=== PATIENT | male | born 1940 | race Caucasian/White ===

== ENCOUNTER 2016-08-10 05:46 | Day surgery (SDC) | payer MEDICARE, OTHER ==
[2016-08-07 14:10] VITALS: BMI 26.9
[2016-08-10] MEDS ORDERED: ASPIRIN 325 MG TAB PO STA (05:59)
[2016-08-10] MEDS ORDERED: ALPRAZolam 0.25 MG TAB PO PRN (05:59)
[2016-08-10] MEDS ORDERED: ATORVASTATIN 80 MG TAB PO STA (05:59)
[2016-08-10] MEDS ORDERED: SODIUM CHLORIDE 0.9% 1,000 ML in EMPTY BAG 1 BAG IV ONE (05:59)
[2016-08-10] MEDS ORDERED: NITROGLYCERIN SL TABS 0.4 MG TAB SUBLINGUAL PRN (05:59)
[2016-08-10] MEDS ORDERED: ALPRAZolam 0.5 MG TAB PO PRN (05:59)
[2016-08-10 06:25] VITALS: TEMP 97.7
[2016-08-10 06:53] LABS: Glucose,Whole Blood 125 mg/dL (75-99)
[2016-08-10] MEDS ORDERED: LIDOCAINE 2% INJ 20 MG/ML (20 ML MDV) ONE (07:16)
[2016-08-10] MEDS ORDERED: VERAPAMIL 2.5 MG/ML 2 ML AMP ONE (07:16)
[2016-08-10] MEDS ORDERED: fentaNYL (PF) 50 MCG/ML 2 ML AMP ONE (07:28)
[2016-08-10] MEDS ORDERED: fentaNYL (PF) 50 MCG/ML 2 ML AMP IV ONE (07:43)
[2016-08-10] MEDS ORDERED: LIDOCAINE 2% INJ 20 MG/ML SQ ONE (07:49)
[2016-08-10] MEDS ORDERED: VERAPAMIL SYRINGE (5 MG/10 ML) INTRAARTER ONE (07:51)
[2016-08-10] MEDS ORDERED: HEPARIN SODIUM 1,000 UNIT/ML VIAL ONE (07:52)
[2016-08-10] MEDS ORDERED: IOHEXOL 350 MG/ML 125ML BOTTLE INJ ONE (08:05)
[2016-08-10] MEDS ORDERED: RX INFO: IV CONTRAST WAS GIVEN 1 EACH MISC MISCELLANE PRN (08:25)
[2016-08-10] MEDS ORDERED: SODIUM CHLORIDE 0.9% 1,000 ML IV SCH (08:30)
[2016-08-10] MEDS ORDERED: ENALAPRIL MALEATE 20 MG PO SCH (09:00)
[2016-08-10] MEDS ORDERED: ISOSORBIDE MONONITRATE ER 30 MG TAB.ER.24H PO SCH (09:00)
[2016-08-10] MEDS ORDERED: ATORVASTATIN 40 MG TAB PO SCH (09:00)
[2016-08-10] MEDS ORDERED: ASPIRIN 81 MG CHEW PO SCH (09:00)
--- NOTE | 2016-08-10 09:19 | CC ---
DATE OF SERVICE: Mr. Teixeira is a 76-year-old male with known history of hypertension, diabetes mellitus, who since December has been having exertional chest discomfort. 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 The procedure as well as the risks and complications were discussed with the patient who is in full understanding and agreement. PROCEDURE: The patient was brought to the laboratory analyst in a fasting semi-sedated state after receiving fentanyl with Benadryl and achieving moderate conscious sedated state and using Xylocaine anesthesia and Seldinger technique, a 6 Finnish sheath was introduced in the right radial artery. Selective right and left coronary angiography was performed using 5 Finnish, 3-1/2 Bend right and left Azra catheters. Multiple views of the coronary arteries including hemiaxial views were obtained. Following that, a 5 Finnish tight pigtail catheter was introduced in the left ventricle, and a 30-degree CASTRO view of the left ventricle was obtained. Following that, catheter and sheath were removed. Hemostasis was obtained with deployment of a TR band. There was no immediate complication. The patient was returned to his room in stable condition. Of note, the patient received 5000 units of intravenous heparin as well as intra-arterial verapamil. FINDINGS: FLUOROSCOPY: There is calcification involving the left anterior descending artery and the proximal left circumflex. LEFT MAIN: This is a short-sized vessel bifurcating into the left circumflex and left anterior descending artery. Left main coronary artery has no evidence of high-grade stenosis. LEFT ANTERIOR DESCENDING ARTERY: This is a large-size vessel. The ostium of the left anterior descending artery has a 50% plaque. The mid LAD after takeoff of the septal community development specialist has a 99% stenosis. The rest of the vessel has mild intimal disease without any evidence of high-grade stenosis. LEFT CIRCUMFLEX: This is a nondominant vessel, large in caliber, giving rise to 2 obtuse marginal branches. The first obtuse marginal branch has mild intimal disease of 20% to 30%. The takeoff of the second obtuse marginal branch has a 95% stenosis. The rest of the vessel has no high-grade stenosis. RIGHT CORONARY ARTERY: This is a dominant vessel, moderate in caliber, giving rise distally to a PDA. The right coronary artery proximally has 2 tandem lesions up to 80%. The ( ) distal mid segment in the distal vessel there is intimal disease without any evidence of high-grade stenosis. LEFT VENTRICULOGRAM: The left ventriculogram was performed in 30-degree CASTRO view and revealed anteroapical hypokinesis. The ejection fraction was 45%. There was no significant mitral regurgitation. HEMODYNAMICS: There was no gradient across the aortic valve. The left ventricular end-diastolic pressure was 16 mmHg. CONCLUSION: 1. Calcified left anterior descending artery and proximal left circumflex. 2. Severe triple vessel coronary artery disease. 3. Mildly impaired left ventricular systolic function. RECOMMENDATIONS: In view of finding anatomy, I recommend to proceed with coronary artery bypass grafting, especially with the history of diabetes mellitus and the triple vessel coronary artery disease. Those findings and recommendations were discussed with the patient and his family and are in full understanding and agreement. Time of duration is 22 minutes.
--- NOTE | 2016-08-10 09:21 | LTR ---
August 10, 2016 FRANCINE MILLER MD RE: Ciro Teixeira Dear Dr. Miller: I had the opportunity to perform cardiac catheterization on Mr. Teixeira at [facility] on the july and a full copy of the procedure note will be forwarded to you. In brief, he was found to have severe triple vessel coronary artery disease with a preserved left ventricular size and systolic function. Based on those findings, I have recommended proceeding with evaluation for coronary artery bypass grafting. I will keep you up dated on his progress and thank you gain for allowing me the opportunity to participate in his care. Please feel free to call for any questions. Sincerely yours, DOT KHAN MD
[2016-08-10] MEDS ORDERED: MD COMMUNICATION TO PHARMACY 1 EACH MISC PO ONE ×4 (10:39)
[2016-08-10 10:43] LABS: Appearance,Urine Clear (Clear); Bilirubin,Urine Negative (Negative); Glucose,Urine (UA) Negative (Negative); Ketones,Urine Negative (Negative); Leukocyte Esterase,Urine Negative (Negative); Nitrite,Urine Negative (Negative); PH, Urine 5.5 (5.0-8.0); Protein,Urine Negative (Negative); UA Billing (MACRO vs. MICRO) CHEM; Urobilinogen,Urine <2.0 mg/dL (<2.0)
[2016-08-10 10:59] LABS: Basophils % (A) 1 %; CHCM 33.7; Eosinophils # (A) 0.1 k/uL (0-0.7); Eosinophils % (A) 2 %; HCT 46.1 % (39.0-53.0); HDW 2.86; HGB 15.4 gm/dL (13.0-17.5); Luc % (Auto) 2; Lymphocytes # (A) 1.2 k/uL (1.0-4.8); Lymphocytes % (A) 19 %; MCH 29.9 pg (25.0-35.0); MCHC 33.3 g/dL (31.0-37.0); MCV 89.6 fL (80.0-100.0); Mean Platelet Volume 9.5; Monocytes # (A) 0.3 k/uL (0-1.0); Monocytes % (A) 4 %; Neutrophils # (A) 4.5 k/uL (1.3-7.7); Neutrophils % (A) 72 %; RBC 5.15 m/uL (4.30-5.90); RDW 13.9 % (11.5-15.5); WBC 6.1 k/uL (3.8-10.6); WBC (Perox) 6.54
[2016-08-10 11:17] LABS: ALT 28 U/L (21-72); AST 15 U/L (17-59); Alkaline Phosphatase 66 U/L (38-126); Anion Gap 10 mmol/L; Bilirubin, Delta 0.3 mg/dL (0.0-0.2); Blood Urea Nitrogen 18 mg/dL (9-20); Calcium 8.9 mg/dL (8.4-10.2); Carbon Dioxide 26 mmol/L (22-30); Chloride 107 mmol/L (98-107); Glucose 166 mg/dL (74-99); Non-African American GFR(MDRD) >60 (>60 ml/min/1.73 sqM); Potassium 4.2 mmol/L (3.5-5.1); Sodium 143 mmol/L (137-145); Total Bilirubin 1.1 mg/dL (0.2-1.3); Total Protein 6.6 g/dL (6.3-8.2)
[2016-08-10 11:28] LABS: INR 1.1 (<1.1); Partial Thromboplastin Time 31.5 sec (22.0-30.0); Prothrombin Time 10.6 sec (9.0-12.0)
--- NOTE | 2016-08-10 11:50 | XR ---
EXAMINATION TYPE: XR chest 2V DATE OF EXAM: 08/10/2016 11:27 AM COMPARISON: 02/14/2013 INDICATION: Pre-CABG evaluation TECHNIQUE: Single frontal view of the chest is obtained. FINDINGS: The heart size is normal. The pulmonary vasculature is normal. The lungs are clear. IMPRESSION: 1. No acute pulmonary process.
[2016-08-10 12:23] VITALS: BP 109/65; PULSE 68; RESP 16
[2016-08-10 12:30] LABS: Cholesterol 144 mg/dL (<200); HDL Cholesterol 45 mg/dL (40-60); Magnesium 2.3 mg/dL (1.6-2.3); Triglycerides 110 mg/dL (<150)
[2016-08-10 13:20] LABS: Hepatitis C Virus IgG Index 0.01
[2016-08-10 13:47] LABS: Hepatitis C Virus IgG Ab Negative (Negative)
[2016-08-10 14:26] LABS: Hepatitis B Surface Ag Index 0.05
--- NOTE | 2016-08-10 14:29 | US ---
EXAMINATION TYPE: US carotid duplex BILAT DATE OF EXAM: 08/10/2016 10:29 AM COMPARISON: NONE CLINICAL HISTORY: pre-CABG. EXAM MEASUREMENTS: RIGHT: Peak Systolic Velocity (PSV) cm/sec ----- Right CCA: 65.3 ----- Right ICA: 68.0 ----- Right ECA: 82.7 ICA/CCA ratio: 1.0 RIGHT: End Diastole cm/sec ----- Right CCA: 7.8 ----- Right ICA: 20.9 ----- Right ECA: 0.0 LEFT: Peak Systolic Velocity (PSV) cm/sec ----- Left CCA: 79.1 ----- Left ICA: 72.3 ----- Left ECA: 99.5 ICA/CCA ratio: 0.9 LEFT: End Diastole cm/sec ----- Left CCA: 8.7 ----- Left ICA: 20.9 ----- Left ECA: 0.0 VERTEBRALS (direction of flow): Right Vertebral: Antegrade Left Vertebral: Antegrade No significant stenosis seen, no plaque seen, no elevated velocities. Mild intimal thickening present. Right carotid bulb IMPRESSION: No significant flow-limiting stenosis. Criteria for Assigning % of Stenosis / Diameter reduction (Estimation based on the indirect measurements of the internal carotid artery velocities (ICA PSV). 1. Normal (no stenosis)=ICA PSV < 125 cm/s: ratio < 2.0: ICA EDV<40 cm/s. 2. Less than 50% stenosis=ICA PSV < 125 cm/s: ratio < 2.0: ICA EDV<40 cm/s. 3. 50 to 69% stenosis=ICA PSV of 125 to 230 cm/s: ration 2.0 ? 4.0: ICA EDV 40-100 cm/s. 4. Greater than 70% stenosis to near occlusion= ICA PSV > 230 cm/s: ratio > 4.0: ICA EDV > 100 cm/s. 5. Near occlusion= ICA PSV velocities may be low or undetectable: variable ratio and ICA EDV. 6. Total occlusion=unable to detect flow.
[2016-08-10 14:32] LABS: Hepatitis B Core IgM Index 0.01
--- NOTE | 2016-08-10 16:06 | P.GSCN ---
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 He returns to the [place] on occasion. He states that he has been having chest pain on and off for several months now. He denies significant shortness of breath, radiation of the pain, fevers or chills. He saw his primary care physician on his most recent visit who referred him to Dr. Joel. A cardiac catheterization was performed today which revealed multivessel coronary artery disease. I was asked to evaluate him for treatment recommendations.. Review of Systems All systems: negative - Cardiovascular Reports chest pain Past Medical History Past Medical History: Cancer, Diabetes Mellitus, Hearing Disorder / Deafness, Hypertension, Prostate Disorder Additional Past Medical History / Comment(s): PROSTATE CA 2006. History of Any Multi-Drug Resistant Organisms: None Reported Past Surgical History: Appendectomy, Orthopedic Surgery, Prostate Surgery Additional Past Surgical History / Comment(s): Left upper extremity tendon repair. Past Anesthesia/Blood Transfusion Reactions: No Reported Reaction Past Psychological History: No Psychological Hx Reported Smoking Status: Former smoker Past Alcohol Use History: None Reported Additional Past Alcohol Use History / Comment(s): quit smoking age 26,started smoking at age 14. Past Drug Use History: None Reported - Past Family History Father Family Medical History: Cancer, Congestive Heart Failure (CHF) Additional Family Medical History / Comment(s): prostate Mother Family Medical History: Cancer Additional Family Medical History / Comment(s): breast Medications and Allergies Home Medications Medication Instructions Recorded Confirmed Type Aspirin 81 mg PO DAILY 09/10/14 08/10/16 History Enalapril Maleate [Vasotec] 20 mg PO DAILY 09/10/14 08/10/16 History glipiZIDE [Glucotrol] 5 mg PO AC-BID 09/10/14 08/10/16 History metFORMIN HCL [Glucophage] 500 mg PO BID 09/10/14 08/10/16 History Isosorbide Mononitrate ER [Imdur] 30 mg PO DAILY 08/10/16 08/10/16 History Allergies Allergy/AdvReac Type Severity Reaction Status Date / Time No Known Allergies Allergy Verified 08/07/16 14:04 Surgical - Exam Vital Signs Temp Pulse BP Pulse Ox 97.7 F 74 120/74 93 L 08/10/16 06:22 08/10/16 06:22 08/10/16 06:22 08/10/16 06:22 - General well developed, well nourished, no distress - Eyes normal ocular movement - Respiratory normal respiratory effort, clear to auscultation - Cardiovascular Rhythm: regular - Abdomen Abdomen: soft, non tender - Integumentary no rash - Neurologic normal coordination, normal sensation - Psychiatric oriented to time, oriented to person, oriented to place Results - Labs 08/10/16 10:46 08/10/16 10:46 Abnormal Lab Results - Last 24 Hours (Table) 08/10/16 08/10/16 08/10/16 Range/Units 06:27 10:25 10:35 APTT (22.0-30.0) sec Glucose (74-99) mg/dL POC Glucose (mg/dL) 125 H (75-99) mg/dL Hemoglobin A1c (4.2-6.1) % Delta Bilirubin (0.0-0.2) mg/dL AST (17-59) U/L Ur Specific [place] 1.050 H (1.001-1.035) Crossmatch See Detail 08/10/16 08/10/16 08/10/16 Range/Units 10:46 10:46 10:46 APTT 31.5 H (22.0-30.0) sec Glucose 166 H (74-99) mg/dL POC Glucose (mg/dL) (75-99) mg/dL Hemoglobin A1c 6.8 H (4.2-6.1) % Delta Bilirubin 0.3 H (0.0-0.2) mg/dL AST 15 L (17-59) U/L Ur Specific Pullman (1.001-1.035) Crossmatch Microbiology - Last 24 Hours (Table) 08/10/16 10:46 Nasal Screen MRSA/MSSA (SYDNEE) - Preliminary Nasal Swab 08/10/16 10:25 Urine Culture - Preliminary Urine,Voided Diabetes panel 08/10/16 08/10/16 Range/Units 10:46 10:46 Sodium 143 (137-145) mmol/L Potassium 4.2 (3.5-5.1) mmol/L Chloride 107 (98-107) mmol/L Carbon Dioxide 26 (22-30) mmol/L BUN 18 (9-20) mg/dL Creatinine 0.88 (0.66-1.25) mg/dL Glucose 166 H (74-99) mg/dL Hemoglobin A1c 6.8 H (4.2-6.1) % Calcium 8.9 (8.4-10.2) mg/dL AST 15 L (17-59) U/L ALT 28 (21-72) U/L Alkaline Phosphatase 66 (38-126) U/L Total Protein 6.6 (6.3-8.2) g/dL Albumin 4.1 (3.5-5.0) g/dL Triglycerides 110 (<150) mg/dL HDL Cholesterol 45 (40-60) mg/dL Thyroid panel 08/10/16 Range/Units 10:46 TSH 4.120 (0.465-4.680) mIU/L Calcium panel 08/10/16 Range/Units 10:46 Calcium 8.9 (8.4-10.2) mg/dL Albumin 4.1 (3.5-5.0) g/dL Pituitary panel 08/10/16 Range/Units 10:46 Sodium 143 (137-145) mmol/L Potassium 4.2 (3.5-5.1) mmol/L Chloride 107 (98-107) mmol/L Carbon Dioxide 26 (22-30) mmol/L BUN 18 (9-20) mg/dL Creatinine 0.88 (0.66-1.25) mg/dL Glucose 166 H (74-99) mg/dL Calcium 8.9 (8.4-10.2) mg/dL TSH 4.120 (0.465-4.680) mIU/L Adrenal panel 08/10/16 Range/Units 10:46 Sodium 143 (137-145) mmol/L Potassium 4.2 (3.5-5.1) mmol/L Chloride 107 (98-107) mmol/L Carbon Dioxide 26 (22-30) mmol/L BUN 18 (9-20) mg/dL Creatinine 0.88 (0.66-1.25) mg/dL Glucose 166 H (74-99) mg/dL Calcium 8.9 (8.4-10.2) mg/dL Total Bilirubin 1.1 (0.2-1.3) mg/dL AST 15 L (17-59) U/L ALT 28 (21-72) U/L Alkaline Phosphatase 66 (38-126) U/L Total Protein 6.6 (6.3-8.2) g/dL Albumin 4.1 (3.5-5.0) g/dL - Imaging Chest x-ray: image reviewed Assessment and Plan (1) Coronary artery disease Status: Acute Plan: The patient's cardiac catheterization was reviewed with Dr. Joel. He does appear to have targets suitable for bypass. A coronary artery bypass is recommended. The risks, benefits, and alternatives to this procedure were discussed with the patient and his . All of their questions were answered. At this point he has been having chest pain for several months but it appears to be stable. His cardiac catheterization does not reveal any unstable lesions. I do believe it is safe for him to be discharged home with plans for surgery next week. We will obtain the necessary preoperative workup this morning. Thank you for allowing me to participate in the care of this patient. Should you have any further questions please feel free to contact me at your earliest convenience. Time with Patient: Greater than 30
[2016-08-10] MEDS ORDERED: glipiZIDE 5 MG TAB PO SCH (17:30)
[2016-08-15] MEDS ORDERED: MANNITOL 25% 12.5 GM/50 ML VIAL IV ONE (05:00)
[2016-08-15] MEDS ORDERED: ceFAZolin 1,000 MG in SODIUM CHLORIDE 0.9% IRRIGATIO 1,000 ML IRRIGATION ONE (05:00)
[2016-08-15] MEDS ORDERED: HEPARIN SODIUM 1,000 UNIT/ML VIAL IV ONE (05:00)
[2016-08-15] MEDS ORDERED: CARDIOPLEGIC SOLN (K+ 16 MEQ/L 1,000 ML with SODIUM BICARB (1 MEQ/ML) 20 ML, LIDOCAINE ... PERFUSION NR ×3 (05:00)
[2016-08-15] MEDS ORDERED: CLEVIDIPINE BUTYRATE 25 MG in EMPTY BAG 1 BAG IV ONE (05:00)
[2016-08-15] MEDS ORDERED: PROTAMINE SULFATE 10 MG/ML 25 ML VIAL IV ONE (05:00)
[2016-08-15] MEDS ORDERED: PROTAMINE SULFATE 250 MG in EMPTY BAG 1 BAG IV ONE (05:00)
[2016-08-15] MEDS ORDERED: NITROGLYCERIN-D5W PMX 50 MG in DEXTROSE/WATER 1 250ML.BAG IV ONE (05:00)
[2016-08-15] MEDS ORDERED: INSULIN REGULAR 100 UNIT in SODIUM CHLORIDE 0.9% 100 ML IV ONE (05:00)
[2016-08-15] MEDS ORDERED: CALCIUM CHLORIDE 100 MG/ML 10 ML SYRINGE IVP ONE (05:00)
[2016-08-15] MEDS ORDERED: AMINOCAPROIC ACID 5,000 MG in DEXTROSE 5% IN WATER 50 ML IV ONE ×2 (05:00)
[2016-08-15] MEDS ORDERED: NOREPINEPHRIN 4 MG-0.9% NS PMX 4 MG/250 ML ML IV SCH (05:00)
[2016-08-15] MEDS ORDERED: METOPROLOL TARTRATE 12.5 MG TAB PO ONE (05:00)
[2016-08-15] MEDS ORDERED: ceFAZolin 2,000 MG in SODIUM CHLORIDE 0.9% 30 ML IVPB ONE (05:00)
[2016-08-15] MEDS ORDERED: MAGNESIUM SULFATE SYG 4.06 MEQ/ML SYRINGE IV ONE (05:00)
[2016-08-15] MEDS ORDERED: HEPARIN SODIUM,PORCINE 5,000 UNIT in SODIUM CHLORIDE 0.9% 500 ML IV ONE (05:00)
[2016-08-15] MEDS ORDERED: CHLORHEXIDINE GLUCONATE 15 ML CUP MUCOUS MEM ONE (05:00)
[2016-08-15] MEDS ORDERED: DEXTROSE 5% IN WATER 1,000 ML with POTASSIUM CHLORIDE 25 MEQ, SODIUM CHLORIDE 4MEQ/ML V... IV SCH ×6 (05:00)
[2016-08-15] MEDS ORDERED: ALBUMIN HUMAN 25% 50 ML in EMPTY BAG 1 BAG IVPB ONE (05:00)
[2016-08-15] MEDS ORDERED: ALBUMIN HUMAN 5% 500 ML in EMPTY BAG 1 BAG IVPB ONE ×6 (05:00)
[2016-08-15] MEDS ORDERED: DEXTROSE 5% IN WATER 1,000 ML with POTASSIUM CHLORIDE 110 MEQ, MAGNESIUM SULFATE 16 MEQ... IV SCH ×5 (05:00)
[2016-08-15] MEDS ORDERED: ceFAZolin 2 GM in SODIUM CHLORIDE 0.9% 30 ML IVPB ONE (05:00)
[2016-08-15] MEDS ORDERED: NITROGLYCERIN-D5W PMX 25 MG/250 ML BTL IV ONE (05:00)
[2016-08-15] MEDS ORDERED: ATORVASTATIN 10 MG TAB PO ONE (05:00)
[2016-08-15] MEDS ORDERED: PHENYLEPHRINE-0.9% NACL SYG 1 MG/10 ML SYRINGE IV ONE ×4 (05:00)
[2016-08-15] MEDS ORDERED: SODIUM BICARB 8.4% 50 ML SYR (1 MEQ/ML) IV ONE (05:00)
[2016-08-15] MEDS ORDERED: PROPOFOL 500 MG in EMPTY BAG 1 BAG IV ONE (05:00)
[2016-08-15] MEDS ORDERED: ASPIRIN 81 MG CHEW PO SCH (06:00)
--- NOTE | 2016-08-15 11:11 | P.VSCSTY ---
Greater Saphenous Vein Mapping This is bilateral lower extremity greater saphenous vein mapping. Date of service 08/10/2016 Vein quality and ultrasound appearance normal. Vein size groin right 7.4 x 7.6 groin left 7.6 x 7.4 High thigh right 6.2 x 6.6 high thigh left 8.2 x 5.8 Mid thigh right 5.4 x 5.6 mid thigh left 5.5 x 5.8 Above-knee right 5.0 x 4.8 above- knee left 5.9 x 5.4 Below knee right 3.1 x 2.9 below-knee left 5.6 x 5.3 Mid calf right 3.3 x 2.5 mid calf left 3.4 x 3.3 Ankle right 4.0 x 3.0 ankle left 4.4 x 3.8 Impression usable bilateral greater saphenous vein. Mid thigh to lower leg more size appropriate for coronaries..
== END 2016-08-10 13:11 | disposition home or self-care (01) ==
LOC: CATHCVL 05:46
PROVIDERS: ATTEND Internal Medicine Interventional Cardiology
DX: I25.110 Atherosclerotic heart disease of native coronary artery with unstable angina pectoris (principal); I10 Essential (primary) hypertension; Z87.891 Personal history of nicotine dependence; Z01.818 Encounter for other preprocedural examination; Z82.49 Family history of ischemic heart disease and other diseases of the circulatory system; E11.9 Type 2 diabetes mellitus without complications; Z79.84 Long term (current) use of oral hypoglycemic drugs
CPT/HCPCS: 94150; 93458; 83880; 80061; 80053; 80076; 80074; 84443; 83735; 84484; 85025; 85610; 85730; 81003; 87070; 87086; 71020; 93970; 93880; 99152; 99153; C1894; C1769; J2001; J3010; J1644; Q9967; 83036; 86850; 86900; 86901; 86920

== ENCOUNTER 2016-08-15 07:05 | Inpatient (IN) | payer MEDICARE ==
[2016-08-10 14:18] LABS: Hemoglobin A1C 6.8 % (4.2-6.1)
[2016-08-13 10:48] VITALS: BMI 26.9
[~2016-08-15 07:05] MED LIST: ALBUMIN HUMAN 25% 50 ML IV ONE; ALBUMIN HUMAN 5% 500 ML IVPB ONE; AMINOCAPROIC ACID 250 MG/ML 20 ML VIAL IV ONE; AMINOCAPROIC ACID 5,000 MG in DEXTROSE 5% IN WATER 50 ML IV ONE; ASPIRIN 325 MG TAB PO ONE; ATORVASTATIN 10 MG TAB PO ONE; CALCIUM CHLORIDE 100 MG/ML 10 ML SYRINGE IV ONE; CHLORHEXIDINE GLUCONATE 15 ML CUP MUCOUS MEM ONE; CLEVIDIPINE BUTYRATE 25 MG in EMPTY BAG 1 BAG IV ONE; DEXTROSE 5% IN WATER 1,000 ML with POTASSIUM CHLORIDE 110 MEQ, MAGNESIUM SULFATE 16 MEQ... IV ONE; DEXTROSE 5% IN WATER 1,000 ML with POTASSIUM CHLORIDE 25 MEQ, SODIUM CHLORIDE 4MEQ/ML V... IV ONE; DILTIAZEM 125 MG in SODIUM CHLORIDE 0.9% 100 ML IV ONE; HEPARIN SODIUM 1,000 UNIT/ML VIAL IV ONE; HEPARIN SODIUM,PORCINE 5,000 UNIT in SODIUM CHLORIDE 0.9% 500 ML IV ONE; INSULIN REGULAR 100 UNIT in SODIUM CHLORIDE 0.9% 100 ML IV ONE; LACTATED RINGERS 1,000 ML IV ONE; MAGNESIUM SULFATE MG 500 MG/ML VIAL IV ONE; MANNITOL 25% 12.5 GM/50 ML VIAL IV ONE; METOPROLOL TARTRATE 12.5 MG TAB PO ONE; MUPIROCIN 2% OINT 22 GM TUBE NASAL ONE; NITROGLYCERIN-D5W PMX 25 MG/250 ML BTL IV ONE; NITROGLYCERIN-D5W PMX 50 MG in DEXTROSE/WATER 1 250ML.BAG IV ONE; NOREPINEPHRIN 4 MG-0.9% NS PMX 4 MG/250 ML ML IV ONE; PHENYLEPHRINE 40 MG in SODIUM CHLORIDE 0.9% 250 ML IV ONE; PHENYLEPHRINE-0.9% NACL SYG 1 MG/10 ML SYRINGE IV ONE; PROPOFOL 50 ML IV ONE; PROTAMINE SULFATE 10 MG/ML 25 ML VIAL IV ONE; PROTAMINE SULFATE 250 MG in EMPTY BAG 1 BAG IV ONE; SODIUM BICARB 8.4% 50 ML SYR (1 MEQ/ML) IV ONE; SODIUM CHLORIDE 0.9% 1,000 ML IV ONE; ceFAZolin 1,000 MG in SODIUM CHLORIDE 0.9% IRRIGATIO 1,000 ML IRRIGATION ONE; ceFAZolin 2,000 MG in SODIUM CHLORIDE 0.9% 30 ML IVPB ONE
[2016-08-15 07:22] LABS: Glucose,Whole Blood 134 mg/dL (75-99)
[2016-08-15] MEDS ORDERED: PROTAMINE SULFATE 10 MG/ML 5 ML VIAL IV ONE (10:16)
[2016-08-15] MEDS ORDERED: MIDAZOLAM 2 MG/2 ML VIAL ONE (10:16)
[2016-08-15] MEDS ORDERED: PROTAMINE SULFATE 10 MG/ML 25 ML VIAL IV ONE (10:16)
[2016-08-15] MEDS ORDERED: PROPOFOL 10 MG/ML 20 ML VIAL IV ONE (10:16)
[2016-08-15] MEDS ORDERED: HEPARIN SODIUM,PORCINE 10,000 UNIT/ML 1 ML VIAL ONE (10:16)
[2016-08-15] MEDS ORDERED: SODIUM CHLORIDE 0.9% IRRIG 1,000 ML BTL IRRIGATION ONE (10:16)
[2016-08-15] MEDS ORDERED: ELECTROLYTE-R (PH 7.4) 1,000 ML IV.SOLN IV ONE (10:16)
[2016-08-15] MEDS ORDERED: fentaNYL (PF) 50 MCG/ML 50 ML VIAL ONE (10:16)
[2016-08-15] MEDS ORDERED: CALCIUM CHLORIDE 100 MG/ML 10 ML SYRINGE ONE (10:16)
[2016-08-15] MEDS ORDERED: fentaNYL (PF) 50 MCG/ML 2 ML AMP ONE (10:16)
[2016-08-15] MEDS ORDERED: HEPARIN SODIUM 1,000 UNIT/ML VIAL ONE (10:16)
[2016-08-15] MEDS ORDERED: LIDOCAINE 2% SYG (PF) 100 MG/5 ML ONE (10:16)
[2016-08-15] MEDS ORDERED: VECURONIUM 10 MG VIAL IV ONE (10:16)
[2016-08-15] MEDS ORDERED: ALBUMIN HUMAN 5% 500 ML VIAL IVPB ONE (10:16)
[2016-08-15 11:17] LABS: Glucose,Whole Blood 151 mg/dL (75-99)
[2016-08-15 12:31] LABS: Glucose,Whole Blood 140 mg/dL (75-99)
[2016-08-15 14:17] LABS: Glucose,Whole Blood 211 mg/dL (75-99)
[2016-08-15 14:57] LABS: Glucose,Whole Blood 249 mg/dL (75-99)
[2016-08-15 15:31] LABS: Glucose,Whole Blood 250 mg/dL (75-99)
[2016-08-15] MEDS ORDERED: CLEVIDIPINE BUTYRATE 25 MG in EMPTY BAG 1 BAG IV SCH (17:00)
[2016-08-15] MEDS ORDERED: CALCIUM GLUCONATE 2,000 MG in SODIUM CHLORIDE 0.9% 100 ML IVPB PRN (17:00)
[2016-08-15] MEDS ORDERED: Phosphorus Replacement Protoco 1 EACH MISC MISCELLANE PRN (17:00)
[2016-08-15] MEDS ORDERED: NITROGLYCERIN-D5W PMX 50 MG in DEXTROSE/WATER 1 250ML.BAG IV SCH (17:00)
[2016-08-15] MEDS ORDERED: BENZOCAINE/MENTHOL LOZENG 1 EACH LOZENGE MUCOUS MEM PRN (17:00)
[2016-08-15] MEDS ORDERED: MORPHINE SULFATE 2 MG/ML SYRINGE IVP PRN (17:00)
[2016-08-15] MEDS ORDERED: Potassium Replacement Protocol 1 EACH MISC MISCELLANE PRN (17:00)
[2016-08-15] MEDS ORDERED: METOCLOPRAMIDE 5 MG/ML 2 ML VIAL IVP PRN (17:00)
[2016-08-15] MEDS ORDERED: Magnesium Replacement Protocol 1 EACH MISC MISCELLANE PRN (17:00)
[2016-08-15] MEDS ORDERED: ALBUMIN HUMAN 5% 250 ML in EMPTY BAG 1 BAG IVPB PRN (17:00)
[2016-08-15 17:05] LABS: Glucose,Whole Blood 203 mg/dL (75-99)
[2016-08-15 17:44] LABS: Glucose,Whole Blood 185 mg/dL (75-99)
[2016-08-15] MEDS: LACTATED RINGERS 1,000 ML IV SCH (17:56)
[2016-08-15] MEDS: INSULIN REGULAR 100 UNIT in SODIUM CHLORIDE 0.9% 100 ML IV SCH (17:57)
[2016-08-15 18:00] LABS: Basophils % (A) 0 %; CH 30.1; CHCM 33.7; Eosinophils # (A) 0.1 k/uL (0-0.7); Eosinophils % (A) 1 %; HCT 34.4 % (39.0-53.0); HDW 2.79; Luc # (Auto) 0.04; Luc % (Auto) 1; Lymphocytes # (A) 0.5 k/uL (1.0-4.8); Lymphocytes % (A) 6 %; MCH 30.5 pg (25.0-35.0); MCHC 33.9 g/dL (31.0-37.0); MCV 89.9 fL (80.0-100.0); Mean Platelet Volume 10.8; Monocytes # (A) 0.3 k/uL (0-1.0); Monocytes % (A) 4 %; Neutrophils # (A) 7.8 k/uL (1.3-7.7); Neutrophils % (A) 89 %; RBC 3.83 m/uL (4.30-5.90); RDW 13.8 % (11.5-15.5); WBC 8.8 k/uL (3.8-10.6); WBC (Perox) 9.15
[2016-08-15 18:01] LABS: INR 1.3 (<1.1); Partial Thromboplastin Time 31.8 sec (22.0-30.0)
[2016-08-15 18:03] LABS: HGB 11.7 gm/dL (13.0-17.5)
[2016-08-15] MEDS: PROPOFOL 500 MG in EMPTY BAG 1 BAG IV SCH ×3 (18:03→23:23)
[2016-08-15 18:04] LABS: ALT 29 U/L (21-72); AST 25 U/L (17-59); Alkaline Phosphatase 31 U/L (38-126); Anion Gap 6 mmol/L; Blood Urea Nitrogen 17 mg/dL (9-20); Calcium 7.8 mg/dL (8.4-10.2); Carbon Dioxide 23 mmol/L (22-30); Chloride 110 mmol/L (98-107); Glucose 176 mg/dL (74-99); Magnesium 2.6 mg/dL (1.6-2.3); Non-African American GFR(MDRD) >60 (>60 ml/min/1.73 sqM); Potassium 4.3 mmol/L (3.5-5.1); Sodium 139 mmol/L (137-145); Total Bilirubin 1.3 mg/dL (0.2-1.3); Total Protein 4.5 g/dL (6.3-8.2)
[2016-08-15 18:21] LABS: ABG PCO2 39 mmHg (35-45); ABG PH 7.39 (7.35-7.45)
[2016-08-15 18:22] LABS: ABG Base Excess -1.3 mmol/L; ABG HCO3 23 mmol/L (21-25); ABG PO2 372 mmHg (83-108); ABG TCO2 24 mmol/L (19-24)
[2016-08-15] MEDS: ACETAMINOPHEN IV (For NPO) 1,000 MG in EMPTY BAG 1 BAG IVPB SCH ×2 (18:23→23:26)
[2016-08-15 18:24] LABS: Glucose,Whole Blood 183 mg/dL (75-99)
--- NOTE | 2016-08-15 19:17 | XR ---
EXAMINATION TYPE: XR chest 1V portable DATE OF EXAM: 08/15/2016 7:03 PM COMPARISON: 08/10/2016 HISTORY: Postop TECHNIQUE: Single frontal view of the chest is obtained. FINDINGS: Endotracheal tube is in good position. There is a nasogastric tube that appears in good po sition. There is right jugular catheter with the tip in the right pulmonary artery. There is no pneum othorax. There is a left chest tube. Lungs are clear of consolidation. There is some atelectasis in t he left midlung. There is no heart failure. IMPRESSION: Mild atelectasis in the left midlung. No pneumothorax. Tubing appears in good position.
[2016-08-15 19:27] LABS: Glucose,Whole Blood 187 mg/dL (75-99)
[2016-08-15] MEDS: IPRATROPIUM-ALBUTEROL 3 ML NEB INHALATION SCH ×2 (20:08→23:39)
[2016-08-15 20:20] LABS: Basophils % (A) 0 %; CH 30.1; CHCM 33.7; Eosinophils % (A) 0 %; HCT 31.8 % (39.0-53.0); HDW 2.82; HGB 10.8 gm/dL (13.0-17.5); Luc # (Auto) 0.04; Luc % (Auto) 1; Lymphocytes # (A) 0.5 k/uL (1.0-4.8); Lymphocytes % (A) 6 %; MCH 30.6 pg (25.0-35.0); MCHC 34.1 g/dL (31.0-37.0); MCV 89.7 fL (80.0-100.0); Mean Platelet Volume 9.2; Monocytes # (A) 0.3 k/uL (0-1.0); Monocytes % (A) 4 %; Neutrophils # (A) 7.8 k/uL (1.3-7.7); Neutrophils % (A) 90 %; RBC 3.54 m/uL (4.30-5.90); RDW 13.9 % (11.5-15.5); WBC 8.7 k/uL (3.8-10.6)
[2016-08-15 20:23] LABS: Glucose,Whole Blood 192 mg/dL (75-99)
[2016-08-15 20:31] LABS: Anion Gap 7 mmol/L; Blood Urea Nitrogen 17 mg/dL (9-20); Calcium 7.7 mg/dL (8.4-10.2); Carbon Dioxide 24 mmol/L (22-30); Chloride 108 mmol/L (98-107); Glucose 161 mg/dL (74-99); Non-African American GFR(MDRD) >60 (>60 ml/min/1.73 sqM); Potassium 4.4 mmol/L (3.5-5.1); Sodium 139 mmol/L (137-145)
[2016-08-15 21:04] LABS: Glucose,Whole Blood 155 mg/dL (75-99)
[2016-08-15] MEDS: MUPIROCIN 2% OINT 22 GM TUBE NASAL SCH (21:30)
--- NOTE | 2016-08-15 21:41 | P.CNPUL ---
History of Present Illness Consult date: 08/15/16 Requesting physician: Brian Hemphill Reason for consult: other (Status post CABG, patient is on mechanical ventilation.) Chief complaint: Status post CABG History of present illness: This is a 76-year-old white male with history of diabetes, hypertension, prostate cancer, patient was recently evaluated for intermittent episodes of chest pain for the last few months. Patient has no shortness of breath, no radiation of the pain, no fevers, no chills, recent cardiac catheterization showed multivessel coronary artery disease. Hence the patient was seen by cardiac surgery on 08/10/2016, and he was scheduled for elective myocardial revascularization which was done today on 08/15/2016. Postoperatively, patient was on mechanical ventilation, and I was asked to see him on consultation. Present vent settings are assist control of 12, FiO2 of 50%, tidal volume of 600 , and PEEP of 8. Patient is presently sedated, on mechanical ventilation, and the main issue seems to be postoperative bleeding which is being addressed by cardiac surgery. Review of Systems ROS unobtainable: due to endotracheal tube Past Medical History Past Medical History: Cancer, Chest Pain / Angina, Diabetes Mellitus, Hearing Disorder / Deafness, Hypertension, Prostate Disorder Additional Past Medical History / Comment(s): PROSTATE CA 2006. History of Any Multi-Drug Resistant Organisms: None Reported Past Surgical History: Appendectomy, Heart Catheterization, Orthopedic Surgery, Prostate Surgery Additional Past Surgical History / Comment(s): left arm ligament repair Past Anesthesia/Blood Transfusion Reactions: No Reported Reaction Past Psychological History: No Psychological Hx Reported Smoking Status: Former smoker Past Alcohol Use History: None Reported Additional Past Alcohol Use History / Comment(s): quit smoking age 26,started smoking at age 14. Past Drug Use History: None Reported - Past Family History Father Family Medical History: Cancer, Congestive Heart Failure (CHF) Additional Family Medical History / Comment(s): prostate Mother Family Medical History: Cancer Additional Family Medical History / Comment(s): breast Medications and Allergies Home Medications Medication Instructions Recorded Confirmed Type Aspirin 81 mg PO DAILY 09/10/14 08/15/16 History Enalapril Maleate [Vasotec] 20 mg PO DAILY 09/10/14 08/15/16 History glipiZIDE [Glucotrol] 5 mg PO AC-BID 09/10/14 08/15/16 History metFORMIN HCL [Glucophage] 500 mg PO BID 09/10/14 08/15/16 History Isosorbide Mononitrate ER [Imdur] 30 mg PO DAILY 08/10/16 08/15/16 History Allergies Allergy/AdvReac Type Severity Reaction Status Date / Time No Known Allergies Allergy Verified 08/13/16 10:45 Physical Exam Vitals: Vital Signs Temp Pulse Pulse Resp BP BP BP 08/15/16 21:00 97.7 F 80 12 08/15/16 20:49 80 08/15/16 20:45 80 12 08/15/16 20:30 80 08/15/16 20:28 96.8 F L 81 23 108/51 08/15/16 20:27 96.8 F L 80 12 106/50 08/15/16 20:15 96.8 F L 81 08/15/16 20:10 81 08/15/16 20:03 96.8 F L 81 12 107/50 08/15/16 20:00 96.8 F L 79 08/15/16 19:53 96.8 F L 81 12 105/49 08/15/16 19:50 79 08/15/16 19:40 81 08/15/16 19:30 80 08/15/16 19:20 78 08/15/16 19:00 96.8 F L 76 12 08/15/16 18:45 75 12 08/15/16 18:30 76 08/15/16 18:01 85.7 F L 76 12 122/53 08/15/16 18:00 95.5 F L 75 12 08/15/16 17:51 95.5 F L 77 12 108/49 08/15/16 17:30 95.5 F L 76 12 08/15/16 17:00 08/15/16 07:18 97.0 F L 68 16 139/93 138/83 BP Pulse Ox 08/15/16 21:00 100 08/15/16 20:49 08/15/16 20:45 100 08/15/16 20:30 100 08/15/16 20:28 08/15/16 20:27 08/15/16 20:15 100 08/15/16 20:10 08/15/16 20:03 08/15/16 20:00 100 08/15/16 19:53 08/15/16 19:50 100 08/15/16 19:40 100 08/15/16 19:30 100 08/15/16 19:20 100 08/15/16 19:00 100 08/15/16 18:45 100 08/15/16 18:30 100 08/15/16 18:01 100 08/15/16 18:00 111/48 100 08/15/16 17:51 100 08/15/16 17:30 100 08/15/16 17:00 100 08/15/16 07:18 96 Intake and Output 08/15/16 08/15/16 08/15/16 06:59 14:59 22:59 Intake Total 1125.912 Output Total 3775 981 Balance -3775 144.912 Intake: IV 78 0.9NS Pressure Bag 18 Cardiac Output 60 Intake, IV Titration 287.912 Amount ACETAMINOPHEN IV (For NPO 100 ) 1,000 mg In Empty Bag 1 bag @ 400 mls/hr IVPB Q6HR [facility] Rx#:[id number] Insulin Regular 100 unit 14.612 In Sodium Chloride 0.9% 100 ml @ Per Protocol IV .Q0M [facility]IK[facility] Rx#:[id number] Lactated Ringers 1,000 ml 125 @ 50 mls/hr IV .Q20H [facility] Rx#:[id number] Propofol 500 mg In Empty 48.300 Bag 1 bag @ Titrate IV . Q0M [facility] Rx#:[id number] Blood Product 760 Ffp 24 Cp2d Unit 237 [id number] Ffp 24 Cpd Unit 323 [id number] Platelet Pheresis Acda3 200 Unit [id number] Output: Chest Tube Drainage 626 Left Lateral Chest 480 Mediastinal 146 Urine 975 355 Estimated Blood Loss 2800 Other: Voiding Method Indwelling Catheter Weight 96.6 kg Patient Weight 08/16/16 06:59 Weight 96.6 kg ABP, PAP, CO, CI - Last 8 Hours Arterial Blood Pressure 104/49 Arterial Blood Pressure 103/50 Arterial Blood Pressure 106/50 Arterial Blood Pressure 110/50 Arterial Blood Pressure 104/50 Arterial Blood Pressure 105/42 Arterial Blood Pressure 108/51 Arterial Blood Pressure 112/52 Arterial Blood Pressure 108/50 Arterial Blood Pressure 107/51 Arterial Blood Pressure 117/57 Arterial Blood Pressure 124/59 Arterial Blood Pressure 113/54 Arterial Blood Pressure 100/48 Pulmonary Artery Pressure 25/14 Pulmonary Artery Pressure 23/13 Pulmonary Artery Pressure 21/12 Pulmonary Artery Pressure 25/14 Pulmonary Artery Pressure 25/14 Pulmonary Artery Pressure 25/13 Pulmonary Artery Pressure 25/13 Pulmonary Artery Pressure 26/14 Pulmonary Artery Pressure 26/14 Pulmonary Artery Pressure 24/13 Pulmonary Artery Pressure 26/13 Pulmonary Artery Pressure 27/14 Pulmonary Artery Pressure 27/14 Pulmonary Artery Pressure 27/14 Pulmonary Artery Pressure 24/12 Cardiac Output 5.1 Cardiac Output 5.1 Cardiac Output 5.1 Cardiac Output 5.1 Cardiac Output 4.7 Cardiac Output 4.7 Cardiac Output 4.7 Cardiac Output 4.7 Cardiac Output 4.7 Cardiac Output 4.3 Cardiac Output 4.3 Cardiac Output 4.3 Cardiac Output 4.3 Cardiac Output 4.4 Cardiac Output 4.4 Cardiac Index 2.2 Cardiac Index 2.2 Cardiac Index 2.1 Cardiac Index 1.9 Cardiac Index 1.9 Physical Exam: Revealed a 76-year-old white male intubated, sedated, on mechanical ventilation, endotracheal tube is intact, in no distress. HEENT:[Neck is supple.] [No neck masses.] [No thyromegaly.] [No JVD.] Endotracheal tube is intact, Chest: [Clear throughout, no crackles, no rhonchi, no wheezes.] Cardiac Exam: [Normal S1 and S2, no S3 gallop, no murmur.] Abdomen: [Soft, nontender, no megaly, no rebound, no guarding, normal bowel sounds.] Extremities: [No clubbing, no edema, no cyanosis.] Neurological Exam: [Cannot be assessed, patient is sedated on mechanical ventilation. Results - Laboratory Findings CBC and BMP: 08/15/16 20:00 08/15/16 20:00 ABG ABG pH 7.39 (7.35-7.45) 08/15/16 18:04 ABG pCO2 39 mmHg (35-45) 08/15/16 18:04 ABG pO2 372 mmHg (83-108) H 08/15/16 18:04 ABG O2 Saturation 100.0 % (94-97) H 08/15/16 18:04 PT/INR, D-dimer PT 13.0 sec (9.0-12.0) H 08/15/16 17:45 INR 1.3 (<1.1) 08/15/16 17:45 Abnormal lab findings: Abnormal Labs 08/10/16 08/10/16 08/15/16 10:35 10:46 07:20 RBC Hgb Hct Plt Count Neutrophils # Lymphocytes # PT APTT Fibrinogen ABG pO2 ABG O2 Saturation Chloride Creatinine Glucose POC Glucose (mg/dL) 134 H Hemoglobin A1c 6.8 H Calcium Magnesium Alkaline Phosphatase Total Protein Albumin Crossmatch See Detail 08/15/16 08/15/16 08/15/16 11:13 12:17 13:54 RBC Hgb Hct Plt Count Neutrophils # Lymphocytes # PT APTT Fibrinogen ABG pO2 ABG O2 Saturation Chloride Creatinine Glucose POC Glucose (mg/dL) 151 H 140 H 211 H Hemoglobin A1c Calcium Magnesium Alkaline Phosphatase Total Protein Albumin Crossmatch 08/15/16 08/15/16 08/15/16 14:43 15:29 16:51 RBC Hgb Hct Plt Count Neutrophils # Lymphocytes # PT APTT Fibrinogen ABG pO2 ABG O2 Saturation Chloride Creatinine Glucose POC Glucose (mg/dL) 249 H 250 H 203 H Hemoglobin A1c Calcium Magnesium Alkaline Phosphatase Total Protein Albumin Crossmatch 08/15/16 08/15/16 08/15/16 17:41 17:45 17:45 RBC 3.83 L Hgb 11.7 L D Hct 34.4 L Plt Count 85 L D Neutrophils # 7.8 H Lymphocytes # 0.5 L PT APTT Fibrinogen ABG pO2 ABG O2 Saturation Chloride 110 H Creatinine 0.64 L Glucose 176 H POC Glucose (mg/dL) 185 H Hemoglobin A1c Calcium 7.8 L Magnesium 2.6 H Alkaline Phosphatase 31 L Total Protein 4.5 L Albumin 2.8 L Crossmatch 08/15/16 08/15/16 08/15/16 17:45 17:45 18:04 RBC Hgb Hct Plt Count Neutrophils # Lymphocytes # PT 13.0 H APTT 31.8 H Fibrinogen 100 L* ABG pO2 372 H ABG O2 Saturation 100.0 H Chloride Creatinine Glucose POC Glucose (mg/dL) Hemoglobin A1c Calcium Magnesium Alkaline Phosphatase Total Protein Albumin Crossmatch 08/15/16 08/15/16 08/15/16 18:22 19:24 20:00 RBC Hgb Hct Plt Count Neutrophils # Lymphocytes # PT APTT Fibrinogen ABG pO2 ABG O2 Saturation Chloride 108 H Creatinine 0.61 L Glucose 161 H POC Glucose (mg/dL) 183 H 187 H Hemoglobin A1c Calcium 7.7 L Magnesium Alkaline Phosphatase Total Protein Albumin Crossmatch 08/15/16 08/15/16 08/15/16 20:00 20:02 21:01 RBC 3.54 L Hgb 10.8 L Hct 31.8 L Plt Count 125 L Neutrophils # 7.8 H Lymphocytes # 0.5 L PT APTT Fibrinogen ABG pO2 ABG O2 Saturation Chloride Creatinine Glucose POC Glucose (mg/dL) 192 H 155 H Hemoglobin A1c Calcium Magnesium Alkaline Phosphatase Total Protein Albumin Crossmatch - Diagnostic Findings Chest x-ray: image reviewed (Postoperative changes otherwise unremarkable, endotracheal tube is in the proper position.) Assessment and Plan Plan: Impression: 1 status post elective CABG for triple vessel coronary artery disease, patient is presently on mechanical ventilation. 2 multiple comorbidities including hypertension, diabetes, history of prostate cancer. Recommendation: Patient will be kept on mechanical ventilation for now, ABG postoperatively was reviewed and it showed a pO2 of 372 pCO2 of 39 pH of 7.39. I plan to address weaning and possibly extubation later this evening once the bleeding is a bit more controlled. We'll continue to follow and of dictation Time with Patient: Greater than 30
[2016-08-15 22:29] LABS: Glucose,Whole Blood 137 mg/dL (75-99)
[2016-08-15] MEDS ORDERED: CALCIUM GLUCONATE 1,000 MG in SODIUM CHLORIDE 0.9% 100 ML IVPB ONE (22:46)
[2016-08-15 23:19] LABS: Glucose,Whole Blood 131 mg/dL (75-99)
[2016-08-15] MEDS: ceFAZolin 2 GM in SODIUM CHLORIDE 0.9% 100 ML IVPB SCH (23:51)
[2016-08-16 00:06] LABS: Glucose,Whole Blood 124 mg/dL (75-99)
[2016-08-16 00:24] LABS: Basophils % (A) 0 %; CH 29.7; CHCM 32.8; Eosinophils % (A) 0 %; HCT 29.1 % (39.0-53.0); HDW 2.86; HGB 9.5 gm/dL (13.0-17.5); Luc # (Auto) 0.05; Luc % (Auto) 1; Lymphocytes # (A) 0.3 k/uL (1.0-4.8); Lymphocytes % (A) 4 %; MCH 29.7 pg (25.0-35.0); MCHC 32.5 g/dL (31.0-37.0); MCV 91.3 fL (80.0-100.0); Mean Platelet Volume 9.7; Monocytes # (A) 0.4 k/uL (0-1.0); Monocytes % (A) 5 %; Neutrophils # (A) 6.9 k/uL (1.3-7.7); Neutrophils % (A) 90 %; RBC 3.18 m/uL (4.30-5.90); RDW 13.9 % (11.5-15.5); WBC 7.7 k/uL (3.8-10.6)
[2016-08-16 00:29] LABS: INR 1.1 (<1.1); Partial Thromboplastin Time 28.2 sec (22.0-30.0); Prothrombin Time 10.7 sec (9.0-12.0)
[2016-08-16 00:33] LABS: Anion Gap 8 mmol/L; Blood Urea Nitrogen 17 mg/dL (9-20); Calcium 7.9 mg/dL (8.4-10.2); Carbon Dioxide 23 mmol/L (22-30); Chloride 110 mmol/L (98-107); Glucose 111 mg/dL (74-99); Magnesium 2.4 mg/dL (1.6-2.3); Non-African American GFR(MDRD) >60 (>60 ml/min/1.73 sqM); Potassium 4.2 mmol/L (3.5-5.1); Sodium 141 mmol/L (137-145)
[2016-08-16] MEDS: HEPARIN SODIUM,PORCINE 5,000 UNIT/ML 1 ML VIAL SQ SCH ×3 (00:33→16:09)
[2016-08-16 01:10] LABS: Glucose,Whole Blood 122 mg/dL (75-99)
[2016-08-16 02:15] LABS: Glucose,Whole Blood 126 mg/dL (75-99)
[2016-08-16] MEDS: CLEVIDIPINE BUTYRATE 25 MG in EMPTY BAG 1 BAG IV SCH (02:30)
[2016-08-16 03:06] LABS: ABG Base Excess 0.2 mmol/L; ABG HCO3 24 mmol/L (21-25); ABG PCO2 38 mmHg (35-45); ABG PH 7.42 (7.35-7.45); ABG PO2 91 mmHg (83-108); ABG TCO2 25 mmol/L (19-24)
[2016-08-16 03:15] LABS: Glucose,Whole Blood 131 mg/dL (75-99)
[2016-08-16] MEDS: ONDANSETRON 4 MG/2 ML VIAL IVP PRN (03:51)
[2016-08-16 04:31] LABS: Glucose,Whole Blood 139 mg/dL (75-99)
[2016-08-16 04:46] LABS: Basophils % (A) 0 %; CH 30.1; CHCM 33.9; Eosinophils % (A) 0 %; HCT 30.9 % (39.0-53.0); HDW 2.89; HGB 10.4 gm/dL (13.0-17.5); Luc # (Auto) 0.07; Luc % (Auto) 1; Lymphocytes # (A) 0.3 k/uL (1.0-4.8); Lymphocytes % (A) 3 %; MCH 30.1 pg (25.0-35.0); MCHC 33.7 g/dL (31.0-37.0); MCV 89.3 fL (80.0-100.0); Monocytes # (A) 0.5 k/uL (0-1.0); Monocytes % (A) 5 %; Neutrophils # (A) 9.5 k/uL (1.3-7.7); Neutrophils % (A) 91 %; RBC 3.47 m/uL (4.30-5.90); RDW 13.8 % (11.5-15.5); WBC 10.4 k/uL (3.8-10.6); WBC (Perox) 10.98
[2016-08-16 05:00] LABS: ALT 31 U/L (21-72); AST 30 U/L (17-59); Alkaline Phosphatase 47 U/L (38-126); Anion Gap 10 mmol/L; Blood Urea Nitrogen 16 mg/dL (9-20); Calcium 8.4 mg/dL (8.4-10.2); Carbon Dioxide 23 mmol/L (22-30); Chloride 109 mmol/L (98-107); Glucose 131 mg/dL (74-99); Magnesium 2.3 mg/dL (1.6-2.3); Non-African American GFR(MDRD) >60 (>60 ml/min/1.73 sqM); Potassium 3.9 mmol/L (3.5-5.1); Sodium 142 mmol/L (137-145); Total Bilirubin 0.9 mg/dL (0.2-1.3); Total Protein 5.4 g/dL (6.3-8.2)
[2016-08-16 05:03] LABS: Glucose,Whole Blood 149 mg/dL (75-99)
[2016-08-16] MEDS: ACETAMINOPHEN IV (For NPO) 1,000 MG in EMPTY BAG 1 BAG IVPB SCH ×3 (05:39→19:05)
[2016-08-16 06:00] LABS: Glucose,Whole Blood 135 mg/dL (75-99)
[2016-08-16] MEDS ORDERED: POTASSIUM CHLORIDE ER 20 MEQ TAB.ER PO SCH (07:00)
[2016-08-16] MEDS: IPRATROPIUM-ALBUTEROL 3 ML NEB INHALATION PRN ×4 (07:44→19:50)
[2016-08-16 07:47] LABS: Glucose,Whole Blood 129 mg/dL (75-99)
--- NOTE | 2016-08-16 07:54 | OP ---
DATE OF SERVICE: 08/15/2016 SURGEON: Brian Hemphill MD FAITH HEALER: 1. Amari Huston NP 2. WESLEY Crocker 3. WESLEY Dey PREOPERATIVE DIAGNOSIS: Coronary artery disease. POSTOPERATIVE DIAGNOSIS: Coronary artery disease. OPERATION: 1. Coronary artery bypass grafting x3 vessels (left internal mammary artery to left anterior descending artery, saphenous vein graft to obtuse marginal artery 2, saphenous vein graft to distal right coronary artery). 2. Endoscopic vein harvest, right greater saphenous vein. 3. Epiaortic ultrasound. 4. Transesophageal echocardiogram. ANESTHESIA: General. ESTIMATED BLOOD LOSS: SPECIMENS REMOVED: None. COMPLICATIONS: None. OPERATIVE FINDINGS: INDICATION: The patient is a 76-year-old male with a history of multiple medical problems, who reports chest pain for several months now. A cardiac catheterization was performed which revealed multivessel coronary artery disease. Coronary bypass was recommended. The risks, benefits, alternatives to this procedure were discussed with the patient and his . All questions were answered. Consent was obtained. FINDINGS: The left internal mammary artery was good conduit with brisk flow. The saphenous vein was an adequate conduit. The LAD measured 1.5 mm. The distal right coronary measured 1.5 mm. The obtuse marginal artery measured 1.3 mm. PROCEDURE IN DETAIL: The patient was taken to the operating room and placed supine on operating table. After induction of general anesthesia, he was prepped and draped in the usual sterile fashion. Preoperative transesophageal echocardiogram revealed an ejection fraction of about 45% to 50% with trace to mild mitral regurgitation. A median sternotomy was performed. The left internal mammary artery was harvested in standard fashion taking care to clip all branches. Intravenous heparin was administered and the vessel was transected distally revealing brisk flow. Simultaneously greater saphenous vein was harvested from the left lower extremity using endoscopic technique. All branches were tied. The vein was adequate for use as conduit. A drain was placed in the right lower extremity. A pericardial cradle was created. The ascending aorta was palpated and appeared to be soft and free of significant disease. Epiaortic ultrasound was then performed of the ascending aorta. No significant calcific plaque was noted. An arterial cannula was then placed in the distal ascending aorta. A venous cannula was placed through the right atrial appendage and directed into the IVC. Both antegrade and retrograde catheters were placed as well. The patient was placed on cardiopulmonary bypass with good decompression of the heart. Aortic crossclamp was applied. Cold blood potassium cardioplegia was delivered in both antegrade and retrograde fashion to achieve arrest of the heart. Of note, cardioplegia was delivered in both antegrade and retrograde fashion every 15 to 20 minutes while the patient remained under crossclamp. We began by inspecting the lateral wall. The obtuse marginal artery 2 was identified. A small arteriotomy was created. This vessel accepted a 1 mm probe both proximally and distally. Using saphenous vein in a reverse fashion, an end-to-side anastomosis was created. This was performed using running 7-0 Prolene suture. Prior to tying down the last suture, both the heel and toe were probed and appeared to be patent. The graft was hemostatic and had great flow. Next, the inferior wall was inspected. The posterior descending artery was seen but appeared to be too small for bypass. The distal right coronary artery was then dissected free. A small arteriotomy was created. This vessel accepted a 1.5 mm probe. Using saphenous vein in a reverse fashion, an end-to-side anastomosis was created. This was performed using running 7-0 Prolene suture. The graft was hemostatic and had great flow. Finally, the left anterior descending artery was identified. It was dissected free distal to the last diagonal artery. A small arteriotomy was created. This vessel accepted a 1.5 mm probe. Using the left internal mammary artery, an end-to-side anastomosis was created. This was performed using running 8-0 Prolene suture. Both the heel and toe were probed prior to tying down the last suture. The anastomosis was hemostatic. The mammary pedicles intact down to the anterior surface of the heart. Attention was then turned to the proximal anastomoses. These were performed to the ascending aorta in an end to side fashion using running 6-0 Prolene sutures. 1 liter of warm blood was delivered in retrograde fashion. Both lidocaine and magnesium were administered as well. The aortic crossclamp was removed. The grafts were deaired in the standard fashion. Distal anastomoses were inspected and appeared to be hemostatic. Retrograde catheter was removed. The patient was then weaned off cardiopulmonary bypass. He without difficulty. The venous cannula was removed. Protamine was administered. There were no adverse effects. Follow-up transesophageal echocardiogram revealed no change in the ejection fraction or pathology of the mitral valve. The arterial cannula was removed. The mediastinum was then copiously irrigated with warm saline solution. All surgical sites were inspected and appeared to be hemostatic. Reinforcement sutures were placed as needed. Temporary atrial and ventricular wires were placed and brought through the skin. A straight 32 Bulgarian chest tube was placed direct into the left pleural space. Two additional straight 32 Bulgarian chest tubes were placed and directed into the mediastinum. These were secured to the skin using sutures. Soft tissue was reapproximated to the apex of the heart. The sternum was then reapproximated using stainless steel wires in a [id number] fashion. The remainder of the wound was closed in layers. A sterile dressing was applied. The patient appeared to tolerate the procedure well. There were no immediate complications. He returned to the ICU in critical but stable condition. MARTHA
[2016-08-16 08:18] LABS: Glucose,Whole Blood 127 mg/dL (75-99)
[2016-08-16] MEDS: ceFAZolin 2 GM in SODIUM CHLORIDE 0.9% 100 ML IVPB SCH ×2 (08:42→16:10)
[2016-08-16] MEDS ORDERED: METOPROLOL TARTRATE 12.5 MG TAB PO SCH (09:00)
[2016-08-16] MEDS: METOPROLOL TARTRATE 25 MG TAB PO SCH ×4 (09:03→21:08)
[2016-08-16] MEDS: ASPIRIN 325 MG TAB PO SCH (09:35)
[2016-08-16] MEDS: ATORVASTATIN 40 MG TAB PO SCH (09:35)
[2016-08-16] MEDS: PANTOPRAZOLE 40 MG/10 ML VIAL IVP SCH (09:36)
[2016-08-16] MEDS: MUPIROCIN 2% OINT 22 GM TUBE NASAL SCH ×2 (09:36→20:24)
[2016-08-16] MEDS: PANTOPRAZOLE 40 MG TABLET PO SCH (09:41)
[2016-08-16] MEDS: CLOPIDOGREL 75 MG TAB PO SCH (09:41)
[2016-08-16 10:13] LABS: Glucose,Whole Blood 184 mg/dL (75-99)
--- NOTE | 2016-08-16 10:21 | XR ---
EXAMINATION TYPE: XR chest 1V portable DATE OF EXAM: 08/16/2016 6:42 AM COMPARISON: 08/15/2016 INDICATION: Postoperative cardiac surgery TECHNIQUE: Single frontal view of the chest is obtained. FINDINGS: The heart size is normal. The pulmonary vasculature is normal. The lungs are clear. Left-sided chest tube is present. Small pneumothorax is present right [place]-Radhames catheter is present w ith the tip in the main pulmonary artery. Sternal wires are in the midline. Mediastinal tubes are pre sent. Large air bubbles within the stomach. The nasogastric tube and endotracheal tube is been remove d. IMPRESSION: 1. Small left apical pneumothorax. 2. Lines and catheters discussed above. 3. Stomach may be distended with air.
[2016-08-16 12:00] LABS: Glucose,Whole Blood 143 mg/dL (75-99)
--- NOTE | 2016-08-16 12:09 | P.PN ---
Subjective Principal diagnosis: status post CABG, postoperative day #1 This is a 76-year-old white male with history of diabetes, hypertension, prostate cancer, patient was recently evaluated for intermittent episodes of chest pain for the last few months. Patient has no shortness of breath, no radiation of the pain, no fevers, no chills, recent cardiac catheterization showed multivessel coronary artery disease. Hence the patient was seen by cardiac surgery on 08/10/2016, and he was scheduled for elective myocardial revascularization which was done today on 08/15/2016. Postoperatively, patient was on mechanical ventilation, and I was asked to see him on consultation. Present vent settings are assist control of 12, FiO2 of 50%, tidal volume of 600 , and PEEP of 8. Patient is presently sedated, on mechanical ventilation, and the main issue seems to be postoperative bleeding which is being addressed by cardiac surgery. reevaluated today on 08/16/2016, patient was extubated last night uneventfully, he is presently on nasal cannula, in no distress. no cough no wheezing no shortness of breath. patient feels generally weak and tired. some aches and pains. labs were reviewed, hemoglobin is 9.5. Preintubation ABG showed a pO2 of 91 pCO2 of 38 pH of 7.42. Electrolytes and renal profile are normal. chest x -ray was reviewed, there is evidence of atelectasis of the left base, small tiny left apical pneumothorax was noted, chest tube on the left side remains in place, there is a stoma distention noted. Objective - Vital Signs Vital signs: Vital Signs Temp 97.9 F 08/16/16 06:00 Pulse 92 08/16/16 11:41 Resp 12 08/16/16 11:00 BP 105/56 08/15/16 21:55 Pulse Ox 98 08/16/16 11:00 Intake & Output 08/15/16 08/16/16 08/16/16 18:59 06:59 18:59 Intake Total 443.316 0604.595 481.936 Output Total 4310 1256 665 Balance -3958.434 392.595 -183.064 Weight 96.6 kg 100.1 kg Intake: IV 275 65 0.9NS Pressure Bag 75 45 Cardiac Output 200 20 Intake, IV Titration 151.566 713.595 416.936 Amount ACETAMINOPHEN IV (For NPO 100 100 ) 1,000 mg In Empty Bag 1 bag @ 400 mls/hr IVPB Q6HR [facility] Rx#:[id number] Calcium Gluconate 1,000 100 mg In Sodium Chloride 0.9 % 100 ml @ 100 mls/hr IVPB ONCE ONE Rx#: [id number] Clevidipine Butyrate 25 3 33.067 mg In Empty Bag 1 bag @ 1 MG/HR 2 mls/hr IV .Q24H [facility] Rx#:[id number] Insulin Regular 100 unit 1.566 42.249 33.869 In Sodium Chloride 0.9% 100 ml @ Per Protocol IV .Q0M [facility] Rx#:[id number] Lactated Ringers 1,000 ml 50 275 250 @ 20 mls/hr IV .Q24H [facility] Rx#:[id number] Propofol 500 mg In Empty 93.346 Bag 1 bag @ Titrate IV . Q0M [facility] Rx#:[id number] ceFAZolin 2 gm In Sodium 100 100 Chloride 0.9% 100 ml @ 100 mls/hr IVPB Q8HR [facility] Rx#:[id number] Blood Product 200 660 Cryoprecipitate Unit 10 [id number] Cryoprecipitate Unit 10 [id number] Cryoprecipitate Unit 10 [id number] Cryoprecipitate Unit 10 [id number] Cryoprecipitate Unit 10 [id number] Cryoprecipitate Unit 10 [id number] Cryoprecipitate Unit 10 [id number] Cryoprecipitate Unit 10 [id number] Cryoprecipitate Unit 10 [id number] Cryoprecipitate Unit 10 [id number] Ffp 24 Cp2d Unit 237 [id number] Ffp 24 Cpd Unit 0 323 [id number] Platelet Pheresis Acda3 200 Unit [id number] Output: Chest Tube Drainage 410 436 280 Left Lateral Chest 40 36 140 Mediastinal 370 400 140 Drainage 40 50 Right Knee 40 50 Urine 1100 780 335 Estimated Blood Loss 2800 Other: Voiding Method Indwelling Catheter Indwelling Catheter Indwelling Catheter ABP, PAP, CO, CI - Last Documented Arterial Blood Pressure 110/52 Pulmonary Artery Pressure 21/12 Cardiac Output 6.3 Cardiac Index 2.8 - Exam Physical Exam: Revealed a 76-year-old in no distress, resting, and looks very comfortable. HEENT:[Neck is supple.] [No neck masses.] [No thyromegaly.] [No JVD.] Chest: [diminished breath sounds at the bases, no rhonchi, no wheezes.] Cardiac Exam: [Normal S1 and S2, no S3 gallop, no murmur.] Abdomen: [Soft, nontender, no megaly, no rebound, no guarding, normal bowel sounds.] Extremities: [No clubbing, no edema, no cyanosis.] Neurological Exam: [No focal neurologic deficit.] - Labs CBC & Chem 7: 08/16/16 04:22 08/16/16 04:22 Labs: Abnormal Lab Results - Last 24 Hours (Table) 08/10/16 08/15/16 08/15/16 Range/Units 10:35 12:17 13:54 RBC (4.30-5.90) m/uL Hgb (13.0-17.5) gm/dL Hct (39.0-53.0) % Plt Count (150-450) k/uL Neutrophils # (1.3-7.7) k/uL Lymphocytes # (1.0-4.8) k/uL PT (9.0-12.0) sec APTT (22.0-30.0) sec Fibrinogen (200-500) mg/dL ABG pO2 (83-108) mmHg ABG Total CO2 (19-24) mmol/L ABG O2 Saturation (94-97) % Chloride (98-107) mmol/L Creatinine (0.66-1.25) mg/dL Glucose (74-99) mg/dL POC Glucose (mg/dL) 140 H 211 H (75-99) mg/dL Calcium (8.4-10.2) mg/dL Magnesium (1.6-2.3) mg/dL Alkaline Phosphatase (38-126) U/L Total Protein (6.3-8.2) g/dL Albumin (3.5-5.0) g/dL Crossmatch See Detail 08/15/16 08/15/16 08/15/16 Range/Units 14:43 15:29 16:51 RBC (4.30-5.90) m/uL Hgb (13.0-17.5) gm/dL Hct (39.0-53.0) % Plt Count (150-450) k/uL Neutrophils # (1.3-7.7) k/uL Lymphocytes # (1.0-4.8) k/uL PT (9.0-12.0) sec APTT (22.0-30.0) sec Fibrinogen (200-500) mg/dL ABG pO2 (83-108) mmHg ABG Total CO2 (19-24) mmol/L ABG O2 Saturation (94-97) % Chloride (98-107) mmol/L Creatinine (0.66-1.25) mg/dL Glucose (74-99) mg/dL POC Glucose (mg/dL) 249 H 250 H 203 H (75-99) mg/dL Calcium (8.4-10.2) mg/dL Magnesium (1.6-2.3) mg/dL Alkaline Phosphatase (38-126) U/L Total Protein (6.3-8.2) g/dL Albumin (3.5-5.0) g/dL Crossmatch 08/15/16 08/15/16 08/15/16 Range/Units 17:41 17:45 17:45 RBC 3.83 L (4.30-5.90) m/uL Hgb 11.7 L D (13.0-17.5) gm/dL Hct 34.4 L (39.0-53.0) % Plt Count 85 L D (150-450) k/uL Neutrophils # 7.8 H (1.3-7.7) k/uL Lymphocytes # 0.5 L (1.0-4.8) k/uL PT (9.0-12.0) sec APTT (22.0-30.0) sec Fibrinogen (200-500) mg/dL ABG pO2 (83-108) mmHg ABG Total CO2 (19-24) mmol/L ABG O2 Saturation (94-97) % Chloride 110 H (98-107) mmol/L Creatinine 0.64 L (0.66-1.25) mg/dL Glucose 176 H (74-99) mg/dL POC Glucose (mg/dL) 185 H (75-99) mg/dL Calcium 7.8 L (8.4-10.2) mg/dL Magnesium 2.6 H (1.6-2.3) mg/dL Alkaline Phosphatase 31 L (38-126) U/L Total Protein 4.5 L (6.3-8.2) g/dL Albumin 2.8 L (3.5-5.0) g/dL Crossmatch 08/15/16 08/15/16 08/15/16 Range/Units 17:45 17:45 18:04 RBC (4.30-5.90) m/uL Hgb (13.0-17.5) gm/dL Hct (39.0-53.0) % Plt Count (150-450) k/uL Neutrophils # (1.3-7.7) k/uL Lymphocytes # (1.0-4.8) k/uL PT 13.0 H (9.0-12.0) sec APTT 31.8 H (22.0-30.0) sec Fibrinogen 100 L* (200-500) mg/dL ABG pO2 372 H (83-108) mmHg ABG Total CO2 (19-24) mmol/L ABG O2 Saturation 100.0 H (94-97) % Chloride (98-107) mmol/L Creatinine (0.66-1.25) mg/dL Glucose (74-99) mg/dL POC Glucose (mg/dL) (75-99) mg/dL Calcium (8.4-10.2) mg/dL Magnesium (1.6-2.3) mg/dL Alkaline Phosphatase (38-126) U/L Total Protein (6.3-8.2) g/dL Albumin (3.5-5.0) g/dL Crossmatch 08/15/16 08/15/16 08/15/16 Range/Units 18:22 19:24 20:00 RBC (4.30-5.90) m/uL Hgb (13.0-17.5) gm/dL Hct (39.0-53.0) % Plt Count (150-450) k/uL Neutrophils # (1.3-7.7) k/uL Lymphocytes # (1.0-4.8) k/uL PT (9.0-12.0) sec APTT (22.0-30.0) sec Fibrinogen (200-500) mg/dL ABG pO2 (83-108) mmHg ABG Total CO2 (19-24) mmol/L ABG O2 Saturation (94-97) % Chloride 108 H (98-107) mmol/L Creatinine 0.61 L (0.66-1.25) mg/dL Glucose 161 H (74-99) mg/dL POC Glucose (mg/dL) 183 H 187 H (75-99) mg/dL Calcium 7.7 L (8.4-10.2) mg/dL Magnesium (1.6-2.3) mg/dL Alkaline Phosphatase (38-126) U/L Total Protein (6.3-8.2) g/dL Albumin (3.5-5.0) g/dL Crossmatch 08/15/16 08/15/16 08/15/16 Range/Units 20:00 20:02 21:01 RBC 3.54 L (4.30-5.90) m/uL Hgb 10.8 L (13.0-17.5) gm/dL Hct 31.8 L (39.0-53.0) % Plt Count 125 L (150-450) k/uL Neutrophils # 7.8 H (1.3-7.7) k/uL Lymphocytes # 0.5 L (1.0-4.8) k/uL PT (9.0-12.0) sec APTT (22.0-30.0) sec Fibrinogen (200-500) mg/dL ABG pO2 (83-108) mmHg ABG Total CO2 (19-24) mmol/L ABG O2 Saturation (94-97) % Chloride (98-107) mmol/L Creatinine (0.66-1.25) mg/dL Glucose (74-99) mg/dL POC Glucose (mg/dL) 192 H 155 H (75-99) mg/dL Calcium (8.4-10.2) mg/dL Magnesium (1.6-2.3) mg/dL Alkaline Phosphatase (38-126) U/L Total Protein (6.3-8.2) g/dL Albumin (3.5-5.0) g/dL Crossmatch 08/15/16 08/15/16 08/16/16 Range/Units 22:13 23:06 00:02 RBC (4.30-5.90) m/uL Hgb (13.0-17.5) gm/dL Hct (39.0-53.0) % Plt Count (150-450) k/uL Neutrophils # (1.3-7.7) k/uL Lymphocytes # (1.0-4.8) k/uL PT (9.0-12.0) sec APTT (22.0-30.0) sec Fibrinogen (200-500) mg/dL ABG pO2 (83-108) mmHg ABG Total CO2 (19-24) mmol/L ABG O2 Saturation (94-97) % Chloride 110 H (98-107) mmol/L Creatinine (0.66-1.25) mg/dL Glucose 111 H (74-99) mg/dL POC Glucose (mg/dL) 137 H 131 H (75-99) mg/dL Calcium 7.9 L (8.4-10.2) mg/dL Magnesium 2.4 H (1.6-2.3) mg/dL Alkaline Phosphatase (38-126) U/L Total Protein (6.3-8.2) g/dL Albumin (3.5-5.0) g/dL Crossmatch 08/16/16 08/16/16 08/16/16 Range/Units 00:02 00:02 01:07 RBC 3.18 L (4.30-5.90) m/uL Hgb 9.5 L (13.0-17.5) gm/dL Hct 29.1 L (39.0-53.0) % Plt Count 128 L (150-450) k/uL Neutrophils # (1.3-7.7) k/uL Lymphocytes # 0.3 L (1.0-4.8) k/uL PT (9.0-12.0) sec APTT (22.0-30.0) sec Fibrinogen (200-500) mg/dL ABG pO2 (83-108) mmHg ABG Total CO2 (19-24) mmol/L ABG O2 Saturation (94-97) % Chloride (98-107) mmol/L Creatinine (0.66-1.25) mg/dL Glucose (74-99) mg/dL POC Glucose (mg/dL) 124 H 122 H (75-99) mg/dL Calcium (8.4-10.2) mg/dL Magnesium (1.6-2.3) mg/dL Alkaline Phosphatase (38-126) U/L Total Protein (6.3-8.2) g/dL Albumin (3.5-5.0) g/dL Crossmatch 08/16/16 08/16/16 08/16/16 Range/Units 02:12 03:00 03:01 RBC (4.30-5.90) m/uL Hgb (13.0-17.5) gm/dL Hct (39.0-53.0) % Plt Count (150-450) k/uL Neutrophils # (1.3-7.7) k/uL Lymphocytes # (1.0-4.8) k/uL PT (9.0-12.0) sec APTT (22.0-30.0) sec Fibrinogen (200-500) mg/dL ABG pO2 (83-108) mmHg ABG Total CO2 25 H (19-24) mmol/L ABG O2 Saturation (94-97) % Chloride (98-107) mmol/L Creatinine (0.66-1.25) mg/dL Glucose (74-99) mg/dL POC Glucose (mg/dL) 126 H 131 H (75-99) mg/dL Calcium (8.4-10.2) mg/dL Magnesium (1.6-2.3) mg/dL Alkaline Phosphatase (38-126) U/L Total Protein (6.3-8.2) g/dL Albumin (3.5-5.0) g/dL Crossmatch 08/16/16 08/16/16 08/16/16 Range/Units 04:18 04:22 04:22 RBC 3.47 L (4.30-5.90) m/uL Hgb 10.4 L (13.0-17.5) gm/dL Hct 30.9 L (39.0-53.0) % Plt Count 143 L (150-450) k/uL Neutrophils # 9.5 H (1.3-7.7) k/uL Lymphocytes # 0.3 L (1.0-4.8) k/uL PT (9.0-12.0) sec APTT (22.0-30.0) sec Fibrinogen (200-500) mg/dL ABG pO2 (83-108) mmHg ABG Total CO2 (19-24) mmol/L ABG O2 Saturation (94-97) % Chloride 109 H (98-107) mmol/L Creatinine (0.66-1.25) mg/dL Glucose 131 H (74-99) mg/dL POC Glucose (mg/dL) 139 H (75-99) mg/dL Calcium (8.4-10.2) mg/dL Magnesium (1.6-2.3) mg/dL Alkaline Phosphatase (38-126) U/L Total Protein 5.4 L (6.3-8.2) g/dL Albumin 3.4 L (3.5-5.0) g/dL Crossmatch 08/16/16 08/16/16 08/16/16 Range/Units 05:00 05:58 07:45 RBC (4.30-5.90) m/uL Hgb (13.0-17.5) gm/dL Hct (39.0-53.0) % Plt Count (150-450) k/uL Neutrophils # (1.3-7.7) k/uL Lymphocytes # (1.0-4.8) k/uL PT (9.0-12.0) sec APTT (22.0-30.0) sec Fibrinogen (200-500) mg/dL ABG pO2 (83-108) mmHg ABG Total CO2 (19-24) mmol/L ABG O2 Saturation (94-97) % Chloride (98-107) mmol/L Creatinine (0.66-1.25) mg/dL Glucose (74-99) mg/dL POC Glucose (mg/dL) 149 H 135 H 129 H (75-99) mg/dL Calcium (8.4-10.2) mg/dL Magnesium (1.6-2.3) mg/dL Alkaline Phosphatase (38-126) U/L Total Protein (6.3-8.2) g/dL Albumin (3.5-5.0) g/dL Crossmatch 08/16/16 08/16/16 08/16/16 Range/Units 08:15 10:10 11:56 RBC (4.30-5.90) m/uL Hgb (13.0-17.5) gm/dL Hct (39.0-53.0) % Plt Count (150-450) k/uL Neutrophils # (1.3-7.7) k/uL Lymphocytes # (1.0-4.8) k/uL PT (9.0-12.0) sec APTT (22.0-30.0) sec Fibrinogen (200-500) mg/dL ABG pO2 (83-108) mmHg ABG Total CO2 (19-24) mmol/L ABG O2 Saturation (94-97) % Chloride (98-107) mmol/L Creatinine (0.66-1.25) mg/dL Glucose (74-99) mg/dL POC Glucose (mg/dL) 127 H 184 H 143 H (75-99) mg/dL Calcium (8.4-10.2) mg/dL Magnesium (1.6-2.3) mg/dL Alkaline Phosphatase (38-126) U/L Total Protein (6.3-8.2) g/dL Albumin (3.5-5.0) g/dL Crossmatch Assessment and Plan Plan: Impression: 1 status post elective CABG for triple vessel coronary artery disease, postoperative day #1, patient was extubated uneventfully and seems to be doing very well. 2 multiple comorbidities including hypertension, diabetes, history of prostate cancer. 3 small tiny left apical pneumothorax is noted on the chest x-ray today, however the patient continues to have a chest tube in place on the left side. We'll continue to follow. Recommendation: continue present supportive care measures, incentive spirometry , ambulation, bronchodilators, and we'll continue to follow. Time with Patient: Less than 30
[2016-08-16 13:12] LABS: Glucose,Whole Blood 131 mg/dL (75-99)
--- NOTE | 2016-08-16 13:26 | P.PN ---
<Angelina Arce - Last Filed: 08/16/16 13:16> Subjective Principal diagnosis: Coronary artery disease. POD #1 coronary artery bypass grafting 3 vessels (left internal mammary artery to left anterior descending artery, saphenous vein graft to obtuse marginal artery 2, saphenous vein graft to distal right coronary artery). Endoscopic vein harvest, right greater saphenous vein. Epi-aortic ultrasound. Intraoperative transesophageal echocardiogram. Patient sitting up and recliner in no apparent distress. States his pain is controlled with ordered medication. Objective - Vital Signs Vital signs: Vital Signs Temp 97.9 F 08/16/16 06:00 Pulse 92 08/16/16 11:41 Resp 12 08/16/16 11:00 BP 105/56 08/15/16 21:55 Pulse Ox 98 08/16/16 11:00 Intake & Output 08/15/16 08/16/16 08/16/16 18:59 06:59 18:59 Intake Total 908.716 0218.595 605.384 Output Total 4310 1256 750 Balance -3958.434 392.595 -144.616 Weight 96.6 kg 100.1 kg Intake: IV 275 83 0.9NS Pressure Bag 75 63 Cardiac Output 200 20 Intake, IV Titration 151.566 713.595 522.384 Amount ACETAMINOPHEN IV (For NPO 100 100 ) 1,000 mg In Empty Bag 1 bag @ 400 mls/hr IVPB Q6HR [facility] Rx#:[id number] Calcium Gluconate 1,000 100 mg In Sodium Chloride 0.9 % 100 ml @ 100 mls/hr IVPB ONCE ONE Rx#: [id number] Clevidipine Butyrate 25 3 33.067 mg In Empty Bag 1 bag @ 1 MG/HR 2 mls/hr IV .Q24H [facility] Rx#:[id number] Insulin Regular 100 unit 1.566 42.249 39.317 In Sodium Chloride 0.9% 100 ml @ Per Protocol IV .Q0M [facility] Rx#:[id number] Lactated Ringers 1,000 ml 50 275 350 @ 20 mls/hr IV .Q24H [facility] Rx#:[id number] Propofol 500 mg In Empty 93.346 Bag 1 bag @ Titrate IV . Q0M [facility] Rx#:[id number] ceFAZolin 2 gm In Sodium 100 100 Chloride 0.9% 100 ml @ 100 mls/hr IVPB Q8HR [facility] Rx#:[id number] Blood Product 200 660 Cryoprecipitate Unit 10 [id number] Cryoprecipitate Unit 10 [id number] Cryoprecipitate Unit 10 [id number] Cryoprecipitate Unit 10 [id number] Cryoprecipitate Unit 10 [id number] Cryoprecipitate Unit 10 [id number] Cryoprecipitate Unit 10 [id number] Cryoprecipitate Unit 10 [id number] Cryoprecipitate Unit 10 [id number] Cryoprecipitate Unit 10 [id number] Ffp 24 Cp2d Unit 237 [id number] Ffp 24 Cpd Unit 0 323 [id number] Platelet Pheresis Acda3 200 Unit [id number] Output: Chest Tube Drainage 410 436 320 Left Lateral Chest 40 36 140 Mediastinal 370 400 180 Drainage 40 50 Right Knee 40 50 Urine 1100 780 380 Estimated Blood Loss 2800 Other: Voiding Method Indwelling Catheter Indwelling Catheter Indwelling Catheter ABP, PAP, CO, CI - Last Documented Arterial Blood Pressure 110/52 Pulmonary Artery Pressure 21/12 Cardiac Output 6.3 Cardiac Index 2.8 - Constitutional General appearance: Present: cooperative, no acute distress - Respiratory Details: Lungs sounds diminished bilaterally. Respirations even, nonlabored. Currently on room air with oxygen saturation 98%. Able to achieve 750 mL on his incentive spirometry. Left pleural chest tube to -20 cm wall suction, drained 125 mL serosanguineous fluid overnight, 200 mL since surgery. Mediastinal chest tube to -20 cm wall suction, 160 mL serosanguineous fluid overnight, 800 mL since surgery. No air leaks present. - Cardiovascular Details: S1, S2 present. Regular rate and rhythm, normal sinus rhythm on telemetry. A/ V epicardial pacemaker wires present, attached to generator, VVI with a backup rate 50 bpm. Sternum stable. Heart hugger in place with patient demonstrating appropriate use. Teds/SCDs present. - Gastrointestinal Gastrointestinal Comment(s): Abdomen soft, nontender, nondistended. Hypoactive bowel sounds 4 quadrants. Tolerating clear liquids. - Genitourinary Genitourinary Comment(s): Du present draining clear, yellow urine. Output 30-85 mL per hour. - Integumentary Integumentary Comment(s): Anterior chest incision well approximated and covered with dry intact dressing. Right lower extremity EVH site well approximated with MARV drain present. - Musculoskeletal Musculoskeletal: Present: gait normal, strength equal bilaterally - Psychiatric Psychiatric: Present: A&O x's 3, appropriate affect, intact judgment & insight - Allied health notes Allied health notes reviewed: nursing - Labs CBC & Chem 7: 08/16/16 04:22 08/16/16 04:22 Labs: Abnormal Lab Results - Last 24 Hours (Table) 08/10/16 08/15/16 08/15/16 Range/Units 10:35 13:54 14:43 RBC (4.30-5.90) m/uL Hgb (13.0-17.5) gm/dL Hct (39.0-53.0) % Plt Count (150-450) k/uL Neutrophils # (1.3-7.7) k/uL Lymphocytes # (1.0-4.8) k/uL PT (9.0-12.0) sec APTT (22.0-30.0) sec Fibrinogen (200-500) mg/dL ABG pO2 (83-108) mmHg ABG Total CO2 (19-24) mmol/L ABG O2 Saturation (94-97) % Chloride (98-107) mmol/L Creatinine (0.66-1.25) mg/dL Glucose (74-99) mg/dL POC Glucose (mg/dL) 211 H 249 H (75-99) mg/dL Calcium (8.4-10.2) mg/dL Magnesium (1.6-2.3) mg/dL Alkaline Phosphatase (38-126) U/L Total Protein (6.3-8.2) g/dL Albumin (3.5-5.0) g/dL Crossmatch See Detail 08/15/16 08/15/16 08/15/16 Range/Units 15:29 16:51 17:41 RBC (4.30-5.90) m/uL Hgb (13.0-17.5) gm/dL Hct (39.0-53.0) % Plt Count (150-450) k/uL Neutrophils # (1.3-7.7) k/uL Lymphocytes # (1.0-4.8) k/uL PT (9.0-12.0) sec APTT (22.0-30.0) sec Fibrinogen (200-500) mg/dL ABG pO2 (83-108) mmHg ABG Total CO2 (19-24) mmol/L ABG O2 Saturation (94-97) % Chloride (98-107) mmol/L Creatinine (0.66-1.25) mg/dL Glucose (74-99) mg/dL POC Glucose (mg/dL) 250 H 203 H 185 H (75-99) mg/dL Calcium (8.4-10.2) mg/dL Magnesium (1.6-2.3) mg/dL Alkaline Phosphatase (38-126) U/L Total Protein (6.3-8.2) g/dL Albumin (3.5-5.0) g/dL Crossmatch 08/15/16 08/15/16 08/15/16 Range/Units 17:45 17:45 17:45 RBC 3.83 L (4.30-5.90) m/uL Hgb 11.7 L D (13.0-17.5) gm/dL Hct 34.4 L (39.0-53.0) % Plt Count 85 L D (150-450) k/uL Neutrophils # 7.8 H (1.3-7.7) k/uL Lymphocytes # 0.5 L (1.0-4.8) k/uL PT 13.0 H (9.0-12.0) sec APTT 31.8 H (22.0-30.0) sec Fibrinogen (200-500) mg/dL ABG pO2 (83-108) mmHg ABG Total CO2 (19-24) mmol/L ABG O2 Saturation (94-97) % Chloride 110 H (98-107) mmol/L Creatinine 0.64 L (0.66-1.25) mg/dL Glucose 176 H (74-99) mg/dL POC Glucose (mg/dL) (75-99) mg/dL Calcium 7.8 L (8.4-10.2) mg/dL Magnesium 2.6 H (1.6-2.3) mg/dL Alkaline Phosphatase 31 L (38-126) U/L Total Protein 4.5 L (6.3-8.2) g/dL Albumin 2.8 L (3.5-5.0) g/dL Crossmatch 08/15/16 08/15/16 08/15/16 Range/Units 17:45 18:04 18:22 RBC (4.30-5.90) m/uL Hgb (13.0-17.5) gm/dL Hct (39.0-53.0) % Plt Count (150-450) k/uL Neutrophils # (1.3-7.7) k/uL Lymphocytes # (1.0-4.8) k/uL PT (9.0-12.0) sec APTT (22.0-30.0) sec Fibrinogen 100 L* (200-500) mg/dL ABG pO2 372 H (83-108) mmHg ABG Total CO2 (19-24) mmol/L ABG O2 Saturation 100.0 H (94-97) % Chloride (98-107) mmol/L Creatinine (0.66-1.25) mg/dL Glucose (74-99) mg/dL POC Glucose (mg/dL) 183 H (75-99) mg/dL Calcium (8.4-10.2) mg/dL Magnesium (1.6-2.3) mg/dL Alkaline Phosphatase (38-126) U/L Total Protein (6.3-8.2) g/dL Albumin (3.5-5.0) g/dL Crossmatch 08/15/16 08/15/16 08/15/16 Range/Units 19:24 20:00 20:00 RBC 3.54 L (4.30-5.90) m/uL Hgb 10.8 L (13.0-17.5) gm/dL Hct 31.8 L (39.0-53.0) % Plt Count 125 L (150-450) k/uL Neutrophils # 7.8 H (1.3-7.7) k/uL Lymphocytes # 0.5 L (1.0-4.8) k/uL PT (9.0-12.0) sec APTT (22.0-30.0) sec Fibrinogen (200-500) mg/dL ABG pO2 (83-108) mmHg ABG Total CO2 (19-24) mmol/L ABG O2 Saturation (94-97) % Chloride 108 H (98-107) mmol/L Creatinine 0.61 L (0.66-1.25) mg/dL Glucose 161 H (74-99) mg/dL POC Glucose (mg/dL) 187 H (75-99) mg/dL Calcium 7.7 L (8.4-10.2) mg/dL Magnesium (1.6-2.3) mg/dL Alkaline Phosphatase (38-126) U/L Total Protein (6.3-8.2) g/dL Albumin (3.5-5.0) g/dL Crossmatch 08/15/16 08/15/16 08/15/16 Range/Units 20:02 21:01 22:13 RBC (4.30-5.90) m/uL Hgb (13.0-17.5) gm/dL Hct (39.0-53.0) % Plt Count (150-450) k/uL Neutrophils # (1.3-7.7) k/uL Lymphocytes # (1.0-4.8) k/uL PT (9.0-12.0) sec APTT (22.0-30.0) sec Fibrinogen (200-500) mg/dL ABG pO2 (83-108) mmHg ABG Total CO2 (19-24) mmol/L ABG O2 Saturation (94-97) % Chloride (98-107) mmol/L Creatinine (0.66-1.25) mg/dL Glucose (74-99) mg/dL POC Glucose (mg/dL) 192 H 155 H 137 H (75-99) mg/dL Calcium (8.4-10.2) mg/dL Magnesium (1.6-2.3) mg/dL Alkaline Phosphatase (38-126) U/L Total Protein (6.3-8.2) g/dL Albumin (3.5-5.0) g/dL Crossmatch 08/15/16 08/16/16 08/16/16 Range/Units 23:06 00:02 00:02 RBC (4.30-5.90) m/uL Hgb (13.0-17.5) gm/dL Hct (39.0-53.0) % Plt Count (150-450) k/uL Neutrophils # (1.3-7.7) k/uL Lymphocytes # (1.0-4.8) k/uL PT (9.0-12.0) sec APTT (22.0-30.0) sec Fibrinogen (200-500) mg/dL ABG pO2 (83-108) mmHg ABG Total CO2 (19-24) mmol/L ABG O2 Saturation (94-97) % Chloride 110 H (98-107) mmol/L Creatinine (0.66-1.25) mg/dL Glucose 111 H (74-99) mg/dL POC Glucose (mg/dL) 131 H 124 H (75-99) mg/dL Calcium 7.9 L (8.4-10.2) mg/dL Magnesium 2.4 H (1.6-2.3) mg/dL Alkaline Phosphatase (38-126) U/L Total Protein (6.3-8.2) g/dL Albumin (3.5-5.0) g/dL Crossmatch 08/16/16 08/16/16 08/16/16 Range/Units 00:02 01:07 02:12 RBC 3.18 L (4.30-5.90) m/uL Hgb 9.5 L (13.0-17.5) gm/dL Hct 29.1 L (39.0-53.0) % Plt Count 128 L (150-450) k/uL Neutrophils # (1.3-7.7) k/uL Lymphocytes # 0.3 L (1.0-4.8) k/uL PT (9.0-12.0) sec APTT (22.0-30.0) sec Fibrinogen (200-500) mg/dL ABG pO2 (83-108) mmHg ABG Total CO2 (19-24) mmol/L ABG O2 Saturation (94-97) % Chloride (98-107) mmol/L Creatinine (0.66-1.25) mg/dL Glucose (74-99) mg/dL POC Glucose (mg/dL) 122 H 126 H (75-99) mg/dL Calcium (8.4-10.2) mg/dL Magnesium (1.6-2.3) mg/dL Alkaline Phosphatase (38-126) U/L Total Protein (6.3-8.2) g/dL Albumin (3.5-5.0) g/dL Crossmatch 08/16/16 08/16/16 08/16/16 Range/Units 03:00 03:01 04:18 RBC (4.30-5.90) m/uL Hgb (13.0-17.5) gm/dL Hct (39.0-53.0) % Plt Count (150-450) k/uL Neutrophils # (1.3-7.7) k/uL Lymphocytes # (1.0-4.8) k/uL PT (9.0-12.0) sec APTT (22.0-30.0) sec Fibrinogen (200-500) mg/dL ABG pO2 (83-108) mmHg ABG Total CO2 25 H (19-24) mmol/L ABG O2 Saturation (94-97) % Chloride (98-107) mmol/L Creatinine (0.66-1.25) mg/dL Glucose (74-99) mg/dL POC Glucose (mg/dL) 131 H 139 H (75-99) mg/dL Calcium (8.4-10.2) mg/dL Magnesium (1.6-2.3) mg/dL Alkaline Phosphatase (38-126) U/L Total Protein (6.3-8.2) g/dL Albumin (3.5-5.0) g/dL Crossmatch 08/16/16 08/16/16 08/16/16 Range/Units 04:22 04:22 05:00 RBC 3.47 L (4.30-5.90) m/uL Hgb 10.4 L (13.0-17.5) gm/dL Hct 30.9 L (39.0-53.0) % Plt Count 143 L (150-450) k/uL Neutrophils # 9.5 H (1.3-7.7) k/uL Lymphocytes # 0.3 L (1.0-4.8) k/uL PT (9.0-12.0) sec APTT (22.0-30.0) sec Fibrinogen (200-500) mg/dL ABG pO2 (83-108) mmHg ABG Total CO2 (19-24) mmol/L ABG O2 Saturation (94-97) % Chloride 109 H (98-107) mmol/L Creatinine (0.66-1.25) mg/dL Glucose 131 H (74-99) mg/dL POC Glucose (mg/dL) 149 H (75-99) mg/dL Calcium (8.4-10.2) mg/dL Magnesium (1.6-2.3) mg/dL Alkaline Phosphatase (38-126) U/L Total Protein 5.4 L (6.3-8.2) g/dL Albumin 3.4 L (3.5-5.0) g/dL Crossmatch 08/16/16 08/16/16 08/16/16 Range/Units 05:58 07:45 08:15 RBC (4.30-5.90) m/uL Hgb (13.0-17.5) gm/dL Hct (39.0-53.0) % Plt Count (150-450) k/uL Neutrophils # (1.3-7.7) k/uL Lymphocytes # (1.0-4.8) k/uL PT (9.0-12.0) sec APTT (22.0-30.0) sec Fibrinogen (200-500) mg/dL ABG pO2 (83-108) mmHg ABG Total CO2 (19-24) mmol/L ABG O2 Saturation (94-97) % Chloride (98-107) mmol/L Creatinine (0.66-1.25) mg/dL Glucose (74-99) mg/dL POC Glucose (mg/dL) 135 H 129 H 127 H (75-99) mg/dL Calcium (8.4-10.2) mg/dL Magnesium (1.6-2.3) mg/dL Alkaline Phosphatase (38-126) U/L Total Protein (6.3-8.2) g/dL Albumin (3.5-5.0) g/dL Crossmatch 08/16/16 08/16/16 08/16/16 Range/Units 10:10 11:56 13:10 RBC (4.30-5.90) m/uL Hgb (13.0-17.5) gm/dL Hct (39.0-53.0) % Plt Count (150-450) k/uL Neutrophils # (1.3-7.7) k/uL Lymphocytes # (1.0-4.8) k/uL PT (9.0-12.0) sec APTT (22.0-30.0) sec Fibrinogen (200-500) mg/dL ABG pO2 (83-108) mmHg ABG Total CO2 (19-24) mmol/L ABG O2 Saturation (94-97) % Chloride (98-107) mmol/L Creatinine (0.66-1.25) mg/dL Glucose (74-99) mg/dL POC Glucose (mg/dL) 184 H 143 H 131 H (75-99) mg/dL Calcium (8.4-10.2) mg/dL Magnesium (1.6-2.3) mg/dL Alkaline Phosphatase (38-126) U/L Total Protein (6.3-8.2) g/dL Albumin (3.5-5.0) g/dL Crossmatch - Imaging and Cardiology Chest x-ray: image reviewed Assessment and Plan (1) Coronary artery disease Status: Acute (2) Hypertension Status: Acute (3) Diabetes mellitus Status: Acute (4) History of prostate cancer Status: Acute Plan: 1. Continue aspirin, Lipitor, Plavix, heparin. Increase Lopressor to 25 mg twice a day. 2. Wean off Cleviprex. DC nitro drip. 3. Encourage incentive spirometry use. 4. Increase activity, out of bed to chair. Physical therapy to follow. 5. Insulin drip/diabetic management per primary care service. 6. [place] DC this morning. 7. GI/DVT prophylaxis. 8. Monitor daily labs, x-rays. 9. More recommendations as patient progresses. Time with Patient: Greater than 30 <Brian Hemphill - Last Filed: 08/17/16 17:20> Objective - Vital Signs Vital signs: Vital Signs Temp 98.9 F 08/17/16 08:00 Pulse 108 H 08/17/16 16:00 Resp 32 H 08/17/16 16:00 BP 112/82 08/17/16 16:00 Pulse Ox 99 08/17/16 16:00 Intake & Output 08/16/16 08/17/16 08/17/16 18:59 06:59 18:59 Intake Total 929.252 906.407 939.257 Output Total 4077 448 2477 Balance -715.748 376.407 -1030.743 Weight 100.8 kg Intake: IV 119 72 451 0.9NS Pressure Bag 99 72 51 Cardiac Output 20 Lactated Ringers 1,000 ml 400 @ 20 mls/hr IV .Q24H [facility] Rx#:[id number] Intake, IV Titration 810.252 434.407 288.257 Amount Amiodarone 450 mg In 238.257 Dextrose 5% in Water 250 ml @ 1 MG/MIN 34.53 mls/ hr IV .Q7H31M [facility] Rx#: [id number] Clevidipine Butyrate 25 33.067 mg In Empty Bag 1 bag @ 1 MG/HR 2 mls/hr IV .Q24H [facility] Rx#:[id number] Dextrose 5% in Water 100 100 ml @ 618 mls/hr IV .Q10M ONE with Amiodarone 150 mg Rx#:[id number] Insulin Regular 100 unit 57.185 44.407 In Sodium Chloride 0.9% 100 ml @ Per Protocol IV .Q0M [facility] Rx#:[id number] Lactated Ringers 1,000 ml 620 290 50 @ 20 mls/hr IV .Q24H [facility] Rx#:[id number] ceFAZolin 2 gm In Sodium 100 Chloride 0.9% 100 ml @ 100 mls/hr IVPB Q8HR [facility] Rx#:[id number] Oral 400 200 Output: Chest Tube Drainage 440 170 160 Left Lateral Chest 150 50 70 Mediastinal 290 120 90 Drainage 50 20 Right Knee 50 20 Urine 7505 818 7518 Uretheral (Du) 70 Other: Voiding Method Indwelling Catheter Indwelling Catheter Indwelling Catheter ABP, PAP, CO, CI - Last Documented Arterial Blood Pressure 155/87 Pulmonary Artery Pressure 21/12 Cardiac Output 6.3 Cardiac Index 2.8 - Labs CBC & Chem 7: 08/17/16 05:02 08/17/16 05:02 Labs: Abnormal Lab Results - Last 24 Hours (Table) 08/16/16 08/16/16 08/16/16 Range/Units 17:31 18:30 19:50 WBC (3.8-10.6) k/uL RBC (4.30-5.90) m/uL Hgb (13.0-17.5) gm/dL Hct (39.0-53.0) % Plt Count (150-450) k/uL Neutrophils # (1.3-7.7) k/uL Glucose (74-99) mg/dL POC Glucose (mg/dL) 133 H 173 H 213 H (75-99) mg/dL Calcium (8.4-10.2) mg/dL Magnesium (1.6-2.3) mg/dL Total Protein (6.3-8.2) g/dL Albumin (3.5-5.0) g/dL 08/16/16 08/16/16 08/16/16 Range/Units 21:05 22:20 23:18 WBC (3.8-10.6) k/uL RBC (4.30-5.90) m/uL Hgb (13.0-17.5) gm/dL Hct (39.0-53.0) % Plt Count (150-450) k/uL Neutrophils # (1.3-7.7) k/uL Glucose (74-99) mg/dL POC Glucose (mg/dL) 171 H 128 H 103 H (75-99) mg/dL Calcium (8.4-10.2) mg/dL Magnesium (1.6-2.3) mg/dL Total Protein (6.3-8.2) g/dL Albumin (3.5-5.0) g/dL 08/16/16 08/17/16 08/17/16 Range/Units 23:20 00:12 02:15 WBC (3.8-10.6) k/uL RBC (4.30-5.90) m/uL Hgb (13.0-17.5) gm/dL Hct (39.0-53.0) % Plt Count (150-450) k/uL Neutrophils # (1.3-7.7) k/uL Glucose (74-99) mg/dL POC Glucose (mg/dL) 101 H 142 H (75-99) mg/dL Calcium (8.4-10.2) mg/dL Magnesium 2.5 H (1.6-2.3) mg/dL Total Protein (6.3-8.2) g/dL Albumin (3.5-5.0) g/dL 08/17/16 08/17/16 08/17/16 Range/Units 03:04 03:55 04:52 WBC (3.8-10.6) k/uL RBC (4.30-5.90) m/uL Hgb (13.0-17.5) gm/dL Hct (39.0-53.0) % Plt Count (150-450) k/uL Neutrophils # (1.3-7.7) k/uL Glucose (74-99) mg/dL POC Glucose (mg/dL) 135 H 120 H 148 H (75-99) mg/dL Calcium (8.4-10.2) mg/dL Magnesium (1.6-2.3) mg/dL Total Protein (6.3-8.2) g/dL Albumin (3.5-5.0) g/dL 08/17/16 08/17/16 08/17/16 Range/Units 05:02 05:02 06:12 WBC 11.0 H (3.8-10.6) k/uL RBC 3.27 L (4.30-5.90) m/uL Hgb 9.8 L (13.0-17.5) gm/dL Hct 28.4 L (39.0-53.0) % Plt Count 130 L (150-450) k/uL Neutrophils # 8.9 H (1.3-7.7) k/uL Glucose 132 H (74-99) mg/dL POC Glucose (mg/dL) 142 H (75-99) mg/dL Calcium 8.2 L (8.4-10.2) mg/dL Magnesium 2.4 H (1.6-2.3) mg/dL Total Protein 5.1 L (6.3-8.2) g/dL Albumin 3.1 L (3.5-5.0) g/dL 08/17/16 08/17/16 Range/Units 08:11 12:09 WBC (3.8-10.6) k/uL RBC (4.30-5.90) m/uL Hgb (13.0-17.5) gm/dL Hct (39.0-53.0) % Plt Count (150-450) k/uL Neutrophils # (1.3-7.7) k/uL Glucose (74-99) mg/dL POC Glucose (mg/dL) 100 H 166 H (75-99) mg/dL Calcium (8.4-10.2) mg/dL Magnesium (1.6-2.3) mg/dL Total Protein (6.3-8.2) g/dL Albumin (3.5-5.0) g/dL Assessment and Plan Plan: The patient was seen and examined. I agree with the above assessment and plan. Overall he is doing well. He was extubated late last night. His [place] catheter will be removed today. We will increase his Lopressor and wean him off Cleviprex. His chest x-ray does not reveal any significant effusions. Labs were reviewed. We will get him up in a chair.
--- NOTE | 2016-08-16 13:35 | PN ---
Mr. Teixeira underwent coronary artery bypass grafting. He is doing well. His heart rate is in the 80s and 90s. Respirations normal. Sitting comfortably in a chair. Blood pressure is 132/58, 110/58 mmHg He denies any shortness of breath. He has a past history of diabetes, hypertension and he has coronary artery disease, status post coronary artery bypass grafting. SUGGEST: Continue current medications including aspirin, atorvastatin and beta blockers.
[2016-08-16 14:41] LABS: Glucose,Whole Blood 258 mg/dL (75-99)
[2016-08-16 15:34] LABS: Glucose,Whole Blood 218 mg/dL (75-99)
[2016-08-16] MEDS ORDERED: FUROSEMIDE 10 MG/ML 2 ML VIAL IV ONE (16:05)
[2016-08-16 16:26] LABS: Glucose,Whole Blood 176 mg/dL (75-99)
[2016-08-16] MEDS ORDERED: HYDROcodone/APAP 5-325MG 1 EACH TAB PO PRN (16:34)
[2016-08-16] MEDS ORDERED: MAGNESIUM HYDROXIDE 2,400 MG/10 ML CUP PO PRN (16:35)
[2016-08-16] MEDS ORDERED: BISACODYL 10 MG SUPP RECTAL PRN (16:35)
[2016-08-16 17:32] LABS: Glucose,Whole Blood 133 mg/dL (75-99)
[2016-08-16] MEDS: INSULIN REGULAR 100 UNIT in SODIUM CHLORIDE 0.9% 100 ML IV SCH (18:20)
[2016-08-16 18:36] LABS: Glucose,Whole Blood 173 mg/dL (75-99)
--- NOTE | 2016-08-16 18:42 | P.HPIM ---
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, he comes to [place] every 2 years for vacation and medical treatment, patient states that he has been having episodes of chest pain over the last few months, he was referred to Dr. Joel on arrival and underwent cardiac catheterization which was positive for multiply vessel coronary artery disease, he was admitted to [facility] and underwent coronary artery bypass graft surgery on 08/15/2016. Currently patient is in intensive care unit he is alert and oriented sitting in the lounge chair he is complaining of pain at the surgical sites in his chest and his leg otherwise no complaints at this time he denies any shortness of breath no cough no nausea or vomiting no abdominal pain no diarrhea and no urinary symptoms patient has Du catheter and and has chest tubes in. Past Medical History Past Medical History: Cancer, Chest Pain / Angina, Diabetes Mellitus, Hearing Disorder / Deafness, Hypertension, Prostate Disorder Additional Past Medical History / Comment(s): PROSTATE CA 2006. History of Any Multi-Drug Resistant Organisms: None Reported Past Surgical History: Appendectomy, Heart Catheterization, Orthopedic Surgery, Prostate Surgery Additional Past Surgical History / Comment(s): left arm ligament repair Past Anesthesia/Blood Transfusion Reactions: No Reported Reaction Past Psychological History: No Psychological Hx Reported Smoking Status: Former smoker Past Alcohol Use History: None Reported Additional Past Alcohol Use History / Comment(s): quit smoking age 26,started smoking at age 14. Past Drug Use History: None Reported - Past Family History Father Family Medical History: Cancer, Congestive Heart Failure (CHF) Additional Family Medical History / Comment(s): prostate Mother Family Medical History: Cancer Additional Family Medical History / Comment(s): breast Medications and Allergies Home Medications Medication Instructions Recorded Confirmed Type Aspirin 81 mg PO DAILY 09/10/14 08/15/16 History Enalapril Maleate [Vasotec] 20 mg PO DAILY 09/10/14 08/15/16 History glipiZIDE [Glucotrol] 5 mg PO AC-BID 09/10/14 08/15/16 History metFORMIN HCL [Glucophage] 500 mg PO BID 09/10/14 08/15/16 History Isosorbide Mononitrate ER [Imdur] 30 mg PO DAILY 08/10/16 08/15/16 History Allergies Allergy/AdvReac Type Severity Reaction Status Date / Time No Known Allergies Allergy Verified 08/13/16 10:45 Physical Exam Vitals: Vital Signs Temp Pulse Resp BP Pulse Ox 08/16/16 17:00 98 14 97 08/16/16 16:00 98.9 F 97 13 97 08/16/16 15:25 97 08/16/16 15:14 95 08/16/16 15:00 93 15 98 08/16/16 14:00 94 19 99 08/16/16 13:00 98.6 F 89 12 100 08/16/16 12:00 88 15 99 08/16/16 11:41 92 08/16/16 11:30 91 08/16/16 11:00 85 12 98 08/16/16 10:00 101 H 17 98 08/16/16 09:00 107 H 14 96 08/16/16 08:06 107 H 08/16/16 08:00 102 H 13 99 08/16/16 07:58 98 08/16/16 07:45 110 H 08/16/16 07:00 99 18 98 08/16/16 06:00 97.9 F 90 17 100 08/16/16 05:30 91 16 100 08/16/16 05:00 90 18 97 08/16/16 04:30 91 99 08/16/16 04:00 94 14 99 08/16/16 03:30 92 99 08/16/16 03:18 97 08/16/16 03:00 90 100 08/16/16 02:30 94 99 08/16/16 02:00 97.7 F 87 14 100 08/16/16 01:30 87 12 100 08/16/16 01:00 98.1 F 87 12 100 08/16/16 00:30 93 12 100 08/16/16 00:15 92 08/16/16 00:00 98.1 F 90 14 100 08/15/16 23:44 89 08/15/16 23:30 87 12 100 08/15/16 23:00 85 100 08/15/16 22:30 83 100 08/15/16 22:00 84 12 100 08/15/16 21:55 98.1 F 83 12 105/56 08/15/16 21:54 98.1 F 85 12 104/50 08/15/16 21:50 85 100 08/15/16 21:40 83 100 08/15/16 21:30 85 100 08/15/16 21:26 98.1 F 87 12 103/49 08/15/16 21:25 98.1 F 85 12 105/50 08/15/16 21:20 97.9 F 83 100 08/15/16 21:00 97.7 F 80 12 100 08/15/16 20:49 80 08/15/16 20:45 80 12 100 08/15/16 20:30 80 100 08/15/16 20:28 96.8 F L 81 23 108/51 08/15/16 20:27 96.8 F L 80 12 106/50 08/15/16 20:15 96.8 F L 81 100 08/15/16 20:10 81 08/15/16 20:03 96.8 F L 81 12 107/50 08/15/16 20:00 96.8 F L 79 12 100 08/15/16 19:53 96.8 F L 81 12 105/49 08/15/16 19:50 79 100 08/15/16 19:40 81 100 08/15/16 19:30 80 100 08/15/16 19:20 78 100 08/15/16 19:00 96.8 F L 76 12 100 08/15/16 18:45 75 12 100 Intake and Output 08/16/16 08/16/16 08/16/16 06:59 14:59 22:59 Intake Total 680.860 667.309 235.943 Output Total 695 790 665 Balance -14.140 -122.691 -429.057 Intake: IV 158 89 24 0.9NS Pressure Bag 48 69 24 Cardiac Output 110 20 Intake, IV Titration 522.860 578.309 211.943 Amount ACETAMINOPHEN IV (For NPO 100 ) 1,000 mg In Empty Bag 1 bag @ 400 mls/hr IVPB Q6HR [facility] Rx#:[id number] Calcium Gluconate 1,000 100 mg In Sodium Chloride 0.9 % 100 ml @ 100 mls/hr IVPB ONCE ONE Rx#: [id number] Clevidipine Butyrate 25 3 33.067 mg In Empty Bag 1 bag @ 1 MG/HR 2 mls/hr IV .Q24H [facility] Rx#:[id number] Insulin Regular 100 unit 24.814 45.242 11.943 In Sodium Chloride 0.9% 100 ml @ Per Protocol IV .Q0M [facility] Rx#:[id number] Lactated Ringers 1,000 ml 150 400 200 @ 20 mls/hr IV .Q24H [facility] Rx#:[id number] Propofol 500 mg In Empty 45.046 Bag 1 bag @ Titrate IV . Q0M [facility] Rx#:[id number] ceFAZolin 2 gm In Sodium 100 100 Chloride 0.9% 100 ml @ 100 mls/hr IVPB Q8HR [facility] Rx#:[id number] Output: Chest Tube Drainage 175 340 60 Left Lateral Chest 15 150 0 Mediastinal 160 190 60 Drainage 40 50 Right Knee 40 50 Urine 480 400 605 Other: Voiding Method Indwelling Catheter Indwelling Catheter Indwelling Catheter Weight 100.1 kg ABP, PAP, CO, CI - Last 8 Hours Arterial Blood Pressure 151/56 Arterial Blood Pressure 128/61 Arterial Blood Pressure 141/53 Arterial Blood Pressure 139/52 Arterial Blood Pressure 128/54 Arterial Blood Pressure 123/53 Arterial Blood Pressure 110/52 Cardiac Output 6.3 Cardiac Output 6.3 Cardiac Output 6.3 HEENT head normocephalic and atraumatic Neck is supple no JVD no goiter no lymphadenopathy Chest exam reveals a scattered crackles bilaterally no wheezing Cardiac exam reveals regular heart sounds no gallops no murmurs Abdomen is soft nontender no organomegaly with normal bowel sounds Extremity exam reveals minimal edema no cyanosis or clubbing Neurological examination reveals patient is alert and oriented without any focal neurological deficit Results CBC & Chem 7: 08/16/16 04:22 08/16/16 04:22 Labs: Abnormal Lab Results - Last 24 Hours (Table) 08/10/16 08/15/16 08/15/16 Range/Units 10:35 17:45 19:24 RBC (4.30-5.90) m/uL Hgb (13.0-17.5) gm/dL Hct (39.0-53.0) % Plt Count (150-450) k/uL Neutrophils # (1.3-7.7) k/uL Lymphocytes # (1.0-4.8) k/uL Fibrinogen 100 L* (200-500) mg/dL ABG Total CO2 (19-24) mmol/L Chloride (98-107) mmol/L Creatinine (0.66-1.25) mg/dL Glucose (74-99) mg/dL POC Glucose (mg/dL) 187 H (75-99) mg/dL Calcium (8.4-10.2) mg/dL Magnesium (1.6-2.3) mg/dL Total Protein (6.3-8.2) g/dL Albumin (3.5-5.0) g/dL Crossmatch See Detail 08/15/16 08/15/16 08/15/16 Range/Units 20:00 20:00 20:02 RBC 3.54 L (4.30-5.90) m/uL Hgb 10.8 L (13.0-17.5) gm/dL Hct 31.8 L (39.0-53.0) % Plt Count 125 L (150-450) k/uL Neutrophils # 7.8 H (1.3-7.7) k/uL Lymphocytes # 0.5 L (1.0-4.8) k/uL Fibrinogen (200-500) mg/dL ABG Total CO2 (19-24) mmol/L Chloride 108 H (98-107) mmol/L Creatinine 0.61 L (0.66-1.25) mg/dL Glucose 161 H (74-99) mg/dL POC Glucose (mg/dL) 192 H (75-99) mg/dL Calcium 7.7 L (8.4-10.2) mg/dL Magnesium (1.6-2.3) mg/dL Total Protein (6.3-8.2) g/dL Albumin (3.5-5.0) g/dL Crossmatch 08/15/16 08/15/16 08/15/16 Range/Units 21:01 22:13 23:06 RBC (4.30-5.90) m/uL Hgb (13.0-17.5) gm/dL Hct (39.0-53.0) % Plt Count (150-450) k/uL Neutrophils # (1.3-7.7) k/uL Lymphocytes # (1.0-4.8) k/uL Fibrinogen (200-500) mg/dL ABG Total CO2 (19-24) mmol/L Chloride (98-107) mmol/L Creatinine (0.66-1.25) mg/dL Glucose (74-99) mg/dL POC Glucose (mg/dL) 155 H 137 H 131 H (75-99) mg/dL Calcium (8.4-10.2) mg/dL Magnesium (1.6-2.3) mg/dL Total Protein (6.3-8.2) g/dL Albumin (3.5-5.0) g/dL Crossmatch 08/16/16 08/16/16 08/16/16 Range/Units 00:02 00:02 00:02 RBC 3.18 L (4.30-5.90) m/uL Hgb 9.5 L (13.0-17.5) gm/dL Hct 29.1 L (39.0-53.0) % Plt Count 128 L (150-450) k/uL Neutrophils # (1.3-7.7) k/uL Lymphocytes # 0.3 L (1.0-4.8) k/uL Fibrinogen (200-500) mg/dL ABG Total CO2 (19-24) mmol/L Chloride 110 H (98-107) mmol/L Creatinine (0.66-1.25) mg/dL Glucose 111 H (74-99) mg/dL POC Glucose (mg/dL) 124 H (75-99) mg/dL Calcium 7.9 L (8.4-10.2) mg/dL Magnesium 2.4 H (1.6-2.3) mg/dL Total Protein (6.3-8.2) g/dL Albumin (3.5-5.0) g/dL Crossmatch 08/16/16 08/16/16 08/16/16 Range/Units 01:07 02:12 03:00 RBC (4.30-5.90) m/uL Hgb (13.0-17.5) gm/dL Hct (39.0-53.0) % Plt Count (150-450) k/uL Neutrophils # (1.3-7.7) k/uL Lymphocytes # (1.0-4.8) k/uL Fibrinogen (200-500) mg/dL ABG Total CO2 25 H (19-24) mmol/L Chloride (98-107) mmol/L Creatinine (0.66-1.25) mg/dL Glucose (74-99) mg/dL POC Glucose (mg/dL) 122 H 126 H (75-99) mg/dL Calcium (8.4-10.2) mg/dL Magnesium (1.6-2.3) mg/dL Total Protein (6.3-8.2) g/dL Albumin (3.5-5.0) g/dL Crossmatch 08/16/16 08/16/16 08/16/16 Range/Units 03:01 04:18 04:22 RBC 3.47 L (4.30-5.90) m/uL Hgb 10.4 L (13.0-17.5) gm/dL Hct 30.9 L (39.0-53.0) % Plt Count 143 L (150-450) k/uL Neutrophils # 9.5 H (1.3-7.7) k/uL Lymphocytes # 0.3 L (1.0-4.8) k/uL Fibrinogen (200-500) mg/dL ABG Total CO2 (19-24) mmol/L Chloride (98-107) mmol/L Creatinine (0.66-1.25) mg/dL Glucose (74-99) mg/dL POC Glucose (mg/dL) 131 H 139 H (75-99) mg/dL Calcium (8.4-10.2) mg/dL Magnesium (1.6-2.3) mg/dL Total Protein (6.3-8.2) g/dL Albumin (3.5-5.0) g/dL Crossmatch 08/16/16 08/16/16 08/16/16 Range/Units 04:22 05:00 05:58 RBC (4.30-5.90) m/uL Hgb (13.0-17.5) gm/dL Hct (39.0-53.0) % Plt Count (150-450) k/uL Neutrophils # (1.3-7.7) k/uL Lymphocytes # (1.0-4.8) k/uL Fibrinogen (200-500) mg/dL ABG Total CO2 (19-24) mmol/L Chloride 109 H (98-107) mmol/L Creatinine (0.66-1.25) mg/dL Glucose 131 H (74-99) mg/dL POC Glucose (mg/dL) 149 H 135 H (75-99) mg/dL Calcium (8.4-10.2) mg/dL Magnesium (1.6-2.3) mg/dL Total Protein 5.4 L (6.3-8.2) g/dL Albumin 3.4 L (3.5-5.0) g/dL Crossmatch 08/16/16 08/16/16 08/16/16 Range/Units 07:45 08:15 10:10 RBC (4.30-5.90) m/uL Hgb (13.0-17.5) gm/dL Hct (39.0-53.0) % Plt Count (150-450) k/uL Neutrophils # (1.3-7.7) k/uL Lymphocytes # (1.0-4.8) k/uL Fibrinogen (200-500) mg/dL ABG Total CO2 (19-24) mmol/L Chloride (98-107) mmol/L Creatinine (0.66-1.25) mg/dL Glucose (74-99) mg/dL POC Glucose (mg/dL) 129 H 127 H 184 H (75-99) mg/dL Calcium (8.4-10.2) mg/dL Magnesium (1.6-2.3) mg/dL Total Protein (6.3-8.2) g/dL Albumin (3.5-5.0) g/dL Crossmatch 08/16/16 08/16/16 08/16/16 Range/Units 11:56 13:10 14:36 RBC (4.30-5.90) m/uL Hgb (13.0-17.5) gm/dL Hct (39.0-53.0) % Plt Count (150-450) k/uL Neutrophils # (1.3-7.7) k/uL Lymphocytes # (1.0-4.8) k/uL Fibrinogen (200-500) mg/dL ABG Total CO2 (19-24) mmol/L Chloride (98-107) mmol/L Creatinine (0.66-1.25) mg/dL Glucose (74-99) mg/dL POC Glucose (mg/dL) 143 H 131 H 258 H (75-99) mg/dL Calcium (8.4-10.2) mg/dL Magnesium (1.6-2.3) mg/dL Total Protein (6.3-8.2) g/dL Albumin (3.5-5.0) g/dL Crossmatch 08/16/16 08/16/16 08/16/16 Range/Units 15:32 16:23 17:31 RBC (4.30-5.90) m/uL Hgb (13.0-17.5) gm/dL Hct (39.0-53.0) % Plt Count (150-450) k/uL Neutrophils # (1.3-7.7) k/uL Lymphocytes # (1.0-4.8) k/uL Fibrinogen (200-500) mg/dL ABG Total CO2 (19-24) mmol/L Chloride (98-107) mmol/L Creatinine (0.66-1.25) mg/dL Glucose (74-99) mg/dL POC Glucose (mg/dL) 218 H 176 H 133 H (75-99) mg/dL Calcium (8.4-10.2) mg/dL Magnesium (1.6-2.3) mg/dL Total Protein (6.3-8.2) g/dL Albumin (3.5-5.0) g/dL Crossmatch Thrombosis Risk Factor Assmnt - Choose All That Apply Each Factor Represents 1 point: Obesity (BMI >25) Each Risk Factor Represents 2 Points: Age 61-74 years, Central venous access Each Risk Factor Represents 5 Points: Major surgery lasting over 3 hours Thrombosis Risk Factor Assessment Total Risk Factor Score: 10 Thrombosis Risk Factor Assessment Level: High Risk Assessment and Plan Plan: #1 coronary artery disease status post triple vessel coronary artery bypass graft surgery postoperative day #1 #2 underlying history of hypertension well-controlled on current medication #3 underlying history of hyperlipidemia maintained on Lipitor 40 mg daily continue #4 underlying history of [id number] diabetes mellitus, at home patient was maintained on metformin and glipizide, currently he is on insulin drip #5 previous history of prostate cancer diagnosed in 2006 patient had surgery at that time and has been doing well At this time medication and labs were reviewed, continue with current care we will follow closely
[2016-08-16] MEDS: HYDROcodone/APAP 5-325MG 1 EACH TAB PO PRN (19:44)
[2016-08-16 19:54] LABS: Glucose,Whole Blood 213 mg/dL (75-99)
[2016-08-16] MEDS: SENNOSIDES-DOCUSATE SODIUM 1 EACH TAB PO SCH (20:29)
[2016-08-16 21:09] LABS: Glucose,Whole Blood 171 mg/dL (75-99)
[2016-08-16 22:24] LABS: Glucose,Whole Blood 128 mg/dL (75-99)
[2016-08-16 23:37] LABS: Glucose,Whole Blood 103 mg/dL (75-99)
[2016-08-17] LABS: Magnesium 2.5 mg/dL (1.6-2.3); Potassium 3.7 mmol/L (3.5-5.1)
[2016-08-17] MEDS: HEPARIN SODIUM,PORCINE 5,000 UNIT/ML 1 ML VIAL SQ SCH ×4 (00:09→23:43)
[2016-08-17 00:15] LABS: Glucose,Whole Blood 101 mg/dL (75-99)
[2016-08-17] MEDS ORDERED: METOPROLOL TARTRATE 25 MG TAB PO STA (00:47)
[2016-08-17] MEDS ORDERED: POTASSIUM CHLORIDE ER 20 MEQ TAB.ER PO STA (00:48)
[2016-08-17] MEDS ORDERED: POTASSIUM CHLORIDE ER 20 MEQ TAB.ER PO SCH (01:00)
[2016-08-17 02:18] LABS: Glucose,Whole Blood 142 mg/dL (75-99)
[2016-08-17] MEDS: LACTATED RINGERS 1,000 ML IV SCH ×2 (02:18→21:06)
[2016-08-17 03:07] LABS: Glucose,Whole Blood 135 mg/dL (75-99)
[2016-08-17 03:57] LABS: Glucose,Whole Blood 120 mg/dL (75-99)
[2016-08-17] MEDS ORDERED: DEXTROSE 5% IN WATER 100 ML with AMIODARONE 150 MG IV ONE ×2 (04:02→17:00)
[2016-08-17] MEDS: AMIODARONE 450 MG in DEXTROSE 5% IN WATER 250 ML IV SCH ×6 (04:45→21:06)
[2016-08-17 04:56] LABS: Glucose,Whole Blood 148 mg/dL (75-99)
[2016-08-17 05:12] LABS: Basophils % (A) 0 %; CH 30.4; CHCM 35.3; Eosinophils # (A) 0.1 k/uL (0-0.7); Eosinophils % (A) 0 %; HCT 28.4 % (39.0-53.0); HDW 3.07; HGB 9.8 gm/dL (13.0-17.5); Luc # (Auto) 0.16; Luc % (Auto) 2; Lymphocytes # (A) 1.2 k/uL (1.0-4.8); Lymphocytes % (A) 11 %; MCH 29.8 pg (25.0-35.0); MCHC 34.4 g/dL (31.0-37.0); MCV 86.8 fL (80.0-100.0); Mean Platelet Volume 10.9; Monocytes # (A) 0.6 k/uL (0-1.0); Monocytes % (A) 5 %; Neutrophils # (A) 8.9 k/uL (1.3-7.7); Neutrophils % (A) 82 %; RBC 3.27 m/uL (4.30-5.90)
[2016-08-17 05:19] LABS: Prothrombin Time 10.2 sec (9.0-12.0)
[2016-08-17] MEDS: HYDROcodone/APAP 5-325MG 1 EACH TAB PO PRN ×3 (05:33→15:00)
[2016-08-17 05:39] LABS: ALT 28 U/L (21-72); AST 20 U/L (17-59); Alkaline Phosphatase 44 U/L (38-126); Anion Gap 7 mmol/L; Blood Urea Nitrogen 20 mg/dL (9-20); Calcium 8.2 mg/dL (8.4-10.2); Carbon Dioxide 24 mmol/L (22-30); Chloride 106 mmol/L (98-107); Glucose 132 mg/dL (74-99); Magnesium 2.4 mg/dL (1.6-2.3); Non-African American GFR(MDRD) >60 (>60 ml/min/1.73 sqM); Potassium 4.1 mmol/L (3.5-5.1); Sodium 137 mmol/L (137-145); Total Bilirubin 0.8 mg/dL (0.2-1.3); Total Protein 5.1 g/dL (6.3-8.2)
[2016-08-17] MEDS: CLEVIDIPINE BUTYRATE 25 MG in EMPTY BAG 1 BAG IV SCH (06:14)
[2016-08-17 06:16] LABS: Glucose,Whole Blood 142 mg/dL (75-99)
[2016-08-17] MEDS: ONDANSETRON 4 MG/2 ML VIAL IVP PRN ×2 (06:16→23:35)
--- NOTE | 2016-08-17 07:23 | XR ---
EXAMINATION TYPE: XR chest 1V portable DATE OF EXAM: 08/17/2016 6:28 AM Comparison: 08/16/2016 Clinical History: 76-year-old male post Operative Cardiac Surgery Findings: A right IJ sheath remains in place after removal of the [place]-Radhames catheter. Median sternotomy wires a re present. Heart remains borderline enlarged. Some strandy atelectasis at the lung bases. Patchy ret rocardiac opacity persists and trace left apical pneumothorax redemonstrated. The pleural measures ap proximately 6 mm from the apical margin versus 5 mm, previously. Left-sided chest tube remains in monica ce. Impression: 1. Trace left apical pneumothorax, 6 mm from the apical margin versus 5 mm, previously. 2. Patchy bibasilar and retrocardiac atelectasis.
[2016-08-17 08:14] LABS: Glucose,Whole Blood 100 mg/dL (75-99)
[2016-08-17] MEDS: PANTOPRAZOLE 40 MG TABLET PO SCH (08:18)
[2016-08-17] MEDS ORDERED: FUROSEMIDE 10 MG/ML 4 ML VIAL IV STA (08:21)
[2016-08-17] MEDS: INSULN ASP PRT/INSULIN ASPART 100 UNIT/ML 10 ML VIAL SQ SCH (08:35)
[2016-08-17] MEDS: IPRATROPIUM-ALBUTEROL 3 ML NEB INHALATION PRN ×3 (08:56→20:17)
[2016-08-17] MEDS: INSULIN LISPRO (humaLOG) 300 UNIT/3 ML VIAL SQ SCH ×5 (09:31→20:59)
[2016-08-17] MEDS: CLOPIDOGREL 75 MG TAB PO SCH (09:34)
[2016-08-17] MEDS: ASPIRIN 325 MG TAB PO SCH (09:34)
[2016-08-17] MEDS: METOPROLOL TARTRATE 50 MG TAB PO SCH ×2 (09:35→20:58)
[2016-08-17] MEDS: MUPIROCIN 2% OINT 22 GM TUBE NASAL SCH ×2 (09:36→20:57)
--- NOTE | 2016-08-17 11:48 | P.PN ---
Subjective Principal diagnosis: status post CABG, postoperative day # 2 This is a 76-year-old white male with history of diabetes, hypertension, prostate cancer, patient was recently evaluated for intermittent episodes of chest pain for the last few months. Patient has no shortness of breath, no radiation of the pain, no fevers, no chills, recent cardiac catheterization showed multivessel coronary artery disease. Hence the patient was seen by cardiac surgery on 08/10/2016, and he was scheduled for elective myocardial revascularization which was done today on 08/15/2016. Postoperatively, patient was on mechanical ventilation, and I was asked to see him on consultation. Present vent settings are assist control of 12, FiO2 of 50%, tidal volume of 600 , and PEEP of 8. Patient is presently sedated, on mechanical ventilation, and the main issue seems to be postoperative bleeding which is being addressed by cardiac surgery. reevaluated today on 08/16/2016, patient was extubated last night uneventfully, he is presently on nasal cannula, in no distress. no cough no wheezing no shortness of breath. patient feels generally weak and tired. some aches and pains. labs were reviewed, hemoglobin is 9.5. Preintubation ABG showed a pO2 of 91 pCO2 of 38 pH of 7.42. Electrolytes and renal profile are normal. chest x -ray was reviewed, there is evidence of atelectasis of the left base, small tiny left apical pneumothorax was noted, chest tube on the left side remains in place, there is a stoma distention noted. Reevaluated today on 08/17/2016, patient continues to do quite well from the pulmonary perspective. No cough no wheezing no shortness of breath, feels generally weak. Patient is on room air. His O2 saturations are in the mid 90s. Labs were reviewed hemoglobin is 9.8 to let lites are normal renal profile is normal. Chest x-ray continues to show a small tiny left apical pneumothorax. Some atelectasis is noted bilaterally. However patient is asymptomatic. Objective - Vital Signs Vital signs: Vital Signs Temp 98.9 F 08/17/16 08:00 Pulse 111 H 08/17/16 11:00 Resp 11 L 08/17/16 11:00 BP 113/64 08/17/16 11:00 Pulse Ox 97 08/17/16 11:00 Intake & Output 08/16/16 08/17/1617 18:59 06:59 18:59 Intake Total 929.252 906.407 662.257 Output Total 1645 530 925 Balance -715.748 376.407 -262.743 Weight 100.8 kg Intake: IV 119 72 174 0.9NS Pressure Bag 99 72 24 Cardiac Output 20 Lactated Ringers 1,000 ml 150 @ 20 mls/hr IV .Q24H [facility] Rx#:[id number] Intake, IV Titration 810.252 434.407 288.257 Amount Amiodarone 450 mg In 238.257 Dextrose 5% in Water 250 ml @ 1 MG/MIN 34.53 mls/ hr IV .Q7H31M [facility] Rx#: [id number] Clevidipine Butyrate 25 33.067 mg In Empty Bag 1 bag @ 1 MG/HR 2 mls/hr IV .Q24H [facility] Rx#:[id number] Dextrose 5% in Water 100 100 ml @ 618 mls/hr IV .Q10M ONE with Amiodarone 150 mg Rx#:[id number] Insulin Regular 100 unit 57.185 44.407 In Sodium Chloride 0.9% 100 ml @ Per Protocol IV .Q0M [facility] Rx#:[id number] Lactated Ringers 1,000 ml 620 290 50 @ 20 mls/hr IV .Q24H [facility] Rx#:[id number] ceFAZolin 2 gm In Sodium 100 Chloride 0.9% 100 ml @ 100 mls/hr IVPB Q8HR [facility] Rx#:[id number] Oral 400 200 Output: Chest Tube Drainage 440 170 120 Left Lateral Chest 150 50 50 Mediastinal 290 120 70 Drainage 50 20 Right Knee 50 20 Urine 1155 340 805 Other: Voiding Method Indwelling Catheter Indwelling Catheter Indwelling Catheter ABP, PAP, CO, CI - Last Documented Arterial Blood Pressure 102/55 Pulmonary Artery Pressure 21/12 Cardiac Output 6.3 Cardiac Index 2.8 - Exam Physical Exam: Revealed a 76-year-old in no distress, resting, and looks very comfortable. HEENT:[Neck is supple.] [No neck masses.] [No thyromegaly.] [No JVD.] Chest: [diminished breath sounds at the bases, no rhonchi, no wheezes.] Cardiac Exam: [Normal S1 and S2, no S3 gallop, no murmur.] Abdomen: [Soft, nontender, no megaly, no rebound, no guarding, normal bowel sounds.] Extremities: [No clubbing, no edema, no cyanosis.] Neurological Exam: [No focal neurologic deficit.] - Labs CBC & Chem 7: 08/17/16 05:02 08/17/16 05:02 Labs: Abnormal Lab Results - Last 24 Hours (Table) 08/16/16 08/16/16 08/16/16 Range/Units 11:56 13:10 14:36 WBC (3.8-10.6) k/uL RBC (4.30-5.90) m/uL Hgb (13.0-17.5) gm/dL Hct (39.0-53.0) % Plt Count (150-450) k/uL Neutrophils # (1.3-7.7) k/uL Glucose (74-99) mg/dL POC Glucose (mg/dL) 143 H 131 H 258 H (75-99) mg/dL Calcium (8.4-10.2) mg/dL Magnesium (1.6-2.3) mg/dL Total Protein (6.3-8.2) g/dL Albumin (3.5-5.0) g/dL 08/16/16 08/16/16 08/16/16 Range/Units 15:32 16:23 17:31 WBC (3.8-10.6) k/uL RBC (4.30-5.90) m/uL Hgb (13.0-17.5) gm/dL Hct (39.0-53.0) % Plt Count (150-450) k/uL Neutrophils # (1.3-7.7) k/uL Glucose (74-99) mg/dL POC Glucose (mg/dL) 218 H 176 H 133 H (75-99) mg/dL Calcium (8.4-10.2) mg/dL Magnesium (1.6-2.3) mg/dL Total Protein (6.3-8.2) g/dL Albumin (3.5-5.0) g/dL 08/16/16 08/16/16 08/16/16 Range/Units 18:30 19:50 21:05 WBC (3.8-10.6) k/uL RBC (4.30-5.90) m/uL Hgb (13.0-17.5) gm/dL Hct (39.0-53.0) % Plt Count (150-450) k/uL Neutrophils # (1.3-7.7) k/uL Glucose (74-99) mg/dL POC Glucose (mg/dL) 173 H 213 H 171 H (75-99) mg/dL Calcium (8.4-10.2) mg/dL Magnesium (1.6-2.3) mg/dL Total Protein (6.3-8.2) g/dL Albumin (3.5-5.0) g/dL 08/16/16 08/16/16 08/16/16 Range/Units 22:20 23:18 23:20 WBC (3.8-10.6) k/uL RBC (4.30-5.90) m/uL Hgb (13.0-17.5) gm/dL Hct (39.0-53.0) % Plt Count (150-450) k/uL Neutrophils # (1.3-7.7) k/uL Glucose (74-99) mg/dL POC Glucose (mg/dL) 128 H 103 H (75-99) mg/dL Calcium (8.4-10.2) mg/dL Magnesium 2.5 H (1.6-2.3) mg/dL Total Protein (6.3-8.2) g/dL Albumin (3.5-5.0) g/dL 08/17/16 08/17/16 08/17/16 Range/Units 00:12 02:15 03:04 WBC (3.8-10.6) k/uL RBC (4.30-5.90) m/uL Hgb (13.0-17.5) gm/dL Hct (39.0-53.0) % Plt Count (150-450) k/uL Neutrophils # (1.3-7.7) k/uL Glucose (74-99) mg/dL POC Glucose (mg/dL) 101 H 142 H 135 H (75-99) mg/dL Calcium (8.4-10.2) mg/dL Magnesium (1.6-2.3) mg/dL Total Protein (6.3-8.2) g/dL Albumin (3.5-5.0) g/dL 08/17/16 08/17/16 08/17/16 Range/Units 03:55 04:52 05:02 WBC (3.8-10.6) k/uL RBC (4.30-5.90) m/uL Hgb (13.0-17.5) gm/dL Hct (39.0-53.0) % Plt Count (150-450) k/uL Neutrophils # (1.3-7.7) k/uL Glucose 132 H (74-99) mg/dL POC Glucose (mg/dL) 120 H 148 H (75-99) mg/dL Calcium 8.2 L (8.4-10.2) mg/dL Magnesium 2.4 H (1.6-2.3) mg/dL Total Protein 5.1 L (6.3-8.2) g/dL Albumin 3.1 L (3.5-5.0) g/dL 08/17/16 08/17/16 08/17/16 Range/Units 05:02 06:12 08:11 WBC 11.0 H (3.8-10.6) k/uL RBC 3.27 L (4.30-5.90) m/uL Hgb 9.8 L (13.0-17.5) gm/dL Hct 28.4 L (39.0-53.0) % Plt Count 130 L (150-450) k/uL Neutrophils # 8.9 H (1.3-7.7) k/uL Glucose (74-99) mg/dL POC Glucose (mg/dL) 142 H 100 H (75-99) mg/dL Calcium (8.4-10.2) mg/dL Magnesium (1.6-2.3) mg/dL Total Protein (6.3-8.2) g/dL Albumin (3.5-5.0) g/dL Assessment and Plan Plan: Impression: 1 status post elective CABG for triple vessel coronary artery disease, postoperative day #2, patient is doing well overall. Off oxygen presently on room air. 2 multiple comorbidities including hypertension, diabetes, history of prostate cancer. 3 small tiny left apical pneumothorax is noted on the chest x-ray today, however the patient continues to have a chest tube in place on the left side. We'll continue to follow. Recommendation: continue present supportive care measures, incentive spirometry , ambulation, bronchodilators, and we'll continue to follow. Time with Patient: Less than 30
[2016-08-17] MEDS: MULTIVITAMINS, THERA 1 EACH TAB PO SCH (12:05)
[2016-08-17 12:15] LABS: Glucose,Whole Blood 166 mg/dL (75-99)
--- NOTE | 2016-08-17 12:49 | P.PN ---
Addendum entered and electronically signed by Angelina Arce CDL DEDICATED TRUCK DRIVERRobertoC 08/17/16 14:19 : Addendum: Mediastinal chest tubes dc'd without incident. Pt. sujatha well. CXR in AM. Original Note: <Angelina rAce - Last Filed: 08/17/16 12:34> Subjective Principal diagnosis: Coronary artery disease. POD #2 coronary artery bypass grafting 3 vessels (left internal mammary artery to left anterior descending artery, saphenous vein graft to obtuse marginal artery 2, saphenous vein graft to distal right coronary artery). Endoscopic vein harvest, right greater saphenous vein. Epi-aortic ultrasound. Intraoperative transesophageal echocardiogram. Patient sitting up and recliner in no apparent distress. States his pain is controlled with ordered medication. Went into A. fib with RVR this morning, started on amiodarone drip. Objective - Vital Signs Vital signs: Vital Signs Temp 98.9 F 08/17/16 08:00 Pulse 104 H 08/17/16 12:00 Resp 11 L 08/17/16 12:00 BP 119/64 08/17/16 12:00 Pulse Ox 96 08/17/16 12:00 Intake & Output 08/16/16 08/17/16 08/17/16 18:59 06:59 18:59 Intake Total 929.252 906.407 662.257 Output Total 1645 530 925 Balance -715.748 376.407 -262.743 Weight 100.8 kg Intake: IV 119 72 174 0.9NS Pressure Bag 99 72 24 Cardiac Output 20 Lactated Ringers 1,000 ml 150 @ 20 mls/hr IV .Q24H [facility] Rx#:[id number] Intake, IV Titration 810.252 434.407 288.257 Amount Amiodarone 450 mg In 238.257 Dextrose 5% in Water 250 ml @ 1 MG/MIN 34.53 mls/ hr IV .Q7H31M [facility] Rx#: [id number] Clevidipine Butyrate 25 33.067 mg In Empty Bag 1 bag @ 1 MG/HR 2 mls/hr IV .Q24H [facility] Rx#:[id number] Dextrose 5% in Water 100 100 ml @ 618 mls/hr IV .Q10M ONE with Amiodarone 150 mg Rx#:[id number] Insulin Regular 100 unit 57.185 44.407 In Sodium Chloride 0.9% 100 ml @ Per Protocol IV .Q0M [facility] Rx#:[id number] Lactated Ringers 1,000 ml 620 290 50 @ 20 mls/hr IV .Q24H [facility] Rx#:[id number] ceFAZolin 2 gm In Sodium 100 Chloride 0.9% 100 ml @ 100 mls/hr IVPB Q8HR [facility] Rx#:[id number] Oral 400 200 Output: Chest Tube Drainage 440 170 120 Left Lateral Chest 150 50 50 Mediastinal 290 120 70 Drainage 50 20 Right Knee 50 20 Urine 1155 340 805 Other: Voiding Method Indwelling Catheter Indwelling Catheter Indwelling Catheter ABP, PAP, CO, CI - Last Documented Arterial Blood Pressure 113/56 Pulmonary Artery Pressure 21/12 Cardiac Output 6.3 Cardiac Index 2.8 - Constitutional General appearance: Present: cooperative, no acute distress - Respiratory Details: Lungs sounds diminished bilaterally. Respirations even, nonlabored. Remains on room air with oxygen saturation 98%. Able to achieve 1000 mL on his incentive spirometry. Left pleural chest tube to -20 cm wall suction, drained 20 mL serous fluid overnight, 100 mL in 24 hours. Mediastinal chest tube to - 20 cm wall suction, drained 90 mL serous fluid overnight, 250 mL in 24 hours. No air leaks present. - Cardiovascular Details: S1, S2 present. Irregular, tachycardia rate and rhythm, A. fib with RVR on telemetry. Sternum stable. No edema present. Heart hugger in place with patient demonstrating appropriate use. Teds/SCDs present. A/V epicardial pacemakers present, connected to generator, VVI was a backup rate of 50. - Gastrointestinal Gastrointestinal Comment(s): Abdomen soft, nontender, nondistended. Active bowel sounds 4 quadrants. Tolerating diet. - Genitourinary Genitourinary Comment(s): Du present draining clear yellow urine. Output had dropped down to 20-30 mL/ h overnight. Albumin plus Lasix 40 mg IV push given, urine output now 200-300 ml per hour. - Integumentary Integumentary Comment(s): Anterior chest incision well approximated and covered with dry intact dressing. - Musculoskeletal Musculoskeletal: Present: gait normal, strength equal bilaterally - Psychiatric Psychiatric: Present: A&O x's 3, appropriate affect, intact judgment & insight - Allied health notes Allied health notes reviewed: nursing - Labs CBC & Chem 7: 08/17/16 05:02 08/17/16 05:02 Labs: Abnormal Lab Results - Last 24 Hours (Table) 08/16/16 08/16/16 08/16/16 Range/Units 13:10 14:36 15:32 WBC (3.8-10.6) k/uL RBC (4.30-5.90) m/uL Hgb (13.0-17.5) gm/dL Hct (39.0-53.0) % Plt Count (150-450) k/uL Neutrophils # (1.3-7.7) k/uL Glucose (74-99) mg/dL POC Glucose (mg/dL) 131 H 258 H 218 H (75-99) mg/dL Calcium (8.4-10.2) mg/dL Magnesium (1.6-2.3) mg/dL Total Protein (6.3-8.2) g/dL Albumin (3.5-5.0) g/dL 08/16/16 08/16/16 08/16/16 Range/Units 16:23 17:31 18:30 WBC (3.8-10.6) k/uL RBC (4.30-5.90) m/uL Hgb (13.0-17.5) gm/dL Hct (39.0-53.0) % Plt Count (150-450) k/uL Neutrophils # (1.3-7.7) k/uL Glucose (74-99) mg/dL POC Glucose (mg/dL) 176 H 133 H 173 H (75-99) mg/dL Calcium (8.4-10.2) mg/dL Magnesium (1.6-2.3) mg/dL Total Protein (6.3-8.2) g/dL Albumin (3.5-5.0) g/dL 08/16/16 08/16/16 08/16/16 Range/Units 19:50 21:05 22:20 WBC (3.8-10.6) k/uL RBC (4.30-5.90) m/uL Hgb (13.0-17.5) gm/dL Hct (39.0-53.0) % Plt Count (150-450) k/uL Neutrophils # (1.3-7.7) k/uL Glucose (74-99) mg/dL POC Glucose (mg/dL) 213 H 171 H 128 H (75-99) mg/dL Calcium (8.4-10.2) mg/dL Magnesium (1.6-2.3) mg/dL Total Protein (6.3-8.2) g/dL Albumin (3.5-5.0) g/dL 08/16/16 08/16/16 08/17/16 Range/Units 23:18 23:20 00:12 WBC (3.8-10.6) k/uL RBC (4.30-5.90) m/uL Hgb (13.0-17.5) gm/dL Hct (39.0-53.0) % Plt Count (150-450) k/uL Neutrophils # (1.3-7.7) k/uL Glucose (74-99) mg/dL POC Glucose (mg/dL) 103 H 101 H (75-99) mg/dL Calcium (8.4-10.2) mg/dL Magnesium 2.5 H (1.6-2.3) mg/dL Total Protein (6.3-8.2) g/dL Albumin (3.5-5.0) g/dL 08/17/16 08/17/16 08/17/16 Range/Units 02:15 03:04 03:55 WBC (3.8-10.6) k/uL RBC (4.30-5.90) m/uL Hgb (13.0-17.5) gm/dL Hct (39.0-53.0) % Plt Count (150-450) k/uL Neutrophils # (1.3-7.7) k/uL Glucose (74-99) mg/dL POC Glucose (mg/dL) 142 H 135 H 120 H (75-99) mg/dL Calcium (8.4-10.2) mg/dL Magnesium (1.6-2.3) mg/dL Total Protein (6.3-8.2) g/dL Albumin (3.5-5.0) g/dL 08/17/16 08/17/16 08/17/16 Range/Units 04:52 05:02 05:02 WBC 11.0 H (3.8-10.6) k/uL RBC 3.27 L (4.30-5.90) m/uL Hgb 9.8 L (13.0-17.5) gm/dL Hct 28.4 L (39.0-53.0) % Plt Count 130 L (150-450) k/uL Neutrophils # 8.9 H (1.3-7.7) k/uL Glucose 132 H (74-99) mg/dL POC Glucose (mg/dL) 148 H (75-99) mg/dL Calcium 8.2 L (8.4-10.2) mg/dL Magnesium 2.4 H (1.6-2.3) mg/dL Total Protein 5.1 L (6.3-8.2) g/dL Albumin 3.1 L (3.5-5.0) g/dL 08/17/16 08/17/16 08/17/16 Range/Units 06:12 08:11 12:09 WBC (3.8-10.6) k/uL RBC (4.30-5.90) m/uL Hgb (13.0-17.5) gm/dL Hct (39.0-53.0) % Plt Count (150-450) k/uL Neutrophils # (1.3-7.7) k/uL Glucose (74-99) mg/dL POC Glucose (mg/dL) 142 H 100 H 166 H (75-99) mg/dL Calcium (8.4-10.2) mg/dL Magnesium (1.6-2.3) mg/dL Total Protein (6.3-8.2) g/dL Albumin (3.5-5.0) g/dL - Imaging and Cardiology Chest x-ray: image reviewed Assessment and Plan (1) Coronary artery disease Status: Acute (2) Hypertension Status: Acute (3) Diabetes mellitus Status: Acute (4) History of prostate cancer Status: Acute Plan: 1. Continue aspirin, Lipitor, Plavix, heparin. Increase Lopressor to 50 mg twice a day. 2. Continue amiodarone drip. Will transition to oral amiodarone for atrial fibrillation prophylaxis. 3. Albumin plus IV Lasix given. 4. Encourage incentive spirometry use. 5. Increase activity, ambulate in hallway. Physical therapy to follow. 6. Diabetic management per primary care service. 7. Will discontinue mediastinal chest tube. 8. GI/DVT prophylaxis. 9. Monitor daily labs, x-rays. 10. Likely will send to 6 E. [facility] care later this afternoon versus tomorrow morning. Time with Patient: Greater than 30 <Brian Hemphill - Last Filed: 08/17/16 17:19> Objective - Vital Signs Vital signs: Vital Signs Temp 98.9 F 08/17/16 08:00 Pulse 108 H 08/17/16 16:00 Resp 32 H 08/17/16 16:00 BP 112/82 08/17/16 16:00 Pulse Ox 99 08/17/16 16:00 Intake & Output 08/16/16 08/17/16 08/17/16 18:59 06:59 18:59 Intake Total 929.252 906.407 939.257 Output Total 9292 173 8837 Balance -715.748 376.407 -1030.743 Weight 100.8 kg Intake: IV 119 72 451 0.9NS Pressure Bag 99 72 51 Cardiac Output 20 Lactated Ringers 1,000 ml 400 @ 20 mls/hr IV .Q24H [facility] Rx#:[id number] Intake, IV Titration 810.252 434.407 288.257 Amount Amiodarone 450 mg In 238.257 Dextrose 5% in Water 250 ml @ 1 MG/MIN 34.53 mls/ hr IV .Q7H31M [facility] Rx#: [id number] Clevidipine Butyrate 25 33.067 mg In Empty Bag 1 bag @ 1 MG/HR 2 mls/hr IV .Q24H [facility] Rx#:[id number] Dextrose 5% in Water 100 100 ml @ 618 mls/hr IV .Q10M ONE with Amiodarone 150 mg Rx#:[id number] Insulin Regular 100 unit 57.185 44.407 In Sodium Chloride 0.9% 100 ml @ Per Protocol IV .Q0M [facility] Rx#:[id number] Lactated Ringers 1,000 ml 620 290 50 @ 20 mls/hr IV .Q24H [facility] Rx#:[id number] ceFAZolin 2 gm In Sodium 100 Chloride 0.9% 100 ml @ 100 mls/hr IVPB Q8HR [facility] Rx#:[id number] Oral 400 200 Output: Chest Tube Drainage 440 170 160 Left Lateral Chest 150 50 70 Mediastinal 290 120 90 Drainage 50 20 Right Knee 50 20 Urine 8495 150 5352 Uretheral (Du) 70 Other: Voiding Method Indwelling Catheter Indwelling Catheter Indwelling Catheter ABP, PAP, CO, CI - Last Documented Arterial Blood Pressure 155/87 Pulmonary Artery Pressure 21/12 Cardiac Output 6.3 Cardiac Index 2.8 - Labs CBC & Chem 7: 08/17/16 05:02 08/17/16 05:02 Labs: Abnormal Lab Results - Last 24 Hours (Table) 08/16/16 08/16/16 08/16/16 Range/Units 17:31 18:30 19:50 WBC (3.8-10.6) k/uL RBC (4.30-5.90) m/uL Hgb (13.0-17.5) gm/dL Hct (39.0-53.0) % Plt Count (150-450) k/uL Neutrophils # (1.3-7.7) k/uL Glucose (74-99) mg/dL POC Glucose (mg/dL) 133 H 173 H 213 H (75-99) mg/dL Calcium (8.4-10.2) mg/dL Magnesium (1.6-2.3) mg/dL Total Protein (6.3-8.2) g/dL Albumin (3.5-5.0) g/dL 08/16/16 08/16/16 08/16/16 Range/Units 21:05 22:20 23:18 WBC (3.8-10.6) k/uL RBC (4.30-5.90) m/uL Hgb (13.0-17.5) gm/dL Hct (39.0-53.0) % Plt Count (150-450) k/uL Neutrophils # (1.3-7.7) k/uL Glucose (74-99) mg/dL POC Glucose (mg/dL) 171 H 128 H 103 H (75-99) mg/dL Calcium (8.4-10.2) mg/dL Magnesium (1.6-2.3) mg/dL Total Protein (6.3-8.2) g/dL Albumin (3.5-5.0) g/dL 08/16/16 08/17/16 08/17/16 Range/Units 23:20 00:12 02:15 WBC (3.8-10.6) k/uL RBC (4.30-5.90) m/uL Hgb (13.0-17.5) gm/dL Hct (39.0-53.0) % Plt Count (150-450) k/uL Neutrophils # (1.3-7.7) k/uL Glucose (74-99) mg/dL POC Glucose (mg/dL) 101 H 142 H (75-99) mg/dL Calcium (8.4-10.2) mg/dL Magnesium 2.5 H (1.6-2.3) mg/dL Total Protein (6.3-8.2) g/dL Albumin (3.5-5.0) g/dL 08/17/16 08/17/16 08/17/16 Range/Units 03:04 03:55 04:52 WBC (3.8-10.6) k/uL RBC (4.30-5.90) m/uL Hgb (13.0-17.5) gm/dL Hct (39.0-53.0) % Plt Count (150-450) k/uL Neutrophils # (1.3-7.7) k/uL Glucose (74-99) mg/dL POC Glucose (mg/dL) 135 H 120 H 148 H (75-99) mg/dL Calcium (8.4-10.2) mg/dL Magnesium (1.6-2.3) mg/dL Total Protein (6.3-8.2) g/dL Albumin (3.5-5.0) g/dL 08/17/16 08/17/16 08/17/16 Range/Units 05:02 05:02 06:12 WBC 11.0 H (3.8-10.6) k/uL RBC 3.27 L (4.30-5.90) m/uL Hgb 9.8 L (13.0-17.5) gm/dL Hct 28.4 L (39.0-53.0) % Plt Count 130 L (150-450) k/uL Neutrophils # 8.9 H (1.3-7.7) k/uL Glucose 132 H (74-99) mg/dL POC Glucose (mg/dL) 142 H (75-99) mg/dL Calcium 8.2 L (8.4-10.2) mg/dL Magnesium 2.4 H (1.6-2.3) mg/dL Total Protein 5.1 L (6.3-8.2) g/dL Albumin 3.1 L (3.5-5.0) g/dL 08/17/16 08/17/16 Range/Units 08:11 12:09 WBC (3.8-10.6) k/uL RBC (4.30-5.90) m/uL Hgb (13.0-17.5) gm/dL Hct (39.0-53.0) % Plt Count (150-450) k/uL Neutrophils # (1.3-7.7) k/uL Glucose (74-99) mg/dL POC Glucose (mg/dL) 100 H 166 H (75-99) mg/dL Calcium (8.4-10.2) mg/dL Magnesium (1.6-2.3) mg/dL Total Protein (6.3-8.2) g/dL Albumin (3.5-5.0) g/dL Assessment and Plan Plan: The patient was seen and examined. I agree with the above assessment and plan. The patient did develop atrial fibrillation overnight. He was started on IV amiodarone and his beta demetris was increased. Otherwise he is doing well. His pain is controlled. His mediastinal chest tube was removed today. We will give him albumin and Lasix. His pleural chest tube will be placed waterseal. He will likely be transferred to selective care tomorrow.
--- NOTE | 2016-08-17 13:14 | P.PN ---
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 Joel on arrival and underwent cardiac catheterization which was positive for multiply vessel coronary artery disease, he was admitted to [facility] and underwent coronary artery bypass graft surgery on 08/15/2016. 08/17/2016 patient currently remains in the ICU. He is sitting up in bedside chair. Doing well. Has pain at the incision site. Chest tube still in place. Chest x-ray showing trace apical pneumothorax. Pulmonary service following. Patient reports passing gas no bowel movement for 2 days. Urine output adequate. Patient went into A. fib with RVR this morning and was started on amiodarone drip. Metoprolol also added. Cardiology following Objective - Vital Signs Vital signs: Vital Signs Temp 98.9 F 08/17/16 08:00 Pulse 80 08/17/16 13:00 Resp 32 H 08/17/16 13:00 BP 109/65 08/17/16 13:00 Pulse Ox 96 08/17/16 13:00 Intake & Output 08/16/16 08/17/16 08/17/16 18:59 06:59 18:59 Intake Total 929.252 906.407 662.257 Output Total 2203 381 4136 Balance -715.748 376.407 -612.743 Weight 100.8 kg Intake: IV 119 72 174 0.9NS Pressure Bag 99 72 24 Cardiac Output 20 Lactated Ringers 1,000 ml 150 @ 20 mls/hr IV .Q24H [facility] Rx#:[id number] Intake, IV Titration 810.252 434.407 288.257 Amount Amiodarone 450 mg In 238.257 Dextrose 5% in Water 250 ml @ 1 MG/MIN 34.53 mls/ hr IV .Q7H31M [facility] Rx#: [id number] Clevidipine Butyrate 25 33.067 mg In Empty Bag 1 bag @ 1 MG/HR 2 mls/hr IV .Q24H [facility] Rx#:[id number] Dextrose 5% in Water 100 100 ml @ 618 mls/hr IV .Q10M ONE with Amiodarone 150 mg Rx#:[id number] Insulin Regular 100 unit 57.185 44.407 In Sodium Chloride 0.9% 100 ml @ Per Protocol IV .Q0M [facility] Rx#:[id number] Lactated Ringers 1,000 ml 620 290 50 @ 20 mls/hr IV .Q24H [facility] Rx#:[id number] ceFAZolin 2 gm In Sodium 100 Chloride 0.9% 100 ml @ 100 mls/hr IVPB Q8HR [facility] Rx#:[id number] Oral 400 200 Output: Chest Tube Drainage 440 170 120 Left Lateral Chest 150 50 50 Mediastinal 290 120 70 Drainage 50 20 Right Knee 50 20 Urine 2045 067 4500 Other: Voiding Method Indwelling Catheter Indwelling Catheter Indwelling Catheter ABP, PAP, CO, CI - Last Documented Arterial Blood Pressure 115/58 Pulmonary Artery Pressure 21/12 Cardiac Output 6.3 Cardiac Index 2.8 - Exam Head normocephalic Neck supple Lungs clear to auscultation bilaterally no wheezing or crackles. Chest tubes in place Heart regular rate and rhythm S1-S2, no rub or gallop Abdomen is soft nontender nondistended positive bowel sounds no hepatosplenomegaly Extremities no edema Neuro alert and orientated to 3 - Labs CBC & Chem 7: 08/17/16 05:02 08/17/16 05:02 Labs: Abnormal Lab Results - Last 24 Hours (Table) 08/16/16 08/16/16 08/16/16 Range/Units 13:10 14:36 15:32 WBC (3.8-10.6) k/uL RBC (4.30-5.90) m/uL Hgb (13.0-17.5) gm/dL Hct (39.0-53.0) % Plt Count (150-450) k/uL Neutrophils # (1.3-7.7) k/uL Glucose (74-99) mg/dL POC Glucose (mg/dL) 131 H 258 H 218 H (75-99) mg/dL Calcium (8.4-10.2) mg/dL Magnesium (1.6-2.3) mg/dL Total Protein (6.3-8.2) g/dL Albumin (3.5-5.0) g/dL 08/16/16 08/16/16 08/16/16 Range/Units 16:23 17:31 18:30 WBC (3.8-10.6) k/uL RBC (4.30-5.90) m/uL Hgb (13.0-17.5) gm/dL Hct (39.0-53.0) % Plt Count (150-450) k/uL Neutrophils # (1.3-7.7) k/uL Glucose (74-99) mg/dL POC Glucose (mg/dL) 176 H 133 H 173 H (75-99) mg/dL Calcium (8.4-10.2) mg/dL Magnesium (1.6-2.3) mg/dL Total Protein (6.3-8.2) g/dL Albumin (3.5-5.0) g/dL 08/16/16 08/16/16 08/16/16 Range/Units 19:50 21:05 22:20 WBC (3.8-10.6) k/uL RBC (4.30-5.90) m/uL Hgb (13.0-17.5) gm/dL Hct (39.0-53.0) % Plt Count (150-450) k/uL Neutrophils # (1.3-7.7) k/uL Glucose (74-99) mg/dL POC Glucose (mg/dL) 213 H 171 H 128 H (75-99) mg/dL Calcium (8.4-10.2) mg/dL Magnesium (1.6-2.3) mg/dL Total Protein (6.3-8.2) g/dL Albumin (3.5-5.0) g/dL 08/16/16 08/16/16 08/17/16 Range/Units 23:18 23:20 00:12 WBC (3.8-10.6) k/uL RBC (4.30-5.90) m/uL Hgb (13.0-17.5) gm/dL Hct (39.0-53.0) % Plt Count (150-450) k/uL Neutrophils # (1.3-7.7) k/uL Glucose (74-99) mg/dL POC Glucose (mg/dL) 103 H 101 H (75-99) mg/dL Calcium (8.4-10.2) mg/dL Magnesium 2.5 H (1.6-2.3) mg/dL Total Protein (6.3-8.2) g/dL Albumin (3.5-5.0) g/dL 08/17/16 08/17/16 08/17/16 Range/Units 02:15 03:04 03:55 WBC (3.8-10.6) k/uL RBC (4.30-5.90) m/uL Hgb (13.0-17.5) gm/dL Hct (39.0-53.0) % Plt Count (150-450) k/uL Neutrophils # (1.3-7.7) k/uL Glucose (74-99) mg/dL POC Glucose (mg/dL) 142 H 135 H 120 H (75-99) mg/dL Calcium (8.4-10.2) mg/dL Magnesium (1.6-2.3) mg/dL Total Protein (6.3-8.2) g/dL Albumin (3.5-5.0) g/dL 08/17/16 08/17/16 08/17/16 Range/Units 04:52 05:02 05:02 WBC 11.0 H (3.8-10.6) k/uL RBC 3.27 L (4.30-5.90) m/uL Hgb 9.8 L (13.0-17.5) gm/dL Hct 28.4 L (39.0-53.0) % Plt Count 130 L (150-450) k/uL Neutrophils # 8.9 H (1.3-7.7) k/uL Glucose 132 H (74-99) mg/dL POC Glucose (mg/dL) 148 H (75-99) mg/dL Calcium 8.2 L (8.4-10.2) mg/dL Magnesium 2.4 H (1.6-2.3) mg/dL Total Protein 5.1 L (6.3-8.2) g/dL Albumin 3.1 L (3.5-5.0) g/dL 08/17/16 08/17/16 08/17/16 Range/Units 06:12 08:11 12:09 WBC (3.8-10.6) k/uL RBC (4.30-5.90) m/uL Hgb (13.0-17.5) gm/dL Hct (39.0-53.0) % Plt Count (150-450) k/uL Neutrophils # (1.3-7.7) k/uL Glucose (74-99) mg/dL POC Glucose (mg/dL) 142 H 100 H 166 H (75-99) mg/dL Calcium (8.4-10.2) mg/dL Magnesium (1.6-2.3) mg/dL Total Protein (6.3-8.2) g/dL Albumin (3.5-5.0) g/dL Assessment and Plan Plan: #1 coronary artery disease status post triple vessel coronary artery bypass graft surgery postoperative day #2 #2 underlying history of hypertension well-controlled on current medication #3 underlying history of hyperlipidemia maintained on Lipitor 40 mg daily #4 underlying history of [id number] diabetes mellitus, at home patient was maintained on metformin and glipizide. Insulin drip discontinued patient placed on a NovoLog 70/30 with 40 units at breakfast and 10 units at bedtime with sliding scale coverage per ICU protocol #5 previous history of prostate cancer diagnosed in 2006 patient had surgery at that time and has been doing well #6 episode of atrial fibrillation with rapid ventricular response: Patient started on amiodarone drip and metoprolol by Dr. Hemphill I performed an examination of the patient and discussed their management with the physician Associate Professor Physician. I have reviewed the Physician Associate Professor Physician's notes and agree with the documented findings and plan of care
[2016-08-17 13:55] LABS: Ionized Calcium 4.8 mg/dL (4.5-5.3)
[2016-08-17 14:32] LABS: Mis test requested (Blood) Ionized Calcium
[2016-08-17 14:35] LABS: Mis test requested (Blood) Ionized Calcium
--- NOTE | 2016-08-17 14:35 | PN ---
Mr. Teixeira is a 76-year-old male patient who underwent coronary artery bypass grafting, is doing well. He has been sitting up in a chair. He is eating his lunch. On examination, his blood pressure is 119/64 mmHg, respirations are 14, 98.9 degree Fahrenheit temperature. Initially, he was in atrial fibrillation with RVR at about 120 beats a minute and then within a few minutes he converted to sinus rhythm. He is currently on IV amiodarone. The patient is also refusing to take statins; however, this is medically appropriate for him and should be prescribed. If he chooses not to take it, that is his decision. SUGGEST: Continue IV amiodarone for now and continue cardiac medications including aspirin, beta blockers and statins.
[2016-08-17 14:37] LABS: Mis test requested (Blood) Ionized Calcium
[2016-08-17] MEDS: ATORVASTATIN 40 MG TAB PO SCH (15:01)
[2016-08-17 17:44] LABS: Glucose,Whole Blood 162 mg/dL (75-99)
[2016-08-17 20:48] LABS: Glucose,Whole Blood 185 mg/dL (75-99)
[2016-08-17] MEDS: SENNOSIDES-DOCUSATE SODIUM 1 EACH TAB PO SCH (20:57)
[2016-08-17] MEDS: AMIODARONE 200 MG TAB PO SCH (20:57)
[2016-08-17] MEDS ORDERED: INSULIN NPH 300 UNIT/3 ML VIAL SQ SCH (21:00)
[2016-08-18] MEDS: AMIODARONE 450 MG in DEXTROSE 5% IN WATER 250 ML IV SCH ×2 (01:41)
[2016-08-18 03:58] LABS: Basophils % (A) 0 %; CH 30.2; CHCM 34.5; Eosinophils # (A) 0.1 k/uL (0-0.7); Eosinophils % (A) 1 %; HCT 31.7 % (39.0-53.0); HDW 3.09; HGB 10.8 gm/dL (13.0-17.5); Luc % (Auto) 2; Lymphocytes # (A) 1.6 k/uL (1.0-4.8); Lymphocytes % (A) 12 %; MCH 30.1 pg (25.0-35.0); MCHC 34.1 g/dL (31.0-37.0); MCV 88.2 fL (80.0-100.0); Mean Platelet Volume 9.4; Monocytes # (A) 0.7 k/uL (0-1.0); Monocytes % (A) 5 %; Neutrophils # (A) 10.3 k/uL (1.3-7.7); Neutrophils % (A) 80 %; RBC 3.59 m/uL (4.30-5.90); RDW 13.9 % (11.5-15.5); WBC 12.8 k/uL (3.8-10.6); WBC (Perox) 13.52
[2016-08-18] MEDS ORDERED: AMIODARONE 450 MG in DEXTROSE 5% IN WATER 250 ML IV SCH ×2 (04:00)
[2016-08-18 04:07] LABS: Prothrombin Time 9.9 sec (9.0-12.0)
[2016-08-18 04:08] LABS: Ionized Calcium 4.6 mg/dL (4.5-5.3)
[2016-08-18 04:17] LABS: ALT 28 U/L (21-72); AST 21 U/L (17-59); Alkaline Phosphatase 57 U/L (38-126); Anion Gap 12 mmol/L; Blood Urea Nitrogen 22 mg/dL (9-20); Calcium 8.7 mg/dL (8.4-10.2); Carbon Dioxide 24 mmol/L (22-30); Chloride 102 mmol/L (98-107); Glucose 150 mg/dL (74-99); Magnesium 2.3 mg/dL (1.6-2.3); Non-African American GFR(MDRD) >60 (>60 ml/min/1.73 sqM); Phosphorous 2.2 mg/dL (2.5-4.5); Potassium 4.4 mmol/L (3.5-5.1); Sodium 138 mmol/L (137-145); Total Bilirubin 0.9 mg/dL (0.2-1.3); Total Protein 6.1 g/dL (6.3-8.2)
[2016-08-18] MEDS: ONDANSETRON 4 MG/2 ML VIAL IVP PRN (05:00)
[2016-08-18] MEDS ORDERED: SODIUM PHOSPHATE 10 MMOL in SODIUM CHLORIDE 0.9% 250 ML IVPB ONE (07:00)
[2016-08-18 07:19] LABS: Glucose,Whole Blood 197 mg/dL (75-99)
[2016-08-18] MEDS: IPRATROPIUM-ALBUTEROL 3 ML NEB INHALATION PRN (08:02)
--- NOTE | 2016-08-18 08:09 | XR ---
EXAMINATION TYPE: XR chest 1V portable DATE OF EXAM: 08/18/2016 COMPARISON: Prior chest x-ray 17 Aug 2016 HISTORY: Postop cardiac surgery TECHNIQUE: Single frontal view of the chest is obtained. FINDINGS: The heart remains enlarged, patient is post median sternotomy. Minimal apical pneumothorax suspected on the left, left-sided chest tube remains in place. There is no sizable effusion. Lung vo lumes are low and the patient is rotated. Patchy basilar density is present. Suspect a right jugular central venous sheath remains in place. There are overlying cardiac leads. IMPRESSION: Essentially stable exam.
[2016-08-18] MEDS: HEPARIN SODIUM,PORCINE 5,000 UNIT/ML 1 ML VIAL SQ SCH ×2 (08:24→16:41)
[2016-08-18] MEDS: INSULIN LISPRO (humaLOG) 300 UNIT/3 ML VIAL SQ SCH ×5 (08:24→22:13)
[2016-08-18] MEDS: AMIODARONE 200 MG TAB PO SCH ×2 (08:24→20:14)
[2016-08-18] MEDS: ASPIRIN 325 MG TAB PO SCH (08:25)
[2016-08-18] MEDS: CLOPIDOGREL 75 MG TAB PO SCH (08:25)
[2016-08-18] MEDS: PANTOPRAZOLE 40 MG TABLET PO SCH (08:25)
[2016-08-18] MEDS: INSULN ASP PRT/INSULIN ASPART 100 UNIT/ML 10 ML VIAL SQ SCH (08:29)
[2016-08-18] MEDS: METOPROLOL TARTRATE 50 MG TAB PO SCH ×2 (08:30→20:14)
[2016-08-18] MEDS: ATORVASTATIN 40 MG TAB PO SCH (08:31)
[2016-08-18] MEDS: MUPIROCIN 2% OINT 22 GM TUBE NASAL SCH ×2 (08:48→20:15)
--- NOTE | 2016-08-18 10:57 | P.PN ---
Subjective Principal diagnosis: status post CABG, postoperative day # 3 This is a 76-year-old white male with history of diabetes, hypertension, prostate cancer, patient was recently evaluated for intermittent episodes of chest pain for the last few months. Patient has no shortness of breath, no radiation of the pain, no fevers, no chills, recent cardiac catheterization showed multivessel coronary artery disease. Hence the patient was seen by cardiac surgery on 08/10/2016, and he was scheduled for elective myocardial revascularization which was done today on 08/15/2016. Postoperatively, patient was on mechanical ventilation, and I was asked to see him on consultation. Present vent settings are assist control of 12, FiO2 of 50%, tidal volume of 600 , and PEEP of 8. Patient is presently sedated, on mechanical ventilation, and the main issue seems to be postoperative bleeding which is being addressed by cardiac surgery. reevaluated today on 08/16/2016, patient was extubated last night uneventfully, he is presently on nasal cannula, in no distress. no cough no wheezing no shortness of breath. patient feels generally weak and tired. some aches and pains. labs were reviewed, hemoglobin is 9.5. Preintubation ABG showed a pO2 of 91 pCO2 of 38 pH of 7.42. Electrolytes and renal profile are normal. chest x -ray was reviewed, there is evidence of atelectasis of the left base, small tiny left apical pneumothorax was noted, chest tube on the left side remains in place, there is a stoma distention noted. Reevaluated today on 08/17/2016, patient continues to do quite well from the pulmonary perspective. No cough no wheezing no shortness of breath, feels generally weak. Patient is on room air. His O2 saturations are in the mid 90s. Labs were reviewed hemoglobin is 9.8 to let lites are normal renal profile is normal. Chest x-ray continues to show a small tiny left apical pneumothorax. Some atelectasis is noted bilaterally. However patient is asymptomatic. Reevaluated today on 08/18/2016, patient continues to do well, no cough no wheezing no shortness of breath. He is doing well with incentive spirometry. Chest x-ray was reviewed, essentially stable with postoperative changes. Labs showed relatively normal CBC, hemoglobin is 10.8 electrolytes and renal profile are normal. Objective - Vital Signs Vital signs: Vital Signs Temp 98.3 F 08/18/16 08:00 Pulse 80 08/18/16 10:00 Resp 22 08/18/16 10:00 BP 120/67 08/18/16 10:00 Pulse Ox 98 08/18/16 10:00 Intake & Output 08/17/16 08/18/16 08/18/16 18:59 06:59 18:59 Intake Total 1015.257 632.75 576 Output Total 1970 820 500 Balance -954.743 -187.25 76 Weight 103.7 kg Intake: IV 527 396 126 0.9NS Pressure Bag 57 36 6 Lactated Ringers 1,000 ml 470 360 120 @ 20 mls/hr IV .Q24H [facility] Rx#:[id number] Intake, IV Titration 288.257 236.75 250 Amount Amiodarone 450 mg In 238.257 236.75 Dextrose 5% in Water 250 ml @ 1 MG/MIN 34.53 mls/ hr IV .Q7H31M [facility] Rx#: [id number] Lactated Ringers 1,000 ml 50 @ 20 mls/hr IV .Q24H [facility] Rx#:[id number] Sodium Phosphate 10 mmol 250 In Sodium Chloride 0.9% 250 ml @ 125 mls/hr IVPB ONCE ONE Rx#:[id number] Oral 200 200 Output: Chest Tube Drainage 160 30 50 Left Lateral Chest 70 30 50 Mediastinal 90 Drainage 130 50 Right Knee 130 50 Urine 1810 660 400 Uretheral (Du) 70 Other: Voiding Method Indwelling Catheter Urinal Urinal # Voids 1 ABP, PAP, CO, CI - Last Documented Arterial Blood Pressure 155/87 Pulmonary Artery Pressure 21/12 Cardiac Output 6.3 Cardiac Index 2.8 - Exam Physical Exam: Revealed a 76-year-old in no distress, resting, and looks very comfortable. On room air HEENT:[Neck is supple.] [No neck masses.] [No thyromegaly.] [No JVD.] Chest: [diminished breath sounds at the bases, no rhonchi, no wheezes.] Cardiac Exam: [Normal S1 and S2, no S3 gallop, no murmur.] Abdomen: [Soft, nontender, no megaly, no rebound, no guarding, normal bowel sounds.] Extremities: [No clubbing, no edema, no cyanosis.] Neurological Exam: [No focal neurologic deficit.] - Labs CBC & Chem 7: 08/18/16 03:50 08/18/16 03:50 Labs: Abnormal Lab Results - Last 24 Hours (Table) 08/17/16 08/17/16 08/17/16 Range/Units 12:09 17:42 20:46 WBC (3.8-10.6) k/uL RBC (4.30-5.90) m/uL Hgb (13.0-17.5) gm/dL Hct (39.0-53.0) % Neutrophils # (1.3-7.7) k/uL BUN (9-20) mg/dL Glucose (74-99) mg/dL POC Glucose (mg/dL) 166 H 162 H 185 H (75-99) mg/dL Phosphorus (2.5-4.5) mg/dL Total Protein (6.3-8.2) g/dL 08/18/16 08/18/16 08/18/16 Range/Units 03:50 03:50 07:16 WBC 12.8 H (3.8-10.6) k/uL RBC 3.59 L (4.30-5.90) m/uL Hgb 10.8 L (13.0-17.5) gm/dL Hct 31.7 L (39.0-53.0) % Neutrophils # 10.3 H (1.3-7.7) k/uL BUN 22 H (9-20) mg/dL Glucose 150 H (74-99) mg/dL POC Glucose (mg/dL) 197 H (75-99) mg/dL Phosphorus 2.2 L (2.5-4.5) mg/dL Total Protein 6.1 L (6.3-8.2) g/dL Assessment and Plan Plan: Impression: 1 status post elective CABG for triple vessel coronary artery disease, postoperative day #3, patient is doing well overall. Off oxygen presently on room air. 2 multiple comorbidities including hypertension, diabetes, history of prostate cancer. 3 small tiny left apical pneumothorax not seen on chest x-ray today, apparently has resolved. Recommendation: continue present supportive care measures, incentive spirometry , ambulation, bronchodilators, and we'll continue to follow. Time with Patient: Less than 30
--- NOTE | 2016-08-18 11:21 | P.PN ---
<Kash Huston - Last Filed: 08/18/16 11:19> Progress Note - Text CV Surgery Nursing Principal diagnosis: Coronary artery disease. POD #3 coronary artery bypass grafting 3 vessels (left internal mammary artery to left anterior descending artery, saphenous vein graft to obtuse marginal artery 2, saphenous vein graft to distal right coronary artery). Endoscopic vein harvest, right greater saphenous vein. Intraoperative Epi-aortic ultrasound. Intraoperative transesophageal echocardiogram. Patient awake and alert, no distress noted, he is complaining of lack of sleep. He is sitting up to the bedside chair. Vital Signs: Afebrile Vital Signs - 24 hr 08/17/16 08/17/16 08/17/16 11:00 12:00 13:00 Temperature Pulse Rate 111 H 104 H 80 Respiratory 11 L 11 L 32 H Rate Blood Pressure 113/64 119/64 109/65 O2 Sat by Pulse 97 96 96 Oximetry 08/17/16 08/17/16 08/17/16 14:00 15:00 15:48 Temperature Pulse Rate 98 98 109 H Respiratory 24 29 H Rate Blood Pressure 106/70 106/76 O2 Sat by Pulse 97 Oximetry 08/17/16 08/17/16 08/17/16 15:59 16:00 17:00 Temperature Pulse Rate 109 H 108 H 108 H Respiratory 32 H 21 Rate Blood Pressure 112/82 104/74 O2 Sat by Pulse 99 96 Oximetry 08/17/16 08/17/16 08/17/16 18:00 19:00 20:00 Temperature 98.7 F Pulse Rate 90 78 81 Respiratory 22 13 16 Rate Blood Pressure 116/71 108/59 113/62 O2 Sat by Pulse 89 L 97 98 Oximetry 08/17/16 08/17/16 08/17/16 20:17 20:31 21:00 Temperature Pulse Rate 82 83 93 Respiratory 23 Rate Blood Pressure 131/70 O2 Sat by Pulse 96 Oximetry 08/17/16 08/17/16 08/18/16 22:00 23:00 00:00 Temperature 98.2 F Pulse Rate 82 77 79 Respiratory 24 20 26 H Rate Blood Pressure 131/74 119/70 121/67 O2 Sat by Pulse 97 96 96 Oximetry 08/18/16 08/18/16 08/18/16 01:00 02:00 03:00 Temperature Pulse Rate 79 80 82 Respiratory 14 20 18 Rate Blood Pressure 107/62 114/65 119/71 O2 Sat by Pulse 96 97 97 Oximetry 08/18/16 08/18/16 08/18/16 04:00 05:00 06:00 Temperature 98.8 F Pulse Rate 81 79 84 Respiratory 19 17 16 Rate Blood Pressure 124/72 128/77 106/65 O2 Sat by Pulse 96 97 97 Oximetry 08/18/16 08/18/16 08/18/16 07:00 08:00 08:02 Temperature 98.3 F Pulse Rate 86 95 93 Respiratory 19 20 Rate Blood Pressure 120/73 152/81 O2 Sat by Pulse 97 96 Oximetry 08/18/16 08/18/16 08/18/16 08:12 09:00 10:00 Temperature Pulse Rate 90 85 80 Respiratory 20 22 Rate Blood Pressure 138/69 120/67 O2 Sat by Pulse 96 98 Oximetry Labs: Short CBC 08/18/16 Range/Units 03:50 WBC 12.8 H (3.8-10.6) k/uL Hgb 10.8 L (13.0-17.5) gm/dL Hct 31.7 L (39.0-53.0) % Plt Count 178 (150-450) k/uL Neutrophils # 10.3 H (1.3-7.7) k/uL BMP 08/18/16 03:50 Sodium 138 Potassium 4.4 Chloride 102 Carbon Dioxide 24 BUN 22 H Creatinine 0.90 Glucose 150 H Calcium 8.7 Liver Function 08/18/16 Range/Units 03:50 Total Bilirubin 0.9 (0.2-1.3) mg/dL AST 21 (17-59) U/L ALT 28 (21-72) U/L Alkaline Phosphatase 57 (38-126) U/L Albumin 3.9 (3.5-5.0) g/dL IV Fluids: Lactated Ringer's at 30 mL per hour. CVP: 1 Lungs: Essentially clear throughout, few scattered crackles to his right lower lobe and diminished to his left lower lobe. Respirations are symmetrical and unlabored. O2 sat: 97% on room air. I/S: 1000 mL, reviewed with the patient important of using his incentive spirometry every hour while awake. The patient did give a good return demonstration on his incentive spirometry. Heart: S1S2, regular rhythm and rate, negative for S3, gallop or murmur. Bedside telemetry showing normal sinus rhythm heart rate 92. AV epicardial pacemaker wires intact and grounded. Sternum stable, chest incision clean with sternal dressing clean and dry. Heart hugger in place, patient is demonstrating proper use of his heart hugger. Right leg incisions clean dry and well approximated. No drainage noted. MARV drain remains in place draining thin serosanguineous drainage. 80 mL output the last 8 hours, 200 mL output in the last 24 hours. Knee-high JERRY hose and sequential compression devices in place to bilateral lower extremities. Abdomen: Soft, Positive bowel sounds present in all 4 quadrants, patient is passing flatus. CBGs: 162-197 mg/dL in the last 24 hours. U/O: Adequate, 480 mL output in the last 8 hours. Chest Tubes: Left pleural chest tube without air leak, remains to waterseal. It is draining thin serosanguineous drainage. 50 mL output in the last 8 hours , 170 mL output in the last 24 hours. 24 hr Total: Intake & Output 08/16/16 08/17/16 08/18/16 08/19/16 06:59 06:59 06:59 06:59 Intake Total 1999.161 3391.412 6308.007 576 Output Total 5566 2175 2790 500 Balance -3565.839 -339.341 -1141.993 76 Weight 100.1 kg 100.8 kg 103.7 kg Active Medications Hydrocodone Bitart/Acetaminophen ([place] 5-325) 2 each PO Q4HR PRN PRN Reason: Severe Pain Last Admin: 08/17/16 15:00 Dose: 2 each Hydrocodone Bitart/Acetaminophen ([place] 5-325) 1 each PO Q4HR PRN PRN Reason: Moderate Pain Last Admin: 08/17/16 00:20 Dose: 1 each Albuterol/Ipratropium (Duoneb 0.5 Mg-3 Mg/3 Ml Soln) 3 ml INHALATION RT-Q2H PRN PRN Reason: Shortness Of Breath Or Wheezing Last Admin: 08/18/16 08:02 Dose: 3 ml Amiodarone HCl (Cordarone) 400 mg PO BID [facility] Last Admin: 08/18/16 08:24 Dose: 400 mg Aspirin (Aspirin) 325 mg PO DAILY [facility] Last Admin: 08/18/16 08:25 Dose: 325 mg Atorvastatin Calcium (Lipitor) 40 mg PO DAILY [facility] Last Admin: 08/18/16 08:31 Dose: 40 mg Benzocaine/Menthol (Cepacol Lozenge) 1 each MUCOUS MEM Q2H PRN PRN Reason: Sore Throat Bisacodyl (Dulcolax) 10 mg RECTAL DAILY PRN PRN Reason: Constipation Clopidogrel Bisulfate (Plavix) 75 mg PO DAILY [facility] Last Admin: 08/18/16 08:25 Dose: 75 mg Heparin Sodium (Porcine) (Heparin) 5,000 unit SQ Q8HR [facility] Last Admin: 08/18/16 08:24 Dose: 5,000 unit Lactated Ringer's (Lactated Ringers) 1,000 mls @ 20 mls/hr IV .Q24H [facility] Last Admin: 08/17/16 21:06 Dose: Not Given Amiodarone HCl 450 mg/ (Dextrose/Water) 250 mls @ 16.66 mls/hr IV .Q15H1M [facility]; 0.5 MG/MIN PRN Reason: Protocol Last Admin: 08/18/16 07:44 Dose: Not Given Insulin Aspart (Novolog Mix 70-30 Vial) 40 unit 0.4 unit/kg (40 unit) SQ AC- BRKFST [facility] Last Admin: 08/18/16 08:29 Dose: 40 unit Insulin Human Lispro (Humalog) 10 unit 0.1 unit/kg (10 unit) SQ AC-SUPPER [facility] Last Admin: 08/17/16 17:56 Dose: 10 unit Insulin Human Lispro (Humalog) 0 unit SQ ACHS [facility] PRN Reason: Protocol Last Admin: 08/18/16 08:24 Dose: 3 unit Insulin Human NPH (Humulin N) 10 unit 0.1 unit/kg (10 unit) SQ HS [facility] Last Admin: 08/17/16 21:00 Dose: 10 unit Magnesium Hydroxide (Milk Of Magnesia) 2,400 mg PO BID PRN PRN Reason: Constipation Metoclopramide HCl (Reglan) 10 mg IVP Q4H PRN PRN Reason: Nausea And Vomiting Metoprolol Tartrate (Lopressor) 50 mg PO BID [facility] Last Admin: 08/18/16 08:30 Dose: 50 mg Miscellaneous Information (Magnesium Per Protocol) 1 each MISCELLANE DAILY PRN ; Protocol PRN Reason: Per Protocol Miscellaneous Information (Phosphorus Per Protocol) 1 each MISCELLANE DAILY PRN ; Protocol PRN Reason: Per Protocol Miscellaneous Information (Potassium Per Protocol) 1 each MISCELLANE DAILY PRN ; Protocol PRN Reason: Per Protocol Multivitamins (Theragran) 1 each PO DAILY@1200 [facility] Last Admin: 08/17/16 12:05 Dose: 1 each Mupirocin (Bactroban Oint) 1 applic NASAL BID [facility] Stop: 08/18/16 21:01 Last Admin: 08/18/16 08:48 Dose: 1 applic Ondansetron HCl (Zofran) 4 mg IVP Q6HR PRN PRN Reason: Nausea And Vomiting Last Admin: 08/18/16 05:00 Dose: 4 mg Pantoprazole Sodium (Protonix) 40 mg PO AC-BRKFST [facility] Last Admin: 08/18/16 08:25 Dose: 40 mg Senna/Docusate Sodium (Senokot-S) 2 each PO HS [facility] Last Admin: 08/17/16 20:57 Dose: 2 each Sodium Chloride (Saline Flush) 10 ml IV BID [facility] Last Admin: 08/18/16 08:48 Dose: Not Given Plan: 1. Continue aspirin, Lipitor, Plavix, heparin. Increase Lopressor to 50 mg twice a day. 2. Continue amiodarone drip until finished. Continue oral amiodarone for atrial fibrillation prophylaxis. 3. Discontinue his left pleural chest tube. 4. Encourage incentive spirometry use. 5. Increase activity, ambulate in hallway. Physical therapy to follow. 6. Diabetic management per primary care service. 7. Will discontinue mediastinal chest tube. 8. GI/DVT prophylaxis. 9. Monitor daily labs, x-rays. 10. Transfer to [facility]. <Brian eHmphill - Last Filed: 08/18/16 11:38> Progress Note - Text The patient was seen and examined. I agree with the above assessment and plan. He is in normal sinus rhythm this morning. We'll discontinue his IV amiodarone and continue with oral amiodarone. His Lopressor was increased. We will remove his left pleural chest tube. His saturations are good on room air. He is ambulating without difficulty. We will transfer him to [facility] this afternoon.
[2016-08-18] MEDS: HYDROcodone/APAP 5-325MG 1 EACH TAB PO PRN ×2 (11:31→20:10)
[2016-08-18] MEDS: MULTIVITAMINS, THERA 1 EACH TAB PO SCH (11:32)
--- NOTE | 2016-08-18 11:40 | P.PN ---
Subjective Patient is doing fairly well today. He does not have any complaints. No events overnight. Objective - Vital Signs Vital signs: Vital Signs Temp 98.3 F 08/18/16 08:00 Pulse 77 08/18/16 11:00 Resp 20 08/18/16 11:00 BP 104/63 08/18/16 11:00 Pulse Ox 98 08/18/16 11:00 Intake & Output 08/17/16 08/18/16 08/18/16 18:59 06:59 18:59 Intake Total 1015.257 632.75 596 Output Total 1970 820 510 Balance -954.743 -187.25 86 Weight 103.7 kg Intake: IV 527 396 146 0.9NS Pressure Bag 57 36 6 Lactated Ringers 1,000 ml 470 360 140 @ 20 mls/hr IV .Q24H [facility] Rx#:[id number] Intake, IV Titration 288.257 236.75 250 Amount Amiodarone 450 mg In 238.257 236.75 Dextrose 5% in Water 250 ml @ 1 MG/MIN 34.53 mls/ hr IV .Q7H31M [facility] Rx#: [id number] Lactated Ringers 1,000 ml 50 @ 20 mls/hr IV .Q24H [facility] Rx#:[id number] Sodium Phosphate 10 mmol 250 In Sodium Chloride 0.9% 250 ml @ 125 mls/hr IVPB ONCE ONE Rx#:[id number] Oral 200 200 Output: Chest Tube Drainage 160 30 60 Left Lateral Chest 70 30 60 Mediastinal 90 Drainage 130 50 Right Knee 130 50 Urine 1810 660 400 Uretheral (Du) 70 Other: Voiding Method Indwelling Catheter Urinal Urinal # Voids 1 ABP, PAP, CO, CI - Last Documented Arterial Blood Pressure 155/87 Pulmonary Artery Pressure 21/12 Cardiac Output 6.3 Cardiac Index 2.8 - Exam General: The patient is awake and alert, in no distress Eye: there is normal conjunctiva bilaterally. Neck: The neck is supple, there is no JVD. Cardiovascular: Normal S1-S2, no S3-S4, no murmurs. Respiratory: Lungs clear to auscultation bilaterally Gastrointestinal: Abdomen is soft, nontender Musculoskeletal: There is no pedal edema. Neurological:. Speech is normal. Skin: Skin is warm and dry - Labs CBC & Chem 7: 08/18/16 03:50 08/18/16 03:50 Labs: Abnormal Lab Results - Last 24 Hours (Table) 08/17/16 08/17/16 08/17/16 Range/Units 12:09 17:42 20:46 WBC (3.8-10.6) k/uL RBC (4.30-5.90) m/uL Hgb (13.0-17.5) gm/dL Hct (39.0-53.0) % Neutrophils # (1.3-7.7) k/uL BUN (9-20) mg/dL Glucose (74-99) mg/dL POC Glucose (mg/dL) 166 H 162 H 185 H (75-99) mg/dL Phosphorus (2.5-4.5) mg/dL Total Protein (6.3-8.2) g/dL 08/18/16 08/18/16 08/18/16 Range/Units 03:50 03:50 07:16 WBC 12.8 H (3.8-10.6) k/uL RBC 3.59 L (4.30-5.90) m/uL Hgb 10.8 L (13.0-17.5) gm/dL Hct 31.7 L (39.0-53.0) % Neutrophils # 10.3 H (1.3-7.7) k/uL BUN 22 H (9-20) mg/dL Glucose 150 H (74-99) mg/dL POC Glucose (mg/dL) 197 H (75-99) mg/dL Phosphorus 2.2 L (2.5-4.5) mg/dL Total Protein 6.1 L (6.3-8.2) g/dL Assessment and Plan Plan: #1 coronary artery disease status post triple vessel coronary artery bypass graft surgery postoperative day #3 #2 underlying history of hypertension well-controlled on current medication #3 Hyperlipidemia maintained on Lipitor #4 [id number] diabetes mellitus, insulin regimen adjusted #5 previous history of prostate cancer diagnosed in 2006 patient had surgery at that time and has been doing well #6 episode of atrial fibrillation with rapid ventricular response: Patient started on amiodarone drip and metoprolol by Dr. Hemphill
[2016-08-18 12:10] LABS: Glucose,Whole Blood 151 mg/dL (75-99)
--- NOTE | 2016-08-18 13:57 | PN ---
Ciro Teixeira is doing very well. He is lying flat in bed. He looks comfortable. His blood pressure is 135/76 mmHg. His heart rates are in the 70s. Head and neck examination are normal. Heart sounds are normal. He remains on IV amiodarone for paroxysmal atrial fibrillation and now is on oral amiodarone. IV amiodarone has been discontinued. He is also on metoprolol 50 mg twice daily. He has been refusing a statin; yesterday he refused the statin. I spoke to him about it and emphasized the importance of statin therapy in atherosclerotic cardiovascular disease. He was refusing because he had heard bad things about it and bad press and his had had muscle pains. Hopefully, he will listen to medical advice and start statins. We have prescribed atorvastatin 40 mg p.o. daily. Continue other cardiac medications for now.
[2016-08-18 17:17] LABS: Glucose,Whole Blood 76 mg/dL (75-99)
[2016-08-18] MEDS: SENNOSIDES-DOCUSATE SODIUM 1 EACH TAB PO SCH (20:18)
[2016-08-18] MEDS: INSULIN NPH 300 UNIT/3 ML VIAL SQ SCH (20:20)
[2016-08-18 21:13] LABS: Glucose,Whole Blood 142 mg/dL (75-99)
[2016-08-19] MEDS: ZOLPIDEM 5 MG TAB PO PRN ×2 (00:45→20:00)
[2016-08-19] MEDS: HEPARIN SODIUM,PORCINE 5,000 UNIT/ML 1 ML VIAL SQ SCH ×4 (00:47→23:27)
[2016-08-19 06:08] LABS: Glucose,Whole Blood 88 mg/dL (75-99)
[2016-08-19] MEDS: INSULIN LISPRO (humaLOG) 300 UNIT/3 ML VIAL SQ SCH ×5 (06:19→21:21)
[2016-08-19] MEDS: PANTOPRAZOLE 40 MG TABLET PO SCH (06:30)
[2016-08-19 07:10] LABS: Glucose,Whole Blood 235 mg/dL (75-99)
[2016-08-19] MEDS: CLOPIDOGREL 75 MG TAB PO SCH (08:03)
[2016-08-19] MEDS: ATORVASTATIN 40 MG TAB PO SCH (08:03)
[2016-08-19] MEDS: METOPROLOL TARTRATE 50 MG TAB PO SCH ×2 (08:03→20:00)
[2016-08-19] MEDS: AMIODARONE 200 MG TAB PO SCH ×2 (08:03→20:00)
[2016-08-19] MEDS: ASPIRIN 325 MG TAB PO SCH (08:03)
[2016-08-19] MEDS: INSULN ASP PRT/INSULIN ASPART 100 UNIT/ML 10 ML VIAL SQ SCH (08:04)
--- NOTE | 2016-08-19 08:37 | XR ---
EXAMINATION TYPE: XR chest 1V portable DATE OF EXAM: 08/19/2016 COMPARISON: Prior chest x-ray 18 Aug 2016 HISTORY: Status post coronary artery bypass graft TECHNIQUE: Single frontal view of the chest is obtained. FINDINGS: Patient is rotated and post median sternotomy. Heart remains enlarged. Patchy bibasilar de nsity persists. No evident pneumothorax or sizable effusion. There are overlying cardiac leads. Suspe ct a right jugular sheath has been removed. Lung volumes are low. IMPRESSION: Probable basilar atelectasis. Rotated expiratory exam, follow-up recommended.
[2016-08-19 08:51] LABS: Basophils % (A) 0 %; CH 30.1; CHCM 33.8; Eosinophils # (A) 0.1 k/uL (0-0.7); Eosinophils % (A) 1 %; HCT 29.5 % (39.0-53.0); HDW 3.08; Luc # (Auto) 0.16; Luc % (Auto) 2; Lymphocytes % (A) 12 %; MCH 30.3 pg (25.0-35.0); MCHC 33.8 g/dL (31.0-37.0); MCV 89.5 fL (80.0-100.0); Mean Platelet Volume 10.4; Monocytes # (A) 0.4 k/uL (0-1.0); Monocytes % (A) 5 %; Neutrophils # (A) 7.1 k/uL (1.3-7.7); Neutrophils % (A) 81 %; RBC 3.29 m/uL (4.30-5.90); RDW 14.2 % (11.5-15.5); WBC 8.8 k/uL (3.8-10.6); WBC (Perox) 9.54
[2016-08-19 09:00] VITALS: RESP 18
[2016-08-19 09:07] LABS: ALT 26 U/L (21-72); AST 16 U/L (17-59); Alkaline Phosphatase 59 U/L (38-126); Anion Gap 6 mmol/L; Blood Urea Nitrogen 25 mg/dL (9-20); Calcium 8.3 mg/dL (8.4-10.2); Carbon Dioxide 26 mmol/L (22-30); Chloride 105 mmol/L (98-107); Glucose 215 mg/dL (74-99); Non-African American GFR(MDRD) >60 (>60 ml/min/1.73 sqM); Phosphorous 2.5 mg/dL (2.5-4.5); Potassium 4.3 mmol/L (3.5-5.1); Sodium 137 mmol/L (137-145); Total Bilirubin 0.9 mg/dL (0.2-1.3); Total Protein 5.7 g/dL (6.3-8.2)
[2016-08-19 11:26] LABS: Glucose,Whole Blood 86 mg/dL (75-99)
--- NOTE | 2016-08-19 11:39 | PN ---
Mr. Teixeira is doing well. He is sitting up in a chair. He is afebrile. 98.3 degrees Fahrenheit. Pulse rate 80s. Then it goes up to 122 beats a minute during atrial fibrillation. He has paroxysmal atrial fibrillation. Breath sounds decreased bilaterally. Heart sounds S1, S2 irregular at this time. Extremities warm with no edema. IMPRESSION: 1. Coronary artery disease, status post coronary artery bypass grafting. 2. Paroxysmal atrial fibrillation. SUGGEST: Continue current medications and follow.
--- NOTE | 2016-08-19 11:43 | P.PN ---
<Kash Huston L - Last Filed: 08/19/16 11:43> Progress Note - Text CV Surgery Nursing Principal diagnosis: Coronary artery disease. POD #4 coronary artery bypass grafting 3 vessels (left internal mammary artery to left anterior descending artery, saphenous vein graft to obtuse marginal artery 2, saphenous vein graft to distal right coronary artery). Endoscopic vein harvest, right greater saphenous vein. Intraoperative Epi-aortic ultrasound. Intraoperative transesophageal echocardiogram. Patient awake and alert, no distress noted, no specific complaints. He is sitting up to bedside chair. Vital Signs: Afebrile Vital Signs - 24 hr 08/18/16 08/18/16 08/18/16 11:00 12:00 13:00 Temperature Pulse Rate 77 71 79 Pulse Rate [ Bilateral Radial] Respiratory 20 12 19 Rate Blood Pressure 104/63 109/65 135/76 Blood Pressure [Left Arm Supine] Blood Pressure [Right Radial Artery] O2 Sat by Pulse 98 97 98 Oximetry 08/18/16 08/18/16 08/18/16 14:00 15:00 16:00 Temperature 98.6 F Pulse Rate 79 76 79 Pulse Rate [ Bilateral Radial] Respiratory 18 21 16 Rate Blood Pressure 113/66 110/69 112/65 Blood Pressure [Left Arm Supine] Blood Pressure [Right Radial Artery] O2 Sat by Pulse 97 98 98 Oximetry 08/18/16 08/18/16 08/18/16 17:00 18:00 20:00 Temperature 97.7 F Pulse Rate 75 86 Pulse Rate [ 88 Bilateral Radial] Respiratory 15 20 18 Rate Blood Pressure 113/63 115/67 Blood Pressure [Left Arm Supine] Blood Pressure 139/85 [Right Radial Artery] O2 Sat by Pulse 97 97 97 Oximetry 08/19/16 08/19/16 08/19/16 00:00 04:00 08:00 Temperature 97.1 F L 97.0 F L 98.3 F Pulse Rate Pulse Rate [ 82 88 122 H Bilateral Radial] Respiratory 17 16 18 Rate Blood Pressure Blood Pressure 132/69 [Left Arm Supine] Blood Pressure 109/72 115/79 [Right Radial Artery] O2 Sat by Pulse 98 98 96 Oximetry Labs: Short CBC 08/19/16 Range/Units 08:23 WBC 8.8 (3.8-10.6) k/uL Hgb 10.0 L (13.0-17.5) gm/dL Hct 29.5 L (39.0-53.0) % Plt Count 196 (150-450) k/uL Neutrophils # 7.1 (1.3-7.7) k/uL BMP 08/19/16 08:20 Sodium 137 Potassium 4.3 Chloride 105 Carbon Dioxide 26 BUN 25 H Creatinine 0.84 Glucose 215 H Calcium 8.3 L Liver Function 08/19/16 Range/Units 08:20 Total Bilirubin 0.9 (0.2-1.3) mg/dL AST 16 L (17-59) U/L ALT 26 (21-72) U/L Alkaline Phosphatase 59 (38-126) U/L Albumin 3.3 L (3.5-5.0) g/dL Lungs: Essentially clear to his upper lobes bilaterally, few scattered crackles to his right lower lobe, diminished to his left lower lobe. Respirations are symmetrical and unlabored. O2 sat: 98% on room air. I/S: 2993-0538 mL, reviewed with the patient important of using his incentive spirometry every hour while awake. The patient gave a good return demonstration on his incentive spirometry. Heart: S1S2, regular rhythm with a tachycardic rate. Negative for S3, gallop or murmur. Remote telemetry showing atrial fibrillation heart rate 122. Sternum stable, chest incision clean with sternal dressing clean and dry. No drainage noted. Heart hugger in place, patient demonstrated proper use of his heart hugger. Right leg incisions clean dry and well approximated. MARV drain remains in place to his right mid lower leg, 40 mL output in the last 12 hours. Knee-high JERRY hose and sequential compression devices in place to his bilateral lower extremities. Abdomen: Soft, Positive bowel sounds present in all 4 quadrants. Positive bowel movement this a.m. CBGs: 76-235 mg/dL in the last 24 hours. U/O: Adequate. 24 hr Total: Intake & Output 08/17/16 08/18/16 08/19/16 08/20/16 06:59 06:59 06:59 06:59 Intake Total 3178.281 5420.007 1786 240 Output Total 2175 2790 3310 30 Balance -339.341 -1141.993 -1524 210 Weight 100.8 kg 103.7 kg 93.6 kg Active Medications Hydrocodone Bitart/Acetaminophen ([place] 5-325) 2 each PO Q4HR PRN PRN Reason: Severe Pain Last Admin: 08/18/16 20:10 Dose: 2 each Hydrocodone Bitart/Acetaminophen ([place] 5-325) 1 each PO Q4HR PRN PRN Reason: Moderate Pain Last Admin: 08/17/16 00:20 Dose: 1 each Albuterol/Ipratropium (Duoneb 0.5 Mg-3 Mg/3 Ml Soln) 3 ml INHALATION RT-Q2H PRN PRN Reason: Shortness Of Breath Or Wheezing Last Admin: 08/18/16 08:02 Dose: 3 ml Amiodarone HCl (Cordarone) 400 mg PO BID [facility] Last Admin: 08/19/16 08:03 Dose: 400 mg Aspirin (Aspirin) 325 mg PO DAILY [facility] Last Admin: 08/19/16 08:03 Dose: 325 mg Atorvastatin Calcium (Lipitor) 40 mg PO DAILY [facility] Last Admin: 08/19/16 08:03 Dose: 40 mg Bisacodyl (Dulcolax) 10 mg RECTAL DAILY PRN PRN Reason: Constipation Clopidogrel Bisulfate (Plavix) 75 mg PO DAILY [facility] Last Admin: 08/19/16 08:03 Dose: 75 mg Heparin Sodium (Porcine) (Heparin) 5,000 unit SQ Q8HR [facility] Last Admin: 08/19/16 08:02 Dose: 5,000 unit Insulin Aspart (Novolog Mix 70-30 Vial) 40 unit 0.4 unit/kg (40 unit) SQ AC- BRKFST [facility] Last Admin: 08/19/16 08:04 Dose: 40 unit Insulin Human Lispro (Humalog) 10 unit 0.1 unit/kg (10 unit) SQ AC-SUPPER [facility] Last Admin: 08/18/16 17:21 Dose: Not Given Insulin Human Lispro (Humalog) 0 unit SQ ACHS [facility] PRN Reason: Protocol Last Admin: 08/19/16 06:19 Dose: Not Given Insulin Human NPH (Humulin N) 14 unit SQ HS [facility] Last Admin: 08/18/16 20:20 Dose: 14 unit Magnesium Hydroxide (Milk Of Magnesia) 2,400 mg PO BID PRN PRN Reason: Constipation Metoclopramide HCl (Reglan) 10 mg IVP Q4H PRN PRN Reason: Nausea And Vomiting Metoprolol Tartrate (Lopressor) 50 mg PO BID [facility] Last Admin: 08/19/16 08:03 Dose: 50 mg Miscellaneous Information (Magnesium Per Protocol) 1 each MISCELLANE DAILY PRN ; Protocol PRN Reason: Per Protocol Miscellaneous Information (Phosphorus Per Protocol) 1 each MISCELLANE DAILY PRN ; Protocol PRN Reason: Per Protocol Miscellaneous Information (Potassium Per Protocol) 1 each MISCELLANE DAILY PRN ; Protocol PRN Reason: Per Protocol Multivitamins (Theragran) 1 each PO DAILY@1200 [facility] Last Admin: 08/18/16 11:32 Dose: 1 each Ondansetron HCl (Zofran) 4 mg IVP Q6HR PRN PRN Reason: Nausea And Vomiting Last Admin: 08/18/16 05:00 Dose: 4 mg Pantoprazole Sodium (Protonix) 40 mg PO AC-BRKFST [facility] Last Admin: 08/19/16 06:30 Dose: 40 mg Senna/Docusate Sodium (Senokot-S) 2 each PO HS [facility] Last Admin: 08/18/16 20:18 Dose: 2 each Sodium Chloride (Saline Flush) 10 ml IV BID [facility] Last Admin: 08/19/16 08:04 Dose: 10 ml Zolpidem Tartrate (Ambien) 5 mg PO HS PRN PRN Reason: Insomnia Last Admin: 08/19/16 00:45 Dose: 5 mg Plan: 1. Continue aspirin, Lipitor, Plavix, heparin, and beta demetris. 2. Continue oral amiodarone 400 mg by mouth twice a day for atrial fibrillation prophylaxis. 3. Discontinue his right leg MARV drain. 4. Encourage incentive spirometry use every hour while awake. 5. Increase activity, ambulate in hallway. Physical therapy to follow. 6. Diabetic management per primary care service. 7. GI/DVT prophylaxis. 8. Monitor daily labs, x-rays. 9. Transfer to [facility] care. <Brian Hemphill - Last Filed: 08/19/16 12:08> Progress Note - Text The patient was seen and examined. I agree with the above assessment and plan. Overall he looks good. He remains in atrial fibrillation. He is currently on amiodarone and a beta demetris. We will speak with cardiology as he may need anticoagulation. He is ambulating without difficulty and is currently on room air. His right lower extremity MARV drain was removed. He will likely be ready for discharge home within the next 24-48 hours.
[2016-08-19] MEDS: MULTIVITAMINS, THERA 1 EACH TAB PO SCH (12:09)
--- NOTE | 2016-08-19 12:36 | P.PN ---
Subjective Principal diagnosis: status post CABG, postoperative day # 4 This is a 76-year-old white male with history of diabetes, hypertension, prostate cancer, patient was recently evaluated for intermittent episodes of chest pain for the last few months. Patient has no shortness of breath, no radiation of the pain, no fevers, no chills, recent cardiac catheterization showed multivessel coronary artery disease. Hence the patient was seen by cardiac surgery on 08/10/2016, and he was scheduled for elective myocardial revascularization which was done today on 08/15/2016. Postoperatively, patient was on mechanical ventilation, and I was asked to see him on consultation. Present vent settings are assist control of 12, FiO2 of 50%, tidal volume of 600 , and PEEP of 8. Patient is presently sedated, on mechanical ventilation, and the main issue seems to be postoperative bleeding which is being addressed by cardiac surgery. reevaluated today on 08/16/2016, patient was extubated last night uneventfully, he is presently on nasal cannula, in no distress. no cough no wheezing no shortness of breath. patient feels generally weak and tired. some aches and pains. labs were reviewed, hemoglobin is 9.5. Preintubation ABG showed a pO2 of 91 pCO2 of 38 pH of 7.42. Electrolytes and renal profile are normal. chest x -ray was reviewed, there is evidence of atelectasis of the left base, small tiny left apical pneumothorax was noted, chest tube on the left side remains in place, there is a stoma distention noted. Reevaluated today on 08/17/2016, patient continues to do quite well from the pulmonary perspective. No cough no wheezing no shortness of breath, feels generally weak. Patient is on room air. His O2 saturations are in the mid 90s. Labs were reviewed hemoglobin is 9.8 to let lites are normal renal profile is normal. Chest x-ray continues to show a small tiny left apical pneumothorax. Some atelectasis is noted bilaterally. However patient is asymptomatic. Reevaluated today on 08/18/2016, patient continues to do well, no cough no wheezing no shortness of breath. He is doing well with incentive spirometry. Chest x-ray was reviewed, essentially stable with postoperative changes. Labs showed relatively normal CBC, hemoglobin is 10.8 electrolytes and renal profile are On 08/19/2016, patient was reevaluated, and he is doing quite well. Off oxygen, chest tubes have all been removed, patient is ambulating, in no distress, chest x-ray showed minimal left lower lobe atelectasis and possibly a small left pleural effusion. Patient is relatively asymptomatic, and is asking to be discharged home today if possible. Objective - Vital Signs Vital signs: Vital Signs Temp 96.9 F L 08/19/16 12:00 Pulse 59 L 08/19/16 12:00 Resp 18 08/19/16 12:00 BP 117/65 08/19/16 12:00 Pulse Ox 96 08/19/16 12:00 Intake & Output 08/18/16 08/19/16 08/19/16 18:59 06:59 18:59 Intake Total 766 1020 240 Output Total 1220 2090 30 Balance -454 -1070 210 Weight 93.6 kg Intake: IV 316 180 0.9NS Pressure Bag 6 Lactated Ringers 1,000 ml 310 180 @ 20 mls/hr IV .Q24H [facility] Rx#:[id number] Intake, IV Titration 250 Amount Sodium Phosphate 10 mmol 250 In Sodium Chloride 0.9% 250 ml @ 125 mls/hr IVPB ONCE ONE Rx#:[id number] Oral 200 840 240 Output: Chest Tube Drainage 70 Left Lateral Chest 70 Drainage 150 190 30 Right Knee 150 190 30 Urine 1000 1900 Other: Voiding Method Urinal Urinal Urinal # Voids 1 ABP, PAP, CO, CI - Last Documented Arterial Blood Pressure 155/87 Pulmonary Artery Pressure 21/12 Cardiac Output 6.3 Cardiac Index 2.8 - Exam Physical Exam: Revealed a 76-year-old in no distress, resting, and looks very comfortable. On room air HEENT:[Neck is supple.] [No neck masses.] [No thyromegaly.] [No JVD.] Chest: [diminished breath sounds at the bases, no rhonchi, no wheezes.] Cardiac Exam: [Normal S1 and S2, no S3 gallop, no murmur.] Abdomen: [Soft, nontender, no megaly, no rebound, no guarding, normal bowel sounds.] Extremities: [No clubbing, no edema, no cyanosis.] Neurological Exam: [No focal neurologic deficit.] - Labs CBC & Chem 7: 08/19/16 08:23 08/19/16 08:20 Labs: Abnormal Lab Results - Last 24 Hours (Table) 08/18/16 08/19/16 08/19/16 Range/Units 21:11 07:07 08:20 RBC (4.30-5.90) m/uL Hgb (13.0-17.5) gm/dL Hct (39.0-53.0) % BUN 25 H (9-20) mg/dL Glucose 215 H (74-99) mg/dL POC Glucose (mg/dL) 142 H 235 H (75-99) mg/dL Calcium 8.3 L (8.4-10.2) mg/dL AST 16 L (17-59) U/L Total Protein 5.7 L (6.3-8.2) g/dL Albumin 3.3 L (3.5-5.0) g/dL 08/19/16 Range/Units 08:23 RBC 3.29 L (4.30-5.90) m/uL Hgb 10.0 L (13.0-17.5) gm/dL Hct 29.5 L (39.0-53.0) % BUN (9-20) mg/dL Glucose (74-99) mg/dL POC Glucose (mg/dL) (75-99) mg/dL Calcium (8.4-10.2) mg/dL AST (17-59) U/L Total Protein (6.3-8.2) g/dL Albumin (3.5-5.0) g/dL Assessment and Plan Plan: Impression: 1 status post elective CABG for triple vessel coronary artery disease, postoperative day #3, patient is doing well overall. Off oxygen presently on room air. 2 multiple comorbidities including hypertension, diabetes, history of prostate cancer. 3 small tiny left apical pneumothorax not seen on chest x-ray today, apparently has resolved. 4 postoperative left pleural effusion and atelectasis small, not enough to consider thoracentesis at this point. Recommendation: continue present supportive care measures, incentive spirometry , ambulation, bronchodilators, consider discharge planning today and follow up on outpatient basis. Time with Patient: Less than 30
--- NOTE | 2016-08-19 13:56 | P.PN ---
Subjective Patient is doing fairly well today. He does not have any complaints. No events overnight. Objective - Vital Signs Vital signs: Vital Signs Temp 96.9 F L 08/19/16 12:00 Pulse 59 L 08/19/16 12:00 Resp 18 08/19/16 12:00 BP 117/65 08/19/16 12:00 Pulse Ox 96 08/19/16 12:00 Intake & Output 08/18/16 08/19/16 08/19/16 18:59 06:59 18:59 Intake Total 766 1020 480 Output Total 1220 2090 30 Balance -454 -1070 450 Weight 93.6 kg Intake: IV 316 180 0.9NS Pressure Bag 6 Lactated Ringers 1,000 ml 310 180 @ 20 mls/hr IV .Q24H [facility] Rx#:[id number] Intake, IV Titration 250 Amount Sodium Phosphate 10 mmol 250 In Sodium Chloride 0.9% 250 ml @ 125 mls/hr IVPB ONCE ONE Rx#:[id number] Oral 200 840 480 Output: Chest Tube Drainage 70 Left Lateral Chest 70 Drainage 150 190 30 Right Knee 150 190 30 Urine 1000 1900 Other: Voiding Method Urinal Urinal Urinal # Voids 1 ABP, PAP, CO, CI - Last Documented Arterial Blood Pressure 155/87 Pulmonary Artery Pressure 21/12 Cardiac Output 6.3 Cardiac Index 2.8 - Exam General: The patient is awake and alert, in no distress Eye: there is normal conjunctiva bilaterally. Neck: The neck is supple, there is no JVD. Cardiovascular: Normal S1-S2, no S3-S4, no murmurs. Respiratory: Lungs clear to auscultation bilaterally Gastrointestinal: Abdomen is soft, nontender Musculoskeletal: There is no pedal edema. Neurological:. Speech is normal. Skin: Skin is warm and dry - Labs CBC & Chem 7: 08/19/16 08:23 08/19/16 08:20 Labs: Abnormal Lab Results - Last 24 Hours (Table) 08/18/16 08/19/16 08/19/16 Range/Units 21:11 07:07 08:20 RBC (4.30-5.90) m/uL Hgb (13.0-17.5) gm/dL Hct (39.0-53.0) % BUN 25 H (9-20) mg/dL Glucose 215 H (74-99) mg/dL POC Glucose (mg/dL) 142 H 235 H (75-99) mg/dL Calcium 8.3 L (8.4-10.2) mg/dL AST 16 L (17-59) U/L Total Protein 5.7 L (6.3-8.2) g/dL Albumin 3.3 L (3.5-5.0) g/dL 08/19/16 Range/Units 08:23 RBC 3.29 L (4.30-5.90) m/uL Hgb 10.0 L (13.0-17.5) gm/dL Hct 29.5 L (39.0-53.0) % BUN (9-20) mg/dL Glucose (74-99) mg/dL POC Glucose (mg/dL) (75-99) mg/dL Calcium (8.4-10.2) mg/dL AST (17-59) U/L Total Protein (6.3-8.2) g/dL Albumin (3.5-5.0) g/dL Assessment and Plan Plan: #1 coronary artery disease status post triple vessel coronary artery bypass graft surgery postoperative day #4 #2 underlying history of hypertension well-controlled on current medication #3 Hyperlipidemia maintained on Lipitor #4 [id number] diabetes mellitus, insulin regimen adjusted #5 previous history of prostate cancer diagnosed in 2006 patient had surgery at that time and has been doing well #6 episode of atrial fibrillation with rapid ventricular response: Patient started on amiodarone drip and metoprolol by Dr. Hemphill
[2016-08-19 16:29] LABS: Glucose,Whole Blood 117 mg/dL (75-99)
[2016-08-19] MEDS: HYDROcodone/APAP 5-325MG 1 EACH TAB PO PRN (19:59)
[2016-08-19] MEDS: SENNOSIDES-DOCUSATE SODIUM 1 EACH TAB PO SCH (21:00)
[2016-08-19 21:04] LABS: Glucose,Whole Blood 81 mg/dL (75-99)
[2016-08-19] MEDS: INSULIN NPH 300 UNIT/3 ML VIAL SQ SCH (21:24)
[2016-08-19] MEDS: PANTOPRAZOLE 40 MG/10 ML VIAL IVP SCH (22:22)
[2016-08-20 01:54] LABS: Glucose,Whole Blood 110 mg/dL (75-99)
[2016-08-20 05:44] LABS: Glucose,Whole Blood 111 mg/dL (75-99)
[2016-08-20] MEDS: INSULIN LISPRO (humaLOG) 300 UNIT/3 ML VIAL SQ SCH ×2 (05:48→12:49)
[2016-08-20 06:13] LABS: Basophils % (A) 1 %; CH 29.8; CHCM 33.5; Eosinophils # (A) 0.2 k/uL (0-0.7); Eosinophils % (A) 2 %; HCT 28.4 % (39.0-53.0); HDW 3.24; HGB 9.7 gm/dL (13.0-17.5); Luc # (Auto) 0.16; Luc % (Auto) 2; Lymphocytes # (A) 1.4 k/uL (1.0-4.8); Lymphocytes % (A) 21 %; MCH 30.5 pg (25.0-35.0); MCV 89.6 fL (80.0-100.0); Monocytes # (A) 0.4 k/uL (0-1.0); Monocytes % (A) 6 %; Neutrophils # (A) 4.6 k/uL (1.3-7.7); Neutrophils % (A) 69 %; RBC 3.18 m/uL (4.30-5.90); RDW 14.6 % (11.5-15.5); WBC 6.7 k/uL (3.8-10.6); WBC (Perox) 7.55
[2016-08-20 06:31] LABS: ALT 27 U/L (21-72); AST 14 U/L (17-59); Alkaline Phosphatase 55 U/L (38-126); Anion Gap 10 mmol/L; Blood Urea Nitrogen 21 mg/dL (9-20); Calcium 8.2 mg/dL (8.4-10.2); Carbon Dioxide 22 mmol/L (22-30); Chloride 108 mmol/L (98-107); Glucose 98 mg/dL (74-99); Non-African American GFR(MDRD) >60 (>60 ml/min/1.73 sqM); Potassium 4.1 mmol/L (3.5-5.1); Sodium 140 mmol/L (137-145); Total Bilirubin 0.8 mg/dL (0.2-1.3); Total Protein 5.1 g/dL (6.3-8.2)
[2016-08-20] MEDS: INSULN ASP PRT/INSULIN ASPART 100 UNIT/ML 10 ML VIAL SQ SCH (06:34)
[2016-08-20] MEDS: PANTOPRAZOLE 40 MG TABLET PO SCH (06:36)
--- NOTE | 2016-08-20 08:02 | XR ---
EXAMINATION TYPE: XR chest 1V portable DATE OF EXAM: 08/20/2016 COMPARISON: Chest x-ray 08/19/2016 HISTORY: Status post coronary artery bypass graft TECHNIQUE: Single frontal view of the chest is obtained. FINDINGS: Patient is rotated and post median sternotomy. The heart is enlarged. Suspect some improve ment in aeration at the right lung base. No evident pneumothorax. IMPRESSION: Improvement in lung volumes, aeration as compared to prior exam.
[2016-08-20] MEDS: AMIODARONE 200 MG TAB PO SCH (08:38)
[2016-08-20] MEDS: METOPROLOL TARTRATE 50 MG TAB PO SCH (08:38)
[2016-08-20] MEDS: ATORVASTATIN 40 MG TAB PO SCH (08:38)
[2016-08-20] MEDS: HEPARIN SODIUM,PORCINE 5,000 UNIT/ML 1 ML VIAL SQ SCH (08:38)
[2016-08-20] MEDS: CLOPIDOGREL 75 MG TAB PO SCH (08:38)
[2016-08-20] MEDS: ASPIRIN 325 MG TAB PO SCH (08:38)
--- NOTE | 2016-08-20 09:59 | PN ---
Mr. Teixeira is doing well. He is sitting up in the chair. Breath sounds are reduced bilaterally at the bases only but no rhonchi, no crackles. Heart sounds are soft and normal, but irregular. He is back in atrial fibrillation. He has paroxysmal atrial fibrillation. Extremities are warm. No edema. Abdomen is soft. IMPRESSION: Coronary artery disease, status post coronary artery bypass grafting and paroxysmal atrial fibrillation. SUGGEST: From a cardiac standpoint will continue on his cardiac atherosclerosis medications, Amiodarone short term with a limit of one month and then to be stopped completely. I would recommend anticoagulation. He is currently on triple therapy and later as an outpatient he can be switched to dual therapy with Coumadin plus Plavix.
[2016-08-20 10:20] VITALS: TEMP 97.1
[2016-08-20 11:31] VITALS: BP 113/69; PULSE 93
--- NOTE | 2016-08-20 11:49 | P.PN ---
<Angelina Arce - Last Filed: 08/20/16 11:48> Subjective Principal diagnosis: Coronary artery disease. POD #5 coronary artery bypass grafting 3 vessels (left internal mammary artery to left anterior descending artery, saphenous vein graft to obtuse marginal artery 2, saphenous vein graft to distal right coronary artery). Endoscopic vein harvest, right greater saphenous vein. Epi-aortic ultrasound. Intraoperative transesophageal echocardiogram. Postoperative paroxysmal atrial fibrillation, and expected outcome, treated with amiodarone. Patient sitting up in chair in no apparent distress. States his pain is controlled with ordered medication. Currently normal sinus rhythm. States he is ready to go home. Objective - Vital Signs Vital signs: Vital Signs Temp 97.5 F L 08/20/16 00:00 Pulse 83 08/20/16 04:00 Resp 18 08/20/16 04:00 BP 139/88 08/20/16 04:00 Pulse Ox 95 08/20/16 04:00 Intake & Output 08/19/16 08/20/16 08/20/16 18:59 06:59 18:59 Intake Total 1160 200 Output Total 40 900 Balance 1120 -700 Weight 100.698 kg Intake: Oral 1160 200 Output: Drainage 40 Right Knee 40 Urine 900 Other: Voiding Method Urinal Urinal # Voids 1 ABP, PAP, CO, CI - Last Documented Arterial Blood Pressure 155/87 Pulmonary Artery Pressure 21/12 Cardiac Output 6.3 Cardiac Index 2.8 - Constitutional General appearance: Present: cooperative, no acute distress - Respiratory Details: Lungs sounds diminished bilaterally. Respirations even, nonlabored. Currently on room air with oxygen saturation 100%. Able to achieve 1000 mL on his incentive spirometry. Effective cough. - Cardiovascular Details: S1, S2 present. Regular rate and rhythm, normal sinus rhythm on telemetry with occasional PVCs. Sternum stable. Heart hugger in place with patient demonstrating appropriate use. Teds/SCDs present. - Gastrointestinal Gastrointestinal Comment(s): Abdomen soft, nontender, nondistended. Active bowel sounds 4 quadrants. No bowel movement since surgery. Tolerating diet. - Genitourinary Genitourinary Comment(s): Continues to void clear, yellow urine. - Integumentary Integumentary Comment(s): Anterior chest incision well approximated and covered with dry intact dressing. - Musculoskeletal Musculoskeletal: Present: gait normal, strength equal bilaterally - Psychiatric Psychiatric: Present: A&O x's 3, appropriate affect, intact judgment & insight - Allied health notes Allied health notes reviewed: nursing - Labs CBC & Chem 7: 08/20/16 05:49 08/20/16 05:49 Labs: Abnormal Lab Results - Last 24 Hours (Table) 08/19/16 08/19/16 08/19/16 Range/Units 08:20 08:23 16:27 RBC 3.29 L (4.30-5.90) m/uL Hgb 10.0 L (13.0-17.5) gm/dL Hct 29.5 L (39.0-53.0) % Chloride (98-107) mmol/L BUN 25 H (9-20) mg/dL Glucose 215 H (74-99) mg/dL POC Glucose (mg/dL) 117 H (75-99) mg/dL Calcium 8.3 L (8.4-10.2) mg/dL AST 16 L (17-59) U/L Total Protein 5.7 L (6.3-8.2) g/dL Albumin 3.3 L (3.5-5.0) g/dL 08/20/16 08/20/16 08/20/16 Range/Units 01:53 05:43 05:49 RBC 3.18 L (4.30-5.90) m/uL Hgb 9.7 L (13.0-17.5) gm/dL Hct 28.4 L (39.0-53.0) % Chloride (98-107) mmol/L BUN (9-20) mg/dL Glucose (74-99) mg/dL POC Glucose (mg/dL) 110 H 111 H (75-99) mg/dL Calcium (8.4-10.2) mg/dL AST (17-59) U/L Total Protein (6.3-8.2) g/dL Albumin (3.5-5.0) g/dL 08/20/16 Range/Units 05:49 RBC (4.30-5.90) m/uL Hgb (13.0-17.5) gm/dL Hct (39.0-53.0) % Chloride 108 H (98-107) mmol/L BUN 21 H (9-20) mg/dL Glucose (74-99) mg/dL POC Glucose (mg/dL) (75-99) mg/dL Calcium 8.2 L (8.4-10.2) mg/dL AST 14 L (17-59) U/L Total Protein 5.1 L (6.3-8.2) g/dL Albumin 3.0 L (3.5-5.0) g/dL - Imaging and Cardiology Chest x-ray: image reviewed Assessment and Plan (1) Coronary artery disease Status: Acute (2) Hypertension Status: Acute (3) Diabetes mellitus Status: Acute (4) History of prostate cancer Status: Acute (5) Paroxysmal atrial fibrillation Status: Acute Plan: 1. Continue aspirin, Lipitor, Plavix, heparin, Lopressor. 2. Continue amiodarone for atrial fibrillation prophylaxis. Will start coumadin for anticoagulation secondary to paroxysmal atrial fibrillation. Daily PT/INR. 3. Will give milk of Magnesia plus prune-juice for constipation. 4. Encourage incentive spirometry use. 5. Increase activity, ambulate in hallway. Physical therapy following. 6. Diabetic management per primary care service. 7. GI/DVT prophylaxis. 8. Will dc home on 2.5 mg coumadin daily Time with Patient: Greater than 30 <Brian Hemphill - Last Filed: 08/20/16 12:13> Objective - Vital Signs Vital signs: Vital Signs Temp 97.1 F L 08/20/16 11:28 Pulse 93 08/20/16 11:28 Resp 18 08/20/16 11:28 BP 113/69 08/20/16 11:28 Pulse Ox 96 08/20/16 11:28 Intake & Output 08/19/16 08/20/16 08/20/16 18:59 06:59 18:59 Intake Total 1160 200 Output Total 40 900 600 Balance 1120 -700 -600 Weight 100.698 kg Intake: Oral 1160 200 Output: Drainage 40 Right Knee 40 Urine 900 600 Other: Voiding Method Urinal Urinal Urinal # Voids 1 1 ABP, PAP, CO, CI - Last Documented Arterial Blood Pressure 155/87 Pulmonary Artery Pressure 21/12 Cardiac Output 6.3 Cardiac Index 2.8 - Labs CBC & Chem 7: 08/20/16 05:49 08/20/16 05:49 Labs: Abnormal Lab Results - Last 24 Hours (Table) 08/19/16 08/20/16 08/20/16 Range/Units 16:27 01:53 05:43 RBC (4.30-5.90) m/uL Hgb (13.0-17.5) gm/dL Hct (39.0-53.0) % Chloride (98-107) mmol/L BUN (9-20) mg/dL POC Glucose (mg/dL) 117 H 110 H 111 H (75-99) mg/dL Calcium (8.4-10.2) mg/dL AST (17-59) U/L Total Protein (6.3-8.2) g/dL Albumin (3.5-5.0) g/dL 08/20/16 08/20/16 08/20/16 Range/Units 05:49 05:49 11:50 RBC 3.18 L (4.30-5.90) m/uL Hgb 9.7 L (13.0-17.5) gm/dL Hct 28.4 L (39.0-53.0) % Chloride 108 H (98-107) mmol/L BUN 21 H (9-20) mg/dL POC Glucose (mg/dL) 168 H (75-99) mg/dL Calcium 8.2 L (8.4-10.2) mg/dL AST 14 L (17-59) U/L Total Protein 5.1 L (6.3-8.2) g/dL Albumin 3.0 L (3.5-5.0) g/dL Assessment and Plan Plan: The patient was seen and examined. Agree with the above assessment and plan. Overall he looks good and is anxious to go home. He continues to have intermittent atrial fibrillation with rapid ventricular response despite Lopressor and amiodarone. I did speak with Dr. Monroe today. We will initiate Coumadin and continue his other antiplatelet medications. We'll plan on discharging him home today with a follow-up INR check later this week.
[2016-08-20 11:51] LABS: Glucose,Whole Blood 168 mg/dL (75-99)
--- NOTE | 2016-08-20 11:57 | P.PN ---
Subjective Principal diagnosis: status post CABG, postoperative day # 5 This is a 76-year-old white male with history of diabetes, hypertension, prostate cancer, patient was recently evaluated for intermittent episodes of chest pain for the last few months. Patient has no shortness of breath, no radiation of the pain, no fevers, no chills, recent cardiac catheterization showed multivessel coronary artery disease. Hence the patient was seen by cardiac surgery on 08/10/2016, and he was scheduled for elective myocardial revascularization which was done today on 08/15/2016. Postoperatively, patient was on mechanical ventilation, and I was asked to see him on consultation. Present vent settings are assist control of 12, FiO2 of 50%, tidal volume of 600 , and PEEP of 8. Patient is presently sedated, on mechanical ventilation, and the main issue seems to be postoperative bleeding which is being addressed by cardiac surgery. reevaluated today on 08/16/2016, patient was extubated last night uneventfully, he is presently on nasal cannula, in no distress. no cough no wheezing no shortness of breath. patient feels generally weak and tired. some aches and pains. labs were reviewed, hemoglobin is 9.5. Preintubation ABG showed a pO2 of 91 pCO2 of 38 pH of 7.42. Electrolytes and renal profile are normal. chest x -ray was reviewed, there is evidence of atelectasis of the left base, small tiny left apical pneumothorax was noted, chest tube on the left side remains in place, there is a stoma distention noted. Reevaluated today on 08/17/2016, patient continues to do quite well from the pulmonary perspective. No cough no wheezing no shortness of breath, feels generally weak. Patient is on room air. His O2 saturations are in the mid 90s. Labs were reviewed hemoglobin is 9.8 to let lites are normal renal profile is normal. Chest x-ray continues to show a small tiny left apical pneumothorax. Some atelectasis is noted bilaterally. However patient is asymptomatic. Reevaluated today on 08/18/2016, patient continues to do well, no cough no wheezing no shortness of breath. He is doing well with incentive spirometry. Chest x-ray was reviewed, essentially stable with postoperative changes. Labs showed relatively normal CBC, hemoglobin is 10.8 electrolytes and renal profile are On 08/19/2016, patient was reevaluated, and he is doing quite well. Off oxygen, chest tubes have all been removed, patient is ambulating, in no distress, chest x-ray showed minimal left lower lobe atelectasis and possibly a small left pleural effusion. Patient is relatively asymptomatic, and is asking to be discharged home today if possible. On 08/20/2016, patient continues to do well, he is in normal sinus rhythm today, hemodynamically stable, his paroxysmal atrial fibrillation was treated with amiodarone, and his discharge was delayed yesterday because of the paroxysmal atrial fibrillation. Patient will likely be discharged home today. Objective - Vital Signs Vital signs: Vital Signs Temp 97.1 F L 08/20/16 11:28 Pulse 93 08/20/16 11:28 Resp 18 08/20/16 11:28 BP 113/69 08/20/16 11:28 Pulse Ox 96 08/20/16 11:28 Intake & Output 08/19/16 08/20/16 08/20/16 18:59 06:59 18:59 Intake Total 1160 200 Output Total 40 900 600 Balance 1120 -700 -600 Weight 100.698 kg Intake: Oral 1160 200 Output: Drainage 40 Right Knee 40 Urine 900 600 Other: Voiding Method Urinal Urinal Urinal # Voids 1 1 ABP, PAP, CO, CI - Last Documented Arterial Blood Pressure 155/87 Pulmonary Artery Pressure 21/12 Cardiac Output 6.3 Cardiac Index 2.8 - Exam Physical Exam: Revealed a 76-year-old in no distress, resting, and looks very comfortable. On room air HEENT:[Neck is supple.] [No neck masses.] [No thyromegaly.] [No JVD.] Chest: [diminished breath sounds at the bases, no rhonchi, no wheezes.] Cardiac Exam: [Normal S1 and S2, no S3 gallop, no murmur.] Abdomen: [Soft, nontender, no megaly, no rebound, no guarding, normal bowel sounds.] Extremities: [No clubbing, no edema, no cyanosis.] Neurological Exam: [No focal neurologic deficit.] - Labs CBC & Chem 7: 08/20/16 05:49 08/20/16 05:49 Labs: Abnormal Lab Results - Last 24 Hours (Table) 08/19/16 08/20/16 08/20/16 Range/Units 16:27 01:53 05:43 RBC (4.30-5.90) m/uL Hgb (13.0-17.5) gm/dL Hct (39.0-53.0) % Chloride (98-107) mmol/L BUN (9-20) mg/dL POC Glucose (mg/dL) 117 H 110 H 111 H (75-99) mg/dL Calcium (8.4-10.2) mg/dL AST (17-59) U/L Total Protein (6.3-8.2) g/dL Albumin (3.5-5.0) g/dL 08/20/16 08/20/16 08/20/16 Range/Units 05:49 05:49 11:50 RBC 3.18 L (4.30-5.90) m/uL Hgb 9.7 L (13.0-17.5) gm/dL Hct 28.4 L (39.0-53.0) % Chloride 108 H (98-107) mmol/L BUN 21 H (9-20) mg/dL POC Glucose (mg/dL) 168 H (75-99) mg/dL Calcium 8.2 L (8.4-10.2) mg/dL AST 14 L (17-59) U/L Total Protein 5.1 L (6.3-8.2) g/dL Albumin 3.0 L (3.5-5.0) g/dL Assessment and Plan Plan: Impression: 1 status post elective CABG for triple vessel coronary artery disease, postoperative day #5 , patient is doing well overall. Off oxygen presently on room air. 2 multiple comorbidities including hypertension, diabetes, history of prostate cancer. 3 small tiny left apical pneumothorax resolved 4 postoperative left pleural effusion and atelectasis small, not enough to consider thoracentesis at this point. Recommendation: continue present supportive care measures, incentive spirometry , ambulation, bronchodilators, agree with discharge planning today. Time with Patient: Less than 30
--- NOTE | 2016-08-20 12:34 | P.DS ---
Providers Date of admission: 08/15/16 07:05 Attending physician: Brian Hemphill Consults: 08/15/16 17:00 Consult Physician Routine Consulting Provider: Kiel Meehan Consult Reason/Comments: Cobol Programmer Consult: post cardiac surgery Do you want consulting provider notified?: Yes Consult Physician Routine Consulting Provider: Brando Miller Consult Reason/Comments: medical management Do you want consulting provider notified?: Yes Consult Physician Routine Consulting Provider: Mohan Joel Consult Reason/Comments: Consulting Hr Professional Consult: post cardiac surgery Do you want consulting provider notified?: Yes Primary care physician: Brando Miller - Discharge Diagnosis(es) (1) Coronary artery disease Current Visit: No Status: Acute (2) Hypertension Current Visit: Yes Status: Acute (3) Diabetes mellitus Current Visit: Yes Status: Acute (4) History of prostate cancer Current Visit: Yes Status: Acute (5) Paroxysmal atrial fibrillation Current Visit: Yes Status: Acute Hospital Course: FINAL DIAGNOSIS: 1.[Multivessel coronary artery disease] 2.[Hypertension] 3.[History of prostate cancer] 4.[Type 2 diabetes mellitus] 5.[Previous nicotine dependence] 6.[Paroxysmal atrial fibrillation] PRINCIPAL PROCEDURE: [] 1.[Elective coronary artery bypass grafting 3 vessels, left internal mammary artery to the left anterior descending artery, reverse saphenous vein graft to the obtuse marginal artery 2, reverse saphenous vein graft to distal right coronary artery] 2.[Endoscopic vein harvesting, right greater saphenous vein] 3.[Epi-aortic ultrasound] 4.[Intraoperative transesophageal echocardiogram] HISTORY OF PRESENT ILLNESS: [This 76-year-old male who was previously in a good state of health and 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 He denied any shortness of breath, radiation of pain, fever, chills. He saw his primary care physician for this chest pain who referred him to Dr. Joel. A cardiac catheterization was performed which revealed multivessel coronary artery disease. Dr. Hemphill from cardiothoracic surgery was consulted for the possibility of surgical revascularization. An extensive discussion was had with the patient and his family, risks and benefits were explained, and consent was obtained to proceed with surgery. The patient had preoperative workup and was sent home from the extended stay unit to be brought back in as an outpatient.] HOSPITAL COURSE:[ The patient was brought to the hospital on 08/15/2016, taken to the preoperative area, prepared in the usual fashion, and subsequently taken to the operating room where Dr. Hempihll performed an elective coronary artery bypass grafting 3 vessels, left internal mammary artery to the left anterior descending artery, reverse saphenous vein graft to the obtuse marginal artery 2 , reverse saphenous vein graft to the distal right coronary artery, endoscopic vein harvesting, right greater saphenous vein, epi-aortic ultrasound, and intraoperative transesophageal echocardiogram. On completion of surgery the patient was transferred to the cardiovascular intensive care unit where he was recovered, monitored hemodynamically, and where he progressed to cardiac rehabilitation phase 1. He was extubated, all lines, tubes, and drips were discontinued when appropriate, and he was transferred to [address] [place] [address] for further monitoring and rehabilitation. He did develop paroxysmal atrial fibrillation with rapid ventricular response which was treated accordingly. His oxygen was titrated down, he continued to work with physical therapy, and was ready to be discharged home on postoperative day #5 with [facility] to follow. He received written and verbal instruction regarding his medications , activity restrictions, signs and symptoms requiring physician notification, and follow-up appointments.] COMPLICATIONS: [The patient's postoperative stay was complicated by paroxysmal atrial fibrillation which was treated accordingly.] CONSULTATIONS: 1.[Dr. Joel for cardiology] 2.[Dr. Meehan for pulmonology] 3.[Dr. Miller for medical management] DISCHARGE INSTRUCTIONS: 1. No driving for 4 weeks, or until physician gives their ok. 2. The patient should sleep in their own bed, no medical bed needed. 3. Stairs are not an issue. If the bedroom is upstairs, it is advised that the patient go up at night and down in the morning for the first week. Go slowly, using handrail and take 1 step at a time. 4. JERRY hose are to be worn for 30 days or until physician discontinues. 5. Heart hugger is to be worn 100% of the time until physician discontinues.( except when showering) 6. No lifting, pushing, or pulling more than 10 pounds for 12 weeks. The physician will advise of any restriction changes. 7. The patient is expected to continue the prescribed walking program. 8. Continue pain control per as needed orders. 9. Continue with incentive spirometry and splinting/heart hugger until otherwise directed by the physician. 10. Must shower daily using liquid antibacterial soap and a separate white washcloth for each individual incision. 11. Routine sternal incision care. No lotions, powders, ointments on incisions. 12. Please call surgeon/HOSPITAL CLEANING SPECIALIST with temp >101F or purulent drainage from incisions. HOME HEALTH SERVICES TO PROVIDE: RN SKILLED HOME CARE SERVICES FOR POST-OP SURGICAL PATIENTS WITH THE FOLLOWING: Coronary Artery Bypass Surgery (CABG), Mitral Valve Replacement/ Repair ( MVR), Aortic Valve Replacement/Repair (AVR) RN TO CONTINUE EDUCATION FROM ``ROAD TO A HEALTH HEART PATIENT EDUCATION MANUAL (GIVEN TO PATIENT IN THE HOSPITAL) MEDICATION RECONCILIATION WITH EDUCATION NEEDED ON FIRST HOME VISIT EMPHASIZE IMPORTANCE OF WEARING BREAST SUPPORT/HEART HUGGER ENCOURAGE USE OF INCENTIVE SPIROMETER 10 X EVERY HOUR WHILE AWAKE ENCOURAGE UTILIZATION OF LOWER EXTREMITY COMPRESSION STOCKINGS/JERRY HOSE and ELEVATE LEGS ABOVE LEVEL OF HEART WHILE AT REST. ENCOURAGE AMBULATION 3-5x/day INCREASING TOLERATES, WHILE AVOID EXTREMES IN TEMPERATURE FREQUENCY: RN TO OPEN THE PATIENT WITHIN 24 HOURS OF DISCHARGE FROM THE HOSPITAL WITH TELEHEALTH INSTALLED AT [facility] [place], RN TO VISIT 2-3 X A WEEK FOR 4 WEEKS ESTABLISHED BY PATIENT NEEDS. LABORATORY: CBC, CMP TO BE DRAWN ON THE THIRD DAY HOME, 08/23/2016 (RAN STAT) FAX RESULTS TO [phone]. PT/INR TO BE DRAWN ON THE THIRD DAY HOME, 08/23/2016 (RAN STAT) FAX RESULTS TO CARDIOLOGY ([phone]) TO MANAGE COUMADIN TELEHEALTH PARAMETERS: WEIGHT: NOTIFY MD OF WEIGHT GAIN OF 2 LBS IN 24 HOURS OR 5 LBS IN ONE WEEK HR: NOTIFY MD OF HR <55 BPM OR HR>100 BPM BP: NOTIFY MD IF BP <90/55 OR BP>140/100 O2 SAT: NOTIFY MD IF PO2<93% ON ROOM AIR SEND TELEHEALTH REPORT TO HOME MISSION WORKER AND CARDIOVASCULAR SURGEON THE FIRST WEEK OF CARE AND THEN BI-WEEKLY. PLEASE ADDITIONALLY COMMUNICATE ANY ABNORMALS AND NEW FINDINGS TO THE SURGEONS OFFICE. Plan - Discharge Summary New Discharge Prescriptions: Amiodarone [Cordarone] 400 mg PO BID #56 tab Aspirin [Children's Aspirin] 81 mg PO DAILY #30 tab.chew Atorvastatin [Lipitor] 40 mg PO DAILY #30 tab Clopidogrel [Plavix] 75 mg PO DAILY #30 tab HYDROcodone/APAP 5-325MG [[place]side 5-325] 1 - 2 each PO Q6HR PRN #120 tab PRN Reason: Severe Pain Metoprolol Tartrate [Lopressor] 50 mg PO BID #60 tab Pantoprazole [Protonix] 40 mg PO AC-BRKFST #30 tab Warfarin [Coumadin] 2.5 mg PO DAILY #30 tab Discharge Medication List glipiZIDE [Glucotrol] 5 mg PO AC-BID 09/10/14 [History] metFORMIN HCL [Glucophage] 500 mg PO BID 09/10/14 [History] Amiodarone [Cordarone] 400 mg PO BID #56 tab 08/20/16 [Rx] Aspirin [Children's Aspirin] 81 mg PO DAILY #30 tab.chew 08/20/16 [Rx] Atorvastatin [Lipitor] 40 mg PO DAILY #30 tab 08/20/16 [Rx] Clopidogrel [Plavix] 75 mg PO DAILY #30 tab 08/20/16 [Rx] HYDROcodone/APAP 5-325MG [Burnside 5-325] 1 - 2 each PO Q6HR PRN #120 tab 08/20/16 [Rx] Metoprolol Tartrate [Lopressor] 50 mg PO BID #60 tab 08/20/16 [Rx] Pantoprazole [Protonix] 40 mg PO AC-BRKFST #30 tab 08/20/16 [Rx] Sennosides-Docusate Sodium [Senokot-S] 2 each PO HS tab 08/20/16 [Rx] Warfarin [Coumadin] 2.5 mg PO DAILY #30 tab 08/20/16 [Rx] Follow up Appointment(s)/Referral(s): [facility], [NON-STAFF] - Ambulatory/Diagnostic Orders: Complete Blood Count w/diff [LAB.AMB] Time Frame: 3 Days, Location: Determined By Patient Comprehensive Metabolic Panel [LAB.AMB] Time Frame: 3 Days, Location: Determined By Patient Prothrombin Time INR [LAB.AMB] Time Frame: 3 Days, Location: Determined By Patient Discharge Disposition: HOME WITH HOME HEALTH SERVICES
[2016-08-20] MEDS: MULTIVITAMINS, THERA 1 EACH TAB PO SCH (12:49)
[2016-08-20] MEDS ORDERED: WARFARIN 5 MG TAB PO ONE (18:00)
[2016-08-29 13:40] LABS: ABG Base Excess -1.3 mmol/L; ABG HCO3 22 mmol/L (21-25); ABG Oxygen Saturation 99.7 % (94-97); ABG PCO2 35 mmHg (35-45); ABG PH 7.42 (7.35-7.45); ABG PO2 192 mmHg (83-108); ABG TCO2 23 mmol/L (19-24)
[2016-08-29 13:41] LABS: ABG Base Excess -2.4 mmol/L; ABG HCO3 22 mmol/L (21-25); ABG Oxygen Saturation 99.8 % (94-97); ABG PCO2 41 mmHg (35-45); ABG PH 7.36 (7.35-7.45); ABG PO2 221 mmHg (83-108); ABG TCO2 24 mmol/L (19-24)
[2016-08-29 13:42] LABS: ABG Base Excess -0.6 mmol/L; ABG HCO3 24 mmol/L (21-25); ABG Oxygen Saturation 99.9 % (94-97); ABG PCO2 40 mmHg (35-45); ABG PH 7.39 (7.35-7.45); ABG PO2 297 mmHg (83-108); ABG TCO2 25 mmol/L (19-24)
[2016-08-29 13:43] LABS: ABG Base Excess -1.5 mmol/L; ABG HCO3 24 mmol/L (21-25); ABG Oxygen Saturation 99.9 % (94-97); ABG PCO2 43 mmHg (35-45); ABG PH 7.36 (7.35-7.45); ABG PO2 303 mmHg (83-108); ABG TCO2 25 mmol/L (19-24)
[2016-08-29 13:44] LABS: ABG HCO3 21 mmol/L (21-25); ABG PCO2 38 mmHg (35-45); ABG PH 7.37 (7.35-7.45); ABG PO2 94 mmHg (83-108); ABG TCO2 22 mmol/L (19-24)
[2016-08-29 13:44] LABS: ABG Base Excess -2.5 mmol/L; ABG HCO3 23 mmol/L (21-25); ABG Oxygen Saturation 99.9 % (94-97); ABG PCO2 45 mmHg (35-45); ABG PH 7.33 (7.35-7.45); ABG PO2 311 mmHg (83-108); ABG TCO2 24 mmol/L (19-24)
[2016-08-29 13:45] LABS: ABG Base Excess -3.2 mmol/L; ABG Oxygen Saturation 97.1 % (94-97)
== END 2016-08-20 14:56 | disposition home health service (06) | DRG 236 ==
LOC: 2ORMAIN 07:05 → 6ICU 16:29 → 6SEL 08-18 18:56
PROVIDERS: ADMIT Surgery; ATTEND Surgery
PROC: 06BP0ZZ Excision of Right Saphenous Vein, Open Approach (ICD-10-PCS; 2016-08-15)
PROC: 5A1221Z Performance of Cardiac Output, Continuous (ICD-10-PCS; 2016-08-15)
PROC: 30243K1 Transfusion of Nonautologous Frozen Plasma into Central Vein, Percutaneous Approach (ICD-10-PCS; 2016-08-15)
PROC: 30243R1 Transfusion of Nonautologous Platelets into Central Vein, Percutaneous Approach (ICD-10-PCS; 2016-08-15)
PROC: 30243M1 Transfusion of Nonautologous Plasma Cryoprecipitate into Central Vein, Percutaneous Approach (ICD-10-PCS; 2016-08-15)
PROC: 021109W Bypass Coronary Artery, Two Arteries from Aorta with Autologous Venous Tissue, Open Approach (ICD-10-PCS; principal; 2016-08-15 09:30)
PROC: 02100Z9 Bypass Coronary Artery, One Artery from Left Internal Mammary, Open Approach (ICD-10-PCS; 2016-08-15 09:30)
DX: I25.10 Atherosclerotic heart disease of native coronary artery without angina pectoris (principal); J90 Pleural effusion, not elsewhere classified; J98.11 Atelectasis; J93.9 Pneumothorax, unspecified; I48.0 Paroxysmal atrial fibrillation; E11.9 Type 2 diabetes mellitus without complications; I10 Essential (primary) hypertension; E78.5 Hyperlipidemia, unspecified; H91.90 Unspecified hearing loss, unspecified ear; I34.0 Nonrheumatic mitral (valve) insufficiency; Z87.891 Personal history of nicotine dependence; Z85.46 Personal history of malignant neoplasm of prostate; Z79.82 Long term (current) use of aspirin; Z79.899 Other long term (current) drug therapy; Z79.84 Long term (current) use of oral hypoglycemic drugs; Z82.49 Family history of ischemic heart disease and other diseases of the circulatory system
CPT/HCPCS: 36620; 71010; 80048; 80053; 82330; 82805; 83036; 83735; 84100; 84132; 85025; 85384; 85520; 85610; 85730; 86850; 86891; 86900; 86901; 86920; 94002; 94003; 94640; 94760

== ENCOUNTER 2016-08-30 23:07 | Emergency (ER) | payer MEDICARE, OTHER ==
[2016-08-30 23:18] VITALS: RESP 16
--- NOTE | 2016-08-30 23:58 | ED ---
Extremity Problem HPI - General Chief complaint: Extremity Problem,Nontraumatic Stated complaint: post op incision-swollen/red Time Seen by Provider: 08/30/16 23:52 Source: patient, RN notes reviewed Mode of arrival: wheelchair Limitations: no limitations - History of Present Illness Initial comments: this is a 76-year-old male presents emergency Department chief complaint right leg pain, swelling and redness. Patient states she also noticed some drainage. Patient states he is 2 weeks postop triple bypass by Dr. Hemphill. Patient states that his legs have been swollen but states that since it is slightly more swollen on the right. Patient has had to follow-up appointment with plastic welding machine operator and things have been under control. They noticed hours the redness and warmth today. Patient has 1 small incision that does have some drainage to his right lower calf region. Patient states she's had pain in bruising to his upper leg ever since the surgery. Patient denies any increasing chest pain, fever, chills, dizziness - Related Data Home Medications Medication Instructions Recorded Confirmed glipiZIDE [Glucotrol] 5 mg PO AC-BID 09/10/14 08/15/16 metFORMIN HCL [Glucophage] 500 mg PO BID 09/10/14 08/15/16 Previous Rx's Medication Instructions Recorded Amiodarone [Cordarone] 400 mg PO BID #56 tab 08/20/16 Aspirin [Children's Aspirin] 81 mg PO DAILY #30 tab.chew 08/20/16 Atorvastatin [Lipitor] 40 mg PO DAILY #30 tab 08/20/16 Clopidogrel [Plavix] 75 mg PO DAILY #30 tab 08/20/16 HYDROcodone/APAP 5-325MG [[place]art 1 - 2 each PO Q6HR PRN #120 tab 08/20/16 5-325] Metoprolol Tartrate [Lopressor] 50 mg PO BID #60 tab 08/20/16 Pantoprazole [Protonix] 40 mg PO AC-BRKFST #30 tab 08/20/16 Sennosides-Docusate Sodium 2 each PO HS tab 08/20/16 [Senokot-S] Warfarin [Coumadin] 2.5 mg PO DAILY #30 tab 08/20/16 Amoxicillin/Potassium Clav 1 tab PO Q12HR #20 tab 08/31/16 [Augmentin 875-125 Tablet] Allergies Allergy/AdvReac Type Severity Reaction Status Date / Time No Known Allergies Allergy Verified 08/30/16 23:18 Review of Systems ROS Statement: Those systems with pertinent positive or pertinent negative responses have been documented in the HPI. ROS Other: All systems not noted in ROS Statement are negative. Past Medical History Past Medical History: Cancer, Diabetes Mellitus, Hearing Disorder / Deafness, Hypertension, Prostate Disorder Additional Past Medical History / Comment(s): PROSTATE CA 2006. History of Any Multi-Drug Resistant Organisms: None Reported Past Surgical History: Appendectomy, Coronary Bypass/CABG, Orthopedic Surgery, Prostate Surgery Additional Past Surgical History / Comment(s): Left upper extremity tendon repair. Past Anesthesia/Blood Transfusion Reactions: No Reported Reaction Past Psychological History: No Psychological Hx Reported Smoking Status: Former smoker Past Alcohol Use History: None Reported Additional Past Alcohol Use History / Comment(s): quit smoking age 26,started smoking at age 14. Past Drug Use History: None Reported - Past Family History Father Family Medical History: Cancer, Congestive Heart Failure (CHF) Additional Family Medical History / Comment(s): prostate Mother Family Medical History: Cancer Additional Family Medical History / Comment(s): breast General Exam Limitations: no limitations General appearance: alert, in no apparent distress Respiratory exam: Present: normal lung sounds bilaterally. Absent: respiratory distress, wheezes, rales, rhonchi, stridor Cardiovascular Exam: Present: regular rate, normal rhythm, normal heart sounds. Absent: systolic murmur, diastolic murmur, rubs, gallop, clicks Extremities exam: Present: other (right lower extremities there are 3 incisions noted with a small open wound to the right calf region there is 2+ pitting edema in mild redness the right calf there is tenderness with palpation of the right calf and ecchymosis noted to the right thigh. Pedal pulses are equal bilaterally 1+) Course Vital Signs 08/30/16 23:13 Temperature 98.3 F Pulse Rate 74 Respiratory 16 Rate Blood Pressure 123/70 O2 Sat by Pulse 97 Oximetry Medical Decision Making - Medical Decision Making 76-year-old male present emergency department with chief complaint of right leg swelling pain drainage. Patient has no evidence acute DVT. Patient is subtherapeutic on his Coumadin and advised take an extra tablet. Patient does not appear to have any elevation his white count no systemic signs of infection. Patient has a localized wound infection. Patient case discussed with Dr. Hua does recommend Augmentin at this time. Patient why of his Coumadin rechecked and close follow-up for this wound strictly return parameters were discussed. - Lab Data Result diagrams: 08/31/16 00:04 08/31/16 00:04 Lab Results 08/31/16 08/31/16 08/31/16 Range/Units 00:04 00:04 00:04 WBC 7.4 (3.8-10.6) k/uL RBC 3.70 L (4.30-5.90) m/uL Hgb 11.0 L (13.0-17.5) gm/dL Hct 33.0 L (39.0-53.0) % MCV 89.2 (80.0-100.0) fL MCH 29.6 (25.0-35.0) pg MCHC 33.2 (31.0-37.0) g/dL RDW 14.7 (11.5-15.5) % Plt Count 398 (150-450) k/uL Neutrophils % 76 % Lymphocytes % 13 % Monocytes % 5 % Eosinophils % 3 % Basophils % 1 % Neutrophils # 5.7 (1.3-7.7) k/uL Lymphocytes # 1.0 (1.0-4.8) k/uL Monocytes # 0.4 (0-1.0) k/uL Eosinophils # 0.2 (0-0.7) k/uL Basophils # 0.0 (0-0.2) k/uL Hypochromasia Moderate Poikilocytosis Moderate PT 11.9 (9.0-12.0) sec INR 1.2 (<1.1) APTT 25.5 (22.0-30.0) sec Sodium 139 (137-145) mmol/L Potassium 4.8 (3.5-5.1) mmol/L Chloride 108 H (98-107) mmol/L Carbon Dioxide 21 L (22-30) mmol/L Anion Gap 10 mmol/L BUN 28 H (9-20) mg/dL Creatinine 1.00 (0.66-1.25) mg/dL Est GFR (MDRD) Af Amer >60 (>60 ml/min/1.73 sqM) Est GFR (MDRD) Non-Af >60 (>60 ml/min/1.73 sqM) Glucose 154 H (74-99) mg/dL Calcium 8.9 (8.4-10.2) mg/dL Disposition Clinical Impression: Wound infection after surgery Disposition: HOME SELF-CARE Condition: Stable Instructions: Wound Infection (ED) Additional Instructions: Please return to the Emergency Department if symptoms worsen or any other concerns. Prescriptions: Amoxicillin/Potassium Clav [Augmentin 875-125 Tablet] 1 tab PO Q12HR #20 tab Referrals: Brando Miller MD [Primary Care Provider] - 1-2 days Time of Disposition: 01:10
[2016-08-31 00:30] LABS: Basophils % (A) 1 %; CH 29.3; CHCM 33.1; Eosinophils # (A) 0.2 k/uL (0-0.7); Eosinophils % (A) 3 %; HDW 4.18; Hypochromasia Moderate; Luc # (Auto) 0.13; Luc % (Auto) 2; Lymphocytes % (A) 13 %; MCH 29.6 pg (25.0-35.0); MCHC 33.2 g/dL (31.0-37.0); MCV 89.2 fL (80.0-100.0); Mean Platelet Volume 7.7; Monocytes # (A) 0.4 k/uL (0-1.0); Monocytes % (A) 5 %; Neutrophils # (A) 5.7 k/uL (1.3-7.7); Neutrophils % (A) 76 %; Poikilocytosis Moderate; RDW 14.7 % (11.5-15.5); WBC 7.4 k/uL (3.8-10.6); WBC (Perox) 8.11
[2016-08-31 00:38] LABS: INR 1.2 (<1.1); Partial Thromboplastin Time 25.5 sec (22.0-30.0); Prothrombin Time 11.9 sec (9.0-12.0)
[2016-08-31 00:46] LABS: Anion Gap 10 mmol/L; Blood Urea Nitrogen 28 mg/dL (9-20); Calcium 8.9 mg/dL (8.4-10.2); Carbon Dioxide 21 mmol/L (22-30); Chloride 108 mmol/L (98-107); Glucose 154 mg/dL (74-99); Non-African American GFR(MDRD) >60 (>60 ml/min/1.73 sqM); Potassium 4.8 mmol/L (3.5-5.1); Sodium 139 mmol/L (137-145)
--- NOTE | 2016-08-31 01:00 | US ---
EXAM: US Duplex Right Lower Extremity Veins CLINICAL HISTORY: Pain. History of bypass surgery 2-3 weeks ago. TECHNIQUE: Right lower extremity deep venous system was examined utilizing real time linear array sonography with graded compression, doppler sonography and color-flow sonography. COMPARISON: No relevant prior studies available. FINDINGS: Deep veins: No evidence of DVT in the visualized portion of the right external iliac vein. Right common femoral vein, deep femoral vein, femoral vein and popliteal vein demonstrate no evidence of deep venous thrombosis. No evidence of DVT in the proximal right calf veins. Superficial veins: No evidence of thrombus in the visualized portions of the right greater and small saphenous veins. Soft tissues: No acute findings. No popliteal cyst. IMPRESSION: No evidence of deep venous thrombosis in the right lower extremity.
[2016-08-31] MEDS ORDERED: AMOXIC-POT CLAV 875MG STARTER 2 EACH TABLET PO STA (01:08)
[2016-08-31 01:26] VITALS: BP 136/65; PULSE 71; TEMP 97.3
== END 2016-08-31 01:26 | disposition home or self-care (01) ==
LOC: EC 23:07
DX: T81.4XXA Infection following a procedure, initial encounter (principal); E11.9 Type 2 diabetes mellitus without complications; Z87.891 Personal history of nicotine dependence; Z79.84 Long term (current) use of oral hypoglycemic drugs; Z95.5 Presence of coronary angioplasty implant and graft
CPT/HCPCS: 36415; 80048; 85025; 85610; 85730; 87040; 99284

== ENCOUNTER 2016-10-04 04:50 | Emergency (ER) | payer MEDICARE, OTHER ==
[2016-10-04 04:59] VITALS: RESP 16; TEMP 97.6
[2016-10-04 05:41] LABS: Appearance,Urine Cloudy (Clear); Bilirubin,Urine Negative (Negative); Glucose,Urine (UA) Negative (Negative); Ketones,Urine Negative (Negative); Leukocyte Esterase,Urine Trace (Negative); Mucus,Urine Rare /hpf; Nitrite,Urine Negative (Negative); PH, Urine 5.5 (5.0-8.0); Particle Count 18596; Protein,Urine 1+ (Negative); RBC,Urine >182 /hpf (0-5); Specific Gravity,Urine 1.015 (1.001-1.035); UA Billing (MACRO vs. MICRO) MICRO; Urobilinogen,Urine <2.0 mg/dL (<2.0); WBC,Urine 4 /hpf (0-5)
--- NOTE | 2016-10-04 06:19 | ED ---
Male Urogenital HPI - General Chief complaint: Urogenital Stated complaint: Blood in stool Time Seen by Provider: 10/04/16 04:57 Source: patient Mode of arrival: ambulatory Limitations: no limitations - History of Present Illness Initial comments: This patient is a 76-year-old man who presents with complaint that he has been passing blood in his urine for the past 6 hours. The patient states that he has been taking Coumadin, the last on the level was checked was Saturday and it was reportedly okay. Patient states that he is also having a suprapubic sensation as if he needs to urinate frequently. The patient denies fever or chills, chest or abdominal pain, palpitations, lightheadedness or syncope. No diaphoresis or dyspnea. MD Complaint: other (Hematuria) Onset/Timin -: hour(s) Location: abdomen Radiation: none Severity: mild Quality: dull Consistency: constant Improves with: urination Worsens with: none new medication Reports: blood in urine - Related Data Home Medications Medication Instructions Recorded Confirmed Amiodarone [Cordarone] 200 mg PO DAILY 10/04/16 10/04/16 Warfarin [Coumadin] 2.5 mg PO SUTU 10/04/16 10/04/16 Warfarin [Coumadin] 5 mg PO MOWETHFRSA 10/04/16 10/04/16 Previous Rx's Medication Instructions Recorded Aspirin [Children's Aspirin] 81 mg PO DAILY #30 tab.chew 08/20/16 Atorvastatin [Lipitor] 40 mg PO DAILY #30 tab 08/20/16 Metoprolol Tartrate [Lopressor] 50 mg PO BID #60 tab 08/20/16 Allergies Allergy/AdvReac Type Severity Reaction Status Date / Time No Known Allergies Allergy Verified 10/04/16 07:38 Review of Systems ROS Statement: Those systems with pertinent positive or pertinent negative responses have been documented in the HPI. ROS Other: All systems not noted in ROS Statement are negative. Constitutional: Denies: fever, chills, weakness Respiratory: Denies: cough, dyspnea Cardiovascular: Reports: edema (Right leg, since the vein harvesting). Denies: chest pain, palpitations, syncope Gastrointestinal: Reports: as per HPI, abdominal pain. Denies: nausea, vomiting , diarrhea, constipation Genitourinary: Reports: frequency, hematuria. Denies: dysuria, discharge, testicular pain, testicular mass Musculoskeletal: Denies: back pain Skin: Denies: rash, lesions Neurological: Denies: headache Hematological/Lymphatic: Reports: other (Taking Coumadin). Denies: easy bleeding Past Medical History Past Medical History: Cancer, Diabetes Mellitus, Hearing Disorder / Deafness, Hypertension, Prostate Disorder Additional Past Medical History / Comment(s): PROSTATE CA 2006. History of Any Multi-Drug Resistant Organisms: None Reported Past Surgical History: Appendectomy, Coronary Bypass/CABG, Orthopedic Surgery, Prostate Surgery Additional Past Surgical History / Comment(s): Left upper extremity tendon repair. Past Anesthesia/Blood Transfusion Reactions: No Reported Reaction Past Psychological History: No Psychological Hx Reported Smoking Status: Former smoker Past Alcohol Use History: None Reported Past Drug Use History: None Reported - Past Family History Father Family Medical History: Cancer, Congestive Heart Failure (CHF) Additional Family Medical History / Comment(s): prostate Mother Family Medical History: Cancer Additional Family Medical History / Comment(s): breast General Exam Limitations: no limitations General appearance: alert, in no apparent distress Head exam: Present: atraumatic, normocephalic Respiratory exam: Present: normal lung sounds bilaterally. Absent: respiratory distress, wheezes, rales, rhonchi, stridor Cardiovascular Exam: Present: regular rate, normal rhythm, normal heart sounds. Absent: systolic murmur, diastolic murmur, rubs, gallop GI/Abdominal exam: Present: soft. Absent: distended, tenderness, guarding, rebound, rigid, mass Extremities exam: Present: normal inspection, normal capillary refill. Absent: pedal edema, calf tenderness Back exam: Present: normal inspection. Absent: CVA tenderness (R), CVA tenderness (L) Neurological exam: Present: alert Skin exam: Present: warm, dry, intact, normal color. Absent: rash Course Vital Signs 10/04/16 10/04/16 04:54 07:27 Temperature 97.6 F 97.6 F Pulse Rate 68 62 Respiratory 16 16 Rate Blood Pressure 142/81 147/77 O2 Sat by Pulse 96 97 Oximetry Medical Decision Making - Medical Decision Making Discussed the findings with the patient. Offered admission for further treatment and to rule out the development of bleeding complication related to the supratherapeutic level. At this point the patient declines. 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 to establish dosing and have the INR rechecked - Lab Data Result diagrams: 10/04/16 06:08 10/04/16 06:08 Lab Results 10/04/16 10/04/16 10/04/16 Range/Units 05:08 06:08 06:08 WBC 8.7 (3.8-10.6) k/uL RBC 4.66 (4.30-5.90) m/uL Hgb 12.6 L (13.0-17.5) gm/dL Hct 37.0 L (39.0-53.0) % MCV 79.5 L D (80.0-100.0) fL MCH 27.0 (25.0-35.0) pg MCHC 34.0 (31.0-37.0) g/dL RDW 14.8 (11.5-15.5) % Plt Count 230 (150-450) k/uL Neutrophils % 78 % Lymphocytes % 12 % Monocytes % 6 % Eosinophils % 3 % Basophils % 1 % Neutrophils # 6.8 (1.3-7.7) k/uL Lymphocytes # 1.0 (1.0-4.8) k/uL Monocytes # 0.5 (0-1.0) k/uL Eosinophils # 0.3 (0-0.7) k/uL Basophils # 0.1 (0-0.2) k/uL Hypochromasia Moderate Poikilocytosis Moderate PT (9.0-12.0) sec INR (<1.1) APTT (22.0-30.0) sec Sodium 142 (137-145) mmol/L Potassium 4.1 (3.5-5.1) mmol/L Chloride 109 H (98-107) mmol/L Carbon Dioxide 23 (22-30) mmol/L Anion Gap 10 mmol/L BUN 23 H (9-20) mg/dL Creatinine 0.78 (0.66-1.25) mg/dL Est GFR (MDRD) Af Amer >60 (>60 ml/min/1.73 sqM) Est GFR (MDRD) Non-Af >60 (>60 ml/min/1.73 sqM) Glucose 116 H (74-99) mg/dL Calcium 8.7 (8.4-10.2) mg/dL Urine Color Red Urine Appearance Cloudy (Clear) Urine pH 5.5 (5.0-8.0) Ur Specific [place] 1.015 (1.001-1.035) Urine Protein 1+ H (Negative) Urine Glucose (UA) Negative (Negative) Urine Ketones Negative (Negative) Urine Blood Large H (Negative) Urine Nitrite Negative (Negative) Urine Bilirubin Negative (Negative) Urine Urobilinogen <2.0 (<2.0) mg/dL Ur Leukocyte Esterase Trace H (Negative) Urine RBC >182 H (0-5) /hpf Urine WBC 4 (0-5) /hpf Urine Mucus Rare H (None) /hpf 10/04/16 Range/Units 06:08 WBC (3.8-10.6) k/uL RBC (4.30-5.90) m/uL Hgb (13.0-17.5) gm/dL Hct (39.0-53.0) % MCV (80.0-100.0) fL MCH (25.0-35.0) pg MCHC (31.0-37.0) g/dL RDW (11.5-15.5) % Plt Count (150-450) k/uL Neutrophils % % Lymphocytes % % Monocytes % % Eosinophils % % Basophils % % Neutrophils # (1.3-7.7) k/uL Lymphocytes # (1.0-4.8) k/uL Monocytes # (0-1.0) k/uL Eosinophils # (0-0.7) k/uL Basophils # (0-0.2) k/uL Hypochromasia Poikilocytosis PT 77.7 H (9.0-12.0) sec INR 7.5 H* (<1.1) APTT 45.3 H (22.0-30.0) sec Sodium (137-145) mmol/L Potassium (3.5-5.1) mmol/L Chloride (98-107) mmol/L Carbon Dioxide (22-30) mmol/L Anion Gap mmol/L BUN (9-20) mg/dL Creatinine (0.66-1.25) mg/dL Est GFR (MDRD) Af Amer (>60 ml/min/1.73 sqM) Est GFR (MDRD) Non-Af (>60 ml/min/1.73 sqM) Glucose (74-99) mg/dL Calcium (8.4-10.2) mg/dL Urine Color Urine Appearance (Clear) Urine pH (5.0-8.0) Ur Specific [place] (1.001-1.035) Urine Protein (Negative) Urine Glucose (UA) (Negative) Urine Ketones (Negative) Urine Blood (Negative) Urine Nitrite (Negative) Urine Bilirubin (Negative) Urine Urobilinogen (<2.0) mg/dL Ur Leukocyte Esterase (Negative) Urine RBC (0-5) /hpf Urine WBC (0-5) /hpf Urine Mucus (None) /hpf Disposition Clinical Impression: Gross hematuria, Coumadin toxicity Disposition: HOME SELF-CARE Condition: Fair Instructions: Hematuria (ED) Additional Instructions: As we discussed, follow-up with Dr. Joel to have your INR rechecked and for further dosing guidelines. Also given your history of prostate cancer follow- up with your primary physician or the urologist to ensure that the blood has cleared and to ensure that you do not need further urology workup. Referrals: Brando Miller MD [Primary Care Provider] - 1-2 days
[2016-10-04 06:21] LABS: Basophils # (A) 0.1 k/uL (0-0.2); Basophils % (A) 1 %; CH 25.8; CHCM 32.5; Eosinophils # (A) 0.3 k/uL (0-0.7); Eosinophils % (A) 3 %; HGB 12.6 gm/dL (13.0-17.5); Hypochromasia Moderate; Luc # (Auto) 0.12; Luc % (Auto) 1; Lymphocytes % (A) 12 %; Mean Platelet Volume 9.8; Monocytes # (A) 0.5 k/uL (0-1.0); Monocytes % (A) 6 %; Neutrophils # (A) 6.8 k/uL (1.3-7.7); Neutrophils % (A) 78 %; Poikilocytosis Moderate; RBC 4.66 m/uL (4.30-5.90); RDW 14.8 % (11.5-15.5); WBC 8.7 k/uL (3.8-10.6); WBC (Perox) 8.52
[2016-10-04 06:22] LABS: MCV 79.5 fL (80.0-100.0)
[2016-10-04 06:36] LABS: Partial Thromboplastin Time 45.3 sec (22.0-30.0)
[2016-10-04 06:42] LABS: Prothrombin Time 77.7 sec (9.0-12.0)
[2016-10-04 06:45] LABS: INR 7.5 (<1.1)
[2016-10-04] MEDS ORDERED: PHYTONADIONE ORAL 5 MG/5 ML ORAL.SYRG PO STA (06:51)
[2016-10-04 07:04] LABS: Anion Gap 10 mmol/L; Blood Urea Nitrogen 23 mg/dL (9-20); Calcium 8.7 mg/dL (8.4-10.2); Carbon Dioxide 23 mmol/L (22-30); Chloride 109 mmol/L (98-107); Glucose 116 mg/dL (74-99); Non-African American GFR(MDRD) >60 (>60 ml/min/1.73 sqM); Potassium 4.1 mmol/L (3.5-5.1); Sodium 142 mmol/L (137-145)
[2016-10-04 07:28] VITALS: BP 147/77; PULSE 62
== END 2016-10-04 07:41 | disposition home or self-care (01) ==
LOC: EC 04:50
DX: R31.0 Gross hematuria (principal); T45.515A Adverse effect of anticoagulants, initial encounter; Z85.46 Personal history of malignant neoplasm of prostate; Z87.891 Personal history of nicotine dependence; Z79.01 Long term (current) use of anticoagulants; Z79.899 Other long term (current) drug therapy
CPT/HCPCS: 36415; 80048; 81001; 85025; 85610; 85730; 99283

== ENCOUNTER → 2019-06-03 | Outpatient (CLI) | payer MEDICARE, OTHER | END | disposition home or self-care (01) | DX: M79.89 Other specified soft tissue disorders (principal) ==

== ENCOUNTER → 2019-06-30 | Outpatient (CLI) | payer MEDICARE, OTHER ==
--- NOTE | 2019-07-03 15:46 | NM ---
EXAMINATION TYPE: NM bone 3 phase DATE OF EXAM: 07/03/2019 COMPARISON: NONE HISTORY: Open wound of the right great toe since surgery 2 months ago in [place] Triple phase bone scintigraphy was performed following the injection of 24.7 mCi Tc 99m MDP. Immedia te images and 5 hours post injection images acquired. FINDINGS: There is increased flow and blood flow to the right foot. Delayed images demonstrate increased focal uptake within the right phalanx and metatarsal phalangeal joint. Less pronounced uptake of the bilate ral hindfeet, right greater than left suggesting background arthropathy. IMPRESSION: Findings of osteomyelitis of the great toe and first metatarsal phalangeal joint. Bilater al hindfeet arthropathy.
== END | disposition home or self-care (01) ==
LOC: RADNMMAIN 07:14
PROVIDERS: ATTEND Family Medicine
DX: M12.872 Other specific arthropathies, not elsewhere classified, left ankle and foot (principal); M12.871 Other specific arthropathies, not elsewhere classified, right ankle and foot; M86.8X7 Other osteomyelitis, ankle and foot
CPT/HCPCS: 78315; A9503

== ENCOUNTER 2019-07-16 11:16 | Day surgery (SDC) | payer MEDICARE, OTHER ==
[2019-07-15 09:26] VITALS: BMI 28.0
[2019-07-16 11:44] VITALS: BP 145/83; PULSE 68; RESP 12; TEMP 97.6
[2019-07-16] MEDS ORDERED: LIDOCAINE 1% INJ 10MG/ML (20 ML MDV) SQ ONE (12:21)
--- NOTE | 2019-07-16 14:11 | IR ---
EXAMINATION TYPE: IR cvc insert >=5 years DATE OF EXAM: 07/16/2019 COMPARISON: NONE CLINICAL HISTORY: Infection Needs long-term intravenous access for antibiotics. PROCEDURE: Hand hygiene obtained alcohol-based hand rub. After informed consent, the skin overlying the right brachial vein was localized with ultrasound and noted to be compressible and patent. An ultrasound image was obtained and submitted on the patient's chart. The overlying skin was prepped and draped and Lidocaine was used for local anesthesia. A sk in gu[place] was made with a scalpel. Access was gained to the vein under ultrasound guidance with a 21 g auge needle and a 0.018 inch wire was advanced. Access site was dilated with Peel-Away sheath and ca theter tailored to the appropriate length and advanced such that the distal tip is at the cavoatrial junction. Spot image was obtained verifying placement. Catheter was fixed to the skin and a sterile dressing was placed following hemostasis. Catheter was aspirated and flushed with saline. Patient was discharged in stable condition without complication. Maximal barrier technique is utilized. Ultr asound image is documented on the chart. Ultrasound used with sterile technique. Fluoro time and fluoroscopic images submitted to document procedure: 89 intraoperative images, 0.3 mi nutes fluoroscopy time IMPRESSION: STATUS POST ULTRASOUND AND FLUOROSCOPIC GUIDED PICC LINE PLACEMENT, READY FOR USE. THIS PROCEDURE WAS PERFORMED BY THE UNDERSIGNED.
== END 2019-07-16 12:45 | disposition home or self-care (01) ==
LOC: CATHCVL 11:16
PROVIDERS: ATTEND Radiology Diagnostic Radiology
DX: E11.69 Type 2 diabetes mellitus with other specified complication (principal); M86.9 Osteomyelitis, unspecified; L60.0 Ingrowing nail; I11.9 Hypertensive heart disease without heart failure; C61 Malignant neoplasm of prostate; Z79.899 Other long term (current) drug therapy; Z79.84 Long term (current) use of oral hypoglycemic drugs; Z80.3 Family history of malignant neoplasm of breast; Z83.3 Family history of diabetes mellitus; Z82.49 Family history of ischemic heart disease and other diseases of the circulatory system; Z80.1 Family history of malignant neoplasm of trachea, bronchus and lung
CPT/HCPCS: 36573; J2001

== ENCOUNTER → 2019-08-04 | Outpatient (CLI) | payer MEDICARE, OTHER ==
--- NOTE | 2019-08-04 12:16 | XR ---
EXAMINATION TYPE: XR toes RT DATE OF EXAM: 08/04/2019 COMPARISON: 06/03/2019 HISTORY: M [age], osteomyelitis great toe TECHNIQUE: Three-view right great toe FINDINGS: Soft tissues appear normal. No suspicious cortical erosion is evident. No acute fracture or dislocation is evident. There may be a small osseous spur from the medial metaphyseal distal phalanx present previously. IMPRESSION: 1. No suspicious radiographic changes for osteomyelitis right great toe.
== END | disposition home or self-care (01) ==
LOC: RADXRMAIN 11:29
PROVIDERS: ATTEND Internal Medicine Infectious Disease
DX: M86.9 Osteomyelitis, unspecified (principal)

== ENCOUNTER → 2021-02-01 | Outpatient (CLI) | payer MEDICARE, OTHER ==
--- NOTE | 2021-02-01 18:22 | MR ---
EXAMINATION TYPE: MR cervical spine wo con DATE OF EXAM: 02/01/2021 COMPARISON: None HISTORY: Neck pain TECHNIQUE: Multiplanar, multisequence images of the cervical spine were acquired without contrast. C2-C3: No evidence for degenerative disc disease. No disc bulge/herniation or protrusion. No Canal stenosis. Foramina are patent bilaterally. There is some facet arthropathy. C3-C4: Posterior extension endplate disc complex is somewhat eccentric towards the left, there is ant erolateral mass effect on the thecal sac, only mild spinal stenosis. Left greater than right foramina l encroachment is present due to circumferential extension endplate disc complex, uncovertebral joint hypertrophy. C4-C5: Posterior disc bulge centrally causes mild anterior mass effect on the thecal sac. There is un covertebral joint hypertrophy and facet arthropathy causing some left-sided foraminal encroachment. C5-C6: Foraminal encroachment is present greater on the left vertebral joint hypertrophy and facet ar thropathy. No disc herniation. C6-C7: There is left-sided foraminal encroachment due to uncovertebral joint hypertrophy. No disc her niation. C7-T1: No evidence for degenerative disc disease. No disc bulge/herniation or protrusion. No Canal stenosis. Foramina are patent bilaterally. Cervical segments are intact. There is near normal alignment, mild anterolisthesis grade 1 C5-6. Ce rvical spinal cord is of normal signal. Craniovertebral junction relationships are within normal reed its. Loss of disc height signal is present at C3-4, increased signal present at the disc space C5-6 may represent some calcification along this greater than at C6-7 IMPRESSION: Multilevel foraminal encroachment, degenerative disc disease as described.
== END | disposition home or self-care (01) ==
LOC: RADMRIMAIN 15:34
PROVIDERS: ATTEND Internal Medicine
DX: M50.221 Other cervical disc displacement at C4-C5 level (principal); M47.812 Spondylosis without myelopathy or radiculopathy, cervical region
CPT/HCPCS: 72141

== ENCOUNTER 2023-09-21 09:36 | Emergency (ER) | payer MEDICARE ==
--- NOTE | 2023-09-21 10:06 | ED ---
GI Bleed HPI - General Chief complaint: GI Bleed Stated complaint: Rectal Bleeding Time Seen by Provider: 09/21/23 09:40 Source: patient Mode of arrival: ambulatory Limitations: no limitations - History of Present Illness Initial comments: 83-year-old male presents emergency department with rectal bleeding.Symptoms started 3 days ago. Patient is on Xarelto for bypass history. States that the blood is bright red in coloration. He denies any abdominal pain or rectal pain. No history of similar in the past. He denies any lightheadedness or dizziness. No fevers. No other alleviating, precipitating or modifying factors - Related Data Home Medications Medication Instructions Recorded Confirmed Calcium/Magnesium/Zinc 1 tab PO TID 07/15/19 09/21/23 [Oxiyvah-Ewyijcbgh-Noas Tablet] glipiZIDE [Glucotrol] 5 mg PO TID 07/15/19 09/21/23 metFORMIN HCL [Glucophage] 750 mg PO BID 07/15/19 09/21/23 Biotin 5 mg PO DAILY 09/21/23 09/21/23 Cholecalciferol [Vitamin D3 (25 50 mcg PO DAILY 09/21/23 09/21/23 Mcg = 1000 Iu)] Fexofenadine HCl [Shankia Allergy] 180 mg PO DAILY PRN 09/21/23 09/21/23 Herbal Lax Colon Cleanser 2000mg 2,000 mg PO DAILY PRN 09/21/23 09/21/23 Ibuprofen [Motrin] 800 mg PO Q8H PRN 09/21/23 09/21/23 Levothyroxine Sodium [Synthroid] 25 mcg PO DAILY 09/21/23 09/21/23 Vidor-3/Dha/Epa/Fish Oil [Fish Oil 1 cap PO BID 09/21/23 09/21/23 1,000 mg Softgel] Pioglitazone [Actos] 45 mg PO DAILY 09/21/23 09/21/23 Rivaroxaban [Xarelto] 20 mg PO DAILY 09/21/23 09/21/23 Zolpidem [Ambien] 10 mg PO HS PRN 09/21/23 09/21/23 hydroCHLOROthiazide [Hydrodiuril] 25 mg PO DAILY 09/21/23 09/21/23 lisinopriL [Zestril] 20 mg PO BID 09/21/23 09/21/23 Previous Rx's Medication Instructions Recorded Atorvastatin [Lipitor] 40 mg PO DAILY #30 tab 08/20/16 Metoprolol Tartrate [Lopressor] 50 mg PO BID #60 tab 08/20/16 Amoxic-Pot Clav 875-125Mg 1 tab PO BID 1 Days #14 tab 09/21/23 [Augmentin 875-125] Allergies Allergy/AdvReac Type Severity Reaction Status Date / Time No Known Allergies Allergy Verified 09/21/23 10:36 Review of Systems ROS Statement: Those systems with pertinent positive or pertinent negative responses have been documented in the HPI. ROS Other: All systems not noted in ROS Statement are negative. Past Medical History Past Medical History: Atrial Fibrillation, Cancer, Diabetes Mellitus, Hearing Disorder / Deafness, Hypertension, Prostate Disorder Additional Past Medical History / Comment(s): PROSTATE CA 2006., INFECTION OF RIGHT GREAT TOENAIL REMOVED IN MARCH 2019. STATES TOE IS RED AND SWOLLEN, NO DRAINAGE-HAS SCAB., PT STATES TOENAIL WAS REMOVED IN AUGUST. History of Any Multi-Drug Resistant Organisms: None Reported Past Surgical History: Appendectomy, Coronary Bypass/CABG, Orthopedic Surgery, Prostate Surgery Additional Past Surgical History / Comment(s): Left upper extremity tendon repair.,TRIPLE HEART BYPASS (JIMI 2016)., RIGHT GREAT TOENAIL REMOVED MAR 2019 Past Anesthesia/Blood Transfusion Reactions: No Reported Reaction Past Psychological History: No Psychological Hx Reported Past Alcohol Use History: None Reported Past Drug Use History: None Reported - Past Family History Father Family Medical History: Cancer, Congestive Heart Failure (CHF) Additional Family Medical History / Comment(s): prostate Mother Family Medical History: Cancer Additional Family Medical History / Comment(s): breast General Exam Limitations: no limitations General appearance: alert, in no apparent distress Head exam: Present: atraumatic, normocephalic, normal inspection Eye exam: Present: normal appearance, PERRL, EOMI. Absent: scleral icterus, conjunctival injection, periorbital swelling ENT exam: Present: normal exam, mucous membranes moist Neck exam: Present: normal inspection. Absent: tenderness, meningismus, lymphadenopathy Respiratory exam: Present: normal lung sounds bilaterally. Absent: respiratory distress, wheezes, rales, rhonchi, stridor Cardiovascular Exam: Present: regular rate, normal rhythm, normal heart sounds. Absent: systolic murmur, diastolic murmur, rubs, gallop, clicks GI/Abdominal exam: Present: soft, normal bowel sounds. Absent: distended, tenderness, guarding, rebound, rigid Rectal exam: Present: heme (+) stool, bloody stool Extremities exam: Present: normal inspection, full ROM, normal capillary refill. Absent: tenderness, pedal edema, joint swelling, calf tenderness Back exam: Present: normal inspection Neurological exam: Present: alert, oriented X3, CN II-XII intact Psychiatric exam: Present: normal affect, normal mood Skin exam: Present: warm, dry, intact, normal color. Absent: rash Course Vital Signs 09/21/23 09/21/23 09:39 12:29 Temperature 97.6 F Pulse Rate 63 56 L Respiratory 18 16 Rate Blood Pressure 139/83 124/59 O2 Sat by Pulse 98 100 Oximetry Medical Decision Making - Medical Decision Making Was pt. sent in by a medical professional or institution (, PA, CHEMICALS DISTILLER, urgent care, hospital, or fdc...) When possible be specific @ -No Did you speak to anyone other than the patient for history (EMS, parent, family, police, friend...)? What history was obtained from this source @ -I spoke with the patient's Did you review nursing and triage notes (agree or disagree)? Why? @ -I reviewed and agree with nursing and triage notes Were old charts reviewed (outside hosp., previous admission, EMS record, old EKG, old radiological studies, urgent care reports/EKG's, fdc records)? Report findings @ -No old charts were reviewed Differential Diagnosis (chest pain, altered mental status, abdominal pain women, abdominal pain men, vaginal bleeding, weakness, fever, dyspnea, syncope, headache, dizziness, GI bleed, back pain, seizure, CVA, palpatations, mental health, musculoskeletal)? @ -Differential GI Bleed: Esophageal varices, aortoenteric fistula, Anisha-Giron, gastritis, peptic ulcer disease, diverticulosis, inflammatory bowel disease, hemorrhoids, fissure, colitis, malignancy, Meckels diverticulum, this is not meant to be an all- inclusive list. EKG interpreted by me (3pts min.). @ -Not done X-rays interpreted by me (1pt min.). @ -None done CT interpreted by me (1pt min.). @ -Yes and demonstrates possible mild colitis U/S interpreted by me (1pt. min.). @ -None done What testing was considered but not performed or refused? (CT, X-rays, U/S, labs)? Why? @ -Colonoscopy however I spoke with the surgeon Dr. Madrid who cannot admit the patient without GI What meds were considered but not given or refused? Why? @ -None Did you discuss the management of the patient with other professionals (professionals i.e. Dr., PA, CHEMICALS DISTILLER, lab, RT, psych nurse, social security assessor, wave guide assembler, teacher, security patrol officer, housing case manager)? Give summary @ -Spoke with Dr. Madrid who states he cannot admit the patient to our facility without GI. He recommends transfer Was smoking cessation discussed for >3mins.? @ -No Was critical care preformed (if so, how long)? @ -No Were there social determinants of health that impacted care today? How? (Homelessness, low income, unemployed, alcoholism, drug addiction, transportation, low edu. Level, literacy, decrease access to med. care, fpc, rehab)? @ -No Was there de-escalation of care discussed even if they declined (Discuss DNR or withdrawal of care, Hospice)? DNR status @ -No What co-morbidities impacted this encounter? (DM, HTN, Smoking, COPD, CAD, Cancer, CVA, ARF, Chemo, Hep., AIDS, mental health diagnosis, sleep apnea, morbid obesity)? @ -Coronary disease, A-fib Was patient admitted / discharged? Hospital course, mention meds given and route, prescriptions, significant lab abnormalities, going to OR and other pertinent info. @ -Upon arrival patient seen and evaluated in room 2. Thorough history and physical exam was performed. IV access was established. Laboratory studies were conducted. CT was performed. Results are discussed with patient. They also discussed with Dr. Madrid. He does not feel comfortable admitting the patient to the hospital without GI capabilities. Spoke with the patient about this. Recommended transfer. Patient wants to go home at this time. He is hemodynamically stable. Patient is made aware of the risks of leaving. Instructed to return should his symptoms persist or he becomes lightheaded. Patient will be trialed on antibiotics due to the mild colitis seen. He does need a colonoscopy and therefore he is given GI referrals. Patient agreeable with this plan and was discharged in stable condition with a guarded prognosis Undiagnosed new problem with uncertain prognosis? @ -No Drug Therapy requiring intensive monitoring for toxicity (Heparin, Nitro, Insulin, Cardizem)? @ -No Were any procedures done? @ -No Diagnosis/symptom? @ -Acute lower GI bleed, Plavix coagulopathy, mild colitis Acute, or Chronic, or Acute on Chronic? @ -Acute Uncomplicated (without systemic symptoms) or Complicated (systemic symptoms)? @ -Complicated Side effects of treatment? @ -No Exacerbation, Progression, or Severe Exacerbation? @ -No Poses a threat to life or bodily function? How? (Chest pain, USA, NC, pneumonia, PE, COPD, DKA, ARF, appy, cholecystitis, CVA, Diverticulitis, Homicidal, Suicidal, threat to staff... and all critical care pts) @ -No - Lab Data Result diagrams: 09/21/23 09:54 09/21/23 09:54 Lab Results 09/21/23 09/21/23 09/21/23 Range/Units 09:54 09:54 09:54 WBC 7.2 (3.8-10.6) k/uL RBC 5.33 (4.30-5.90) m/uL Hgb 16.1 (13.0-17.5) gm/dL Hct 49.1 (39.0-53.0) % MCV 92.0 (80.0-100.0) fL MCH 30.2 (25.0-35.0) pg MCHC 32.9 (31.0-37.0) g/dL RDW 13.4 (11.5-15.5) % Plt Count 203 (150-450) k/uL MPV 10.1 Neutrophils % 66 % Lymphocytes % 21 % Monocytes % 6 % Eosinophils % 5 % Basophils % 1 % Neutrophils # 4.7 (1.3-7.7) k/uL Lymphocytes # 1.5 (1.0-4.8) k/uL Monocytes # 0.4 (0-1.0) k/uL Eosinophils # 0.4 (0-0.7) k/uL Basophils # 0.1 (0-0.2) k/uL APTT 30.0 (22.0-30.0) sec Sodium (137-145) mmol/L Potassium (3.5-5.1) mmol/L Chloride (98-107) mmol/L Carbon Dioxide (22-30) mmol/L Anion Gap mmol/L BUN (9-20) mg/dL Creatinine (0.66-1.25) mg/dL Est GFR (CKD-EPI)AfAm (>60 ml/min/1.73 sqM) Est GFR (CKD-EPI)NonAf (>60 ml/min/1.73 sqM) Glucose (74-99) mg/dL Lactic Ac Sepsis Rflx Plasma Lactic Acid Fritz (0.7-2.0) mmol/L Calcium (8.4-10.2) mg/dL Magnesium (1.6-2.3) mg/dL Total Bilirubin (0.2-1.3) mg/dL AST (17-59) U/L ALT (4-49) U/L Alkaline Phosphatase (38-126) U/L Troponin I (0.000-0.034) ng/mL Total Protein (6.3-8.2) g/dL Albumin (3.5-5.0) g/dL Lipase (23-300) U/L Stool Occult Blood Positive (Negative) Blood Type Blood Type Recheck Bld Type Recheck Status Antibody Screen Spec Expiration Date 09/21/23 09/21/23 09/21/23 Range/Units 09:54 09:54 09:54 WBC (3.8-10.6) k/uL RBC (4.30-5.90) m/uL Hgb (13.0-17.5) gm/dL Hct (39.0-53.0) % MCV (80.0-100.0) fL MCH (25.0-35.0) pg MCHC (31.0-37.0) g/dL RDW (11.5-15.5) % Plt Count (150-450) k/uL MPV Neutrophils % % Lymphocytes % % Monocytes % % Eosinophils % % Basophils % % Neutrophils # (1.3-7.7) k/uL Lymphocytes # (1.0-4.8) k/uL Monocytes # (0-1.0) k/uL Eosinophils # (0-0.7) k/uL Basophils # (0-0.2) k/uL APTT (22.0-30.0) sec Sodium 141 (137-145) mmol/L Potassium 4.3 (3.5-5.1) mmol/L Chloride 106 (98-107) mmol/L Carbon Dioxide 25 (22-30) mmol/L Anion Gap 10 mmol/L BUN 17 (9-20) mg/dL Creatinine 0.86 (0.66-1.25) mg/dL Est GFR (CKD-EPI)AfAm >90 (>60 ml/min/1.73 sqM) Est GFR (CKD-EPI)NonAf 82 (>60 ml/min/1.73 sqM) Glucose 132 H (74-99) mg/dL Lactic Ac Sepsis Rflx Plasma Lactic Acid Fritz 2.1 H* (0.7-2.0) mmol/L Calcium 9.9 (8.4-10.2) mg/dL Magnesium 2.0 (1.6-2.3) mg/dL Total Bilirubin 1.3 (0.2-1.3) mg/dL AST 25 (17-59) U/L ALT 33 (4-49) U/L Alkaline Phosphatase 72 (38-126) U/L Troponin I <0.012 (0.000-0.034) ng/mL Total Protein 7.3 (6.3-8.2) g/dL Albumin 4.6 (3.5-5.0) g/dL Lipase 173 (23-300) U/L Stool Occult Blood (Negative) Blood Type Blood Type Recheck Bld Type Recheck Status Antibody Screen Spec Expiration Date 09/21/23 09/21/23 Range/Units 09:54 10:35 WBC (3.8-10.6) k/uL RBC (4.30-5.90) m/uL Hgb (13.0-17.5) gm/dL Hct (39.0-53.0) % MCV (80.0-100.0) fL MCH (25.0-35.0) pg MCHC (31.0-37.0) g/dL RDW (11.5-15.5) % Plt Count (150-450) k/uL MPV Neutrophils % % Lymphocytes % % Monocytes % % Eosinophils % % Basophils % % Neutrophils # (1.3-7.7) k/uL Lymphocytes # (1.0-4.8) k/uL Monocytes # (0-1.0) k/uL Eosinophils # (0-0.7) k/uL Basophils # (0-0.2) k/uL APTT (22.0-30.0) sec Sodium (137-145) mmol/L Potassium (3.5-5.1) mmol/L Chloride (98-107) mmol/L Carbon Dioxide (22-30) mmol/L Anion Gap mmol/L BUN (9-20) mg/dL Creatinine (0.66-1.25) mg/dL Est GFR (CKD-EPI)AfAm (>60 ml/min/1.73 sqM) Est GFR (CKD-EPI)NonAf (>60 ml/min/1.73 sqM) Glucose (74-99) mg/dL Lactic Ac Sepsis Rflx Y Plasma Lactic Acid Fritz (0.7-2.0) mmol/L Calcium (8.4-10.2) mg/dL Magnesium (1.6-2.3) mg/dL Total Bilirubin (0.2-1.3) mg/dL AST (17-59) U/L ALT (4-49) U/L Alkaline Phosphatase (38-126) U/L Troponin I (0.000-0.034) ng/mL Total Protein (6.3-8.2) g/dL Albumin (3.5-5.0) g/dL Lipase (23-300) U/L Stool Occult Blood (Negative) Blood Type A Positive Blood Type Recheck A Pos Bld Type Recheck Status No Antibody Screen NEGATIVE Spec Expiration Date 09/24/20232353 Disposition Clinical Impression: Hematochezia Disposition: HOME SELF-CARE Condition: Stable Instructions (If sedation given, give patient instructions): Gastrointestinal Bleeding (ED) Additional Instructions: Please continue to take your Eliquis. Use MiraLAX or your own fiber supplement to soften your stools. Take the antibiotic to see if it has any effect on the amount of bleeding you are having. Call and make an appointment with one of the GI doctors for a colonoscopy. If you have worsening bleeding, return to the emergency department Prescriptions: Amoxic-Pot Clav 875-125Mg [Augmentin 875-125] 1 tab PO BID 1 Days #14 tab Is patient prescribed a controlled substance at d/c from ED?: No Referrals: Angela,Brando, MD [Primary Care Provider] - 1-2 days Charlene Kenney MD [STAFF PHYSICIAN] - 1-2 days Esteban Gamez DO [REFERRING] - 1-2 days Time of Disposition: 12:16
[2023-09-21 10:09] LABS: Basophils # (A) 0.1 k/uL (0-0.2); Basophils % (A) 1 %; Eosinophils # (A) 0.4 k/uL (0-0.7); Eosinophils % (A) 5 %; HCT 49.1 % (39.0-53.0); HGB 16.1 gm/dL (13.0-17.5); Lymphocytes # (A) 1.5 k/uL (1.0-4.8); Lymphocytes % (A) 21 %; MCH 30.2 pg (25.0-35.0); MCHC 32.9 g/dL (31.0-37.0); Mean Platelet Volume 10.1; Monocytes # (A) 0.4 k/uL (0-1.0); Monocytes % (A) 6 %; Neutrophils # (A) 4.7 k/uL (1.3-7.7); Neutrophils % (A) 66 %; Platelet Count 203 k/uL (150-450); RBC 5.33 m/uL (4.30-5.90); RDW 13.4 % (11.5-15.5); WBC 7.2 k/uL (3.8-10.6)
[2023-09-21 10:26] LABS: ALT 33 U/L (4-49); AST 25 U/L (17-59); African American GFR (CKD) >90 (>60 ml/min/1.73 sqM); Albumin 4.6 g/dL (3.5-5.0); Alkaline Phosphatase 72 U/L (38-126); Anion Gap 10 mmol/L; Blood Urea Nitrogen 17 mg/dL (9-20); Calcium 9.9 mg/dL (8.4-10.2); Carbon Dioxide 25 mmol/L (22-30); Chloride 106 mmol/L (98-107); Glucose 132 mg/dL (74-99); Lipase 173 U/L (23-300); Non-African American GFR(CKD) 82 (>60 ml/min/1.73 sqM); Potassium 4.3 mmol/L (3.5-5.1); Sodium 141 mmol/L (137-145); Total Bilirubin 1.3 mg/dL (0.2-1.3); Total Protein 7.3 g/dL (6.3-8.2)
--- NOTE | 2023-09-21 11:37 | CT ---
EXAMINATION TYPE: CT angio abdomen pelvis, without and with contrast DATE OF EXAM: 09/21/2023 COMPARISON: NONE HISTORY: 83-year-old male rectal bleeding X3 days dark red in color abdominal pain TECHNIQUE: Contiguous axial scanning of the abdomen and pelvis before and after administration of 100 ml Isovue 370 IV contrast. Delayed images per GI bleed protocol also obtained. Coronal/sagittal rec onstructions performed. 3-D reconstructions generated on a dedicated independent workstation. CT DLP: 2247.7 mGycm Automated exposure control for dose reduction was used. FINDINGS: Median sternotomy wires. Heart normal size without pericardial effusion. Patchy groundglass changes posterior lower lobes are no pleural effusion. There may be some underlying mild fibrosis. No focal liver lesion or biliary ductal dilatation. Portal venous pain. Gallbladder, adrenal glands, right kidney, spleen, and atrophic pancreas with no gross abnormality. Exophytic lower pole cyst left kidney measuring 4.3 cm. Gastric wall thickening of the stomach likely relates to nondistention/collapse. No dilated small bowel, free fluid, or free air. No mesenteric or retroperitoneal lymphadenopathy. Scattered mild stool. Redundant sigmoid colon. Sigmoid colon largely collapsed. There is liquid stool in the right side of the colon. Scattered hyperdense ingested material within some segments of small bowel and also within the cecum. This hyperdensity is present on the noncontrast portion as well whi ch excludes extravasating IV contrast. Some circumferential wall thickening upper to mid descending c olon, coronal image 95, versus nondistention. Bladder distended. Radiotherapy seeds in the prostate gland. Pelvic limits. No abnormal fluid collect ion in the pelvis or pelvic lymphadenopathy. Bones: Mild degenerative changes of the hips. Osteopenia. The lower thoracic spine. IMPRESSION: 1. REDUNDANT SIGMOID COLON. LIQUID STOOL IN THE RIGHT SIDE OF THE COLON, POSSIBLE DIARRHEAL STATE/ENT ERITIS. 2. POSSIBLE MILD CIRCUMFERENTIAL WALL THICKENING VERSUS NONDISTENTION ALONG THE UPPER TO MID DESCENDI NG COLON, CORONAL IMAGE 95. A NONSPECIFIC MILD COLITIS IS NOT EXCLUDED. OTHERWISE, NO SPECIFIC SITE O F GI BLEED IDENTIFIED.
[2023-09-21 12:30] VITALS: BP 124/59; PULSE 56; RESP 16; TEMP 97.6
== END 2023-09-21 12:30 | disposition home or self-care (01) ==
LOC: EC 09:36
DX: K92.1 Melena (principal); K92.2 Gastrointestinal hemorrhage, unspecified; D68.9 Coagulation defect, unspecified; K52.9 Noninfective gastroenteritis and colitis, unspecified; I48.91 Unspecified atrial fibrillation; I25.10 Atherosclerotic heart disease of native coronary artery without angina pectoris; Z79.899 Other long term (current) drug therapy
CPT/HCPCS: 36415; 74174; 80053; 82272; 83605; 83690; 83735; 84484; 85025; 85730; 86850; 86900; 86901; 99285

== ENCOUNTER 2023-09-26 12:01 | Emergency (ER) | payer MEDICARE ==
[2023-09-26 12:06] VITALS: TEMP 97.9
--- NOTE | 2023-09-26 12:42 | ED ---
General Adult HPI - General Chief complaint: Abdominal Pain Stated complaint: Urogenital Time Seen by Provider: 09/26/23 12:05 Source: patient, RN notes reviewed, old records reviewed Mode of arrival: ambulatory Limitations: no limitations - History of Present Illness Initial comments: An 83-year-old male who presents to the emergency department complaining that he is constipated. Patient states last bowel movement was Saturday. Patient states he was a good bowel movement but since then he has not been able to go. Patient states he is able to pass gas. Patient denies any abdominal pain. Patient denies any fever or chills. Patient denies any other symptoms at this time. - Related Data Home Medications Medication Instructions Recorded Confirmed Calcium/Magnesium/Zinc 1 tab PO TID 07/15/19 09/21/23 [Scloboi-Tskehiblp-Moat Tablet] glipiZIDE [Glucotrol] 5 mg PO TID 07/15/19 09/21/23 metFORMIN HCL [Glucophage] 750 mg PO BID 07/15/19 09/21/23 Biotin 5 mg PO DAILY 09/21/23 09/21/23 Cholecalciferol [Vitamin D3 (25 50 mcg PO DAILY 09/21/23 09/21/23 Mcg = 1000 Iu)] Fexofenadine HCl [Shanika Allergy] 180 mg PO DAILY PRN 09/21/23 09/21/23 Herbal Lax Colon Cleanser 2000mg 2,000 mg PO DAILY PRN 09/21/23 09/21/23 Ibuprofen [Motrin] 800 mg PO Q8H PRN 09/21/23 09/21/23 Levothyroxine Sodium [Synthroid] 25 mcg PO DAILY 09/21/23 09/21/23 [place]-3/Dha/Epa/Fish Oil [Fish Oil 1 cap PO BID 09/21/23 09/21/23 1,000 mg Softgel] Pioglitazone [Actos] 45 mg PO DAILY 09/21/23 09/21/23 Rivaroxaban [Xarelto] 20 mg PO DAILY 09/21/23 09/21/23 Zolpidem [Ambien] 10 mg PO HS PRN 09/21/23 09/21/23 hydroCHLOROthiazide [Hydrodiuril] 25 mg PO DAILY 09/21/23 09/21/23 lisinopriL [Zestril] 20 mg PO BID 09/21/23 09/21/23 Previous Rx's Medication Instructions Recorded Atorvastatin [Lipitor] 40 mg PO DAILY #30 tab 08/20/16 Metoprolol Tartrate [Lopressor] 50 mg PO BID #60 tab 08/20/16 Amoxic-Pot Clav 875-125Mg 1 tab PO BID 1 Days #14 tab 09/21/23 [Augmentin 875-125] Allergies Allergy/AdvReac Type Severity Reaction Status Date / Time No Known Allergies Allergy Verified 09/26/23 12:07 Review of Systems ROS Statement: Those systems with pertinent positive or pertinent negative responses have been documented in the HPI. ROS Other: All systems not noted in ROS Statement are negative. Past Medical History Past Medical History: Atrial Fibrillation, Cancer, Diabetes Mellitus, Hearing Disorder / Deafness, Hypertension, Prostate Disorder Additional Past Medical History / Comment(s): PROSTATE CA 2006., INFECTION OF RIGHT GREAT TOENAIL REMOVED IN MARCH 2019. STATES TOE IS RED AND SWOLLEN, NO DRAINAGE-HAS SCAB., PT STATES TOENAIL WAS REMOVED IN AUGUST. History of Any Multi-Drug Resistant Organisms: None Reported Past Surgical History: Appendectomy, Coronary Bypass/CABG, Orthopedic Surgery, Prostate Surgery Additional Past Surgical History / Comment(s): Left upper extremity tendon repair.,TRIPLE HEART BYPASS (JIMI 2017)., RIGHT GREAT TOENAIL REMOVED MAR 2019 Past Anesthesia/Blood Transfusion Reactions: No Reported Reaction Past Psychological History: No Psychological Hx Reported Past Alcohol Use History: None Reported Past Drug Use History: None Reported - Past Family History Father Family Medical History: Cancer, Congestive Heart Failure (CHF) Additional Family Medical History / Comment(s): prostate Mother Family Medical History: Cancer Additional Family Medical History / Comment(s): breast General Exam - General Exam Comments Initial Comments: GENERAL: Patient is well-developed and well-nourished. Patient is nontoxic and well- hydrated and is in no acute distress. ENT: Neck is soft and supple. No significant lymphadenopathy is noted. Oropharynx is clear. Moist mucous membranes. Neck has full range of motion without eliciting any pain. EYES: The sclera were anicteric and conjunctiva were pink and moist. Extraocular movements were intact and pupils were equal round and reactive to light. Eyelids were unremarkable. ABDOMEN: Soft and nontender with normal bowel sounds. SKIN: Skin is clear with no lesions or rashes and otherwise unremarkable. NEUROLOGIC: Patient is alert and oriented x3. Cranial nerves II through XII are grossly intact. Motor and sensory are also intact. Normal speech, volume and content. Symmetrical smile. MUSCULOSKELETAL: Normal extremities with adequate strength and full range of motion. LYMPHATICS: No significant lymphadenopathy is noted PSYCHIATRIC: Normal psychiatric evaluation. Limitations: no limitations Course Vital Signs 09/26/23 12:02 Temperature 97.9 F Pulse Rate 59 L Respiratory 18 Rate Blood Pressure 134/72 O2 Sat by Pulse 97 Oximetry Medical Decision Making - Medical Decision Making Was pt. sent in by a medical professional or institution (, RENETTA, WAREHOUSE CHECKER, urgent care, hospital, or senior care...) When possible be specific @ -No Did you speak to anyone other than the patient for history (EMS, parent, family, police, friend...)? What history was obtained from this source @ -No Did you review nursing and triage notes (agree or disagree)? Why? @ -I reviewed and agree with nursing and triage notes Were old charts reviewed (outside hosp., previous admission, EMS record, old EKG, old radiological studies, urgent care reports/EKG's, senior care records)? Report findings @ -No old charts were reviewed Differential Diagnosis? @ -Constipation, obstruction, this is not an all-inclusive list EKG interpreted by me (3pts min.). @ -As above X-rays interpreted by me (1pt min.). @ -None done CT interpreted by me (1pt min.). @ -None done U/S interpreted by me (1pt. min.). @ -None done What testing was considered but not performed or refused? (CT, X-rays, U/S, labs)? Why? @ -None What meds were considered but not given or refused? Why? @ -None Did you discuss the management of the patient with other professionals (professionals i.e. , RENETTA, WAREHOUSE CHECKER, lab, RT, psych nurse, pediatric social worker, bullet casting operator, teacher, animal control officer, case picker)? Give summary @ -No Was smoking cessation discussed for >3mins.? @ -No Was critical care preformed (if so, how long)? @ -No Were there social determinants of health that impacted care today? How? (Homelessness, low income, unemployed, alcoholism, drug addiction, transportation, low edu. Level, literacy, decrease access to med. care, skilled nursing, rehab)? @ -No Was there de-escalation of care discussed even if they declined (Discuss DNR or withdrawal of care, Hospice)? DNR status @ -No What co-morbidities impacted this encounter? (DM, HTN, Smoking, COPD, CAD, Cancer, CVA, ARF, Chemo, Hep., AIDS, mental health diagnosis, sleep apnea, morbid obesity)? @ -None Was patient admitted / discharged? Hospital course, mention meds given and route, prescriptions, significant lab abnormalities, going to OR and other pertinent info. @ -Patient was given a milk of molasses enema in the emergency department without much success. Patient was requesting magnesium citrate states in the past has had quite a bit of success with that. Undiagnosed new problem with uncertain prognosis? @ -No Drug Therapy requiring intensive monitoring for toxicity (Heparin, Nitro, Insulin, Cardizem)? @ -No Were any procedures done? @ -No Diagnosis/symptom? @ -Constipation Acute, or Chronic, or Acute on Chronic? @ -Acute Uncomplicated (without systemic symptoms) or Complicated (systemic symptoms)? @ -Uncomplicated Side effects of treatment? @ -No Exacerbation, Progression, or Severe Exacerbation? @ -No Poses a threat to life or bodily function? How? (Chest pain, USA, [place], pneumonia, PE, COPD, DKA, ARF, appy, cholecystitis, CVA, Diverticulitis, Homicidal, Suicidal, threat to staff... and all critical care pts) @ -No Disposition Clinical Impression: Constipation Disposition: HOME SELF-CARE Condition: Good Instructions (If sedation given, give patient instructions): High Fiber Diet (ED), Constipation (ED) Additional Instructions: She should take magnesium citrate when he gets home. Patient should add Benefiber to his diet twice a day Is patient prescribed a controlled substance at d/c from ED?: No Referrals: Brando Miller MD [Primary Care Provider] - 1-2 days Time of Disposition: 14:28
--- NOTE | 2023-09-26 13:11 | XR ---
EXAMINATION TYPE: XR KUB DATE OF EXAM: 09/26/2023 12:33 PM CLINICAL INDICATION:Male, 83 years old with history of abdominal pain; COMPARISON: None. TECHNIQUE: One radiographic view of the abdomen was obtained. FINDINGS: The bowel gas pattern is nonspecific without dilated loops of small or large bowel. . Fecal material and gas are demonstrated throughout the colon and rectum. There is no evidence for organomegaly or pneumoperitoneum. The osseous structures are intact. No ab normal calcifications are present. Suspected brachytherapy beads project over the prostate IMPRESSION: Nonspecific bowel gas pattern without radiographic evidence for acute process.
[2023-09-26] MEDS: MAGNESIUM CITRATE 296 ML BOTTLE PO ONE (14:39)
[2023-09-26 14:46] VITALS: BP 138/71; PULSE 62; RESP 16
== END 2023-09-26 14:46 | disposition home or self-care (01) ==
LOC: EC 12:01
DX: K59.00 Constipation, unspecified (principal)
CPT/HCPCS: 74018; 99284

== ENCOUNTER 2023-10-25 08:40 | Day surgery (SDC) | payer MEDICARE ==
[2023-10-18 11:14] VITALS: BMI 26.2
[~2023-10-25 08:40] MED LIST changes: -ALBUMIN HUMAN 25% 50 ML IV ONE; -ALBUMIN HUMAN 5% 500 ML IVPB ONE; -AMINOCAPROIC ACID 250 MG/ML 20 ML VIAL IV ONE; -AMINOCAPROIC ACID 5,000 MG in DEXTROSE 5% IN WATER 50 ML IV ONE; -ASPIRIN 325 MG TAB PO ONE; -ATORVASTATIN 10 MG TAB PO ONE; -CALCIUM CHLORIDE 100 MG/ML 10 ML SYRINGE IV ONE; -CHLORHEXIDINE GLUCONATE 15 ML CUP MUCOUS MEM ONE; -CLEVIDIPINE BUTYRATE 25 MG in EMPTY BAG 1 BAG IV ONE; -DEXTROSE 5% IN WATER 1,000 ML with POTASSIUM CHLORIDE 110 MEQ, MAGNESIUM SULFATE 16 MEQ... IV ONE; -DEXTROSE 5% IN WATER 1,000 ML with POTASSIUM CHLORIDE 25 MEQ, SODIUM CHLORIDE 4MEQ/ML V... IV ONE; -DILTIAZEM 125 MG in SODIUM CHLORIDE 0.9% 100 ML IV ONE; -HEPARIN SODIUM 1,000 UNIT/ML VIAL IV ONE; -HEPARIN SODIUM,PORCINE 5,000 UNIT in SODIUM CHLORIDE 0.9% 500 ML IV ONE; -INSULIN REGULAR 100 UNIT in SODIUM CHLORIDE 0.9% 100 ML IV ONE; -LACTATED RINGERS 1,000 ML IV ONE; +LIDOCAINE 1% (10MG/ML) FOR IV START INTRADERMA PRN; -MAGNESIUM SULFATE MG 500 MG/ML VIAL IV ONE; -MANNITOL 25% 12.5 GM/50 ML VIAL IV ONE; -METOPROLOL TARTRATE 12.5 MG TAB PO ONE; -MUPIROCIN 2% OINT 22 GM TUBE NASAL ONE; -NITROGLYCERIN-D5W PMX 25 MG/250 ML BTL IV ONE; -NITROGLYCERIN-D5W PMX 50 MG in DEXTROSE/WATER 1 250ML.BAG IV ONE; -NOREPINEPHRIN 4 MG-0.9% NS PMX 4 MG/250 ML ML IV ONE; -PHENYLEPHRINE 40 MG in SODIUM CHLORIDE 0.9% 250 ML IV ONE; -PHENYLEPHRINE-0.9% NACL SYG 1 MG/10 ML SYRINGE IV ONE; -PROPOFOL 50 ML IV ONE; -PROTAMINE SULFATE 10 MG/ML 25 ML VIAL IV ONE; -PROTAMINE SULFATE 250 MG in EMPTY BAG 1 BAG IV ONE; -SODIUM BICARB 8.4% 50 ML SYR (1 MEQ/ML) IV ONE; -SODIUM CHLORIDE 0.9% 1,000 ML IV ONE; -ceFAZolin 1,000 MG in SODIUM CHLORIDE 0.9% IRRIGATIO 1,000 ML IRRIGATION ONE; -ceFAZolin 2,000 MG in SODIUM CHLORIDE 0.9% 30 ML IVPB ONE
[2023-10-25 09:37] VITALS: TEMP 97.1
[2023-10-25] MEDS: LACTATED RINGERS 1,000 ML IV SCH (09:37)
[2023-10-25] MEDS: IV FLUID CONTINUATION 1,000 ML IV ONE (09:40)
[2023-10-25 09:41] LABS: Glucose,Whole Blood 167 mg/dL (70-110)
[2023-10-25] MEDS ORDERED: PROPOFOL 10 MG/ML 20 ML VIAL IV ONE (10:11)
--- NOTE | 2023-10-25 10:49 | P.PCN ---
Date of Procedure: 10/25/23 Procedure(s) Performed: BRIEF HISTORY: Patient is a 83-year-old pleasant white male scheduled for an elective colonoscopy as a part of intermittent rectal bleeding for the last 1 month duration. PROCEDURE PERFORMED: Colonoscopy with biopsy. PREOPERATIVE DIAGNOSIS: Intermittent rectal bleeding IV sedation per Anesthesia. PROCEDURE: After informed consent was obtained, the patient, was brought into the endoscopy unit. IV sedation was administered by Anesthesia under continuous monitoring. Digital rectal examination revealed a hard mass anteriorly.. Initially the Olympus CF-160 flexible video colonoscope was then inserted in the rectum, gradually advanced into the cecum without any difficulty. Careful examination was performed as the scope was gradually being withdrawn. Ileocecal valve and the appendiceal orifice were visualized and appeared normal. Prep was excellent. Mucosa of the cecum, ascending colon, transverse colon, descending colon, sigmoid colon, appeared normal. In the distal rectum there was a 3 cm ulcerated lesion identified with raised margins suspicious for neoplasm and multiple biopsies were done from this area. Following the biopsies there was some oozing identified but within 3 to 4 minutes the oozing subsided. No endoscopy intervention was performed. Retroflexion was performed in the rectum and no lesions were seen. The patient tolerated the procedure well. IMPRESSION: 3 cm ulcerated lesion with slightly raised margins noted in the distal rectum 3 mm proximal to the dentate line s/p multiple biopsies Rest of the colon appeared normal RECOMMENDATIONS: Findings of this examination were discussed with the patient as well as his family. He was advised to follow the biopsy results and he will be seen in the office in 1 week..
[2023-10-25 11:17] VITALS: BP 113/71; PULSE 64; RESP 16
== END 2023-10-25 11:30 ==
LOC: ORWHC2ENDO 08:40
PROVIDERS: ATTEND Internal Medicine Gastroenterology
DX: R19.4 Change in bowel habit
CPT/HCPCS: 45380; J2704; 88305; 88341; 88342

== ENCOUNTER 2023-12-14 20:16 | Observation (INO) | payer MEDICARE ==
--- NOTE | 2023-12-14 20:47 | ED ---
Recheck HPI - General Chief Complaint: Recheck/Abnormal Lab/Rx Stated Complaint: rectal bleed Time Seen by Provider: 12/14/23 20:28 Source: patient, RN notes reviewed, old records reviewed Mode of arrival: wheelchair Limitations: no limitations - History of Present Illness Initial Comments: This is an 83-year-old male presents today for evaluation of bleeding from his rectum. Patient has history of anal cancer and coming in for bleeding. Patient has had spotting in the past but for the last 24 hours has had significant bleeding which persisted throughout the day today, no symptoms of lightheadedness or dizziness no other complaints. Patient is on blood thinners, Xarelto for atrial fibrillation MD Complaint: other (Persistent rectal bleeding) -: hour(s) Returns Today for: wound recheck Symptoms Since Prior Visit: no new symptoms Associated Symptoms: none - Related Data Home Medications Medication Instructions Recorded Confirmed Calcium/Magnesium/Zinc 1 tab PO TID 07/15/19 12/15/23 [Tsnjllz-Dhrlmvefg-Sfvr Tablet] glipiZIDE [Glucotrol] 5 mg PO TID 07/15/19 12/15/23 metFORMIN HCL [Glucophage] 500 mg PO TID 07/15/19 12/15/23 Biotin 5 mg PO DAILY 09/21/23 12/15/23 Cholecalciferol [Vitamin D3 (25 50 mcg PO DAILY 09/21/23 12/15/23 Mcg = 1000 Iu)] Fexofenadine HCl [Shanika Allergy] 180 mg PO DAILY PRN 09/21/23 12/15/23 Levothyroxine Sodium [Synthroid] 25 mcg PO DAILY 09/21/23 12/15/23 [place]-3/Dha/Epa/Fish Oil [Fish Oil 1 cap PO BID 09/21/23 12/15/23 1,000 mg Softgel] Pioglitazone [Actos] 45 mg PO DAILY 09/21/23 12/15/23 Zolpidem [Ambien] 10 mg PO HS PRN 09/21/23 12/15/23 hydroCHLOROthiazide [Hydrodiuril] 25 mg PO DAILY 09/21/23 12/15/23 lisinopriL [Zestril] 20 mg PO BID 09/21/23 12/15/23 Lactulose 10 gm PO TID PRN 10/18/23 12/15/23 Herbal Lax Colon Calender Supervisor 2000mg 1 dose PO DAILY PRN 12/15/23 12/15/23 Linaclotide [Linzess] 290 mcg PO DAILY 12/15/23 12/15/23 Previous Rx's Medication Instructions Recorded Atorvastatin [Lipitor] 40 mg PO DAILY #30 tab 08/20/16 Metoprolol Tartrate [Lopressor] 50 mg PO BID #60 tab 08/20/16 Allergies Allergy/AdvReac Type Severity Reaction Status Date / Time No Known Allergies Allergy Verified 12/15/23 10:57 Review of Systems ROS Statement: Those systems with pertinent positive or pertinent negative responses have been documented in the HPI. ROS Other: All systems not noted in ROS Statement are negative. Past Medical History Past Medical History: Atrial Fibrillation, Cancer, Diabetes Mellitus, Hearing Disorder / Deafness, Hypertension, Prostate Disorder Additional Past Medical History / Comment(s): severe constipation with bright and dark bloody stool on 09-20-23, PROSTATE CA 2006., INFECTION OF RIGHT GREAT TOENAIL REMOVED IN MARCH 2019. 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 History of Any Multi-Drug Resistant Organisms: None Reported Past Surgical History: Appendectomy, Coronary Bypass/CABG, Orthopedic Surgery, Prostate Surgery Additional Past Surgical History / Comment(s): Left upper extremity tendon repair.,HEART TRIPLE BYPASS (JIMI 2016)., RIGHT GREAT TOENAIL REMOVED MAR 26,radiation implants prostate 2006 Past Anesthesia/Blood Transfusion Reactions: No Reported Reaction Past Psychological History: No Psychological Hx Reported Smoking Status: Former smoker Past Alcohol Use History: None Reported Past Drug Use History: None Reported - Past Family History Father Family Medical History: Cancer, Congestive Heart Failure (CHF) Additional Family Medical History / Comment(s): prostate Mother Family Medical History: Cancer Additional Family Medical History / Comment(s): breast General Exam Limitations: no limitations General appearance: alert, in no apparent distress Head exam: Present: atraumatic, normocephalic, normal inspection Eye exam: Present: normal appearance, PERRL, EOMI. Absent: scleral icterus, conjunctival injection, periorbital swelling ENT exam: Present: normal exam, mucous membranes moist Neck exam: Present: normal inspection. Absent: tenderness, meningismus, lymphadenopathy Respiratory exam: Present: normal lung sounds bilaterally. Absent: respiratory distress, wheezes, rales, rhonchi, stridor Cardiovascular Exam: Present: regular rate, normal rhythm, normal heart sounds. Absent: systolic murmur, diastolic murmur, rubs, gallop, clicks GI/Abdominal exam: Present: soft, normal bowel sounds. Absent: distended, tenderness, guarding, rebound, rigid Extremities exam: Present: normal inspection, full ROM, normal capillary refill. Absent: tenderness, pedal edema, joint swelling, calf tenderness Back exam: Present: normal inspection Neurological exam: Present: alert, oriented X3, CN II-XII intact Psychiatric exam: Present: normal affect, normal mood Skin exam: Present: warm, dry, intact, normal color. Absent: rash Course Vital Signs 12/14/23 12/14/23 12/14/23 20:21 20:27 23:58 Temperature 97.8 F 97.4 F L Pulse Rate 64 70 62 Respiratory 18 16 14 Rate Blood Pressure 144/72 137/74 120/92 O2 Sat by Pulse 99 98 96 Oximetry 12/15/23 12/15/23 12/15/23 05:15 07:41 12:17 Temperature Pulse Rate 62 76 73 Respiratory 18 16 16 Rate Blood Pressure 128/70 127/72 111/60 O2 Sat by Pulse 96 96 96 Oximetry 12/15/23 15:57 Temperature Pulse Rate 71 Respiratory 18 Rate Blood Pressure 115/63 O2 Sat by Pulse 97 Oximetry - Reevaluation(s) Reevaluation #1: 12/14/23 21:38 Medical records reviewed Reevaluation #2: 12/14/23 21:38 Patient symptoms unchanged Reevaluation #3: 12/14/23 21:38 Patient informed of results and questions answered Reevaluation #4: Was pt. sent in by a medical professional or institution (, PA, BREAST PULLER, urgent care, hospital, or usp...) When possible be specific @ -no Did you speak to anyone other than the patient for history (EMS, parent, family, police, friend...)? What history was obtained from this source @ -no Did you review nursing and triage notes (agree or disagree)? Why? @ -agree Are old charts reviewed (outside hosp., previous admission, EMS record, old EKG, old radiological studies, urgent care reports/EKG's, usp records)? Report findings @ -yes Differential Diagnosis (chest pain, altered mental status, abdominal pain women, abdominal pain men, vaginal bleeding, weakness, fever, dyspnea, syncope, head ache, dizziness, GI bleed, back pain, seizure, CVA, palpatations, mental health, musculoskeletal)? @ -prior EKG interpreted by me (3pts min.). @ -yes X-rays interpreted by me (1pt min.). @ -no CT interpreted by me (1pt min.). @ -Yes negative for acute disease U/S interpreted by me (1pt. min.). @ -no What testing was considered but not performed or refused? (CT, X-rays, U/S, labs)? Why? @ -none What meds were considered but not given or refused? Why? @ -none Did you discuss the management of the patient with other professionals (professionals i.e. , PA, BREAST PULLER, lab, RT, psych nurse, social service worker, front end driver, teacher, admissions officer, caseworker protective services)? Give summary @ -no Was smoking cessation discussed for >3mins.? @ -no Was critical care preformed (if so, how long)? @ -yes31 Were there social determinants of health that impacted care today? How? (Homelessness, low income, unemployed, alcoholism, drug addiction, transportation, low edu. Level, literacy, decrease access to med. care, half-way, rehab)? @ -none Was there de-escalation of care discussed even if they declined (Discuss DNR or withdrawal of care, Hospice)? DNR status @ -no What co-morbidities impacted this encounter? (DM, HTN, Smoking, COPD, CAD, Cancer, CVA, ARF, Chemo, Hep., AIDS, mental health diagnosis, sleep apnea, morbid obesity)? @ -none Was patient admitted / discharged? Hospital course, mention meds given and route, prescriptions, significant lab abnormalities, going to OR and other pertinent info. @ - 83 male to ER for bleeding rectal bleeding likely from tumor, patient is on Xarelto that will be held, not reversed at this time hemoglobin is 14 will admit for recheck of hemoglobin, possible need to reverse Xarelto versus transfusion Admitted Undiagnosed new problem with uncertain prognosis? @ -no Drug Therapy requiring intensive monitoring for toxicity (Heparin, Nitro, Insulin, Cardizem)? @ -no Were any procedures done? @ -no Diagnosis/symptom? @ -GI bleed on Xarelto rectal bleeding from tumor Acute, or Chronic, or Acute on Chronic? @ -Acute Uncomplicated (without systemic symptoms) or Complicated (systemic symptoms)? @ -Complicated Side effects of treatment? @ -no Exacerbation, Progression, or Severe Exacerbation? @ -exacerbation Poses a threat to life or bodily function? How? (Chest pain, USA, CT, pneumonia, PE, COPD, DKA, ARF, appy, cholecystitis, CVA, Diverticulitis, Homicidal, Suicidal, threat to staff... and all critical care pts) @ -yes extremes of age Reevaluation #5: Differential Weakness: Hypoglycemia, shock, sepsis, hyponatremia, anemia, infection, CT, ETOH, adverse medicine reaction, overdose, stroke, this is not meant to be an all-inclusive list. - Consultations Consultation #1: Spoke with Dr. Miller Medical Decision Making - Medical Decision Making 83 male to ER for bleeding rectal bleeding likely from tumor, patient is on Xarelto that will be held, not reversed at this time hemoglobin is 14 will admit for recheck of hemoglobin, possible need to reverse Xarelto versus transfusion - Lab Data Result diagrams: 12/17/23 07:33 12/17/23 07:33 Lab Results 12/14/23 12/14/23 12/14/23 Range/Units 21:05 21:05 21:05 WBC 6.4 (3.8-10.6) k/uL RBC 4.72 (4.30-5.90) m/uL Hgb 14.0 (13.0-17.5) gm/dL Hct 42.7 (39.0-53.0) % MCV 90.6 (80.0-100.0) fL MCH 29.6 (25.0-35.0) pg MCHC 32.7 (31.0-37.0) g/dL RDW 13.6 (11.5-15.5) % Plt Count 196 (150-450) k/uL MPV 10.5 Neutrophils % 68 % Lymphocytes % 20 % Monocytes % 5 % Eosinophils % 4 % Basophils % 1 % Neutrophils # 4.4 (1.3-7.7) k/uL Lymphocytes # 1.3 (1.0-4.8) k/uL Monocytes # 0.3 (0-1.0) k/uL Eosinophils # 0.3 (0-0.7) k/uL Basophils # 0.0 (0-0.2) k/uL APTT 37.4 H (22.0-30.0) sec Sodium 137 (137-145) mmol/L Potassium 4.3 (3.5-5.1) mmol/L Chloride 107 (98-107) mmol/L Carbon Dioxide 22 (22-30) mmol/L Anion Gap 8 mmol/L BUN 25 H (9-20) mg/dL Creatinine 0.96 (0.66-1.25) mg/dL Est GFR (CKD-EPI)AfAm 86 (>60 ml/min/1.73 sqM) Est GFR (CKD-EPI)NonAf 74 (>60 ml/min/1.73 sqM) Glucose 181 H (74-99) mg/dL Calcium 9.8 (8.4-10.2) mg/dL Magnesium 2.1 (1.6-2.3) mg/dL Total Bilirubin 0.8 (0.2-1.3) mg/dL AST 22 (17-59) U/L ALT 20 (4-49) U/L Alkaline Phosphatase 81 (38-126) U/L Troponin I (0.000-0.034) ng/mL Total Protein 6.6 (6.3-8.2) g/dL Albumin 4.2 (3.5-5.0) g/dL Lipase 142 (23-300) U/L Blood Type Blood Type Recheck Bld Type Recheck Status Antibody Screen Spec Expiration Date 12/14/23 12/14/23 Range/Units 21:05 21:15 WBC (3.8-10.6) k/uL RBC (4.30-5.90) m/uL Hgb (13.0-17.5) gm/dL Hct (39.0-53.0) % MCV (80.0-100.0) fL MCH (25.0-35.0) pg MCHC (31.0-37.0) g/dL RDW (11.5-15.5) % Plt Count (150-450) k/uL MPV Neutrophils % % Lymphocytes % % Monocytes % % Eosinophils % % Basophils % % Neutrophils # (1.3-7.7) k/uL Lymphocytes # (1.0-4.8) k/uL Monocytes # (0-1.0) k/uL Eosinophils # (0-0.7) k/uL Basophils # (0-0.2) k/uL APTT (22.0-30.0) sec Sodium (137-145) mmol/L Potassium (3.5-5.1) mmol/L Chloride (98-107) mmol/L Carbon Dioxide (22-30) mmol/L Anion Gap mmol/L BUN (9-20) mg/dL Creatinine (0.66-1.25) mg/dL Est GFR (CKD-EPI)AfAm (>60 ml/min/1.73 sqM) Est GFR (CKD-EPI)NonAf (>60 ml/min/1.73 sqM) Glucose (74-99) mg/dL Calcium (8.4-10.2) mg/dL Magnesium (1.6-2.3) mg/dL Total Bilirubin (0.2-1.3) mg/dL AST (17-59) U/L ALT (4-49) U/L Alkaline Phosphatase (38-126) U/L Troponin I <0.012 (0.000-0.034) ng/mL Total Protein (6.3-8.2) g/dL Albumin (3.5-5.0) g/dL Lipase (23-300) U/L Blood Type A Positive Blood Type Recheck A Pos Bld Type Recheck Status No Antibody Screen NEGATIVE Spec Expiration Date 12/17/20232314 - Radiology Data Radiology results: report reviewed (CT abdomen pelvis), image reviewed Critical Care Time Critical Care Time: Yes Total Critical Care Time: 31 Disposition Clinical Impression: GIB (gastrointestinal bleeding), Coagulopathy, Rectal tumor, Rectal cancer Disposition: ADMITTED IP TO THIS [facility] Condition: Serious Is patient prescribed a controlled substance at d/c from ED?: No Time of Disposition: 21:50
[2023-12-14 21:22] LABS: Basophils % (A) 1 %; Eosinophils # (A) 0.3 k/uL (0-0.7); Eosinophils % (A) 4 %; HCT 42.7 % (39.0-53.0); Lymphocytes # (A) 1.3 k/uL (1.0-4.8); Lymphocytes % (A) 20 %; MCH 29.6 pg (25.0-35.0); MCHC 32.7 g/dL (31.0-37.0); MCV 90.6 fL (80.0-100.0); Mean Platelet Volume 10.5; Monocytes # (A) 0.3 k/uL (0-1.0); Monocytes % (A) 5 %; Neutrophils # (A) 4.4 k/uL (1.3-7.7); Neutrophils % (A) 68 %; Platelet Count 196 k/uL (150-450); RBC 4.72 m/uL (4.30-5.90); RDW 13.6 % (11.5-15.5); WBC 6.4 k/uL (3.8-10.6)
[2023-12-14] MEDS: SODIUM CHLORIDE 0.9% 1,000 ML IV STA (21:24)
[2023-12-14] MEDS ORDERED: NALOXONE 0.4 MG/ML 1 ML VIAL IV PRN (21:49)
[2023-12-14] MEDS ORDERED: MORPHINE SULFATE 4 MG/ML SYRINGE IV PRN (21:49)
[2023-12-14] MEDS ORDERED: ONDANSETRON 4 MG/2 ML VIAL IVP PRN (21:49)
[2023-12-14] MEDS: SODIUM CHLORIDE 0.9% 1,000 ML IV SCH (22:21)
[2023-12-14 22:39] LABS: ALT 20 U/L (4-49); AST 22 U/L (17-59); African American GFR (CKD) 86 (>60 ml/min/1.73 sqM); Albumin 4.2 g/dL (3.5-5.0); Alkaline Phosphatase 81 U/L (38-126); Anion Gap 8 mmol/L; Blood Urea Nitrogen 25 mg/dL (9-20); Calcium 9.8 mg/dL (8.4-10.2); Carbon Dioxide 22 mmol/L (22-30); Chloride 107 mmol/L (98-107); Glucose 181 mg/dL (74-99); Lipase 142 U/L (23-300); Magnesium 2.1 mg/dL (1.6-2.3); Non-African American GFR(CKD) 74 (>60 ml/min/1.73 sqM); Potassium 4.3 mmol/L (3.5-5.1); Sodium 137 mmol/L (137-145); Total Bilirubin 0.8 mg/dL (0.2-1.3); Total Protein 6.6 g/dL (6.3-8.2)
--- NOTE | 2023-12-14 23:22 | CT ---
EXAMINATION TYPE: CT abdomen pelvis w con DATE OF EXAM: 12/14/2023 COMPARISON: Prior CTA September 21, 2023 HISTORY: Rectal tumor that is bleeding CT DLP: 1370.7 mGycm, Automated Exposure Control for Dose Reduction was Utilized. CONTRAST: CT scan of the abdomen and pelvis is performed with oral and with IV Contrast, patient injected with 100 mL of Isovue 300. FINDINGS: LUNG BASES:-Dependent opacity favors atelectasis. Additional linear scarring and/or atelectasis in th e left lung base. Coronary calcification is redemonstrated. Overlying sternal wires are partially nirali ged LIVER/GB: No significant abnormality is appreciated. PANCREAS: No significant abnormality is seen. SPLEEN: No significant abnormality is seen. ADRENALS: No significant abnormality is seen. KIDNEYS: Exophytic 4.4 cm thin-walled cyst anteriorly from the lower pole of the left kidney is redem onstrated delayed axial image 47. BOWEL: No abnormal small or large bowel dilatation. Rectal mass or neoplasm not as well seen on CT. PROSTATE/SEMINAL VESICLES: Multiple brachytherapy seeds in normal-sized prostate gland redemonstrated . LYMPH NODES: No greater than 1cm abdominal or pelvic lymph nodes are appreciated. OSSEOUS STRUCTURES: Moderate narrowing of both hip joints. OTHER: Mild calcified plaque of the aorta extends into branch vessels. IMPRESSION: No suspicious mass. No suspicious focal fluid collection or hemorrhage. [facility], , 12/14/2023 11:20 PM
[2023-12-15 02:25] LABS: Glucose,Whole Blood 115 mg/dL (70-110)
--- NOTE | 2023-12-15 04:55 | P.CON ---
Consult Note - . Consult date: 12/15/23 Assessment/Plan:: This is an 83-year-old male presents to [facility] ER for evaluation of bleeding from his rectum. Patient has history of anal cancer and is coming in for bleeding. Patient has had spotting in the past but for the last 24 hours he has had sign ificant bleeding which persisted throughout the day today. He is not having ant symptoms of lightheadedness or dizziness. He is not tachycardic. Patient is on blood thinners, Xarelto for atrial fibrillation. On evaluation this morning, the patient is not currently bleeding. His hemoglobin is stable. Review of Systems ROS Statement: Those systems with pertinent positive or pertinent negative responses have been documented in the HPI. Past Medical History Past Medical History: Atrial Fibrillation, Cancer, Diabetes Mellitus, Hearing Disorder / Deafness, Hypertension, Prostate Disorder Additional Past Medical History / Comment(s): severe constipation with bright and dark bloody stool on 09-20-23, PROSTATE CA 2006., INFECTION OF RIGHT GREAT TOENAIL REMOVED IN MARCH 2019. 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 History of Any Multi-Drug Resistant Organisms: None Reported Past Surgical History: Appendectomy, Coronary Bypass/CABG, Orthopedic Surgery, Prostate Surgery Additional Past Surgical History / Comment(s): Left upper extremity tendon repair.,HEART TRIPLE BYPASS (JIMI 2016)., RIGHT GREAT TOENAIL REMOVED MAR 2019,radiation implants prostate 2006 Past Anesthesia/Blood Transfusion Reactions: No Reported Reaction Past Psychological History: No Psychological Hx Reported Smoking Status: Former smoker Past Alcohol Use History: None Reported Past Drug Use History: None Reported - Past Family History Father Family Medical History: Cancer, Congestive Heart Failure (CHF) Additional Family Medical History / Comment(s): prostate Mother Family Medical History: Cancer Additional Family Medical History / Comment(s): breast General Exam Limitations: no limitations General appearance: alert, in no apparent distress Head exam: Present: atraumatic, normocephalic, normal inspection Eye exam: Present: normal appearance, PERRL, EOMI. Absent: scleral icterus, conjunctival injection, periorbital swelling ENT exam: Present: normal exam, mucous membranes moist Neck exam: Present: normal inspection. Absent: tenderness, meningismus, lymphadenopathy Respiratory exam: Present: normal lung sounds bilaterally. Absent: respiratory distress, wheezes, rales, rhonchi, stridor Cardiovascular Exam: Present: regular rate, normal rhythm, normal heart sounds. Absent: systolic murmur, diastolic murmur, rubs, gallop, clicks GI/Abdominal exam: Present: soft, normal bowel sounds. Absent: distended, tenderness, guarding, rebound, rigid Extremities exam: Present: normal inspection, full ROM, normal capillary refill. Absent: tenderness, pedal edema, joint swelling, calf tenderness Back exam: Present: normal inspection Neurological exam: Present: alert, oriented X3, CN II-XII intact Psychiatric exam: Present: normal affect, normal mood Skin exam: Present: warm, dry, intact, normal color. Absent: rash 83 year old male with history of Anal Cancer with Rectal Bleeding -Labs Reviewed: Hemoglobin and Vitals Stable -Recommend holding Xarelto for now -AM CBC pending -Clear Liquid Diet Started -IV fluids -Further recs to follow pending AM labs and clinical course Rj Daly DO [facility] [phone]
[2023-12-15 07:33] LABS: Basophils % (A) 1 %; Eosinophils # (A) 0.3 k/uL (0-0.7); Eosinophils % (A) 5 %; HCT 39.6 % (39.0-53.0); HGB 12.8 gm/dL (13.0-17.5); Lymphocytes # (A) 1.3 k/uL (1.0-4.8); Lymphocytes % (A) 22 %; MCH 29.9 pg (25.0-35.0); MCHC 32.4 g/dL (31.0-37.0); MCV 92.2 fL (80.0-100.0); Mean Platelet Volume 9.4; Monocytes # (A) 0.4 k/uL (0-1.0); Monocytes % (A) 7 %; Neutrophils # (A) 3.6 k/uL (1.3-7.7); Neutrophils % (A) 64 %; Platelet Count 164 k/uL (150-450); RBC 4.29 m/uL (4.30-5.90); RDW 13.6 % (11.5-15.5); WBC 5.7 k/uL (3.8-10.6)
[2023-12-15 08:08] LABS: African American GFR (CKD) >90 (>60 ml/min/1.73 sqM); Anion Gap 6 mmol/L; Blood Urea Nitrogen 19 mg/dL (9-20); Carbon Dioxide 23 mmol/L (22-30); Chloride 108 mmol/L (98-107); Glucose 101 mg/dL (74-99); Non-African American GFR(CKD) 82 (>60 ml/min/1.73 sqM); Potassium 3.5 mmol/L (3.5-5.1); Sodium 137 mmol/L (137-145)
[2023-12-15] MEDS ORDERED: DEXTROSE 50% SYRINGE 50 ML IVP PRN ×2 (10:28)
--- NOTE | 2023-12-15 10:31 | P.PN ---
Subjective Progress Note Date: 12/15/23 Ciro justin is an 83 year old male patient who presented to the ER with concerns of bright red per rectum. Patient reports that symptoms started approximately 24 hours ago and increased throughout the day yesterday. Patient denies any nausea or vomiting. Patient does have a history of anal cancer in which she reports was diagnosed in October following colonoscopy patient follows with oncology services and DrNakia Out of . Patient does have a history of anal cancer in which she reports was diagnosed in October following colonoscopy patient follows with oncology services and Doctor out of [facility]. Patient also reports he takes Xarelto for atrial fibrillation. CT of abdomen completed showing no suspicious mass or focal fluid collection or hemorrhage. Lab work revealing white blood cell 5.7. Hemoglobin 12.8, creatinine 0.84 bun 18. At this time patient will be admitted patient started on clear liquid diet. Xarelto on hold. Surgical and oncology services will be consulted.y gsurgical and onservices will be consulted.at this time patient denies chest pain or shortness of breath. Patient denies any urinary burning or frequency. Patient reports continued. Patient reports continued GI bleed. Will continue to monitor hemoglobin level closely and transfuse if needed Objective - Vital Signs Vital signs: Vital Signs Temp 97.4 F L 12/14/23 20:27 Pulse 76 12/15/23 07:41 Resp 16 12/15/23 07:41 BP 127/72 12/15/23 07:41 Pulse Ox 96 12/15/23 07:41 FiO2 Intake & Output 12/14/23 12/15/23 12/15/23 18:59 06:59 18:59 Weight 95.254 kg - Labs CBC & Chem 7: 12/15/23 07:06 12/15/23 07:06 Labs: Abnormal Lab Results - Last 24 Hours (Table) 12/14/23 12/14/23 12/15/23 Range/Units 21:05 21:05 02:23 RBC (4.30-5.90) m/uL Hgb (13.0-17.5) gm/dL APTT 37.4 H (22.0-30.0) sec Chloride (98-107) mmol/L BUN 25 H (9-20) mg/dL Glucose 181 H (74-99) mg/dL POC Glucose (mg/dL) 115 H (70-110) mg/dL 12/15/23 12/15/23 Range/Units 07:06 07:06 RBC 4.29 L (4.30-5.90) m/uL Hgb 12.8 L (13.0-17.5) gm/dL APTT (22.0-30.0) sec Chloride 108 H (98-107) mmol/L BUN (9-20) mg/dL Glucose 101 H (74-99) mg/dL POC Glucose (mg/dL) (70-110) mg/dL Assessment and Plan Assessment: 1. GI bleed 2. History of recent diagnosis of anal cancer. 3. History of atrial fibrillation maintained on Xarelto. Xarelto currently on hold SCDs ordered 4. History of diabetes mellitus. Sliding scale ordered 5. History of essential hypertension 6. History of coronary artery bypass graft surgery 7. History of prostate cancer 8. Previous history of bloody stool and August 2023 due to constipation DVT prophylaxis SCDs Xarelto currently on hold due to GI bleed. GI prophylax Protonix Oncology and surgical services consulted Continue to monitor hemoglobin Clear liquid diet Time with Patient: Greater than 30 (Greater than 60% of the total time spent in counseling and coordination of careGreater than 60% of the total time spent in counseling and coordination of care)
--- NOTE | 2023-12-15 10:33 | P.HPIM ---
History of Present Illness H&P Date: 12/15/23 Chief Complaint: GI bleed Ciro justin is an 83 year old male patient who presented to the ER with concerns of bright red per rectum. Patient reports that symptoms started approximately 24 hours ago and increased throughout the day yesterday. Patient denies any nausea or vomiting. Patient does have a history of anal cancer in which she reports was diagnosed in October following colonoscopy patient follows with oncology services and Out of . Patient does have a history of anal cancer in which she reports was diagnosed in October following colonoscopy patient follows with oncology services and Doctor out of [facility]. Patient also reports he takes Xarelto for atrial fibrillation. CT of abdomen completed showing no suspicious mass or focal fluid collection or hemorrhage. Lab work revealing white blood cell 5.7. Hemoglobin 12.8, creatinine 0.84 bun 18. At this time patient will be admitted patient started on clear liquid diet. Xarelto on hold. Surgical and oncology services will be consulted.y gsurgical and onservices will be consulted.at this time patient denies chest pain or shortness of breath. Patient denies any urinary burning or frequency. Patient reports continued. Patient reports continued GI bleed. Will continue to monitor hemoglobin level closely and transfuse if needed Review of Systems Please refer to HPI Past Medical History Past Medical History: Atrial Fibrillation, Cancer, Diabetes Mellitus, Hearing Disorder / Deafness, Hypertension, Prostate Disorder Additional Past Medical History / Comment(s): severe constipation with bright and dark bloody stool on 09-20-23, PROSTATE CA 2006., INFECTION OF RIGHT GREAT TOENAIL REMOVED IN MARCH 2019. 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 History of Any Multi-Drug Resistant Organisms: None Reported Past Surgical History: Appendectomy, Coronary Bypass/CABG, Orthopedic Surgery, Prostate Surgery Additional Past Surgical History / Comment(s): Left upper extremity tendon repair.,HEART TRIPLE BYPASS (JIMI 2016)., RIGHT GREAT TOENAIL REMOVED MAR 2019,radiation implants prostate 2006 Past Anesthesia/Blood Transfusion Reactions: No Reported Reaction Past Psychological History: No Psychological Hx Reported Smoking Status: Former smoker Past Alcohol Use History: None Reported Past Drug Use History: None Reported - Past Family History Father Family Medical History: Cancer, Congestive Heart Failure (CHF) Additional Family Medical History / Comment(s): prostate Mother Family Medical History: Cancer Additional Family Medical History / Comment(s): breast Medications and Allergies Home Medications Medication Instructions Recorded Confirmed Type Atorvastatin [Lipitor] 40 mg PO DAILY #30 tab 08/20/16 10/18/23 Rx Metoprolol Tartrate [Lopressor] 50 mg PO BID #60 tab 08/20/16 10/18/23 Rx Calcium/Magnesium/Zinc 1 tab PO TID 07/15/19 10/18/23 History [Noojmkc-Isnylxsgw-Eqmy Tablet] glipiZIDE [Glucotrol] 5 mg PO TID 07/15/19 10/18/23 History metFORMIN HCL [Glucophage] 500 mg PO TID 07/15/19 10/18/23 History Biotin 5 mg PO DAILY 09/21/23 10/18/23 History Cholecalciferol [Vitamin D3 (25 50 mcg PO DAILY 09/21/23 10/18/23 History Mcg = 1000 Iu)] Fexofenadine HCl [Shanika Allergy] 180 mg PO DAILY PRN 09/21/23 10/18/23 History Levothyroxine Sodium [Synthroid] 25 mcg PO QAM 09/21/23 10/18/23 History [place]-3/Dha/Epa/Fish Oil [Fish Oil 1 cap PO BID 09/21/23 10/18/23 History 1,000 mg Softgel] Pioglitazone [Actos] 45 mg PO DAILY 09/21/23 10/18/23 History Rivaroxaban [Xarelto] 20 mg PO DAILY 09/21/23 10/18/23 History Zolpidem [Ambien] 10 mg PO HS PRN 09/21/23 10/18/23 History hydroCHLOROthiazide [Hydrodiuril] 25 mg PO DAILY 09/21/23 10/18/23 History lisinopriL [Zestril] 20 mg PO BID 09/21/23 10/18/23 History Lactulose 10 gm PO TID PRN 10/18/23 10/18/23 History Linaclotide [Linzess] 145 mcg PO DAILY 10/18/23 10/18/23 History metroNIDAZOLE [Flagyl] 500 mg PO BID 10/18/23 10/18/23 History Allergies Allergy/AdvReac Type Severity Reaction Status Date / Time No Known Allergies Allergy Verified 12/14/23 20:24 Physical Exam Vitals: Vital Signs Temp Pulse Resp BP Pulse Ox 12/15/23 07:41 76 16 127/72 96 12/15/23 05:15 62 18 128/70 96 12/14/23 23:58 62 14 120/92 96 12/14/23 20:27 97.4 F L 70 16 137/74 98 12/14/23 20:21 97.8 F 64 18 144/72 99 Intake and Output 12/14/23 12/15/23 12/15/23 22:59 06:59 14:59 Other: Weight 95.254 kg Head normocephalic Neck supple Lungs clear to auscultation bilaterally no wheezing or crackles Heart regular rate and rhythm S1-S2, no rub or gallop Abdomen is soft nontender nondistended positive bowel sounds no hepatosplenomega ly Extremities no edema Neuro alert and orientated to 3Head normocephalic Results CBC & Chem 7: 12/15/23 07:06 12/15/23 07:06 Labs: Abnormal Lab Results - Last 24 Hours (Table) 12/14/23 12/14/23 12/15/23 Range/Units 21:05 21:05 02:23 RBC (4.30-5.90) m/uL Hgb (13.0-17.5) gm/dL APTT 37.4 H (22.0-30.0) sec Chloride (98-107) mmol/L BUN 25 H (9-20) mg/dL Glucose 181 H (74-99) mg/dL POC Glucose (mg/dL) 115 H (70-110) mg/dL 12/15/23 12/15/23 Range/Units 07:06 07:06 RBC 4.29 L (4.30-5.90) m/uL Hgb 12.8 L (13.0-17.5) gm/dL APTT (22.0-30.0) sec Chloride 108 H (98-107) mmol/L BUN (9-20) mg/dL Glucose 101 H (74-99) mg/dL POC Glucose (mg/dL) (70-110) mg/dL Assessment and Plan Assessment: 1. GI bleed 2. History of recent diagnosis of anal cancer. 3. History of atrial fibrillation maintained on Xarelto. Xarelto currently on hold SCDs ordered 4. History of diabetes mellitus. Sliding scale ordered 5. History of essential hypertension 6. History of coronary artery bypass graft surgery 7. History of prostate cancer 8. Previous history of bloody stool and August 2023 due to constipation DVT prophylaxis SCDs Xarelto currently on hold due to GI bleed. GI prophylax P rotonix Oncology and surgical services consulted Continue to monitor hemoglobin Clear liquid diet Time with Patient: Greater than 30 (Greater than 60% of the total time spent in counseling and coordination of carefinal)
[2023-12-15 12:50] LABS: Glucose,Whole Blood 161 mg/dL (70-110)
[2023-12-15] MEDS: INSULIN ASPART (NovoLOG) 100 UNIT/ML VIAL SQ SCH (13:00)
[2023-12-15 17:09] LABS: Glucose,Whole Blood 182 mg/dL (70-110)
--- NOTE | 2023-12-15 19:45 | P.CONS ---
History of Present Illness - Reason for Consult Consult date: 12/15/23 hx rectal cancer Requesting physician: Kierra Zhou - Chief Complaint rectal bleeding - History of Present Illness Patient is a 83 year old male with a history of rectal cancer. He is a patient of Dr. Shaikh. He first noticed a change in bowel habitis,diarrhea/alternating with constipation for about a year duration,then he noticed blood in stool in August/2023. He underwent CT scan of abdomen/pelvis on 09/21/2023 which showed mild circumferential wall thickening upper to to mid descending colon. He had a colonoscopy on 10/26/2023 which showed a 3 cm ulcerated lesion at distal rectum 3 mm from dendate line,biopsy was positive for invasive moderately to poorly di fferentiated carcinoma. He has a history of prostate cancer treated with brachytherapy years ago. MRI rectum on 11/17/2023 at [facility] showed T2 N0,non specific lesion in sacrum. CT chest at [facility] in October showed small non specific lung nodules. He then underwent MRI rectum, discussed with patient/family malignancy is an early stage cancer,T2N0. Patient was then referred to colorectal surgery, Dr Keith Ramirez. Pt has met with Dr. Ramirez, and case was being brought before the tumor board for further review and has upcoming appt this week to further discuss recommendations Patient presents emergency room for rectal bleeding . Patient states rectal bleeding started yesterday and has been having increasing delfino blood in stool with clotting. Denies abdominal pain, nausea or vomiting. Xarelto has been held upon admission. Last dose was yesterday at 4 PM. General surgery has been consulted, with plan to monitor CBC and symptoms for now, with no planned endoscopic evaluation at this time. CT AP showed no suspicious mass, focal fluid collection or hemorrhage. Labs reviewed, WBC 5.7, hemoglobin 12.8, platelets 164,000, MCV 92.2, MCH 29.9. LFTs and bilirubin WNL. Creatinine 0.84, creatinine > 90. Review of Systems 10 point ROS is negative except as stated in the HPI Past Medical History Past Medical History: Atrial Fibrillation, Cancer, Diabetes Mellitus, Hearing Disorder / Deafness, Hypertension, Prostate Disorder Additional Past Medical History / Comment(s): severe constipation with bright and dark bloody stool on 09-20-23, PROSTATE CA 2006., INFECTION OF RIGHT GREAT TOENAIL REMOVED IN MARCH 2019. 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 History of Any Multi-Drug Resistant Organisms: None Reported Past Surgical History: Appendectomy, Coronary Bypass/CABG, Orthopedic Surgery, Prostate Surgery Additional Past Surgical History / Comment(s): Left upper extremity tendon repair.,HEART TRIPLE BYPASS (JIMI 2016)., RIGHT GREAT TOENAIL REMOVED MAR 2019,radiation implants prostate 2006 Past Anesthesia/Blood Transfusion Reactions: No Reported Reaction Past Psychological History: No Psychological Hx Reported Smoking Status: Former smoker Past Alcohol Use History: None Reported Past Drug Use History: None Reported - Past Family History Father Family Medical History: Cancer, Congestive Heart Failure (CHF) Additional Family Medical History / Comment(s): prostate Mother Family Medical History: Cancer Additional Family Medical History / Comment(s): breast Medications and Allergies Home Medications Medication Instructions Recorded Confirmed Type Atorvastatin [Lipitor] 40 mg PO DAILY #30 tab 08/20/16 12/15/23 Rx Metoprolol Tartrate [Lopressor] 50 mg PO BID #60 tab 08/20/16 12/15/23 Rx Calcium/Magnesium/Zinc 1 tab PO TID 07/15/19 12/15/23 History [Zalrqsg-Whjvykjzw-Hhle Tablet] glipiZIDE [Glucotrol] 5 mg PO TID 07/15/19 12/15/23 History metFORMIN HCL [Glucophage] 500 mg PO TID 07/15/19 12/15/23 History Biotin 5 mg PO DAILY 09/21/23 12/15/23 History Cholecalciferol [Vitamin D3 (25 50 mcg PO DAILY 09/21/23 12/15/23 History Mcg = 1000 Iu)] Fexofenadine HCl [Shanika Allergy] 180 mg PO DAILY PRN 09/21/23 12/15/23 History Levothyroxine Sodium [Synthroid] 25 mcg PO DAILY 09/21/23 12/15/23 History [place]-3/Dha/Epa/Fish Oil [Fish Oil 1 cap PO BID 09/21/23 12/15/23 History 1,000 mg Softgel] Pioglitazone [Actos] 45 mg PO DAILY 09/21/23 12/15/23 History Rivaroxaban [Xarelto] 20 mg PO HS 09/21/23 12/15/23 History Zolpidem [Ambien] 10 mg PO HS PRN 09/21/23 12/15/23 History hydroCHLOROthiazide [Hydrodiuril] 25 mg PO DAILY 09/21/23 12/15/23 History lisinopriL [Zestril] 20 mg PO BID 09/21/23 12/15/23 History Lactulose 10 gm PO TID PRN 10/18/23 12/15/23 History Herbal Lax Colon Textile Knitter 2000mg 1 dose PO DAILY PRN 12/15/23 12/15/23 History Ibuprofen [Motrin] 800 mg PO Q8H PRN 12/15/23 12/15/23 History Linaclotide [Linzess] 290 mcg PO DAILY 12/15/23 12/15/23 History Allergies Allergy/AdvReac Type Severity Reaction Status Date / Time No Known Allergies Allergy Verified 12/15/23 10:57 Physical Exam Vitals: Vital Signs Temp Pulse Resp BP Pulse Ox 12/15/23 07:41 76 16 127/72 96 12/15/23 05:15 62 18 128/70 96 12/14/23 23:58 62 14 120/92 96 12/14/23 20:27 97.4 F L 70 16 137/74 98 12/14/23 20:21 97.8 F 64 18 144/72 99 Intake and Output 12/14/23 12/15/23 12/15/23 22:59 06:59 14:59 Other: Weight 95.254 kg - Constitutional General appearance: average body habitus, no acute distress - EENT Eyes: anicteric sclerae, EOMI ENT: hearing grossly normal - Respiratory breathing is even and unlabored - Cardiovascular well perfused - Gastrointestinal General gastrointestinal: soft, no tenderness - Integumentary Integumentary: no cyanotic - Neurologic Neurologic: CNII-XII intact - Musculoskeletal Musculoskeletal: strength equal bilaterally - Psychiatric Psychiatric: A&O x's 3 Results CBC & Chem 7: 12/15/23 07:06 12/15/23 07:06 Labs: Abnormal Lab Results - Last 24 Hours (Table) 12/14/23 12/14/23 12/15/23 Range/Units 21:05 21:05 02:23 RBC (4.30-5.90) m/uL Hgb (13.0-17.5) gm/dL APTT 37.4 H (22.0-30.0) sec Chloride (98-107) mmol/L BUN 25 H (9-20) mg/dL Glucose 181 H (74-99) mg/dL POC Glucose (mg/dL) 115 H (70-110) mg/dL 12/15/23 12/15/23 Range/Units 07:06 07:06 RBC 4.29 L (4.30-5.90) m/uL Hgb 12.8 L (13.0-17.5) gm/dL APTT (22.0-30.0) sec Chloride 108 H (98-107) mmol/L BUN (9-20) mg/dL Glucose 101 H (74-99) mg/dL POC Glucose (mg/dL) (70-110) mg/dL CT scan - abdomen: report reviewed CT scan - pelvis: report reviewed Assessment and Plan (1) Rectal cancer Current Visit: Yes Status: Acute Priority: High Code(s): C20 - MALIGNANT NEOPLASM OF RECTUM SNOMED Code(s): 434349475 (2) GIB (gastrointestinal bleeding) Current Visit: Yes Status: Acute Priority: High Code(s): K92.2 - GASTR OINTESTINAL HEMORRHAGE, UNSPECIFIED SNOMED Code(s): 37666308 Plan: Rectal cancer, GI bleed: Presents to the emergency room for rectal bleeding . Patient states rectal bleeding started yesterday and has been having increasing delfino blood in stool with clotting. Xarelto has been held upon admission. Last dose was yesterday at 4 PM. -Oncology history and plan as dictated in HPI -Has not yet started treatment, awaiting further recommendation from colorectal surgery. F/u scheduled for this upcoming week after tumor board review -CT AP showed no suspicious mass, focal fluid collection or hemorrhage. -General surgery has been consulted for endoscopic evaluation -Labs reviewed, WBC 5.7, hemoglobin 12.8, platelets 164,000, MCV 92.2, MCH 29.9. LFTs and bilirubin WNL. Creatinine 0.84, creatinine > 90 -Iron studies ordered -Continue to monitor CBC
[2023-12-15 20:15] LABS: Glucose,Whole Blood 230 mg/dL (70-110)
[2023-12-15 23:27] LABS: % Iron Saturation 30.93 (15.00-50.00)
[2023-12-16 05:59] LABS: Glucose,Whole Blood 119 mg/dL (70-110)
[2023-12-16] MEDS: PANTOPRAZOLE 40 MG TABLET PO SCH (06:47)
[2023-12-16 07:45] LABS: Basophils % (A) 1 %; Eosinophils # (A) 0.2 k/uL (0-0.7); Eosinophils % (A) 2 %; HCT 41.1 % (39.0-53.0); HGB 13.3 gm/dL (13.0-17.5); Lymphocytes # (A) 1.5 k/uL (1.0-4.8); Lymphocytes % (A) 22 %; MCH 29.9 pg (25.0-35.0); MCHC 32.3 g/dL (31.0-37.0); MCV 92.7 fL (80.0-100.0); Mean Platelet Volume 10.1; Monocytes # (A) 0.3 k/uL (0-1.0); Monocytes % (A) 5 %; Neutrophils # (A) 4.7 k/uL (1.3-7.7); Neutrophils % (A) 69 %; Platelet Count 192 k/uL (150-450); RBC 4.44 m/uL (4.30-5.90); RDW 13.6 % (11.5-15.5); WBC 6.9 k/uL (3.8-10.6)
[2023-12-16] MEDS ORDERED: ZOLPIDEM 5 MG TAB PO PRN (08:14)
[2023-12-16] MEDS ORDERED: LORATADINE 10 MG TAB PO PRN (08:14)
[2023-12-16] MEDS: metFORMIN 500 MG TAB PO SCH (08:59)
[2023-12-16] MEDS: ATORVASTATIN 40 MG TAB PO SCH (08:59)
[2023-12-16] MEDS: CALCIUM CARBONATE 500 MG CHEWABLE PO SCH (08:59)
[2023-12-16] MEDS: lisinopriL 20 MG TAB PO SCH (08:59)
[2023-12-16] MEDS: METOPROLOL TARTRATE 50 MG TAB PO SCH (08:59)
[2023-12-16] MEDS: glipiZIDE 5 MG TAB PO SCH (08:59)
[2023-12-16] MEDS: CHOLECALCIFEROL 25 MCG (1000 IU) TABLET PO SCH (08:59)
[2023-12-16] MEDS: hydroCHLOROthiazide 25 MG TAB PO SCH (08:59)
[2023-12-16] MEDS ORDERED: NON FORMULARY DRUG (Biotin [Biotin] 5 MG Capsule) PO SCH (09:00)
[2023-12-16] MEDS ORDERED: NON FORMULARY DRUG (Omega-3/Dha/Epa/Fish Oil [Fish Oil 1,000 Mg Softgel] 1 EACH Capsule) PO SCH (09:00)
[2023-12-16] MEDS: LEVOTHYROXINE 25 MCG TAB PO SCH (09:00)
[2023-12-16 09:58] LABS: ALT 18 U/L (4-49); AST 23 U/L (17-59); African American GFR (CKD) >90 (>60 ml/min/1.73 sqM); Albumin 4.1 g/dL (3.5-5.0); Alkaline Phosphatase 77 U/L (38-126); Anion Gap 9 mmol/L; Blood Urea Nitrogen 12 mg/dL (9-20); Calcium 9.6 mg/dL (8.4-10.2); Carbon Dioxide 21 mmol/L (22-30); Chloride 112 mmol/L (98-107); Glucose 125 mg/dL (74-99); Non-African American GFR(CKD) 90 (>60 ml/min/1.73 sqM); Potassium 3.6 mmol/L (3.5-5.1); Sodium 142 mmol/L (137-145); Total Bilirubin 0.9 mg/dL (0.2-1.3); Total Protein 6.4 g/dL (6.3-8.2)
[2023-12-16] MEDS: PIOGLITAZONE 45 MG TAB PO SCH (10:22)
[2023-12-16 11:40] LABS: Glucose,Whole Blood 127 mg/dL (70-110)
--- NOTE | 2023-12-16 13:55 | P.PN ---
Subjective Progress Note Date: 12/16/23 CHIEF COMPLAINT: Rectal bleeding HISTORY OF PRESENT ILLNESS: Patient reports no further rectal bleeding as of yesterday and today. Hemoglobin has gone up from 12.8-13.3. Vitals stable PHYSICAL EXAM: VITAL SIGNS: Reviewed. GENERAL: Well-developed in no acute distress. ABDOMEN: Soft. Nondistended. Nontender. NEUROLOGIC: Alert and oriented. Cranial nerves II through XII grossly intact. ASSESSMENT: 1. Anal cancer with rectal bleeding PLAN: -Hemoglobin stable -Continue to hold Xarelto for now -Continue clear liquid diet until seen by surgeon Physician Account Services Manager note has been reviewed by physician. Signing provider agrees with the documented findings, assessment, and plan of care. Objective - Vital Signs Vital signs: Vital Signs Temp 97.5 F L 12/16/23 08:50 Pulse 71 12/16/23 13:08 Resp 20 12/16/23 11:20 BP 112/64 12/16/23 11:20 Pulse Ox 97 12/16/23 11:20 FiO2 Intake & Output 12/15/23 12/16/23 12/16/23 18:59 06:59 18:59 Intake Total 800 Balance 800 Weight 95.254 kg 94.6 kg Intake: Intake, IV Titration 150 Amount Sodium Chloride 0.9% 1, 150 000 ml @ 75 mls/hr IV . [id number] [facility] Rx#:[id number] Oral 650 Other: Voiding Method Toilet Toilet # Voids 1 4 # Bowel Movements 1 - Labs CBC & Chem 7: 12/16/23 06:32 12/16/23 06:32 Labs: Abnormal Lab Results - Last 24 Hours (Table) 12/15/23 12/15/23 12/16/23 Range/Units 17:08 20:14 05:57 Chloride (98-107) mmol/L Carbon Dioxide (22-30) mmol/L Glucose (74-99) mg/dL POC Glucose (mg/dL) 182 H 230 H 119 H (70-110) mg/dL Hemoglobin A1c (<=6.0) % 12/16/23 12/16/23 12/16/23 Range/Units 06:32 06:32 11:38 Chloride 112 H (98-107) mmol/L Carbon Dioxide 21 L (22-30) mmol/L Glucose 125 H (74-99) mg/dL POC Glucose (mg/dL) 127 H (70-110) mg/dL Hemoglobin A1c 8.6 H (<=6.0) %
[2023-12-16 16:30] LABS: Glucose,Whole Blood 186 mg/dL (70-110)
--- NOTE | 2023-12-16 17:43 | P.PN ---
Subjective Progress Note Date: 12/16/23 Ciro justin is an 83 year old male patient who presented to the ER with concerns of bright red per rectum. Patient reports that symptoms started approximately 24 hours ago and increased throughout the day yesterday. Patient denies any nausea or vomiting. Patient does have a history of anal cancer in which she reports was diagnosed in October following colonoscopy patient follows with oncology services and Out of . Patient does have a history of anal cancer in which she reports was diagnosed in October following colonoscopy patient follows with oncology services and Doctor out of [facility]. Patient also reports he takes Xarelto for atrial fibrillation. CT of abdomen completed showing no suspicious mass or focal fluid collection or hemorrhage. Lab work revealing white blood cell 5.7. Hemoglobin 12.8, creatinine 0.84 bun 18. At this time patient will be admitted patient started on clear liquid diet. Xarelto on hold. Surgical and oncology services will be consulted.y gsurgical and onservices will be consulted.at this time patient denies chest pain or shortness of breath. Patient denies any urinary burning or frequency. Patient reports continued. Patient reports continued GI bleed. Will continue to monitor hemoglobin level closely and transfuse if needed On 12/16/2023 patient was seen and examined on the medical floor he is alert and oriented x 3 in no apparent distress there is no fever or chills no headache or dizziness no chest pain no shortness of breath no cough no nausea or vomiting no abdominal pain no diarrhea and no urinary symptoms, he has minimal rectal bleeding today, awaiting further recommendation from general surgery, will consult cardiology regarding anticoagulation. Objective - Vital Signs Vital signs: Vital Signs Temp 97.9 F 12/16/23 15:16 Pulse 71 12/16/23 15:16 Resp 16 12/16/23 15:16 BP 101/65 12/16/23 15:16 Pulse Ox 100 12/16/23 15:16 FiO2 Intake & Output 12/15/23 12/16/23 12/16/23 18:59 06:59 18:59 Intake Total 800 Balance 800 Weight 95.254 kg 94.6 kg Intake: Intake, IV Titration 150 Amount Sodium Chloride 0.9% 1, 150 000 ml @ 75 mls/hr IV . [id number] [id number] Rx#:[id number] Oral 650 Other: Voiding Method Toilet Toilet # Voids 1 2 # Bowel Movements 1 - Exam In general patient is alert and oriented x 3 in no distress HEENT head normocephalic and atraumatic Neck is supple no JVD no goiter no lymphadenopathy no carotid bruit Chest examination is clear to auscultation no crackles no wheezing Cardiac exam reveals regular heart sounds S1 and S2 no gallops no murmurs Abdomen is soft nontender no organomegaly with normal bowel sounds Extremity exam reveals no edema no cyanosis or clubbing Neurological examination reveals no gross focal deficits - Labs CBC & Chem 7: 12/16/23 06:32 12/16/23 06:32 Labs: Abnormal Lab Results - Last 24 Hours (Table) 12/15/23 12/16/23 12/16/23 Range/Units 20:14 05:57 06:32 Chloride (98-107) mmol/L Carbon Dioxide (22-30) mmol/L Glucose (74-99) mg/dL POC Glucose (mg/dL) 230 H 119 H (70-110) mg/dL Hemoglobin A1c 8.6 H (<=6.0) % 12/16/23 12/16/23 12/16/23 Range/Units 06:32 11:38 16:26 Chloride 112 H (98-107) mmol/L Carbon Dioxide 21 L (22-30) mmol/L Glucose 125 H (74-99) mg/dL POC Glucose (mg/dL) 127 H 186 H (70-110) mg/dL Hemoglobin A1c (<=6.0) % Assessment and Plan Plan: 1. Rectal bleeding 2. History of recent diagnosis of anal cancer. 3. History of atrial fibrillation maintained on Xarelto. Xarelto currently on hold SCDs ordered 4. History of diabetes mellitus. Sliding scale ordered 5. History of essential hypertension 6. History of coronary artery bypass graft surgery 7. History of prostate cancer 8. Previous history of bloody stool and August 2023 due to constipation DVT prophylaxis SCDs Xarelto currently on hold due to GI bleed. GI prophylax Protonix Oncology and surgical services consulted Continue to monitor hemoglobin Clear liquid diet
[2023-12-16 20:11] LABS: Glucose,Whole Blood 156 mg/dL (70-110)
[2023-12-17 03:59] VITALS: RESP 18
[2023-12-17 06:13] LABS: Glucose,Whole Blood 98 mg/dL (70-110)
[2023-12-17 08:12] LABS: Basophils # (A) 0.1 k/uL (0-0.2); Basophils % (A) 1 %; Eosinophils # (A) 0.3 k/uL (0-0.7); Eosinophils % (A) 5 %; HCT 39.7 % (39.0-53.0); HGB 13.3 gm/dL (13.0-17.5); Lymphocytes # (A) 1.3 k/uL (1.0-4.8); Lymphocytes % (A) 26 %; MCH 30.5 pg (25.0-35.0); MCHC 33.5 g/dL (31.0-37.0); Mean Platelet Volume 9.4; Monocytes # (A) 0.3 k/uL (0-1.0); Monocytes % (A) 5 %; Neutrophils % (A) 61 %; Platelet Count 199 k/uL (150-450); RBC 4.37 m/uL (4.30-5.90); RDW 13.5 % (11.5-15.5)
[2023-12-17 08:47] LABS: ALT 17 U/L (4-49); AST 20 U/L (17-59); African American GFR (CKD) >90 (>60 ml/min/1.73 sqM); Albumin 3.8 g/dL (3.5-5.0); Alkaline Phosphatase 71 U/L (38-126); Anion Gap 8 mmol/L; Blood Urea Nitrogen 8 mg/dL (9-20); Calcium 9.6 mg/dL (8.4-10.2); Carbon Dioxide 24 mmol/L (22-30); Chloride 107 mmol/L (98-107); Glucose 109 mg/dL (74-99); Non-African American GFR(CKD) 87 (>60 ml/min/1.73 sqM); Potassium 4.3 mmol/L (3.5-5.1); Sodium 139 mmol/L (137-145); Total Bilirubin 1.1 mg/dL (0.2-1.3); Total Protein 6.2 g/dL (6.3-8.2)
--- NOTE | 2023-12-17 09:04 | P.PN ---
Subjective Progress Note Date: 12/17/23 Ciro justin is an 83 year old male patient who presented to the ER with concerns of bright red per rectum. Patient reports that symptoms started approximately 24 hours ago and increased throughout the day yesterday. Patient denies any nausea or vomiting. Patient does have a history of anal cancer in which she reports was diagnosed in October following colonoscopy patient follows with oncology services and Out of . Patient does have a history of anal cancer in which she reports was diagnosed in October following colonoscopy patient follows with oncology services and Doctor out of [facility]. Patient also reports he takes Xarelto for atrial fibrillation. CT of abdomen completed showing no suspicious mass or focal fluid collection or hemorrhage. Lab work revealing white blood cell 5.7. Hemoglobin 12.8, creatinine 0.84 bun 18. At this time patient will be admitted patient started on clear liquid diet. Xarelto on hold. Surgical and oncology services will be consulted.y gsurgical and onservices will be consulted.at this time patient denies chest pain or shortness of breath. Patient denies any urinary burning or frequency. Patient reports continued. Patient reports continued GI bleed. Will continue to monitor hemoglobin level closely and transfuse if needed On 12/16/2023 patient was seen and examined on the medical floor he is alert and oriented x 3 in no apparent distress there is no fever or chills no headache or dizziness no chest pain no shortness of breath no cough no nausea or vomiting no abdominal pain no diarrhea and no urinary symptoms, he has minimal rectal bleeding today, awaiting further recommendation from general surgery, will consult cardiology regarding anticoagulation. On 12/17/2023 patient is alert and oriented x 3. Patient reports no further ep isodes of bleeding has been tolerating full liquid diet hemoglobin remained stable. Patient eager to be DC'd home. Explained to patient we are waiting for cardiology's input in regards to anticoagulation. Patient denies chest pain or shortness of breath. Patient denies nausea vomiting or diarrhea. Patient denies any urinary burning or frequency. Current vital signs temp 97.9, heart rate 83, respiratory 18, blood pressure 121/71 with a pulse ox of 96% on room air Objective - Vital Signs Vital signs: Vital Signs Temp 97.9 F 12/17/23 08:57 Pulse 83 12/17/23 08:57 Resp 18 12/17/23 08:57 BP 121/71 12/17/23 08:57 Pulse Ox 96 12/17/23 08:57 FiO2 Intake & Output 12/16/23 12/17/23 12/17/23 18:59 06:59 18:59 Weight 90.2 kg Other: Voiding Method Toilet Toilet # Voids 2 - Exam In general patient is alert and oriented x 3 in no distress HEENT head normocephalic and atraumatic Neck is supple no JVD no goiter no lymphadenopathy no carotid bruit Chest examination is clear to auscultation no crackles no wheezing Cardiac exam reveals regular heart sounds S1 and S2 no gallops no murmurs Abdomen is soft nontender no organomegaly with normal bowel sounds Extremity exam reveals no edema no cyanosis or clubbing Neurological examination reveals no gross focal deficits - Labs CBC & Chem 7: 12/17/23 07:33 12/17/23 07:33 Labs: Abnormal Lab Results - Last 24 Hours (Table) 12/16/23 12/16/23 12/16/23 Range/Units 06:32 06:32 11:38 Chloride 112 H (98-107) mmol/L Carbon Dioxide 21 L (22-30) mmol/L BUN (9-20) mg/dL Glucose 125 H (74-99) mg/dL POC Glucose (mg/dL) 127 H (70-110) mg/dL Hemoglobin A1c 8.6 H (<=6.0) % Total Protein (6.3-8.2) g/dL 12/16/23 12/16/23 12/17/23 Range/Units 16:26 20:09 07:33 Chloride (98-107) mmol/L Carbon Dioxide (22-30) mmol/L BUN 8 L (9-20) mg/dL Glucose 109 H (74-99) mg/dL POC Glucose (mg/dL) 186 H 156 H (70-110) mg/dL Hemoglobin A1c (<=6.0) % Total Protein 6.2 L (6.3-8.2) g/dL Assessment and Plan Plan: 1. Rectal bleeding 2. History of recent diagnosis of anal cancer. 3. History of atrial fibrillation maintained on Xarelto. Xarelto currently on hold SCDs ordered 4. History of diabetes mellitus. Sliding scale ordered 5. History of essential hypertension 6. History of coronary artery bypass graft surgery 7. History of prostate cancer 8. Previous history of bloody stool and August 2023 due to constipation DVT prophylaxis SCDs Xarelto currently on hold due to GI bleed. GI prophylax Protonix Oncology and surgical services consulted Cardiology services consulted Continue to monitor hemoglobin Clear liquid diet
[2023-12-17 11:56] LABS: Glucose,Whole Blood 229 mg/dL (70-110)
--- NOTE | 2023-12-17 13:35 | P.CRDCN ---
History of Present Illness Consult date: 12/17/23 Reason for Consult (text): Atrial fibrillation on anticoagulation History of present illness: This is an 83-year-old male patient of Dr. Joel with past medical history of coronary artery disease status post CABG, paroxysmal atrial fibrillation rhythm control, hypertension, hyperlipidemia, diabetes mellitus type 2. We have been asked to evaluate the patient for atrial fibrillation on anticoagulation. Patient presented to the hospital due to rectal bleeding with known history of anal cancer. He has been seen by general surgery and oncology. Due to the bleeding, Xarelto has been placed on hold. Patient gives history that about 3 weeks ago he had an episode of atrial fibrillation lasted about 1-1/2 days. He also had a little bit of chest pain and upper left arm pain at all have resolved. At that time he did have a sensation of pounding in his chest. He denies any at this time. No chest pain, no shortness of breath no syncope, no diarrhea, no PND. He states he has had intermittent constipation and his last 20 pounds recently. Blood pressure 121/71, heart rate 83, pulse ox 99% on room air. CT of the abdomen pelvis revealed no suspicious mass. No suspicious focal fluid collection or hemorrhage. Laboratory studies: CBC within normal limits. Creatinine 0.73 and BUN 8. Troponin negative x 1. Home cardiac medications: Atorvastatin 40 mg daily, hydrochlorothiazide 25 mg daily, lisinopril 20 mg twice daily, Lopressor 50 mg twice daily, Xarelto 20 mg at bedtime. Echocardiogram performed in the office on 12/06/2021 revealed EF 50 to 55%. Mild left ventricular hypertrophy. Mild aortic regurgitation. Mild to moderate mitral regurgitation, mild tricuspid regurgitation, PASP 52 mmHg. Review Of Systems: At the time of my exam: CONSTITUTIONAL: Denies fever or chills. Reports weight loss. HEENT: Denies blurred vision, vision changes, or eye pain. Denies hemoptysis CARDIOVASCULAR: Denies chest pain. Denies orthopnea. Denies PND. Denies palpitations RESPIRATORY: Denies shortness of breath. GASTROINTESTINAL: Denies abdominal pain. Denies nausea or vomiting. HEMATOLOGIC: Reports rectal bleeding. GENITOURINARY: Denies any blood in urine. SKIN: Denies puritis. Denies rash. Physical examination: Gen: This is an 83-year-old male in no acute distress VS: reviewed HEENT: Head is atraumatic, normocephalic. Pupils equal, round. Sclerae is anicteric. NECK: Supple. No JVD. LUNGS: Clear to auscultation. No wheezes or rhonchi. No intercostal retractions. HEART: Regular rate and rhythm. 2/6 systolic ejection murmur at the base. ABDOMEN: Soft No tenderness. EXTREMITIES: No pedal edema. No calf tenderness. NEUROLOGICAL: Patient is awake, alert and oriented x3. Assessment: Rectal bleeding secondary to anal cancer Coronary artery disease status post CABG Paroxysmal atrial fibrillation Hypertension Hyperlipidemia Diabetes mellitus type 2 Plan: Continue patient's home cardiac medications Continue to hold Xarelto Patient may follow-up in the office in [address] Joel. Patient is cleared for discharge from cardiology. Thank you kindly for this consultation. Nurse practitioner note has been reviewed, I agree with documented findings and plan of care. Patient was seen and examined. Past Medical History Past Medical History: Atrial Fibrillation, Cancer, Diabetes Mellitus, Hearing Disorder / Deafness, Hypertension, Prostate Disorder Additional Past Medical History / Comment(s): severe constipation with bright and dark bloody stool on 09-20-23, PROSTATE CA 2006., INFECTION OF RIGHT GREAT TOENAIL REMOVED IN MARCH 2019. 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 History of Any Multi-Drug Resistant Organisms: None Reported Past Surgical History: Appendectomy, Coronary Bypass/CABG, Orthopedic Surgery, Prostate Surgery Additional Past Surgical History / Comment(s): Left upper extremity tendon repair.,HEART TRIPLE BYPASS (JIMI 2016)., RIGHT GREAT TOENAIL REMOVED MAR 2019,radiation implants prostate 2006 Past Anesthesia/Blood Transfusion Reactions: No Reported Reaction Past Psychological History: No Psychological Hx Reported Smoking Status: Former smoker Past Alcohol Use History: None Reported Past Drug Use History: None Reported - Past Family History Father Family Medical History: Cancer, Congestive Heart Failure (CHF) Additional Family Medical History / Comment(s): prostate Mother Family Medical History: Cancer Additional Family Medical History / Comment(s): breast Medications and Allergies Home Medications Medication Instructions Recorded Confirmed Type Atorvastatin [Lipitor] 40 mg PO DAILY #30 tab 08/20/16 12/15/23 Rx Metoprolol Tartrate [Lopressor] 50 mg PO BID #60 tab 08/20/16 12/15/23 Rx Calcium/Magnesium/Zinc 1 tab PO TID 07/15/19 12/15/23 History [[id number]-[id number] Tablet] glipiZIDE [Glucotrol] 5 mg PO TID 07/15/19 12/15/23 History metFORMIN HCL [Glucophage] 500 mg PO TID 07/15/19 12/15/23 History Biotin 5 mg PO DAILY 09/21/23 12/15/23 History Cholecalciferol [Vitamin D3 (25 50 mcg PO DAILY 09/21/23 12/15/23 History Mcg = 1000 Iu)] Fexofenadine HCl [Shanika Allergy] 180 mg PO DAILY PRN 09/21/23 12/15/23 History Levothyroxine Sodium [Synthroid] 25 mcg PO DAILY 09/21/23 12/15/23 History [place]-3/Dha/Epa/Fish Oil [Fish Oil 1 cap PO BID 09/21/23 12/15/23 History 1,000 mg Softgel] Pioglitazone [Actos] 45 mg PO DAILY 09/21/23 12/15/23 History Rivaroxaban [Xarelto] 20 mg PO HS 09/21/23 12/15/23 History Zolpidem [Ambien] 10 mg PO HS PRN 09/21/23 12/15/23 History hydroCHLOROthiazide [Hydrodiuril] 25 mg PO DAILY 09/21/23 12/15/23 History lisinopriL [Zestril] 20 mg PO BID 09/21/23 12/15/23 History Lactulose 10 gm PO TID PRN 10/18/23 12/15/23 History Herbal Lax Colon Open Developer Operator 2000mg 1 dose PO DAILY PRN 12/15/23 12/15/23 History Ibuprofen [Motrin] 800 mg PO Q8H PRN 12/15/23 12/15/23 History Linaclotide [Linzess] 290 mcg PO DAILY 12/15/23 12/15/23 History Allergies Allergy/AdvReac Type Severity Reaction Status Date / Time No Known Allergies Allergy Verified 12/15/23 10:57 Physical Exam Vitals: Vital Signs Temp Pulse Resp BP Pulse Ox 12/17/23 08:57 97.9 F 83 18 121/71 96 12/17/23 08:00 83 18 12/17/23 03:58 98.1 F 64 18 114/61 96 12/17/23 02:00 16 12/17/23 00:00 67 18 109/62 98 12/16/23 20:00 68 18 96/62 96 12/16/23 15:16 97.9 F 71 16 101/65 100 12/16/23 13:08 71 12/16/23 11:20 71 20 112/64 97 Intake and Output 12/16/23 12/17/23 12/17/23 22:59 06:59 14:59 Other: Voiding Method Toilet Toilet Toilet # Voids 2 Weight 90.2 kg Results 12/17/23 07:33 12/17/23 07:33 Cardiac Enzymes 12/17/23 Range/Units 07:33 AST 20 (17-59) U/L CBC 12/17/23 Range/Units 07:33 WBC 5.0 (3.8-10.6) k/uL RBC 4.37 (4.30-5.90) m/uL Hgb 13.3 (13.0-17.5) gm/dL Hct 39.7 (39.0-53.0) % Plt Count 199 (150-450) k/uL Comprehensive Metabolic Panel 12/17/23 Range/Units 07:33 Sodium 139 (137-145) mmol/L Potassium 4.3 (3.5-5.1) mmol/L Chloride 107 (98-107) mmol/L Carbon Dioxide 24 (22-30) mmol/L BUN 8 L (9-20) mg/dL Creatinine 0.73 (0.66-1.25) mg/dL Glucose 109 H (74-99) mg/dL Calcium 9.6 (8.4-10.2) mg/dL AST 20 (17-59) U/L ALT 17 (4-49) U/L Alkaline Phosphatase 71 (38-126) U/L Total Protein 6.2 L (6.3-8.2) g/dL Albumin 3.8 (3.5-5.0) g/dL Current Medications Generic Name Dose Route Start Last Admin Trade Name Freq PRN Reason Stop Dose Admin Atorvastatin Calcium 40 mg 12/16/23 09:00 12/17/23 08:54 Atorvastatin 40 Mg Tab PO 40 mg DAILY TIKA Administration Calcium Carbonate/Glycine 500 mg 12/16/23 09:00 12/17/23 08:53 Calcium Carbonate 500 Mg Chewable PO 500 mg TID [facility] Administration Cholecalciferol 50 mcg 12/16/23 09:00 12/17/23 08:53 Cholecalciferol 25 Mcg (1000 Iu) Tablet PO 50 mcg DAILY TIKA Administration Dextrose/Water 25 ml 12/15/23 10:28 Dextrose 50% Syringe 50 Ml IVP PER PROTOCOL PRN Hypoglycemia Protocol Dextrose/Water 50 ml 12/15/23 10:28 Dextrose 50% Syringe 50 Ml IVP PER PROTOCOL PRN Hypoglycemia Protocol Glipizide 5 mg 12/16/23 09:00 12/17/23 08:54 Glipizide 5 Mg Tab PO 5 mg TID [facility] Administration Hydrochlorothiazide 25 mg 12/16/23 09:00 12/17/23 08:54 Hydrochlorothiazide 25 Mg Tab PO 25 mg DAILY [facility] Administration Sodium Chloride 1,000 mls @ 75 mls/hr 12/14/23 22:00 12/17/23 06:54 Saline 0.9% IV Not Given .[id number] [facility] Insulin Aspart 0 unit 12/15/23 12:30 12/17/23 06:54 Insulin Aspart (Novolog) 100 Unit/Ml Vial SQ Not Given ACHS [facility] Protocol Levothyroxine Sodium 25 mcg 12/16/23 09:00 12/17/23 06:56 Levothyroxine 25 Mcg Tab PO 25 mcg DAILY@0630 [facility] Administration Lisinopril 20 mg 12/16/23 09:00 12/17/23 08:54 Lisinopril 20 Mg Tab PO 20 mg BID [facility] Administration Loratadine 10 mg 12/16/23 08:14 Loratadine 10 Mg Tab PO DAILY PRN Allergy Symptoms Metformin HCl 500 mg 12/16/23 09:00 12/17/23 08:54 Metformin 500 Mg Tab PO 500 mg TID [facility] Administration Metoprolol Tartrate 50 mg 12/16/23 09:00 12/17/23 08:54 Metoprolol Tartrate 50 Mg Tab PO 50 mg BID TIKA Administration Morphine Sulfate 4 mg 12/14/23 21:49 Morphine Sulfate 4 Mg/Ml Syringe IV Q4HR PRN Severe Pain (Scale 7 to 10) Naloxone HCl 0.2 mg 12/14/23 21:49 Naloxone 0.4 Mg/Ml 1 Ml Vial IV Q2M PRN Opioid Reversal Ondansetron HCl 4 mg 12/14/23 21:49 Ondansetron 4 Mg/2 Ml Vial IVP Q8HR PRN Nausea And Vomiting Pantoprazole Sodium 40 mg 12/16/23 07:30 12/17/23 06:56 Pantoprazole 40 Mg Tablet PO 40 mg [id number] TIKA Administration Pioglitazone HCl 45 mg 12/16/23 09:00 12/17/23 08:53 Pioglitazone 45 Mg Tab PO 45 mg DAILY TIKA Administration Zolpidem Tartrate 10 mg 12/16/23 08:14 Zolpidem 5 Mg Tab PO HS PRN Insomnia Intake and Output 12/16/23 12/17/23 12/17/23 22:59 06:59 14:59 Other: Voiding Method Toilet Toilet Toilet # Voids 2 Weight 90.2 kg 12/17/23 07:33 12/17/23 07:33
--- NOTE | 2023-12-17 15:19 | P.PN ---
Subjective Progress Note Date: 12/17/23 Patient seen and examined at bedside. Denies any rectal bleeding. Hemoglobin stable. Objective - Vital Signs Vital signs: Vital Signs Temp 97.7 F 12/17/23 11:48 Pulse 58 L 12/17/23 14:00 Resp 18 12/17/23 14:00 BP 108/63 12/17/23 11:48 Pulse Ox 99 12/17/23 11:48 FiO2 Intake & Output 12/16/23 12/17/23 12/17/23 18:59 06:59 18:59 Weight 90.2 kg Other: Voiding Method Toilet Toilet Toilet # Voids 2 2 - Constitutional General appearance: Present: cooperative, no acute distress - Gastrointestinal Gastrointestinal Comment(s): Soft, nontender, nondistended, no rebound, no guarding - Labs CBC & Chem 7: 12/17/23 07:33 12/17/23 07:33 Labs: Abnormal Lab Results - Last 24 Hours (Table) 12/16/23 12/16/23 12/17/23 Range/Units 16:26 20:09 07:33 BUN 8 L (9-20) mg/dL Glucose 109 H (74-99) mg/dL POC Glucose (mg/dL) 186 H 156 H (70-110) mg/dL Total Protein 6.2 L (6.3-8.2) g/dL 12/17/23 Range/Units 11:55 BUN (9-20) mg/dL Glucose (74-99) mg/dL POC Glucose (mg/dL) 229 H (70-110) mg/dL Total Protein (6.3-8.2) g/dL Assessment and Plan Plan: 83-year-old male with anal cancer with concern of rectal bleeding. He has not had any further rectal bleeding over the past 24 to 48 hours. We will plan to advance his diet. He has not had any further bowel function since his arrival. Patient states that he follows with surgeons in [place] for treatment for his anal cancer and would like to continue to follow with them. No plan for acute surgical intervention at this time.
[2023-12-17 15:29] VITALS: BP 94/41; PULSE 68; TEMP 98.1
--- NOTE | 2023-12-29 08:56 | P.DS ---
Providers Date of admission: 12/14/23 21:50 Expected date of discharge: 12/17/23 Attending physician: Brando Miller Consults: 12/14/23 21:49 Consult Physician Routine Consulting Provider: Rj Daly Consult Reason/Comments: gib Do you want consulting provider notified?: Yes 12/15/23 10:22 Consult Physician Routine Consulting Provider: Marv Caceres Consult Reason/Comments: anal cancer established person Do you want consulting provider notified?: Yes 12/16/23 17:43 Consult Physician Routine Consulting Provider: Mohan Joel Consult Reason/Comments: A-fib, anticoagulation Do you want consulting provider notified?: Yes Primary care physician: Brando Angela [facility] Course: Discharge diagnosis 1. Rectal bleeding 2. History of recent diagnosis of anal cancer. 3. History of atrial fibrillation maintained on Xarelto. Xarelto currently on hold SCDs ordered 4. History of diabetes mellitus. Sliding scale ordered 5. History of essential hypertension 6. History of coronary artery bypass graft surgery 7. History of prostate cancer 8. Previous history of bloody stool and August 2023 due to constipation Hospital course Ciro justin is an 83 year old male patient who presented to the ER with concerns of bright red per rectum. Patient reports that symptoms started approximately 24 hours ago and increased throughout the day yesterday. Patient denies any nausea or vomiting. Patient does have a history of anal cancer in which she reports was diagnosed in October following colonoscopy patient follows with oncology services and Out of . Patient does have a history of anal cancer in which she reports was diagnosed in October following colonoscopy patient follows with oncology services and Doctor out [facility]. Patient also reports he takes Xarelto for atrial fibrillation. CT of abdomen completed showing no suspicious mass or focal fluid collection or hemorrhage. Lab work revealing white blood cell 5.7. Hemoglobin 12.8, creatinine 0.84 bun 18. At this time patient will be admitted patient started on clear liquid diet. Xarelto on hold. Surgical and oncology services will be consulted.y gsurgical and onservices will be consulted.at this time patient denies chest pain or shortness of breath. Patient denies any urinary burning or frequency. Patient reports continued. Patient reports continued GI bleed. Will continue to monitor hemoglobin level closely and transfuse if needed On 12/16/2023 patient was seen and examined on the medical floor he is alert and oriented x 3 in no apparent distress there is no fever or chills no headache or dizziness no chest pain no shortness of breath no cough no nausea or vomiting no abdominal pain no diarrhea and no urinary symptoms, he has minimal rectal bleeding today, awaiting further recommendation from general surgery, will consult cardiology regarding anticoagulation. On 12/17/2023 patient is alert and oriented x 3. Patient reports no further episodes of bleeding has been tolerating full liquid diet hemoglobin remained stable. Patient eager to be DC'd home. Explained to patient we are waiting for cardiology's input in regards to anticoagulation. Patient denies chest pain or shortness of breath. Patient denies nausea vomiting or diarrhea. Patient denies any urinary burning or frequency. Current vital signs temp 97.9, heart rate 83, respiratory 18, blood pressure 121/71 with a pulse ox of 96% on room air Patient was evaluated by cardiology services recommendations to hold Xarelto and follow-up in 2 weeks for cardiology Patient Condition at Discharge: Stable Plan - Discharge Summary Discharge Rx Participant: No New Discharge Prescriptions: Continue Atorvastatin [Lipitor] 40 mg PO DAILY #30 tab Metoprolol Tartrate [Lopressor] 50 mg PO BID #60 tab metFORMIN HCL [Glucophage] 500 mg PO TID glipiZIDE [Glucotrol] 5 mg PO TID Calcium/Magnesium/Zinc [Ddjrilv-Oxcasghsh-Ommh Tablet] 1 tab PO TID Cholecalciferol [Vitamin D3 (25 Mcg = 1000 Iu)] 50 mcg PO DAILY hydroCHLOROthiazide [Hydrodiuril] 25 mg PO DAILY Pioglitazone [Actos] 45 mg PO DAILY Levothyroxine Sodium [Synthroid] 25 mcg PO DAILY Zolpidem [Ambien] 10 mg PO HS PRN PRN Reason: Insomnia [place]-3/Dha/Epa/Fish Oil [Fish Oil 1,000 mg Softgel] 1 cap PO BID Biotin 5 mg PO DAILY lisinopriL [Zestril] 20 mg PO BID Fexofenadine HCl [Shanika Allergy] 180 mg PO DAILY PRN PRN Reason: Allergy Symptoms Lactulose 10 gm PO TID PRN PRN Reason: Constipation Herbal Lax Colon Diesel Power Shovel Operator 2000mg 1 dose PO DAILY PRN PRN Reason: Gi Upset Linaclotide [Linzess] 290 mcg PO DAILY Discontinued Rivaroxaban [Xarelto] 20 mg PO HS Ibuprofen [Motrin] 800 mg PO Q8H PRN PRN Reason: Pain Discharge Medication List Atorvastatin [Lipitor] 40 mg PO DAILY #30 tab 08/20/16 [Rx] Metoprolol Tartrate [Lopressor] 50 mg PO BID #60 tab 08/20/16 [Rx] Calcium/Magnesium/Zinc [Midgvlr-Gdncpiaxx-Lkjb Tablet] 1 tab PO TID 07/15/19 [History] glipiZIDE [Glucotrol] 5 mg PO TID 07/15/19 [History] metFORMIN HCL [Glucophage] 500 mg PO TID 07/15/19 [History] Biotin 5 mg PO DAILY 09/21/23 [History] Cholecalciferol [Vitamin D3 (25 Mcg = 1000 Iu)] 50 mcg PO DAILY 09/21/23 [Histo ry] Fexofenadine HCl [Shanika Allergy] 180 mg PO DAILY PRN 09/21/23 [History] Levothyroxine Sodium [Synthroid] 25 mcg PO DAILY 09/21/23 [History] [place]-3/Dha/Epa/Fish Oil [Fish Oil 1,000 mg Softgel] 1 cap PO BID 09/21/23 [History] Pioglitazone [Actos] 45 mg PO DAILY 09/21/23 [History] Zolpidem [Ambien] 10 mg PO HS PRN 09/21/23 [History] hydroCHLOROthiazide [Hydrodiuril] 25 mg PO DAILY 09/21/23 [History] lisinopriL [Zestril] 20 mg PO BID 09/21/23 [History] Lactulose 10 gm PO TID PRN 10/18/23 [History] Herbal Lax Colon Diesel Power Shovel Operator 2000mg 1 dose PO DAILY PRN 12/15/23 [History] Linaclotide [Linzess] 290 mcg PO DAILY 12/15/23 [History] Follow up Appointment(s)/Referral(s): Mohan Joel MD [STAFF PHYSICIAN] - 12/25/23 11:00 am Rj Daly DO [Medical Doctor] - 1 Week Brando Miller MD [Primary Care Provider] - 12/20/23 10:15 am Patient Instructions/Handouts: Gastrointestinal Bleeding (DC) Discharge Disposition: HOME SELF-CARE
== END 2023-12-17 17:05 | disposition home or self-care (01) ==
LOC: EC 20:16 → 4SSUR 21:50 → 3SCARD 22:02
PROVIDERS: ADMIT Internal Medicine; ATTEND Internal Medicine
DX: C21.8 Malignant neoplasm of overlapping sites of rectum, anus and anal canal (principal); K62.5 Hemorrhage of anus and rectum; I11.9 Hypertensive heart disease without heart failure; I48.0 Paroxysmal atrial fibrillation; I08.3 Combined rheumatic disorders of mitral, aortic and tricuspid valves; E11.9 Type 2 diabetes mellitus without complications; I25.10 Atherosclerotic heart disease of native coronary artery without angina pectoris; E78.5 Hyperlipidemia, unspecified; R91.8 Other nonspecific abnormal finding of lung field; R07.9 Chest pain, unspecified; M79.602 Pain in left arm; R19.4 Change in bowel habit; Z79.01 Long term (current) use of anticoagulants; Z79.84 Long term (current) use of oral hypoglycemic drugs; Z79.890 Hormone replacement therapy; Z79.899 Other long term (current) drug therapy; Z87.891 Personal history of nicotine dependence; Z92.3 Personal history of irradiation; Z95.1 Presence of aortocoronary bypass graft; Z85.46 Personal history of malignant neoplasm of prostate; Z87.19 Personal history of other diseases of the digestive system
CPT/HCPCS: 36415; 74177; 80048; 80053; 82728; 83036; 83540; 83550; 83690; 83735; 84484; 85025; 85730; 86850; 86900; 86901; 96360; 96361; 99291

== ENCOUNTER 2024-03-14 21:55 | Emergency (ER) | payer MEDICARE ==
[2024-03-14 22:12] VITALS: TEMP 97.2
--- NOTE | 2024-03-14 22:25 | ED ---
Male Urogenital HPI - General Chief complaint: Urogenital Stated complaint: Bladder infection Time Seen by Provider: 03/14/24 22:13 Source: patient, family Mode of arrival: ambulatory - History of Present Illness Initial comments: This is a 83-year-old male with history of of colorectal cancer and colostomy bag presenting to the emergency department for complaint of dysuria over the past 4 days. States that he was recently admitted to [facility] for a 6 week stay and underwent partial colorectal removal and colostomy placement. States that he had a Du catheter during his stay however this catheter was removed approximately 2 weeks before discharge on 03/09/24. States that over the past 4 days he has been experiencing dysuria and increase in urinary frequency with decrease in urinary output in addition to increase in urinary urgency. Denies hematuria, fevers, chills, abdominal pain, nausea, vomiting, flank pain. Denies history of urinary tract infections. Patient states that he contact his primary care provider who recommended that he report to the emergency department for further evaluation. - Related Data Home Medications Medication Instructions Recorded Confirmed Calcium/Magnesium/Zinc 1 tab PO TID 07/15/19 12/15/23 [Asurhmy-Xhmpsshts-Uzdx Tablet] glipiZIDE [Glucotrol] 5 mg PO TID 07/15/19 12/15/23 metFORMIN HCL [Glucophage] 500 mg PO TID 07/15/19 12/15/23 Biotin 5 mg PO DAILY 09/21/23 12/15/23 Cholecalciferol [Vitamin D3 (25 50 mcg PO DAILY 09/21/23 12/15/23 Mcg = 1000 Iu)] Fexofenadine HCl [Shanika Allergy] 180 mg PO DAILY PRN 09/21/23 12/15/23 Levothyroxine Sodium [Synthroid] 25 mcg PO DAILY 09/21/23 12/15/23 [place]-3/Dha/Epa/Fish Oil [Fish Oil 1 cap PO BID 09/21/23 12/15/23 1,000 mg Softgel] Pioglitazone [Actos] 45 mg PO DAILY 09/21/23 12/15/23 Zolpidem [Ambien] 10 mg PO HS PRN 09/21/23 12/15/23 hydroCHLOROthiazide [Hydrodiuril] 25 mg PO DAILY 09/21/23 12/15/23 lisinopriL [Zestril] 20 mg PO BID 09/21/23 12/15/23 Lactulose 10 gm PO TID PRN 10/18/23 12/15/23 Herbal Lax Colon Print Line Operator 2000mg 1 dose PO DAILY PRN 12/15/23 12/15/23 Linaclotide [Linzess] 290 mcg PO DAILY 12/15/23 12/15/23 Previous Rx's Medication Instructions Recorded Atorvastatin [Lipitor] 40 mg PO DAILY #30 tab 08/20/16 Metoprolol Tartrate [Lopressor] 50 mg PO BID #60 tab 08/20/16 Ciprofloxacin HCl [Cipro] 500 mg PO Q12HR #20 tablet 03/15/24 Allergies Allergy/AdvReac Type Severity Reaction Status Date / Time No Known Allergies Allergy Verified 12/15/23 10:57 Review of Systems ROS Statement: Those systems with pertinent positive or pertinent negative responses have been documented in the HPI. ROS Other: All systems not noted in ROS Statement are negative. Past Medical History Past Medical History: Atrial Fibrillation, Cancer, Diabetes Mellitus, Hearing Disorder / Deafness, Hypertension, Prostate Disorder Additional Past Medical History / Comment(s): severe constipation with bright and dark bloody stool on 09-20-23, PROSTATE CA 2006., INFECTION OF RIGHT GREAT TOENAIL REMOVED IN MARCH 2019. 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 History of Any Multi-Drug Resistant Organisms: None Reported Past Surgical History: Appendectomy, Coronary Bypass/CABG, Orthopedic Surgery, Prostate Surgery Additional Past Surgical History / Comment(s): Left upper extremity tendon re pair.,HEART TRIPLE BYPASS (JIMI 2016)., RIGHT GREAT TOENAIL REMOVED MAR 2019,radiation implants prostate 2006 Past Anesthesia/Blood Transfusion Reactions: No Reported Reaction Past Psychological History: No Psychological Hx Reported Smoking Status: Former smoker Past Alcohol Use History: None Reported Past Drug Use History: None Reported - Past Family History Father Family Medical History: Cancer, Congestive Heart Failure (CHF) Additional Family Medical History / Comment(s): prostate Mother Family Medical History: Cancer Additional Family Medical History / Comment(s): breast General Exam Head exam: Present: atraumatic, normocephalic, normal inspection Neck exam: Present: normal inspection. Absent: tenderness, meningismus, lymphadenopathy Respiratory exam: Present: normal lung sounds bilaterally. Absent: respiratory distress, wheezes, rales, rhonchi, stridor Cardiovascular Exam: Present: regular rate, normal rhythm, normal heart sounds. Absent: systolic murmur, diastolic murmur, rubs, gallop, clicks GI/Abdominal exam: Present: soft, normal bowel sounds, other (left sided ostomy with appropriate drainage, no tenderness or surrounding erythema). Absent: distended, tenderness, guarding, rebound, rigid Extremities exam: Present: normal inspection, full ROM, normal capillary refill. Absent: tenderness, pedal edema, joint swelling, calf tenderness Back exam: Present: normal inspection Neurological exam: Present: alert, oriented X3, CN II-XII intact Course Vital Signs 03/14/24 22:03 Temperature 97.2 F L Pulse Rate 75 Respiratory 18 Rate Blood Pressure 119/60 O2 Sat by Pulse 100 Oximetry Medical Decision Making - Medical Decision Making Was pt. sent in by a medical professional or institution (, PA, MANAGER ENVIRONMENT[employer] HEALTH AND SAFET[employer], urgent care, hospital, or senior care...) When possible be specific @ -No Did you speak to anyone other than the patient for history (EMS, parent, family, police, friend...)? What history was obtained from this source @ -Spoke to patient's son at bedside is that the patient was admitted to [facility] for approximately 6 weeks following a partial colectomy and subsequent ostomy placement Did you review nursing and triage notes (agree or disagree)? Why? @ -I reviewed and agree with nursing and triage notes Were old charts reviewed (outside hosp., previous admission, EMS record, old EKG, old radiological studies, urgent care reports/EKG's, senior care records)? Report findings @ -No old charts were reviewed Differential Diagnosis (chest pain, altered mental status, abdominal pain women, abdominal pain men, vaginal bleeding, weakness, fever, dyspnea, syncope, headache, dizziness, GI bleed, back pain, seizure, CVA, palpatations, mental health, musculoskeletal)? @ -Differential Abdominal Pain Men: Appendicitis, cholecystitis, diverticulosis, ischemic bowel, pancreatitis, hepatitis, UTI, gastroenteritis, AAA, incarcerated hernia, bowel obstruction, constipation, inflammatory bowel, hepatitis, peptic ulcer disease, splenic infarction, perforated viscus, testicular torsion, this is not meant to be an all-inclusive list EKG interpreted by me (3pts min.). @ -none X-rays interpreted by me (1pt min.). @ -None done CT interpreted by me (1pt min.). @ -None done U/S interpreted by me (1pt. min.). @ -None done What testing was considered but not performed or refused? (CT, X-rays, U/S, labs)? Why? @ -None What meds were considered but not given or refused? Why? @ -None Did you discuss the management of the patient with other professionals (leslie zhong i.e. , PA, MANAGER [employer] SAFET[employer], lab, RT, psych nurse, social work assistant, straw hat brim cutter operator, teacher, disciplinary hearing officer, skilled nursing case manager)? Give summary @ -No Was smoking cessation discussed for >3mins.? @ -No Was critical care preformed (if so, how long)? @ -No Were there social determinants of health that impacted care today? How? (Homelessness, low income, unemployed, alcoholism, drug addiction, transportation, low edu. Level, literacy, decrease access to med. care, half-way, rehab)? @ -No Was there de-escalation of care discussed even if they declined (Discuss DNR or withdrawal of care, Hospice)? DNR status @ -No What co-morbidities impacted this encounter? (DM, HTN, Smoking, COPD, CAD, Cancer, CVA, ARF, Chemo, Hep., AIDS, mental health diagnosis, sleep apnea, morbid obesity)? @ -None Was patient admitted / discharged? Hospital course, mention meds given and route, prescriptions, significant lab abnormalities, going to OR and other pertinent info. @ -Discharge. 83-year-old male presenting with dysuria. Testing remarkable for mild lactic acidosis of 2.8 likely secondary to dehydration. Urinalysis remar kable for infection including positive nitrates, large leukocyte esterase and white blood cells. Patient's urine is sent for culture. Provided with initial dose of Cipro in the emergency department and full course sent to the pharmacy. discussed with Dr. Wells Undiagnosed new problem with uncertain prognosis? @ -No Drug Therapy requiring intensive monitoring for toxicity (Heparin, Nitro, Insulin, Cardizem)? @ -No Were any procedures done? @ -No Diagnosis/symptom? @ -UTI Acute, or Chronic, or Acute on Chronic? @ -acute Uncomplicated (without systemic symptoms) or Complicated (systemic symptoms)? @ -uncomplicated Side effects of treatment? @ -No Exacerbation, Progression, or Severe Exacerbation? @ -No Poses a threat to life or bodily function? How? (Chest pain, [place], [place], pneumonia, PE, COPD, DKA, ARF, appy, cholecystitis, CVA, Diverticulitis, Homicidal, Suicidal, threat to staff... and all critical care pts) @ -No - Lab Data Result diagrams: 03/14/24 23:02 03/14/24 23:02 Lab Results 03/14/24 03/14/24 03/14/24 Range/Units 23:02 23:02 23:02 WBC 8.6 (3.8-10.6) k/uL RBC 4.01 L (4.30-5.90) m/uL Hgb 11.0 L (13.0-17.5) gm/dL Hct 34.1 L (39.0-53.0) % MCV 85.1 (80.0-100.0) fL MCH 27.4 (25.0-35.0) pg MCHC 32.2 (31.0-37.0) g/dL RDW 14.4 (11.5-15.5) % Plt Count 336 (150-450) k/uL MPV 9.6 Neutrophils % 75 % Lymphocytes % 17 % Monocytes % 5 % Eosinophils % 1 % Basophils % 0 % Neutrophils # 6.4 (1.3-7.7) k/uL Lymphocytes # 1.5 (1.0-4.8) k/uL Monocytes # 0.4 (0-1.0) k/uL Eosinophils # 0.1 (0-0.7) k/uL Basophils # 0.0 (0-0.2) k/uL Hypochromasia Slight Poikilocytosis Slight Sodium 135 L (137-145) mmol/L Potassium 3.9 (3.5-5.1) mmol/L Chloride 107 (98-107) mmol/L Carbon Dioxide 20 L (22-30) mmol/L Anion Gap 8 mmol/L BUN 29 H (9-20) mg/dL Creatinine 0.96 (0.66-1.25) mg/dL Est GFR (CKD-EPI)AfAm 86 (>60 ml/min/1.73 sqM) Est GFR (CKD-EPI)NonAf 74 (>60 ml/min/1.73 sqM) Glucose 176 H (74-99) mg/dL Plasma Lactic Acid Fritz (0.7-2.0) mmol/L Calcium 9.7 (8.4-10.2) mg/dL Total Bilirubin 0.6 (0.2-1.3) mg/dL AST 20 (17-59) U/L ALT 16 (4-49) U/L Alkaline Phosphatase 90 (38-126) U/L Total Protein 6.4 (6.3-8.2) g/dL Albumin 3.9 (3.5-5.0) g/dL Urine Color Colorless Urine Appearance Cloudy (Clear) Urine pH 5.5 (5.0-8.0) Ur Specific [place] 1.010 (1.001-1.035) Urine Protein Negative (Negative) Urine Glucose (UA) Negative (Negative) Urine Ketones Negative (Negative) Urine Blood Negative (Negative) Urine Nitrite Positive (Negative) Urine Bilirubin Negative (Negative) Urine Urobilinogen <2.0 (<2.0) mg/dL Ur Leukocyte Esterase Large H (Negative) Urine RBC 1 (0-5) /hpf Urine WBC 104 H (0-5) /hpf Urine WBC Clumps Few H (None) /hpf Urine Bacteria Many H (None) /hpf 03/14/24 Range/Units 23:02 WBC (3.8-10.6) k/uL RBC (4.30-5.90) m/uL Hgb (13.0-17.5) gm/dL Hct (39.0-53.0) % MCV (80.0-100.0) fL MCH (25.0-35.0) pg MCHC (31.0-37.0) g/dL RDW (11.5-15.5) % Plt Count (150-450) k/uL MPV Neutrophils % % Lymphocytes % % Monocytes % % Eosinophils % % Basophils % % Neutrophils # (1.3-7.7) k/uL Lymphocytes # (1.0-4.8) k/uL Monocytes # (0-1.0) k/uL Eosinophils # (0-0.7) k/uL Basophils # (0-0.2) k/uL Hypochromasia Poikilocytosis Sodium (137-145) mmol/L Potassium (3.5-5.1) mmol/L Chloride (98-107) mmol/L Carbon Dioxide (22-30) mmol/L Anion Gap mmol/L BUN (9-20) mg/dL Creatinine (0.66-1.25) mg/dL Est GFR (CKD-EPI)AfAm (>60 ml/min/1.73 sqM) Est GFR (CKD-EPI)NonAf (>60 ml/min/1.73 sqM) Glucose (74-99) mg/dL Plasma Lactic Acid Fritz 2.8 H* (0.7-2.0) mmol/L Calcium (8.4-10.2) mg/dL Total Bilirubin (0.2-1.3) mg/dL AST (17-59) U/L ALT (4-49) U/L Alkaline Phosphatase (38-126) U/L Total Protein (6.3-8.2) g/dL Albumin (3.5-5.0) g/dL Urine Color Urine Appearance (Clear) Urine pH (5.0-8.0) Ur Specific [place] (1.001-1.035) Urine Protein (Negative) Urine Glucose (UA) (Negative) Urine Ketones (Negative) Urine Blood (Negative) Urine Nitrite (Negative) Urine Bilirubin (Negative) Urine Urobilinogen (<2.0) mg/dL Ur Leukocyte Esterase (Negative) Urine RBC (0-5) /hpf Urine WBC (0-5) /hpf Urine WBC Clumps (None) /hpf Urine Bacteria (None) /hpf Disposition Clinical Impression: Urinary tract infection Disposition: HOME SELF-CARE Condition: Good Instructions (If sedation given, give patient instructions): Urinary Tract Infection in Men (ED) Additional Instructions: Please return to the Emergency Department if symptoms worsen or any other concerns. Prescriptions: Ciprofloxacin HCl [Cipro] 500 mg PO Q12HR #20 tablet Is patient prescribed a controlled substance at d/c from ED?: No Referrals: Brando Miller MD [Primary Care Provider] - 1-2 days Time of Disposition: 00:28
[2024-03-14 23:10] LABS: Basophils % (A) 0 %; Eosinophils # (A) 0.1 k/uL (0-0.7); Eosinophils % (A) 1 %; HCT 34.1 % (39.0-53.0); Hypochromasia Slight; Lymphocytes # (A) 1.5 k/uL (1.0-4.8); Lymphocytes % (A) 17 %; MCH 27.4 pg (25.0-35.0); MCHC 32.2 g/dL (31.0-37.0); MCV 85.1 fL (80.0-100.0); Mean Platelet Volume 9.6; Monocytes # (A) 0.4 k/uL (0-1.0); Monocytes % (A) 5 %; Neutrophils # (A) 6.4 k/uL (1.3-7.7); Neutrophils % (A) 75 %; Platelet Count 336 k/uL (150-450); Poikilocytosis Slight; RBC 4.01 m/uL (4.30-5.90); RDW 14.4 % (11.5-15.5); WBC 8.6 k/uL (3.8-10.6)
[2024-03-14 23:31] LABS: ALT 16 U/L (4-49); AST 20 U/L (17-59); African American GFR (CKD) 86 (>60 ml/min/1.73 sqM); Albumin 3.9 g/dL (3.5-5.0); Alkaline Phosphatase 90 U/L (38-126); Anion Gap 8 mmol/L; Blood Urea Nitrogen 29 mg/dL (9-20); Calcium 9.7 mg/dL (8.4-10.2); Carbon Dioxide 20 mmol/L (22-30); Chloride 107 mmol/L (98-107); Glucose 176 mg/dL (74-99); Non-African American GFR(CKD) 74 (>60 ml/min/1.73 sqM); Potassium 3.9 mmol/L (3.5-5.1); Sodium 135 mmol/L (137-145); Total Bilirubin 0.6 mg/dL (0.2-1.3); Total Protein 6.4 g/dL (6.3-8.2)
[2024-03-14 23:46] LABS: Appearance,Urine Cloudy (Clear); Bacteria,Urine Many /hpf; Bilirubin,Urine Negative (Negative); Blood,Urine Negative (Negative); Color,Urine Colorless; Glucose,Urine (UA) Negative (Negative); Ketones,Urine Negative (Negative); Leukocyte Esterase,Urine Large (Negative); Nitrite,Urine Positive (Negative); PH, Urine 5.5 (5.0-8.0); Protein,Urine Negative (Negative); RBC,Urine 1 /hpf (0-5); Urobilinogen,Urine <2.0 mg/dL (<2.0); WBC,Urine 104 /hpf (0-5)
[2024-03-15] MEDS: CIPROFLOXACIN HCL 250 MG TAB PO STA (00:37)
[2024-03-15 00:42] VITALS: BP 124/71; PULSE 68; RESP 16
== END 2024-03-15 00:42 | disposition home or self-care (01) ==
LOC: EC 21:55
DX: N39.0 Urinary tract infection, site not specified (principal); Z87.891 Personal history of nicotine dependence; Z95.1 Presence of aortocoronary bypass graft
CPT/HCPCS: 36415; 51798; 80053; 81001; 83605; 85025; 87086; 99284

== ENCOUNTER 2024-03-23 00:11 | Emergency (ER) | payer MEDICARE ==
[2024-03-23 00:17] VITALS: BP 111/66; PULSE 79; RESP 18; TEMP 97.3
[2024-03-23 00:43] LABS: Appearance,Urine Clear (Clear); Bilirubin,Urine Negative (Negative); Blood,Urine Negative (Negative); Color,Urine Yellow; Glucose,Urine (UA) Negative (Negative); Ketones,Urine Negative (Negative); Leukocyte Esterase,Urine Negative (Negative); Nitrite,Urine Negative (Negative); Protein,Urine Trace (Negative); Specific Gravity,Urine 1.029 (1.001-1.035); Urobilinogen,Urine <2.0 mg/dL (<2.0)
[2024-03-23 02:19] LABS: Basophils % (A) 0 %; Eosinophils # (A) 0.3 k/uL (0-0.7); Eosinophils % (A) 4 %; HGB 10.3 gm/dL (13.0-17.5); Hypochromasia Slight; Lymphocytes # (A) 1.4 k/uL (1.0-4.8); Lymphocytes % (A) 18 %; MCH 27.3 pg (25.0-35.0); MCHC 32.3 g/dL (31.0-37.0); MCV 84.5 fL (80.0-100.0); Mean Platelet Volume 9.9; Monocytes # (A) 0.4 k/uL (0-1.0); Monocytes % (A) 5 %; Neutrophils # (A) 5.6 k/uL (1.3-7.7); Neutrophils % (A) 71 %; Platelet Count 243 k/uL (150-450); RBC 3.79 m/uL (4.30-5.90); RDW 14.8 % (11.5-15.5); WBC 7.8 k/uL (3.8-10.6)
[2024-03-23 02:47] LABS: ALT 21 U/L (4-49); AST 24 U/L (17-59); African American GFR (CKD) 66 (>60 ml/min/1.73 sqM); Albumin 3.3 g/dL (3.5-5.0); Alkaline Phosphatase 71 U/L (38-126); Anion Gap 8 mmol/L; Blood Urea Nitrogen 27 mg/dL (9-20); Calcium 9.2 mg/dL (8.4-10.2); Carbon Dioxide 23 mmol/L (22-30); Chloride 104 mmol/L (98-107); Glucose 126 mg/dL (74-99); Non-African American GFR(CKD) 57 (>60 ml/min/1.73 sqM); Potassium 4.4 mmol/L (3.5-5.1); Sodium 135 mmol/L (137-145); Total Bilirubin 0.3 mg/dL (0.2-1.3); Total Protein 5.6 g/dL (6.3-8.2)
--- NOTE | 2024-03-23 03:37 | ED ---
Male Urogenital HPI - General Chief complaint: Urogenital Stated complaint: abd pain Time Seen by Provider: 03/23/24 01:07 Source: patient Mode of arrival: wheelchair - History of Present Illness Initial comments: 83-year-old male presenting with concerns for bladder infection. Patient is having lower abdominal pain and pressure. He is also having a small amount of burning with urination. He reports that he was recently treated for a bladder infection. Extensive surgical history including partial colectomy and colostomy placement. He states that he is drinking a lot of water and he is on Lasix 40 mg daily but he does not feel like he is urinating much and he is worried that he is retaining no fever. No nausea or vomiting. No flank pain. No chest pain or difficulty breathing. - Related Data Home Medications Medication Instructions Recorded Confirmed Calcium/Magnesium/Zinc 1 tab PO TID 07/15/19 12/15/23 [Andsxru-Fdlvtkeel-Kmfz Tablet] glipiZIDE [Glucotrol] 5 mg PO TID 07/15/19 12/15/23 metFORMIN HCL [Glucophage] 500 mg PO TID 07/15/19 12/15/23 Biotin 5 mg PO DAILY 09/21/23 12/15/23 Cholecalciferol [Vitamin D3 (25 50 mcg PO DAILY 09/21/23 12/15/23 Mcg = 1000 Iu)] Fexofenadine HCl [Shanika Allergy] 180 mg PO DAILY PRN 09/21/23 12/15/23 Levothyroxine Sodium [Synthroid] 25 mcg PO DAILY 09/21/23 12/15/23 Brunson-3/Dha/Epa/Fish Oil [Fish Oil 1 cap PO BID 09/21/23 12/15/23 1,000 mg Softgel] Pioglitazone [Actos] 45 mg PO DAILY 09/21/23 12/15/23 Zolpidem [Ambien] 10 mg PO HS PRN 09/21/23 12/15/23 hydroCHLOROthiazide [Hydrodiuril] 25 mg PO DAILY 09/21/23 12/15/23 lisinopriL [Zestril] 20 mg PO BID 09/21/23 12/15/23 Lactulose 10 gm PO TID PRN 10/18/23 12/15/23 Herbal Lax Colon [employer] Tech 2000mg 1 dose PO DAILY PRN 12/15/23 12/15/23 Linaclotide [Linzess] 290 mcg PO DAILY 12/15/23 12/15/23 Previous Rx's Medication Instructions Recorded Atorvastatin [Lipitor] 40 mg PO DAILY #30 tab 08/20/16 Metoprolol Tartrate [Lopressor] 50 mg PO BID #60 tab 08/20/16 Ciprofloxacin HCl [Cipro] 500 mg PO Q12HR #20 tablet 03/15/24 Allergies Allergy/AdvReac Type Severity Reaction Status Date / Time No Known Allergies Allergy Verified 03/23/24 00:16 Review of Systems ROS Statement: Those systems with pertinent positive or pertinent negative responses have been documented in the HPI. ROS Other: All systems not noted in ROS Statement are negative. Past Medical History Past Medical History: Atrial Fibrillation, Cancer, Diabetes Mellitus, Hearing Disorder / Deafness, Hypertension, Prostate Disorder Additional Past Medical History / Comment(s): severe constipation with bright and dark bloody stool on 09-20-23, PROSTATE CA 2006., INFECTION OF RIGHT GREAT TOENAIL REMOVED IN MARCH 2019. 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 History of Any Multi-Drug Resistant Organisms: None Reported Past Surgical History: Appendectomy, Coronary Bypass/CABG, Orthopedic Surgery, Prostate Surgery Additional Past Surgical History / Comment(s): Left upper extremity tendon repair.,HEART TRIPLE BYPASS (JIMI 2016)., RIGHT GREAT TOENAIL REMOVED MAR 2019,radiation implants prostate 2006 Past Anesthesia/Blood Transfusion Reactions: No Reported Reaction Past Psychological History: No Psychological Hx Reported Smoking Status: Former smoker Past Alcohol Use History: None Reported Past Drug Use History: None Reported - Past Family History Father Family Medical History: Cancer, Congestive Heart Failure (CHF) Additional Family Medical History / Comment(s): prostate Mother Family Medical History: Cancer Additional Family Medical History / Comment(s): breast General Exam General appearance: alert, in no apparent distress Head exam: Present: atraumatic, normocephalic, normal inspection Eye exam: Present: normal appearance, EOMI Neck exam: Present: normal inspection. Absent: meningismus Respiratory exam: Present: normal lung sounds bilaterally. Absent: respiratory distress, wheezes, rales, rhonchi, stridor Cardiovascular Exam: Present: regular rate, normal rhythm, normal heart sounds. Absent: systolic murmur, diastolic murmur, rubs, gallop, clicks GI/Abdominal exam: Present: soft, tenderness. Absent: distended, guarding, rebound, rigid Neurological exam: Present: alert, oriented X3 Psychiatric exam: Present: normal affect, normal mood Skin exam: Present: warm, dry Course Vital Signs 03/23/24 00:13 Temperature 97.3 F L Pulse Rate 79 Respiratory 18 Rate Blood Pressure 111/66 O2 Sat by Pulse 98 Oximetry Medical Decision Making - Medical Decision Making Was pt. sent in by a medical professional or institution (, PA, ATTORNEY RECRUITER, urgent care, hospital, or [facility]...) When possible be specific @ -No Did you speak to anyone other than the patient for history (EMS, parent, family, police, friend...)? What history was obtained from this source @ -No Did you review nursing and triage notes (agree or disagree)? Why? @ -I reviewed and agree with nursing and triage notes Were old charts reviewed (outside hosp., previous admission, EMS record, old EKG, old radiological studies, urgent care reports/EKG's, [facility] records)? Report findings @ -No old charts were reviewed Differential Diagnosis (chest pain, altered mental status, abdominal pain women, abdominal pain men, vaginal bleeding, weakness, fever, dyspnea, syncope, head ache, dizziness, GI bleed, back pain, seizure, CVA, palpatations, mental health, musculoskeletal)? @ -MDM Differential Abdominal Pain Men: Appendicitis, cholecystitis, diverticulosis, ischemic bowel, pancreatitis, hepatitis, UTI, gastroenteritis, AAA, incarcerated hernia, bowel obstruction, constipation, inflammatory bowel, hepatitis, peptic ulcer disease, splenic infarction, perforated viscus, testicular torsion... This is not meant to be an all-inclusive list EKG interpreted by me (3pts min.). @ -As above X-rays interpreted by me (1pt min.). @ -None done CT interpreted by me (1pt min.). @ -CT shows postsurgical changes are seen to the colon without evidence of obstruction. Nonspecific mid rectal wall thickening with soft tissue thickening and stranding seen within the perirectal fat and presacral space. Otherwise no acute intra-abdominal or pelvic findings U/S interpreted by me (1pt. min.). @ -None done What testing was considered but not performed or refused? (CT, X-rays, U/S, labs)? Why? @ -None What meds were considered but not given or refused? Why? @ -None Did you discuss the management of the patient with other professionals (professionals i.e. , PA, ATTORNEY RECRUITER, lab, RT, psych nurse, geriatric social work professor, lehr operator, teacher, hydrological technical officer, case management associate)? Give summary @ -No Was smoking cessation discussed for >3mins.? @ -No Was critical care preformed (if so, how long)? @ -No Were there social determinants of health that impacted care today? How? (Homelessness, low income, unemployed, alcoholism, drug addiction, transportation, low edu. Level, literacy, decrease access to med. care, care home, rehab)? @ -No Was there de-escalation of care discussed even if they declined (Discuss DNR or withdrawal of care, Hospice)? DNR status @ -No What co-morbidities impacted this encounter? (DM, HTN, Smoking, COPD, CAD, Cancer, CVA, ARF, Chemo, Hep., AIDS, mental health diagnosis, sleep apnea, morbid obesity)? @ -None Was patient admitted / discharged? Hospital course, mention meds given and route, prescriptions, significant lab abnormalities, going to OR and other pertinent info. @ -83-year-old male presenting with chief complaint of lower abdominal fullness. States that he feels like he is not urinating as much as he should be. Bladder scan shows less than 70 mL in the bladder. Lab work requires no further action. Urine shows no infection. CT shows no evidence of acute process. There are postsurgical changes noted. On reassessment the patient is in no acute distress. Reports that he has urinated since being here and is feeling better. Provided with urinal for home to monitor his output. Follow-up with PCP. Report back to ER with any new or worsening symptoms. Discussed return parameters and answered all questions. Patient conveyed verbal unders tanding and agreed to the plan. I discussed this case in detail with my attending Dr. Gil Undiagnosed new problem with uncertain prognosis? @ -No Drug Therapy requiring intensive monitoring for toxicity (Heparin, Nitro, Insulin, Cardizem)? @ -No Were any procedures done? @ -No Diagnosis/symptom? @ -Abdominal pain Acute, or Chronic, or Acute on Chronic? @ -Acute Uncomplicated (without systemic symptoms) or Complicated (systemic symptoms)? @ -Uncomplicated Side effects of treatment? @ -No Exacerbation, Progression, or Severe Exacerbation? @ -No Poses a threat to life or bodily function? How? (Chest pain, USA, MD, pneumonia, PE, COPD, DKA, ARF, appy, cholecystitis, CVA, Diverticulitis, Homicidal, Suicidal, threat to staff... and all critical care pts) @ -Low likelihood - Lab Data Result diagrams: 03/23/24 02:02 03/23/24 02:02 Lab Results 03/23/24 03/23/24 03/23/24 Range/Units 00:28 02:02 02:02 WBC 7.8 (3.8-10.6) k/uL RBC 3.79 L (4.30-5.90) m/uL Hgb 10.3 L (13.0-17.5) gm/dL Hct 32.0 L (39.0-53.0) % MCV 84.5 (80.0-100.0) fL MCH 27.3 (25.0-35.0) pg MCHC 32.3 (31.0-37.0) g/dL RDW 14.8 (11.5-15.5) % Plt Count 243 (150-450) k/uL MPV 9.9 Neutrophils % 71 % Lymphocytes % 18 % Monocytes % 5 % Eosinophils % 4 % Basophils % 0 % Neutrophils # 5.6 (1.3-7.7) k/uL Lymphocytes # 1.4 (1.0-4.8) k/uL Monocytes # 0.4 (0-1.0) k/uL Eosinophils # 0.3 (0-0.7) k/uL Basophils # 0.0 (0-0.2) k/uL Hypochromasia Slight Sodium 135 L (137-145) mmol/L Potassium 4.4 (3.5-5.1) mmol/L Chloride 104 (98-107) mmol/L Carbon Dioxide 23 (22-30) mmol/L Anion Gap 8 mmol/L BUN 27 H (9-20) mg/dL Creatinine 1.19 (0.66-1.25) mg/dL Est GFR (CKD-EPI)AfAm 66 (>60 ml/min/1.73 sqM) Est GFR (CKD-EPI)NonAf 57 (>60 ml/min/1.73 sqM) Glucose 126 H (74-99) mg/dL Calcium 9.2 (8.4-10.2) mg/dL Total Bilirubin 0.3 (0.2-1.3) mg/dL AST 24 (17-59) U/L ALT 21 (4-49) U/L Alkaline Phosphatase 71 (38-126) U/L Total Protein 5.6 L (6.3-8.2) g/dL Albumin 3.3 L (3.5-5.0) g/dL Urine Color Yellow Urine Appearance Clear (Clear) Urine pH 6.0 (5.0-8.0) Ur Specific [place] 1.029 (1.001-1.035) Urine Protein Trace H (Negative) Urine Glucose (UA) Negative (Negative) Urine Ketones Negative (Negative) Urine Blood Negative (Negative) Urine Nitrite Negative (Negative) Urine Bilirubin Negative (Negative) Urine Urobilinogen <2.0 (<2.0) mg/dL Ur Leukocyte Esterase Negative (Negative) Disposition Clinical Impression: Abdominal pain Disposition: HOME SELF-CARE Condition: Good Instructions (If sedation given, give patient instructions): Abdominal Pain (ED) Additional Instructions: Follow-up with PCP and surgeon. Report back to ER with any new or worsening symptoms. Is patient prescribed a controlled substance at d/c from ED?: No Referrals: Brando Miller MD [Primary Care Provider] - 1-2 days Time of Disposition: 04:36
--- NOTE | 2024-03-23 04:26 | CT ---
EXAM: CT Abdomen and Pelvis With Intravenous Contrast CLINICAL HISTORY: ITS.REASON CT Reason: lower abdominal pain TECHNIQUE: Axial computed tomography images of the abdomen and pelvis with intravenous contrast. CTDI is 20 mGy and DLP is 1090.7 mGy-cm. This CT exam was performed using one or more of the following dose reduction techniques: automated exposure control, adjustment of the mA and/or kV according to patient size, and/or use of iterative reconstruction technique. COMPARISON: CT dated 09/21/2023 FINDINGS: Lung bases: Unremarkable. No mass. No consolidation. ABDOMEN: Liver: The liver is enlarged with uniform decreased density consistent with hepatic steatosis. No evidence of hepatic mass. Gallbladder and bile ducts: Unremarkable. No calcified stones. No ductal dilation. Pancreas: Unremarkable. No mass. No ductal dilation. Spleen: Unremarkable. No splenomegaly. Adrenals: Unremarkable. No mass. Kidneys and ureters: Bosniak type I simple cyst seen within the left kidney which does not require follow-up. Stomach and bowel: Postsurgical changes are seen to the colon. Moderate colonic stool burden. The left anterior colostomy is in place. No obstruction. No mucosal thickening. PELVIS: Appendix: No findings to suggest acute appendicitis. Bladder: Unremarkable. No mass. Reproductive: Unremarkable as visualized. ABDOMEN and PELVIS: Intraperitoneal space: Unremarkable. No free air. No significant fluid collection. Bones/joints: Degenerative changes are seen within the spine and hips. No acute fracture. No dislocation. Soft tissues: Wall thickening of the mid rectum. Soft tissue thickening is seen within the presacral space and perirectal fat. Vasculature: Calcifications are seen within a nondilated aorta. Lymph nodes: Unremarkable. No enlarged lymph nodes. IMPRESSION: 1. Postsurgical changes are seen to the colon without evidence of obstruction. 2. Nonspecific mid rectal wall thickening with soft tissue thickening and stranding seen within the perirectal fat and presacral space. 3. Otherwise no acute intra-abdominal or pelvic findings.
== END 2024-03-23 04:43 | disposition home or self-care (01) ==
LOC: EC 00:11
DX: R10.30 Lower abdominal pain, unspecified (principal); Z93.3 Colostomy status; Z87.891 Personal history of nicotine dependence
CPT/HCPCS: 36415; 80053; 85025; 81003; 74177; 99284; Q9967

== ENCOUNTER → 2024-04-14 | Outpatient (CLI) | payer MEDICARE ==
--- NOTE | 2024-04-14 16:10 | US ---
EXAMINATION TYPE: US venous doppler duplex LE RT DATE OF EXAM: 04/14/2024 3:43 PM COMPARISON: Prior ultrasound 2017 CLINICAL INDICATION: Male, 83 years old with history of R22.41 LOCALIZED SWELLING, MASS AND LUMP, RIG HT LO; swelling in legs after recent hospital stay, on thinners for a-fib TECHNIQUE: The lower extremity deep venous system is examined utilizing real time linear array sonog jose with graded compression, color doppler sonography, and spectral doppler. SIDE PERFORMED: Right FINDINGS: VESSELS IMAGED: Common Femoral Vein Deep Femoral Vein Greater Saphenous Vein * Femoral Vein Popliteal Vein Small Saphenous Vein * Proximal Calf Veins (* superficial vessels) Right Leg: Negative for DVT, Color Doppler imaging shows patency of the vessels. Spectral waveforms are within normal limits. . IMPRESSION: 1. No evidence of deep vein thrombosis of the right lower extremity. [facility], , 04/14/2024 4:08 PM
== END | disposition home or self-care (01) ==
LOC: RADUSWWP 15:24
PROVIDERS: ATTEND Internal Medicine
DX: R22.41 Localized swelling, mass and lump, right lower limb (principal); I48.91 Unspecified atrial fibrillation

== ENCOUNTER → 2024-09-08 | Outpatient (CLI) | payer MEDICARE ==
[2024-09-08 11:49] LABS: African American GFR (CKD) 88 (>60 ml/min/1.73 sqM); Blood Urea Nitrogen 22 mg/dL (9-20); Non-African American GFR(CKD) 76 (>60 ml/min/1.73 sqM)
--- NOTE | 2024-09-08 14:05 | CT ---
EXAMINATION TYPE: CT ChestAbdPelvis w con DATE OF EXAM: 09/08/2024 COMPARISON: CT abdomen dated 03/23/2024 CLINICAL INDICATION: Male, 84 years old with history of C20 MALIGNANT NEOPLASM OF RECTUM CT DLP: 1279.6 mGycm Automated exposure control for dose reduction was used. CONTRAST: CT scan of the chest, abdomen and pelvis is performed with Oral Contrast and with IV Contrast, patien t injected with 100 mL of Isovue 300. FINDINGS: CT chest: There are single bilateral 5 mm pulmonary nodules and a 3 - 4 mm juxtapleural fissural nodule on the left. There is no abnormal airspace/consolidative density or abnormal interstitial density. There is no pleural effusion, pleural thickening or pneumothorax. The great vessels and chest are normal there is no mediastinal, hilar or axillary adenopathy. No focal osseous lesions are seen. CT abdomen and pelvis: Gallbladder is normal without distention, pericholecystic fluid, wall thickening or gallstone. There is no biliary ductal dilatation. There is no focal mass or organomegaly involving the liver, pancreas, spleen or adrenal glands.. There is no solid renal mass or hydronephrosis. There is a 4.9 cm simple cortical cyst in lower pole left kidney. There is no retroperitoneal adenopathy or hemorrhage in the caliber of the abdominal aorta is normal. The bowel loops are normal in caliber and there is no dilatation or obstruction. No inflammatory garcia ges identified in the bowel wall and mesentery. There is a colostomy in the upper abdomen to the left of midline There is no free intracranial air or fluid. There is no pelvic mass or adenopathy. There is no free fluid within the pelvis. 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 No focal osseous lesions are seen. IMPRESSION: 1. 3 sub-6 mm nodules, one in the right lung and 2 in the left lung as described above. 2. No acute cardiac pulmonary disease. 3. No evidence of recurrent or metastatic disease within the chest, abdomen or pelvis. 4 radiation se eds within the prostate gland. [facility], , 09/08/2024 2:03 PM
== END | disposition home or self-care (01) ==
LOC: RADCTMAIN 11:06
PROVIDERS: ATTEND Internal Medicine Hematology & Oncology
DX: C20 Malignant neoplasm of rectum (principal); E11.9 Type 2 diabetes mellitus without complications; I10 Essential (primary) hypertension; R91.8 Other nonspecific abnormal finding of lung field
CPT/HCPCS: 82565; 84520; 71260; 74177; 36415; Q9967